=== PATIENT | male | born 1960 | race Caucasian/White ===

== ENCOUNTER 2022-06-17 09:16 | Inpatient (IN) | payer MEDICAID ==
[~2022-06-17] VITALS: Ht 177.8 cm; Wt 79.8 kg
[2022-06-17] MEDS ORDERED: INSULIN LANTUS (GLARGINE) 1 /0.01ml (100units/ml) SC ONE (09:45)
[2022-06-17] MEDS ORDERED: SODIUM CHLORIDE 0.9% 1,000 ML IV SCH ×3 (09:45→15:45)
[2022-06-17] MEDS ORDERED: PIPERACILLIN-TAZOB 3.375GM 100 ML IV ONE (09:45)
[2022-06-17] MEDS ORDERED: CLINDAMYCIN 600MG IV 50 ML IV ONE (09:45)
[2022-06-17] MEDS ORDERED: InsuLIN R (HUMAN) 100 UNITS in SODIUM CHL 0.9% 99 ML IV SCH (09:45)
[2022-06-17] MEDS ORDERED: DEXTROSE (50%) 50ML SYRG IV PRN ×2 (09:45→11:30)
[2022-06-17 10:05] LABS: Eosinophils # (auto) 0 10 ^3/uL (0-0.8); Hemoglobin 12.7 g/dL (13.5-17.5); Lymphocytes % (auto) 6.4 % (10.0-50.0); Red Cell Distribution Width 14.3 % (11.8-14.3)
[2022-06-17 10:07] LABS: Basophils # (auto) 0 10 ^3/uL (0-0.2); Basophils % (auto) 0.2 % (0.0-2.0); Eosinophils % (auto) 0.1 % (0.0-7.0); Hematocrit 39.7 % (41.0-53.0); Lymphocytes # (auto) 1.4 10 ^3/uL (0.4-5.4); Mean Corpuscular Hemoglobin 26.8 pg (28.0-32.0); Mean Corpuscular Volume 83.8 fL (80.0-100.0); Monocytes # (auto) 1.2 10 ^3/uL (0-1.3); Monocytes % (auto) 5.4 % (0.0-12.0); Neutrophils # (auto) 19.7 10 ^3/uL (1.6-8.6); Neutrophils % (auto) 87.9 % (37.0-80.0); Nucleated Red Blood Cells % 0.1 %; Red Blood Cells 4.74 10^6/uL (4.5-5.90); White Blood Cell 22.4 10^3/uL (4.4-10.8)
[2022-06-17] MEDS ORDERED: ACCU-CHEK COMFORT CURVE STRIP VI SCH (10:30)
[2022-06-17] MEDS ORDERED: PANTOPRAZOLE 40 MG/10 ML VIAL INJ IV ONE (10:30)
[2022-06-17] MEDS ORDERED: SODIUM CHLORIDE 0.9% 2,000 ML IV ONE (10:30)
[2022-06-17 10:34] LABS: BUN/Creatinine Ratio 35.6; Calcium 9.8 mg/dL (8.5-10.1); Magnesium 2.6 mg/dL (1.6-2.6); Phosphorus 3.3 mg/dL (2.5-4.90); Potassium 3.8 mmol/L (3.5-5.1)
[2022-06-17 10:43] LABS: Lactic Acid w/Reflex 3.2 mmol/L (0.4-2.0)
[2022-06-17 10:56] LABS: Cholesterol 86 mg/dL (< 200); Triglycerides 151 mg/dL (< 150)
[2022-06-17 10:58] LABS: HDL Cholesterol 12 mg/dL (40-59); LDL Cholesterol 56 mg/dL (< 100)
[2022-06-17] MEDS ORDERED: NITROGLYCERIN 0.4 MG SL TAB SL PRN (11:15)
[2022-06-17] MEDS ORDERED: MORPHINE SULFATE INJ 2 MG/ml SYRG IV PRN (11:15)
[2022-06-17] MEDS ORDERED: ACETAMINOPHEN 325 MG TAB PO PRN (11:15)
[2022-06-17] MEDS: ASCORBIC ACID 500 MG TAB PO SCH ×2 (11:25→22:22)
[2022-06-17] MEDS: ZINC SULFATE 220mg CAP or TAB PO SCH (11:53)
[2022-06-17] MEDS: MULTIPLE VITAMIN TAB PO SCH (11:53)
[2022-06-17] MEDS: ACCU-CHEK COMFORT CURVE STRIP VI SCH ×3 (12:10→22:23)
[2022-06-17] MEDS: InsuLIN REG 1unit/0.01ml Soln (100units/ml) SC SCH ×3 (12:14→22:25)
[2022-06-17] MEDS: SODIUM CHLORIDE 0.9% 1,000 ML IV SCH ×2 (13:24→18:30)
[2022-06-17 16:53] LABS: Lactic Acid w/Reflex 2.5 mmol/L (0.4-2.0)
[2022-06-17 18:32] LABS: Urine Amorphous Crystal FEW /hpf (None Seen); Urine Bacteria NONE SEEN /hpf (None Seen); Urine Blood TRACE /uL (Negative); Urine Mucus FEW (None Seen); Urine Specific Gravity 1.029 (1.001-1.035); Urine WBC 2 /hpf (0 - 3)
[2022-06-17] MEDS: CLINDAMYCIN 600MG IV 50 ML IV SCH (18:34)
[2022-06-17 18:44] LABS: Alcohol, Urine < 3.0 mg/dL (0-10); Amphetamine Screen, Urine NEGATIVE (NEGATIVE); Barbiturate Scree,Urine NEGATIVE (NEGATIVE); Benzodiazephine Screen, Urine NEGATIVE (NEGATIVE); Cannabinoid Screen, Urine NEGATIVE (NEGATIVE); Cocaine Screen, Urine NEGATIVE (NEGATIVE); Opiate Scree,Urine NEGATIVE (NEGATIVE); Phencyclidine Screen, Urine NEGATIVE (NEGATIVE)
[2022-06-18] MEDS: CLINDAMYCIN 600MG IV 50 ML IV SCH ×3 (02:02→19:02)
[2022-06-18] MEDS: SODIUM CHLORIDE 0.9% 1,000 ML IV SCH ×2 (02:03→10:30)
[2022-06-18 06:32] LABS: Basophils # (auto) 0 10 ^3/uL (0-0.2); Basophils % (auto) 0.1 % (0.0-2.0); Eosinophils # (auto) 0.1 10 ^3/uL (0-0.8); Eosinophils % (auto) 0.2 % (0.0-7.0); Hematocrit 34.3 % (41.0-53.0); Hemoglobin 11.2 g/dL (13.5-17.5); Lymphocytes # (auto) 2.1 10 ^3/uL (0.4-5.4); Mean Corpuscular Hgb Conc. 32.7 g/dL (32.0-36.0); Mean Corpuscular Volume 82.7 fL (80.0-100.0); Monocytes # (auto) 1.9 10 ^3/uL (0-1.3); Monocytes % (auto) 7.6 % (0.0-12.0); Neutrophils # (auto) 21.6 10 ^3/uL (1.6-8.6); Neutrophils % (auto) 84.1 % (37.0-80.0); Red Blood Cells 4.15 10^6/uL (4.5-5.90); Red Cell Distribution Width 14.3 % (11.8-14.3); White Blood Cell 25.6 10^3/uL (4.4-10.8)
[2022-06-18] MEDS: ACCU-CHEK COMFORT CURVE STRIP VI SCH ×4 (06:49→22:00)
[2022-06-18] MEDS: InsuLIN REG 1unit/0.01ml Soln (100units/ml) SC SCH ×4 (06:49→22:35)
[2022-06-18 07:14] LABS: Potassium 3.4 mmol/L (3.5-5.1)
[2022-06-18 07:29] LABS: Albumin 1.7 g/dL (3.4-5.0); BUN/Creatinine Ratio 35.2; Bilirubin, Total 0.5 mg/dL (0.2-1.0); Total Protein 6.8 g/dL (6.4-8.2)
[2022-06-18] MEDS ORDERED: ENOXAPARIN SOD 40 MG/0.4 ML SYRINGE SC SCH (10:00)
[2022-06-18] MEDS: MULTIPLE VITAMIN TAB PO SCH (10:54)
[2022-06-18] MEDS: PANTOPRAZOLE 40 MG/10 ML VIAL INJ IV SCH (10:54)
[2022-06-18] MEDS: ASCORBIC ACID 500 MG TAB PO SCH ×2 (10:54→22:00)
[2022-06-18] MEDS: ENOXAPARIN SOD 40 MG/0.4 ML SYRINGE SC SCH (10:54)
[2022-06-18] MEDS: ZINC SULFATE 220mg CAP or TAB PO SCH (10:54)
[2022-06-18] MEDS ORDERED: POTASSIUM EFFERVESENT TAB 25 MEQ PO ONE (11:00)
[2022-06-18] MEDS: INSULIN LANTUS (GLARGINE) 1 /0.01ml (100units/ml) SC SCH (11:34)
[2022-06-18] MEDS: PIPERACILLIN-TAZOB 3.375GM 100 ML IV SCH ×2 (12:50→23:18)
[2022-06-18] MEDS: SOD CHL 0.9%/ KCL 40MEQ 1,000 ML IV SCH (15:01)
[2022-06-19] MEDS: CLINDAMYCIN 600MG IV 50 ML IV SCH ×2 (02:52→10:00)
[2022-06-19] MEDS: SOD CHL 0.9%/ KCL 40MEQ 1,000 ML IV SCH ×3 (04:19→12:35)
[2022-06-19] MEDS: PIPERACILLIN-TAZOB 3.375GM 100 ML IV SCH ×3 (04:20→12:35)
[2022-06-19 06:14] LABS: Albumin 1.5 g/dL (3.4-5.0); BUN/Creatinine Ratio 20.3; Bilirubin, Total 0.5 mg/dL (0.2-1.0); Calcium 8.6 mg/dL (8.5-10.1); Potassium 4.1 mmol/L (3.5-5.1); Total Protein 6.6 g/dL (6.4-8.2)
[2022-06-19] MEDS: ACCU-CHEK COMFORT CURVE STRIP VI SCH ×4 (07:03→22:00)
[2022-06-19] MEDS: InsuLIN REG 1unit/0.01ml Soln (100units/ml) SC SCH ×4 (07:03→23:21)
[2022-06-19 07:05] LABS: Basophils # (auto) 0.1 10 ^3/uL (0-0.2); Basophils % (auto) 0.2 % (0.0-2.0); Eosinophils # (auto) 0.3 10 ^3/uL (0-0.8); Eosinophils % (auto) 0.9 % (0.0-7.0); Hematocrit 34.3 % (41.0-53.0); Hemoglobin 11.3 g/dL (13.5-17.5); Lymphocytes # (auto) 2.3 10 ^3/uL (0.4-5.4); Lymphocytes % (auto) 8.1 % (10.0-50.0); Mean Corpuscular Hgb Conc. 32.8 g/dL (32.0-36.0); Mean Corpuscular Volume 82.3 fL (80.0-100.0); Monocytes # (auto) 1.6 10 ^3/uL (0-1.3); Monocytes % (auto) 5.7 % (0.0-12.0); Neutrophils # (auto) 23.9 10 ^3/uL (1.6-8.6); Neutrophils % (auto) 85.1 % (37.0-80.0); Red Blood Cells 4.17 10^6/uL (4.5-5.90); Red Cell Distribution Width 14.8 % (11.8-14.3); White Blood Cell 28.1 10^3/uL (4.4-10.8)
[2022-06-19] MEDS ORDERED: LIDOCAINE VISCOUS 2% 15ML UD PO ONE (10:00)
[2022-06-19] MEDS: ASCORBIC ACID 500 MG TAB PO SCH ×2 (10:00→22:40)
[2022-06-19] MEDS ORDERED: MIDAZOLAM HCL 2MG/2ML 2ml VIAL (1mg/ml) IV ONE (10:00)
[2022-06-19] MEDS ORDERED: diphenhdrAMINE HCL 50 MG/1 ML VL IV ONE (10:00)
[2022-06-19] MEDS: ASPirin 81 mg TAB PO SCH (10:00)
[2022-06-19] MEDS: ENOXAPARIN SOD 40 MG/0.4 ML SYRINGE SC SCH (10:00)
[2022-06-19] MEDS: MULTIPLE VITAMIN TAB PO SCH (10:00)
[2022-06-19] MEDS: ZINC SULFATE 220mg CAP or TAB PO SCH (10:00)
[2022-06-19] MEDS: PANTOPRAZOLE 40 MG/10 ML VIAL INJ IV SCH (10:00)
[2022-06-19] MEDS ORDERED: ONDANSETRON HCL 4 MG/2 ML VIAL IV ONE (10:00)
[2022-06-19] MEDS ORDERED: fentaNYL CITRATE 100 MCG/2 ML VL IV ONE (10:00)
[2022-06-19] MEDS: INSULIN LANTUS (GLARGINE) 1 /0.01ml (100units/ml) SC SCH (11:52)
[2022-06-19 12:50] LABS: INR 1.3 (0.9-1.15); Partial Thromboplastin Time 29.1 sec (24.6-33.4)
[2022-06-19] MEDS: SOD CHL 0.45% WITH 20MEQ KCL 1,000 ML IV SCH ×2 (14:08→23:23)
[2022-06-19] MEDS: AMPICILLIN & SULBACTAM SODIUM 3 GM in SODIUM CHL 0.9% 100 ML IV SCH ×2 (14:34→18:30)
[2022-06-19] MEDS ORDERED: ENOXAPARIN SOD 80 MG/0.8ML SYRINGE SC ONE (16:15)
[2022-06-19 17:00] VITALS: BP 113/67
[2022-06-19] MEDS: ENOXAPARIN SOD 80 MG/0.8ML SYRINGE SC SCH (22:40)
[2022-06-19] MEDS: ATORVASTATIN 20 MG TAB PO SCH (22:40)
[2022-06-20] VITALS (8 sets, daily range): BP systolic 113–133; BP diastolic 64–79
[2022-06-20] MEDS: AMPICILLIN & SULBACTAM SODIUM 3 GM in SODIUM CHL 0.9% 100 ML IV SCH ×4 (01:16→20:51)
[2022-06-20 05:39] LABS: Eosinophils # (auto) 0.3 10 ^3/uL (0-0.8); Eosinophils % (auto) 1.2 % (0.0-7.0); Lymphocytes # (auto) 2.4 10 ^3/uL (0.4-5.4); Monocytes # (auto) 1.5 10 ^3/uL (0-1.3); Monocytes % (auto) 6.4 % (0.0-12.0); Nucleated Red Blood Cells % 0.1 %
[2022-06-20 05:41] LABS: Basophils # (auto) 0 10 ^3/uL (0-0.2); Basophils % (auto) 0.2 % (0.0-2.0); Hematocrit 32.1 % (41.0-53.0); Hemoglobin 10.4 g/dL (13.5-17.5); Lymphocytes % (auto) 10.2 % (10.0-50.0); Mean Corpuscular Hemoglobin 26.8 pg (28.0-32.0); Mean Corpuscular Hgb Conc. 32.6 g/dL (32.0-36.0); Mean Corpuscular Volume 82.3 fL (80.0-100.0); Red Cell Distribution Width 14.5 % (11.8-14.3); White Blood Cell 23.2 10^3/uL (4.4-10.8)
[2022-06-20 05:55] LABS: INR 1.4 (0.9-1.15)
[2022-06-20 06:20] LABS: Albumin 1.3 g/dL (3.4-5.0); BUN/Creatinine Ratio 18.9; Bilirubin, Total 0.5 mg/dL (0.2-1.0); Calcium 7.8 mg/dL (8.5-10.1); Total Protein 5.9 g/dL (6.4-8.2)
[2022-06-20] MEDS: ACCU-CHEK COMFORT CURVE STRIP VI SCH ×4 (06:29→22:22)
[2022-06-20] MEDS: InsuLIN REG 1unit/0.01ml Soln (100units/ml) SC SCH ×4 (06:29→22:25)
[2022-06-20] MEDS: INSULIN LANTUS (GLARGINE) 1 /0.01ml (100units/ml) SC SCH (09:56)
[2022-06-20] MEDS: ENOXAPARIN SOD 80 MG/0.8ML SYRINGE SC SCH ×2 (10:00→22:16)
[2022-06-20] MEDS: ZINC SULFATE 220mg CAP or TAB PO SCH (10:00)
[2022-06-20] MEDS: MULTIPLE VITAMIN TAB PO SCH (10:00)
[2022-06-20] MEDS: ASCORBIC ACID 500 MG TAB PO SCH ×2 (10:00→22:16)
[2022-06-20] MEDS: ASPirin 81 mg TAB PO SCH (10:01)
[2022-06-20] MEDS: SOD CHL 0.45% WITH 20MEQ KCL 1,000 ML IV SCH ×2 (10:02→19:00)
[2022-06-20] MEDS ORDERED: SODIUM CHL 0.9% 0 ML ONE (14:25)
[2022-06-20] MEDS ORDERED: MIDAZOLAM HCL 2MG/2ML 2ml VIAL (1mg/ml) ONE (14:25)
[2022-06-20] MEDS ORDERED: ANGIOMAX 250 MG VIAL IV ONE (14:25)
[2022-06-20] MEDS ORDERED: fentaNYL CITRATE 100 MCG/2 ML VL ONE (14:25)
[2022-06-20] MEDS ORDERED: IODIXANOL 320MG/ML 100ML BTL IV ONE ×2 (14:26→14:41)
[2022-06-20] MEDS ORDERED: VANCOMYCIN PER PHARMACY 0 MG IV SCH (16:00)
[2022-06-20] MEDS: HYDROcodone-ACET 5/325MG TAB PO PRN (16:11)
[2022-06-20] MEDS ORDERED: VANCOMYCIN 1GM/250ML 250 ML IV SCH (17:00)
[2022-06-20] MEDS: VANCOMYCIN 1GM/250ML 250 ML IV SCH (18:36)
[2022-06-20] MEDS: ATORVASTATIN 20 MG TAB PO SCH (22:16)
[2022-06-21] MEDS: AMPICILLIN & SULBACTAM SODIUM 3 GM in SODIUM CHL 0.9% 100 ML IV SCH ×4 (01:09→19:01)
[2022-06-21] MEDS: VANCOMYCIN 1GM/250ML 250 ML IV SCH ×2 (04:05→14:00)
[2022-06-21 05:13] VITALS: BP 113/65
[2022-06-21 05:59] LABS: Urine Bacteria FEW /hpf (None Seen); Urine Blood TRACE /uL (Negative); Urine Mucus FEW (None Seen); Urine Specific Gravity 1.031 (1.001-1.035); Urine WBC 2 /hpf (0 - 3)
[2022-06-21] MEDS: SOD CHL 0.45% WITH 20MEQ KCL 1,000 ML IV SCH ×2 (06:28→18:26)
[2022-06-21] MEDS: ACCU-CHEK COMFORT CURVE STRIP VI SCH ×4 (06:28→21:56)
[2022-06-21] MEDS: InsuLIN REG 1unit/0.01ml Soln (100units/ml) SC SCH ×4 (06:30→21:57)
[2022-06-21 06:55] LABS: INR 1.29 (0.9-1.15); Partial Thromboplastin Time 30.3 sec (24.6-33.4)
[2022-06-21 07:00] LABS: Basophils # (auto) 0.1 10 ^3/uL (0-0.2); Basophils % (auto) 0.6 % (0.0-2.0); Eosinophils # (auto) 0.2 10 ^3/uL (0-0.8); Hematocrit 38.1 % (41.0-53.0); Hemoglobin 12.3 g/dL (13.5-17.5); Lymphocytes # (auto) 2.1 10 ^3/uL (0.4-5.4); Lymphocytes % (auto) 8.6 % (10.0-50.0); Mean Corpuscular Hemoglobin 26.3 pg (28.0-32.0); Mean Corpuscular Hgb Conc. 32.3 g/dL (32.0-36.0); Mean Corpuscular Volume 81.5 fL (80.0-100.0); Monocytes # (auto) 1.3 10 ^3/uL (0-1.3); Monocytes % (auto) 5.2 % (0.0-12.0); Neutrophils # (auto) 20.5 10 ^3/uL (1.6-8.6); Neutrophils % (auto) 84.6 % (37.0-80.0); Red Blood Cells 4.67 10^6/uL (4.5-5.90); Red Cell Distribution Width 14.7 % (11.8-14.3); White Blood Cell 24.2 10^3/uL (4.4-10.8)
[2022-06-21 07:03] LABS: Chloride 102 mmol/L (98-107); Potassium 4.4 mmol/L (3.5-5.1); Sodium 133 mmol/L (136-145)
[2022-06-21 07:18] LABS: Albumin 1.2 g/dL (3.4-5.0); Anion Gap 5 (5-15); Blood Urea Nitrogen 8 mg/dL (7-18); Calcium 7.9 mg/dL (8.5-10.1); Carbon Dioxide 26 mmol/L (21-32); GFR African American 186 mL/min; GFR Non-African American 153 mL/min; Glucose 221 mg/dL (74-106)
[2022-06-21 07:21] LABS: Alanine Aminotransferase 11 U/L (16-61); Alkaline Phosphatase 95 U/L (45-117); Aspartate Aminotransferase 16 U/L (15-37); Bilirubin, Total 0.4 mg/dL (0.2-1.0); Total Protein 6.6 g/dL (6.4-8.2)
[2022-06-21 09:00] VITALS: BP 143/73
[2022-06-21] MEDS: INSULIN LANTUS (GLARGINE) 1 /0.01ml (100units/ml) SC SCH (09:11)
[2022-06-21] MEDS: ASCORBIC ACID 500 MG TAB PO SCH ×2 (10:00→21:44)
[2022-06-21] MEDS: ENOXAPARIN SOD 80 MG/0.8ML SYRINGE SC SCH ×2 (10:00→21:57)
[2022-06-21] MEDS: MULTIPLE VITAMIN TAB PO SCH (10:00)
[2022-06-21] MEDS: ASPirin 81 mg TAB PO SCH (10:00)
[2022-06-21] MEDS: ZINC SULFATE 220mg CAP or TAB PO SCH (10:00)
[2022-06-21] MEDS ORDERED: LIDOCAINE 1%HCL (LOCAL ANESTH) 10 ML MDV ONE (10:40)
[2022-06-21] MEDS ORDERED: BUPIVACAINE HCL 50 ML ONE (10:40)
[2022-06-21] MEDS ORDERED: PROPOFOL 10 MG/ML 20 ML IV ONE ×2 (11:41→13:24)
[2022-06-21] MEDS ORDERED: fentaNYL CITRATE 100 MCG/2 ML VL ONE (11:41)
[2022-06-21] MEDS ORDERED: DexAMETHasone SOD PHOS 10MG/1ML VIAL INJ ONE (11:41)
[2022-06-21] MEDS ORDERED: SODIUM CHLORIDE LOCK 10 ML ONE (11:41)
[2022-06-21] MEDS ORDERED: MIDAZOLAM HCL 2MG/2ML 2ml VIAL (1mg/ml) ONE (11:41)
[2022-06-21] MEDS ORDERED: ONDANSETRON HCL 4 MG/2 ML VIAL ONE (11:41)
[2022-06-21] MEDS ORDERED: METOCLOPRAMIDE HCL 5MG/ml INJ 2ml VIAL IV PRN (11:45)
[2022-06-21] MEDS ORDERED: MORPHINE SULFATE INJ 2 MG/ml SYRG IV PRN (11:45)
[2022-06-21] MEDS ORDERED: HYDROmorphone HCL 2 MG/ML VL/or syr IV PRN ×2 (11:45)
[2022-06-21] MEDS ORDERED: ceFAZolin 1GM/50ML 100 ML IV ONE (12:19)
[2022-06-21] MEDS: HYDROcodone-ACET 5/325MG TAB PO PRN (14:53)
[2022-06-21 16:36] VITALS: BP 141/74
[2022-06-21] MEDS: ATORVASTATIN 20 MG TAB PO SCH (21:44)
[2022-06-21 22:00] VITALS: BP 136/74
[2022-06-22] MEDS: VANCOMYCIN 1GM/250ML 250 ML IV SCH ×3 (00:11→17:41)
[2022-06-22] MEDS: SOD CHL 0.45% WITH 20MEQ KCL 1,000 ML IV SCH ×3 (01:00→21:00)
[2022-06-22] MEDS: AMPICILLIN & SULBACTAM SODIUM 3 GM in SODIUM CHL 0.9% 100 ML IV SCH ×4 (01:14→19:04)
[2022-06-22 05:00] VITALS: BP 111/66
[2022-06-22 06:24] LABS: Hematocrit 30.8 % (41.0-53.0); Mean Corpuscular Hemoglobin 26.8 pg (28.0-32.0); Mean Corpuscular Hgb Conc. 32.4 g/dL (32.0-36.0); Mean Corpuscular Volume 82.7 fL (80.0-100.0); Red Blood Cells 3.73 10^6/uL (4.5-5.90); Red Cell Distribution Width 14.6 % (11.8-14.3); White Blood Cell 29.2 10^3/uL (4.4-10.8)
[2022-06-22 06:27] LABS: Basophils % (manual) 0 (0.0-2.0); Blast Cells 0; Metamyelocytes % 0; Myelocytes % 0; Promyelocytes % 0; Reactive Lymphocytes 0
[2022-06-22 06:29] LABS: Albumin 1.1 g/dL (3.4-5.0); BUN/Creatinine Ratio 12.8; Calcium 8.1 mg/dL (8.5-10.1)
[2022-06-22] MEDS: ACCU-CHEK COMFORT CURVE STRIP VI SCH ×4 (06:31→21:58)
[2022-06-22] MEDS: InsuLIN REG 1unit/0.01ml Soln (100units/ml) SC SCH ×4 (06:33→21:59)
[2022-06-22 06:42] LABS: Bilirubin, Total 0.4 mg/dL (0.2-1.0); Total Protein 6.1 g/dL (6.4-8.2)
[2022-06-22 06:50] LABS: INR 1.3 (0.9-1.15); Partial Thromboplastin Time 31.3 sec (24.6-33.4)
[2022-06-22] MEDS ORDERED: POVIDONE IODINE 10 % TOPICAL OINT 30GM TOP ONE (07:58)
[2022-06-22 08:00] VITALS: BP 113/61
[2022-06-22] MEDS ORDERED: fentaNYL CITRATE 100 MCG/2 ML VL ONE (08:10)
[2022-06-22] MEDS ORDERED: fentaNYL CITRATE 5 ML ONE (08:11)
[2022-06-22] MEDS ORDERED: ROCURONIUM 10MG/ML 10ML VIAL IV ONE (08:11)
[2022-06-22] MEDS ORDERED: MIDAZOLAM HCL 2MG/2ML 2ml VIAL (1mg/ml) ONE (08:11)
[2022-06-22] MEDS ORDERED: PROPOFOL 10 MG/ML 20 ML IV ONE (08:13)
[2022-06-22] MEDS ORDERED: LIDOCAINE 2% (LOCAL ANESTH.) PF 5ml SDV ONE (08:13)
[2022-06-22 08:55] LABS: Band Neutrophils % (manual) 19; Eosinophils % (manual) 1 (0-7); Lymphocytes % (manual) 5 (10.0-50.0); Monocytes % (manual) 8 (0-12)
[2022-06-22] MEDS ORDERED: HYDROmorphone HCL 2 MG/ML VL/or syr IV PRN ×2 (09:30→11:30)
[2022-06-22] MEDS ORDERED: ONDANSETRON HCL 4 MG/2 ML VIAL IV PRN (09:30)
[2022-06-22] MEDS: INSULIN LANTUS (GLARGINE) 1 /0.01ml (100units/ml) SC SCH (10:00)
[2022-06-22] MEDS: ENOXAPARIN SOD 80 MG/0.8ML SYRINGE SC SCH ×2 (10:00→21:27)
[2022-06-22] MEDS: ASCORBIC ACID 500 MG TAB PO SCH ×2 (10:00→21:27)
[2022-06-22] MEDS: ZINC SULFATE 220mg CAP or TAB PO SCH (10:00)
[2022-06-22] MEDS: ASPirin 81 mg TAB PO SCH (10:00)
[2022-06-22] MEDS: MULTIPLE VITAMIN TAB PO SCH (10:00)
[2022-06-22] MEDS ORDERED: ONDANSETRON HCL 4 MG/2 ML VIAL ONE (10:57)
[2022-06-22] MEDS: HYDROmorphone HCL 2 MG/ML VL/or syr IV PRN ×2 (11:37→11:52)
[2022-06-22] MEDS: MORPHINE SULFATE INJ 2 MG/ml SYRG IV PRN ×2 (14:55→21:25)
[2022-06-22 16:00] VITALS: BP 111/67
[2022-06-22] MEDS: ATORVASTATIN 20 MG TAB PO SCH (21:26)
[2022-06-22 22:00] VITALS: BP 131/72
[2022-06-23] VITALS (7 sets, daily range): BP systolic 106–122; BP diastolic 62–72
[2022-06-23] MEDS: MORPHINE SULFATE INJ 2 MG/ml SYRG IV PRN ×3 (00:38→19:56)
[2022-06-23] MEDS: AMPICILLIN & SULBACTAM SODIUM 3 GM in SODIUM CHL 0.9% 100 ML IV SCH ×4 (00:45→18:37)
[2022-06-23] MEDS: VANCOMYCIN 1GM/250ML 250 ML IV SCH ×3 (01:47→17:20)
[2022-06-23] MEDS: HYDROcodone-ACET 5/325MG TAB PO PRN ×2 (01:49→06:14)
[2022-06-23] MEDS: SOD CHL 0.45% WITH 20MEQ KCL 1,000 ML IV SCH (06:15)
[2022-06-23 06:19] LABS: Hemoglobin 9.3 g/dL (13.5-17.5); Mean Corpuscular Volume 82.3 fL (80.0-100.0)
[2022-06-23 06:20] LABS: Hematocrit 28.6 % (41.0-53.0); Mean Corpuscular Hemoglobin 26.8 pg (28.0-32.0); Mean Corpuscular Hgb Conc. 32.5 g/dL (32.0-36.0); Red Blood Cells 3.48 10^6/uL (4.5-5.90); Red Cell Distribution Width 14.6 % (11.8-14.3); White Blood Cell 27.8 10^3/uL (4.4-10.8)
[2022-06-23 06:31] LABS: Calcium 7.5 mg/dL (8.5-10.1)
[2022-06-23 06:33] LABS: BUN/Creatinine Ratio 13.5
[2022-06-23] MEDS: ACCU-CHEK COMFORT CURVE STRIP VI SCH ×4 (06:42→22:31)
[2022-06-23] MEDS: InsuLIN REG 1unit/0.01ml Soln (100units/ml) SC SCH ×4 (06:43→22:30)
[2022-06-23 06:58] LABS: Basophils % (manual) 0 (0.0-2.0); Blast Cells 0; Eosinophils % (manual) 0 (0-7); Metamyelocytes % 0; Myelocytes % 0; Promyelocytes % 0; Reactive Lymphocytes 0
[2022-06-23 09:02] LABS: Band Neutrophils % (manual) 6; Lymphocytes % (manual) 9 (10.0-50.0); Monocytes % (manual) 2 (0-12)
[2022-06-23] MEDS: ASPirin 81 mg TAB PO SCH (10:22)
[2022-06-23] MEDS: ZINC SULFATE 220mg CAP or TAB PO SCH (10:22)
[2022-06-23] MEDS: MULTIPLE VITAMIN TAB PO SCH (10:22)
[2022-06-23] MEDS: ASCORBIC ACID 500 MG TAB PO SCH ×2 (10:22→19:55)
[2022-06-23] MEDS: ENOXAPARIN SOD 80 MG/0.8ML SYRINGE SC SCH ×2 (10:23→19:55)
[2022-06-23] MEDS: LACTATED RINGER'S 1,000 ML IV SCH ×2 (10:30→18:37)
[2022-06-23] MEDS: INSULIN LANTUS (GLARGINE) 1 /0.01ml (100units/ml) SC SCH (10:43)
[2022-06-23] MEDS: ATORVASTATIN 20 MG TAB PO SCH (19:55)
[2022-06-24] MEDS: AMPICILLIN & SULBACTAM SODIUM 3 GM in SODIUM CHL 0.9% 100 ML IV SCH ×3 (00:40→20:49)
[2022-06-24] MEDS: VANCOMYCIN 1GM/250ML 250 ML IV SCH ×3 (00:41→17:00)
[2022-06-24] MEDS: LACTATED RINGER'S 1,000 ML IV SCH ×3 (00:45→16:45)
[2022-06-24 05:03] VITALS: BP 107/62
[2022-06-24] MEDS: InsuLIN REG 1unit/0.01ml Soln (100units/ml) SC SCH ×4 (05:50→22:25)
[2022-06-24] MEDS: ACCU-CHEK COMFORT CURVE STRIP VI SCH ×4 (05:50→22:10)
[2022-06-24 06:21] LABS: Eosinophils # (auto) 0.3 10 ^3/uL (0-0.8); Eosinophils % (auto) 1.2 % (0.0-7.0); Lymphocytes # (auto) 1.9 10 ^3/uL (0.4-5.4); Neutrophils # (auto) 22.4 10 ^3/uL (1.6-8.6)
[2022-06-24 06:23] LABS: Basophils # (auto) 0.2 10 ^3/uL (0-0.2); Basophils % (auto) 0.6 % (0.0-2.0); Hematocrit 25.2 % (41.0-53.0); Lymphocytes % (auto) 7.2 % (10.0-50.0); Mean Corpuscular Hemoglobin 26.1 pg (28.0-32.0); Mean Corpuscular Hgb Conc. 31.8 g/dL (32.0-36.0); Mean Corpuscular Volume 82.2 fL (80.0-100.0); Monocytes # (auto) 2.3 10 ^3/uL (0-1.3); Monocytes % (auto) 8.3 % (0.0-12.0); Neutrophils % (auto) 82.7 % (37.0-80.0); Red Blood Cells 3.07 10^6/uL (4.5-5.90); Red Cell Distribution Width 14.6 % (11.8-14.3); White Blood Cell 27.1 10^3/uL (4.4-10.8)
[2022-06-24 06:36] LABS: Potassium 3.9 mmol/L (3.5-5.1)
[2022-06-24 06:41] LABS: Calcium 7.2 mg/dL (8.5-10.1)
[2022-06-24 08:00] VITALS: BP 109/65
[2022-06-24 09:00] VITALS: BP 114/65
[2022-06-24] MEDS: MULTIPLE VITAMIN TAB PO SCH (10:00)
[2022-06-24] MEDS: INSULIN LANTUS (GLARGINE) 1 /0.01ml (100units/ml) SC SCH (10:00)
[2022-06-24] MEDS: ZINC SULFATE 220mg CAP or TAB PO SCH (10:00)
[2022-06-24] MEDS: ASPirin 81 mg TAB PO SCH (10:00)
[2022-06-24] MEDS: ASCORBIC ACID 500 MG TAB PO SCH ×2 (10:00→22:25)
[2022-06-24] MEDS: ENOXAPARIN SOD 80 MG/0.8ML SYRINGE SC SCH ×2 (10:00→22:25)
[2022-06-24 13:00] VITALS: BP 109/61
[2022-06-24 17:00] VITALS: BP 124/71
[2022-06-24] MEDS: HYDROcodone-ACET 5/325MG TAB PO PRN (20:52)
[2022-06-24 22:00] VITALS: BP 129/66
[2022-06-24] MEDS: ATORVASTATIN 20 MG TAB PO SCH (22:25)
[2022-06-25] MEDS: LACTATED RINGER'S 1,000 ML IV SCH ×3 (00:23→16:45)
[2022-06-25] MEDS: VANCOMYCIN 1GM/250ML 250 ML IV SCH ×3 (01:32→17:13)
[2022-06-25 05:00] VITALS: BP 107/67
[2022-06-25] MEDS: AMPICILLIN & SULBACTAM SODIUM 3 GM in SODIUM CHL 0.9% 100 ML IV SCH ×5 (06:04→18:28)
[2022-06-25] MEDS: ACCU-CHEK COMFORT CURVE STRIP VI SCH ×4 (06:08→21:29)
[2022-06-25] MEDS: InsuLIN REG 1unit/0.01ml Soln (100units/ml) SC SCH ×4 (07:00→21:36)
[2022-06-25 09:00] VITALS: BP 123/70
[2022-06-25] MEDS: INSULIN LANTUS (GLARGINE) 1 /0.01ml (100units/ml) SC SCH (10:51)
[2022-06-25] MEDS: ENOXAPARIN SOD 80 MG/0.8ML SYRINGE SC SCH ×2 (10:52→21:39)
[2022-06-25] MEDS: ASCORBIC ACID 500 MG TAB PO SCH ×2 (10:52→21:39)
[2022-06-25] MEDS: MULTIPLE VITAMIN TAB PO SCH (10:52)
[2022-06-25] MEDS: ASPirin 81 mg TAB PO SCH (10:53)
[2022-06-25] MEDS: ZINC SULFATE 220mg CAP or TAB PO SCH (10:54)
[2022-06-25 13:00] VITALS: BP 120/61
[2022-06-25 17:00] VITALS: BP 112/77
[2022-06-25] MEDS: ATORVASTATIN 20 MG TAB PO SCH (21:39)
[2022-06-25] MEDS: HYDROcodone-ACET 5/325MG TAB PO PRN (21:46)
[2022-06-25 22:00] VITALS: BP 111/59
[2022-06-26] MEDS: AMPICILLIN & SULBACTAM SODIUM 3 GM in SODIUM CHL 0.9% 100 ML IV SCH ×4 (00:23→18:45)
[2022-06-26] MEDS: LACTATED RINGER'S 1,000 ML IV SCH ×3 (00:45→12:15)
[2022-06-26] MEDS: VANCOMYCIN 1GM/250ML 250 ML IV SCH ×3 (01:40→17:06)
[2022-06-26 05:00] VITALS: BP 117/61
[2022-06-26] MEDS: ACCU-CHEK COMFORT CURVE STRIP VI SCH ×4 (06:39→21:55)
[2022-06-26] MEDS: InsuLIN REG 1unit/0.01ml Soln (100units/ml) SC SCH ×4 (06:39→21:59)
[2022-06-26 08:30] VITALS: BP 127/66
[2022-06-26] MEDS: ASCORBIC ACID 500 MG TAB PO SCH ×2 (09:21→22:01)
[2022-06-26] MEDS: ENOXAPARIN SOD 80 MG/0.8ML SYRINGE SC SCH ×2 (09:21→22:02)
[2022-06-26] MEDS: ZINC SULFATE 220mg CAP or TAB PO SCH (09:21)
[2022-06-26] MEDS: MULTIPLE VITAMIN TAB PO SCH (09:21)
[2022-06-26] MEDS: ASPirin 81 mg TAB PO SCH (09:21)
[2022-06-26] MEDS: INSULIN LANTUS (GLARGINE) 1 /0.01ml (100units/ml) SC SCH (09:22)
[2022-06-26 12:25] VITALS: BP 121/70
[2022-06-26 16:20] VITALS: BP 113/69
[2022-06-26 22:00] VITALS: BP 113/76
[2022-06-26] MEDS: ATORVASTATIN 20 MG TAB PO SCH (22:01)
[2022-06-26] MEDS: HYDROcodone-ACET 5/325MG TAB PO PRN (22:03)
[2022-06-27] MEDS: AMPICILLIN & SULBACTAM SODIUM 3 GM in SODIUM CHL 0.9% 100 ML IV SCH ×4 (00:02→18:53)
[2022-06-27] MEDS: VANCOMYCIN 1GM/250ML 250 ML IV SCH ×3 (01:55→17:35)
[2022-06-27 05:00] VITALS: BP 114/75
[2022-06-27] MEDS: ACCU-CHEK COMFORT CURVE STRIP VI SCH ×4 (06:15→22:03)
[2022-06-27] MEDS: InsuLIN REG 1unit/0.01ml Soln (100units/ml) SC SCH ×4 (06:43→22:02)
[2022-06-27 08:05] LABS: Basophils # (auto) 0.1 10 ^3/uL (0-0.2); Mean Corpuscular Hemoglobin 26.5 pg (28.0-32.0)
[2022-06-27 08:07] LABS: Basophils % (auto) 0.7 % (0.0-2.0); Eosinophils # (auto) 0.6 10 ^3/uL (0-0.8); Eosinophils % (auto) 2.8 % (0.0-7.0); Hematocrit 26.2 % (41.0-53.0); Hemoglobin 8.5 g/dL (13.5-17.5); Lymphocytes # (auto) 1.2 10 ^3/uL (0.4-5.4); Lymphocytes % (auto) 6.1 % (10.0-50.0); Mean Corpuscular Hgb Conc. 32.7 g/dL (32.0-36.0); Mean Corpuscular Volume 81.3 fL (80.0-100.0); Neutrophils # (auto) 17.1 10 ^3/uL (1.6-8.6); Neutrophils % (auto) 85.4 % (37.0-80.0); Red Blood Cells 3.22 10^6/uL (4.5-5.90); Red Cell Distribution Width 14.6 % (11.8-14.3)
[2022-06-27] MEDS: LACTATED RINGER'S 1,000 ML IV SCH (08:15)
[2022-06-27 08:44] LABS: BUN/Creatinine Ratio 16.7; Calcium 7.3 mg/dL (8.5-10.1); Potassium 3.9 mmol/L (3.5-5.1)
[2022-06-27 09:00] VITALS: BP 116/66
[2022-06-27] MEDS: ENOXAPARIN SOD 80 MG/0.8ML SYRINGE SC SCH (09:18)
[2022-06-27] MEDS: ASPirin 81 mg TAB PO SCH (09:19)
[2022-06-27] MEDS: ZINC SULFATE 220mg CAP or TAB PO SCH (09:19)
[2022-06-27] MEDS: ASCORBIC ACID 500 MG TAB PO SCH ×2 (09:19→21:46)
[2022-06-27] MEDS: MULTIPLE VITAMIN TAB PO SCH (09:19)
[2022-06-27] MEDS: INSULIN LANTUS (GLARGINE) 1 /0.01ml (100units/ml) SC SCH (09:20)
[2022-06-27 13:00] VITALS: BP 121/67
[2022-06-27 16:48] VITALS: BP 114/60
[2022-06-27] MEDS: ATORVASTATIN 20 MG TAB PO SCH (21:46)
[2022-06-27] MEDS: APIXABAN 5 MG TAB PO SCH (21:47)
[2022-06-27 22:00] VITALS: BP_SYST 105; BP_SYST 116; BP_DIAS 58; BP_DIAS 63
[2022-06-27] MEDS: DOCUSATE SOD 100 MG CAP PO PRN (23:11)
[2022-06-28] MEDS: AMPICILLIN & SULBACTAM SODIUM 3 GM in SODIUM CHL 0.9% 100 ML IV SCH ×5 (00:41→23:42)
[2022-06-28] MEDS: VANCOMYCIN 1GM/250ML 250 ML IV SCH ×3 (02:07→18:00)
[2022-06-28] MEDS: LACTATED RINGER'S 1,000 ML IV SCH (04:15)
[2022-06-28 05:00] VITALS: BP 118/56
[2022-06-28] MEDS: ACCU-CHEK COMFORT CURVE STRIP VI SCH ×4 (06:23→21:58)
[2022-06-28] MEDS: InsuLIN REG 1unit/0.01ml Soln (100units/ml) SC SCH ×4 (06:25→22:01)
[2022-06-28 07:10] LABS: Basophils # (auto) 0.1 10 ^3/uL (0-0.2); Basophils % (auto) 0.3 % (0.0-2.0); Eosinophils # (auto) 0.6 10 ^3/uL (0-0.8); Mean Corpuscular Volume 81.9 fL (80.0-100.0)
[2022-06-28 07:13] LABS: Eosinophils % (auto) 2.7 % (0.0-7.0); Lymphocytes # (auto) 1.3 10 ^3/uL (0.4-5.4); Lymphocytes % (auto) 5.7 % (10.0-50.0); Mean Corpuscular Hemoglobin 26.4 pg (28.0-32.0); Mean Corpuscular Hgb Conc. 32.2 g/dL (32.0-36.0); Monocytes # (auto) 0.8 10 ^3/uL (0-1.3); Monocytes % (auto) 3.6 % (0.0-12.0); Neutrophils # (auto) 20.7 10 ^3/uL (1.6-8.6); Neutrophils % (auto) 87.7 % (37.0-80.0); Red Blood Cells 3.05 10^6/uL (4.5-5.90); Red Cell Distribution Width 14.9 % (11.8-14.3); White Blood Cell 23.6 10^3/uL (4.4-10.8)
[2022-06-28 08:36] VITALS: BP 111/56
[2022-06-28 09:00] LABS: INR 1.19 (0.9-1.15)
[2022-06-28] MEDS: ZINC SULFATE 220mg CAP or TAB PO SCH (09:57)
[2022-06-28] MEDS: ASPirin 81 mg TAB PO SCH (09:57)
[2022-06-28] MEDS: ASCORBIC ACID 500 MG TAB PO SCH ×2 (09:57→21:53)
[2022-06-28] MEDS: APIXABAN 5 MG TAB PO SCH (09:58)
[2022-06-28] MEDS: MULTIPLE VITAMIN TAB PO SCH (09:58)
[2022-06-28] MEDS: INSULIN LANTUS (GLARGINE) 1 /0.01ml (100units/ml) SC SCH (10:14)
[2022-06-28 12:33] VITALS: BP 116/61
[2022-06-28] MEDS ORDERED: diphenhdrAMINE HCL 50 MG/1 ML VL IV ONE ×2 (13:30→18:00)
[2022-06-28] MEDS ORDERED: FAMOTIDINE (10MG/ML) 2ML VL IV ONE (13:30)
[2022-06-28] MEDS ORDERED: LIDOCAINE 1% (LOCAL ANESTH.) PF 5ml SDV ID ONE (13:45)
[2022-06-28 16:18] VITALS: BP 118/62
[2022-06-28] MEDS ORDERED: DexAMETHasone SOD PHOS 10MG/1ML VIAL INJ IV ONE (18:00)
[2022-06-28] MEDS: ATORVASTATIN 20 MG TAB PO SCH (21:53)
[2022-06-28] MEDS: SODIUM CHLOR 0.9% PF (SALINE LOCK) 10ML VIAL/SYR IV SCH (21:58)
[2022-06-28 22:00] VITALS: BP 121/58
[2022-06-29] MEDS: LACTATED RINGER'S 1,000 ML IV SCH (00:38)
[2022-06-29] MEDS: VANCOMYCIN 1GM/250ML 250 ML IV SCH ×2 (01:58→09:36)
[2022-06-29 05:00] VITALS: BP 116/60
[2022-06-29] MEDS: AMPICILLIN & SULBACTAM SODIUM 3 GM in SODIUM CHL 0.9% 100 ML IV SCH (05:29)
[2022-06-29] MEDS: InsuLIN REG 1unit/0.01ml Soln (100units/ml) SC SCH ×4 (06:26→21:21)
[2022-06-29] MEDS: ACCU-CHEK COMFORT CURVE STRIP VI SCH ×4 (06:28→21:05)
[2022-06-29 08:46] VITALS: BP 107/58
[2022-06-29] MEDS: ZINC SULFATE 220mg CAP or TAB PO SCH (09:34)
[2022-06-29] MEDS: ASPirin 81 mg TAB PO SCH (09:34)
[2022-06-29] MEDS: ENOXAPARIN SOD 40 MG/0.4 ML SYRINGE SC SCH (09:35)
[2022-06-29] MEDS: SODIUM CHLOR 0.9% PF (SALINE LOCK) 10ML VIAL/SYR IV SCH ×2 (09:36→21:06)
[2022-06-29] MEDS: ASCORBIC ACID 500 MG TAB PO SCH ×2 (09:37→21:06)
[2022-06-29] MEDS: MULTIPLE VITAMIN TAB PO SCH (09:37)
[2022-06-29] MEDS: INSULIN LANTUS (GLARGINE) 1 /0.01ml (100units/ml) SC SCH (09:44)
[2022-06-29] MEDS ORDERED: FAMOTIDINE INJECTION 40 MG in SODIUM CHL 0.9% 100 ML IV ONE (10:30)
[2022-06-29] MEDS: diphenhdrAMINE HCL 50 MG/1 ML VL IV SCH ×2 (12:14→17:03)
[2022-06-29] MEDS: levoFLOXacin 750MG 150 ML IV SCH (12:15)
[2022-06-29] MEDS: methylPREDNISolone SOD SUCC 125 MG/2 ML VL IV SCH ×2 (12:16→21:05)
[2022-06-29 13:00] VITALS: BP 105/55
[2022-06-29 16:30] VITALS: BP 127/63
[2022-06-29] MEDS: Pro-Stat SF 30ml Vanilla PO SCH (17:04)
[2022-06-29] MEDS: ATORVASTATIN 20 MG TAB PO SCH (21:06)
[2022-06-29 22:00] VITALS: BP 108/67
[2022-06-29] MEDS: HYDROcodone-ACET 5/325MG TAB PO PRN (23:59)
[2022-06-29] MEDS: DOCUSATE SOD 100 MG CAP PO PRN (23:59)
[2022-06-30] MEDS: diphenhdrAMINE HCL 50 MG/1 ML VL IV SCH ×2 (01:39→10:11)
[2022-06-30 05:00] VITALS: BP 134/72
[2022-06-30] MEDS: methylPREDNISolone SOD SUCC 125 MG/2 ML VL IV SCH (06:07)
[2022-06-30] MEDS: ACCU-CHEK COMFORT CURVE STRIP VI SCH ×4 (06:08→21:08)
[2022-06-30] MEDS: InsuLIN REG 1unit/0.01ml Soln (100units/ml) SC SCH ×4 (06:11→21:11)
[2022-06-30 06:42] LABS: Eosinophils # (auto) 0 10 ^3/uL (0-0.8); Eosinophils % (auto) 0.1 % (0.0-7.0); Hemoglobin 7.9 g/dL (13.5-17.5)
[2022-06-30 06:43] LABS: Basophils # (auto) 0.1 10 ^3/uL (0-0.2); Basophils % (auto) 0.3 % (0.0-2.0); Hematocrit 24.8 % (41.0-53.0); Lymphocytes # (auto) 1.4 10 ^3/uL (0.4-5.4); Mean Corpuscular Hemoglobin 26.3 pg (28.0-32.0); Mean Corpuscular Volume 82.3 fL (80.0-100.0); Monocytes # (auto) 0.5 10 ^3/uL (0-1.3); Monocytes % (auto) 2.2 % (0.0-12.0); Neutrophils # (auto) 21.4 10 ^3/uL (1.6-8.6); Neutrophils % (auto) 91.4 % (37.0-80.0); Red Blood Cells 3.02 10^6/uL (4.5-5.90); White Blood Cell 23.4 10^3/uL (4.4-10.8)
[2022-06-30 07:50] LABS: Potassium 3.7 mmol/L (3.5-5.1)
[2022-06-30 08:04] LABS: Albumin 1.3 g/dL (3.4-5.0); BUN/Creatinine Ratio 32.7; Bilirubin, Total 0.4 mg/dL (0.2-1.0); Calcium 7.8 mg/dL (8.5-10.1); Total Protein 6.1 g/dL (6.4-8.2)
[2022-06-30] MEDS: Pro-Stat SF 30ml Vanilla PO SCH ×2 (09:53→18:00)
[2022-06-30] MEDS: ASPirin 81 mg TAB PO SCH (10:11)
[2022-06-30] MEDS: ENOXAPARIN SOD 40 MG/0.4 ML SYRINGE SC SCH (10:11)
[2022-06-30] MEDS: ZINC SULFATE 220mg CAP or TAB PO SCH (10:11)
[2022-06-30] MEDS: MULTIPLE VITAMIN TAB PO SCH (10:12)
[2022-06-30] MEDS: ASCORBIC ACID 500 MG TAB PO SCH ×2 (10:13→21:07)
[2022-06-30] MEDS: Juven Fruit Punch Powder PACKET 28.8gm PO SCH (10:13)
[2022-06-30] MEDS: SODIUM CHLOR 0.9% PF (SALINE LOCK) 10ML VIAL/SYR IV SCH ×2 (10:14→21:07)
[2022-06-30] MEDS: levoFLOXacin 750MG 150 ML IV SCH (10:14)
[2022-06-30] MEDS: INSULIN LANTUS (GLARGINE) 1 /0.01ml (100units/ml) SC SCH (10:21)
[2022-06-30 13:30] VITALS: BP 133/75
[2022-06-30] MEDS: ATORVASTATIN 20 MG TAB PO SCH (21:07)
[2022-06-30 22:00] VITALS: BP 115/68
[2022-07-01 05:00] VITALS: BP 113/70
[2022-07-01] MEDS: ACCU-CHEK COMFORT CURVE STRIP VI SCH ×4 (06:06→21:07)
[2022-07-01] MEDS: InsuLIN REG 1unit/0.01ml Soln (100units/ml) SC SCH ×4 (06:07→21:11)
[2022-07-01 06:23] LABS: Monocytes # (auto) 1.2 10 ^3/uL (0-1.3); Monocytes % (auto) 6.3 % (0.0-12.0)
[2022-07-01 06:25] LABS: Basophils # (auto) 0.2 10 ^3/uL (0-0.2); Eosinophils # (auto) 0.6 10 ^3/uL (0-0.8); Eosinophils % (auto) 3.4 % (0.0-7.0); Hematocrit 24.7 % (41.0-53.0); Lymphocytes # (auto) 3.5 10 ^3/uL (0.4-5.4); Lymphocytes % (auto) 18.8 % (10.0-50.0); Mean Corpuscular Hgb Conc. 32.5 g/dL (32.0-36.0); Mean Corpuscular Volume 83.1 fL (80.0-100.0); Neutrophils % (auto) 70.5 % (37.0-80.0); Red Blood Cells 2.97 10^6/uL (4.5-5.90); Red Cell Distribution Width 15.3 % (11.8-14.3); White Blood Cell 18.5 10^3/uL (4.4-10.8)
[2022-07-01 06:36] LABS: BUN/Creatinine Ratio 35.8; Calcium 7.9 mg/dL (8.5-10.1); Potassium 3.6 mmol/L (3.5-5.1)
[2022-07-01 08:00] VITALS: BP 124/69
[2022-07-01 08:30] VITALS: BP 124/69
[2022-07-01] MEDS: Juven Fruit Punch Powder PACKET 28.8gm PO SCH (09:21)
[2022-07-01] MEDS: Pro-Stat SF 30ml Vanilla PO SCH ×2 (09:21→17:45)
[2022-07-01] MEDS: ZINC SULFATE 220mg CAP or TAB PO SCH (09:28)
[2022-07-01] MEDS: levoFLOXacin 750MG 150 ML IV SCH (09:28)
[2022-07-01] MEDS: ASCORBIC ACID 500 MG TAB PO SCH ×2 (09:40→21:07)
[2022-07-01] MEDS: MULTIPLE VITAMIN TAB PO SCH (09:40)
[2022-07-01] MEDS: SODIUM CHLOR 0.9% PF (SALINE LOCK) 10ML VIAL/SYR IV SCH ×2 (09:40→21:07)
[2022-07-01] MEDS: ENOXAPARIN SOD 40 MG/0.4 ML SYRINGE SC SCH (09:40)
[2022-07-01] MEDS: INSULIN LANTUS (GLARGINE) 1 /0.01ml (100units/ml) SC SCH (09:45)
[2022-07-01 12:00] VITALS: BP 127/73
[2022-07-01 16:00] VITALS: BP 130/72
[2022-07-01] MEDS: ATORVASTATIN 20 MG TAB PO SCH (21:07)
[2022-07-01 22:00] VITALS: BP 115/69
[2022-07-02 05:47] VITALS: BP 122/72
[2022-07-02] MEDS: ACCU-CHEK COMFORT CURVE STRIP VI SCH ×4 (06:10→21:13)
[2022-07-02] MEDS: InsuLIN REG 1unit/0.01ml Soln (100units/ml) SC SCH ×4 (06:16→21:17)
[2022-07-02 07:06] LABS: Basophils # (auto) 0.1 10 ^3/uL (0-0.2); Eosinophils # (auto) 1.1 10 ^3/uL (0-0.8); Hemoglobin 8.6 g/dL (13.5-17.5); Lymphocytes # (auto) 2.7 10 ^3/uL (0.4-5.4); Red Cell Distribution Width 14.8 % (11.8-14.3)
[2022-07-02 07:09] LABS: Basophils % (auto) 0.8 % (0.0-2.0); Eosinophils % (auto) 8.6 % (0.0-7.0); Hematocrit 26.8 % (41.0-53.0); Lymphocytes % (auto) 21.9 % (10.0-50.0); Mean Corpuscular Hemoglobin 26.3 pg (28.0-32.0); Mean Corpuscular Hgb Conc. 32.2 g/dL (32.0-36.0); Mean Corpuscular Volume 81.7 fL (80.0-100.0); Neutrophils # (auto) 7.5 10 ^3/uL (1.6-8.6); Neutrophils % (auto) 60.7 % (37.0-80.0); Red Blood Cells 3.28 10^6/uL (4.5-5.90); White Blood Cell 12.5 10^3/uL (4.4-10.8)
[2022-07-02 07:28] LABS: Potassium 3.8 mmol/L (3.5-5.1)
[2022-07-02 07:32] LABS: BUN/Creatinine Ratio 32.7
[2022-07-02 09:00] VITALS: BP 129/72
[2022-07-02] MEDS: ZINC SULFATE 220mg CAP or TAB PO SCH (09:22)
[2022-07-02] MEDS: ASCORBIC ACID 500 MG TAB PO SCH ×2 (09:22→21:13)
[2022-07-02] MEDS: MULTIPLE VITAMIN TAB PO SCH (09:23)
[2022-07-02] MEDS: ENOXAPARIN SOD 40 MG/0.4 ML SYRINGE SC SCH (09:23)
[2022-07-02] MEDS: levoFLOXacin 750MG 150 ML IV SCH (09:23)
[2022-07-02] MEDS: Pro-Stat SF 30ml Vanilla PO SCH ×2 (09:34→19:43)
[2022-07-02] MEDS: Juven Fruit Punch Powder PACKET 28.8gm PO SCH (10:00)
[2022-07-02] MEDS: INSULIN LANTUS (GLARGINE) 1 /0.01ml (100units/ml) SC SCH (10:11)
[2022-07-02 13:00] VITALS: BP 114/68
[2022-07-02] MEDS: SODIUM CHLOR 0.9% PF (SALINE LOCK) 10ML VIAL/SYR IV SCH ×2 (15:26→21:13)
[2022-07-02 17:00] VITALS: BP 120/63
[2022-07-02] MEDS: ATORVASTATIN 20 MG TAB PO SCH (21:13)
[2022-07-02 22:00] VITALS: BP 148/67
[2022-07-03 05:00] VITALS: BP 120/70
[2022-07-03] MEDS: ACCU-CHEK COMFORT CURVE STRIP VI SCH ×4 (06:28→21:35)
[2022-07-03] MEDS: InsuLIN REG 1unit/0.01ml Soln (100units/ml) SC SCH ×4 (06:29→21:34)
[2022-07-03 07:41] LABS: Basophils # (auto) 0.1 10 ^3/uL (0-0.2); Hemoglobin 8.7 g/dL (13.5-17.5); Lymphocytes # (auto) 2.6 10 ^3/uL (0.4-5.4); Monocytes # (auto) 0.9 10 ^3/uL (0-1.3); Nucleated Red Blood Cells % 0.1 %; Red Cell Distribution Width 15.3 % (11.8-14.3)
[2022-07-03 07:44] LABS: Basophils % (auto) 0.9 % (0.0-2.0); Eosinophils % (auto) 8.7 % (0.0-7.0); Hematocrit 26.4 % (41.0-53.0); Lymphocytes % (auto) 22.2 % (10.0-50.0); Mean Corpuscular Hgb Conc. 32.9 g/dL (32.0-36.0); Mean Corpuscular Volume 82.1 fL (80.0-100.0); Monocytes % (auto) 7.8 % (0.0-12.0); Neutrophils % (auto) 60.4 % (37.0-80.0); Red Blood Cells 3.21 10^6/uL (4.5-5.90); White Blood Cell 11.5 10^3/uL (4.4-10.8)
[2022-07-03 08:56] VITALS: BP 123/88
[2022-07-03 09:01] LABS: Calcium 7.9 mg/dL (8.5-10.1); Potassium 3.7 mmol/L (3.5-5.1)
[2022-07-03 09:05] LABS: BUN/Creatinine Ratio 28.6
[2022-07-03] MEDS: ENOXAPARIN SOD 40 MG/0.4 ML SYRINGE SC SCH (10:37)
[2022-07-03] MEDS: MULTIPLE VITAMIN TAB PO SCH (10:38)
[2022-07-03] MEDS: ASCORBIC ACID 500 MG TAB PO SCH ×2 (10:38→21:35)
[2022-07-03] MEDS: levoFLOXacin 750MG 150 ML IV SCH (10:38)
[2022-07-03] MEDS: Pro-Stat SF 30ml Vanilla PO SCH ×2 (10:39→18:08)
[2022-07-03] MEDS: ZINC SULFATE 220mg CAP or TAB PO SCH (10:39)
[2022-07-03] MEDS: Juven Fruit Punch Powder PACKET 28.8gm PO SCH (10:39)
[2022-07-03] MEDS: SODIUM CHLOR 0.9% PF (SALINE LOCK) 10ML VIAL/SYR IV SCH ×2 (10:40→21:36)
[2022-07-03] MEDS: INSULIN LANTUS (GLARGINE) 1 /0.01ml (100units/ml) SC SCH (10:44)
[2022-07-03 13:00] VITALS: BP 117/69
[2022-07-03 17:00] VITALS: BP 109/61
[2022-07-03] MEDS: ATORVASTATIN 20 MG TAB PO SCH (21:35)
[2022-07-04 02:15] VITALS: BP 111/67
[2022-07-04 05:44] VITALS: BP 107/65
[2022-07-04] MEDS: InsuLIN REG 1unit/0.01ml Soln (100units/ml) SC SCH ×4 (06:25→21:31)
[2022-07-04] MEDS: ACCU-CHEK COMFORT CURVE STRIP VI SCH ×4 (06:26→21:21)
[2022-07-04 08:32] VITALS: BP 111/77
[2022-07-04] MEDS: ASCORBIC ACID 500 MG TAB PO SCH ×2 (08:47→21:20)
[2022-07-04] MEDS: MULTIPLE VITAMIN TAB PO SCH (08:47)
[2022-07-04] MEDS: ENOXAPARIN SOD 40 MG/0.4 ML SYRINGE SC SCH (08:47)
[2022-07-04] MEDS: ZINC SULFATE 220mg CAP or TAB PO SCH (08:47)
[2022-07-04] MEDS: levoFLOXacin 750MG 150 ML IV SCH (08:48)
[2022-07-04] MEDS: Juven Fruit Punch Powder PACKET 28.8gm PO SCH (08:52)
[2022-07-04] MEDS: Pro-Stat SF 30ml Vanilla PO SCH ×2 (08:52→17:41)
[2022-07-04] MEDS: SODIUM CHLOR 0.9% PF (SALINE LOCK) 10ML VIAL/SYR IV SCH ×2 (08:52→21:21)
[2022-07-04] MEDS: INSULIN LANTUS (GLARGINE) 1 /0.01ml (100units/ml) SC SCH (11:18)
[2022-07-04 13:00] VITALS: BP 95/61
[2022-07-04 16:49] VITALS: BP 103/63
[2022-07-04] MEDS: ATORVASTATIN 20 MG TAB PO SCH (21:20)
[2022-07-04 22:00] VITALS: BP 110/67
[2022-07-05 05:10] VITALS: BP 104/56
[2022-07-05] MEDS: ACCU-CHEK COMFORT CURVE STRIP VI SCH ×4 (06:29→21:42)
[2022-07-05] MEDS: InsuLIN REG 1unit/0.01ml Soln (100units/ml) SC SCH ×4 (06:30→21:42)
[2022-07-05] MEDS: Pro-Stat SF 30ml Vanilla PO SCH ×2 (09:06→17:04)
[2022-07-05] MEDS: SODIUM CHLOR 0.9% PF (SALINE LOCK) 10ML VIAL/SYR IV SCH ×2 (09:06→21:35)
[2022-07-05] MEDS: levoFLOXacin 750MG 150 ML IV SCH (09:06)
[2022-07-05] MEDS: MULTIPLE VITAMIN TAB PO SCH (09:07)
[2022-07-05] MEDS: Juven Fruit Punch Powder PACKET 28.8gm PO SCH (09:07)
[2022-07-05] MEDS: ENOXAPARIN SOD 40 MG/0.4 ML SYRINGE SC SCH (09:07)
[2022-07-05] MEDS: ASCORBIC ACID 500 MG TAB PO SCH ×2 (09:08→21:34)
[2022-07-05] MEDS: ZINC SULFATE 220mg CAP or TAB PO SCH (09:08)
[2022-07-05 09:19] VITALS: BP 109/70
[2022-07-05] MEDS: INSULIN LANTUS (GLARGINE) 1 /0.01ml (100units/ml) SC SCH (11:18)
[2022-07-05 12:55] VITALS: BP 118/66
[2022-07-05 16:57] VITALS: BP 101/61
[2022-07-05] MEDS: ATORVASTATIN 20 MG TAB PO SCH (21:34)
[2022-07-05 22:00] VITALS: BP 104/63
[2022-07-06 05:00] VITALS: BP 108/69
[2022-07-06 05:54] LABS: Basophils # (auto) 0.2 10 ^3/uL (0-0.2); Basophils % (auto) 1.8 % (0.0-2.0); Lymphocytes # (auto) 2.3 10 ^3/uL (0.4-5.4); Mean Corpuscular Volume 80.9 fL (80.0-100.0); Monocytes # (auto) 0.9 10 ^3/uL (0-1.3)
[2022-07-06 05:56] LABS: Hematocrit 27.1 % (41.0-53.0); Hemoglobin 9.2 g/dL (13.5-17.5); Lymphocytes % (auto) 23.5 % (10.0-50.0); Mean Corpuscular Hemoglobin 27.3 pg (28.0-32.0); Mean Corpuscular Hgb Conc. 33.8 g/dL (32.0-36.0); Monocytes % (auto) 9.2 % (0.0-12.0); Neutrophils # (auto) 5.5 10 ^3/uL (1.6-8.6); Neutrophils % (auto) 55.5 % (37.0-80.0); Red Blood Cells 3.35 10^6/uL (4.5-5.90); Red Cell Distribution Width 16.6 % (11.8-14.3)
[2022-07-06 06:13] LABS: BUN/Creatinine Ratio 29.6 (10.0-20.0); Calcium 8.3 mg/dL (8.5-10.1); Potassium 3.6 mmol/L (3.5-5.1)
[2022-07-06] MEDS: ACCU-CHEK COMFORT CURVE STRIP VI SCH ×4 (06:15→22:00)
[2022-07-06] MEDS: InsuLIN REG 1unit/0.01ml Soln (100units/ml) SC SCH ×4 (06:16→22:00)
[2022-07-06 09:30] VITALS: BP 117/66
[2022-07-06] MEDS: Pro-Stat SF 30ml Vanilla PO SCH ×2 (09:33→17:17)
[2022-07-06] MEDS: levoFLOXacin 750MG 150 ML IV SCH (09:34)
[2022-07-06] MEDS: MULTIPLE VITAMIN TAB PO SCH (09:35)
[2022-07-06] MEDS: ZINC SULFATE 220mg CAP or TAB PO SCH (09:35)
[2022-07-06] MEDS: ASCORBIC ACID 500 MG TAB PO SCH ×2 (09:35→22:00)
[2022-07-06] MEDS: Juven Fruit Punch Powder PACKET 28.8gm PO SCH (09:36)
[2022-07-06] MEDS: ENOXAPARIN SOD 40 MG/0.4 ML SYRINGE SC SCH (09:37)
[2022-07-06] MEDS: SODIUM CHLOR 0.9% PF (SALINE LOCK) 10ML VIAL/SYR IV SCH ×2 (09:46→22:00)
[2022-07-06] MEDS: INSULIN LANTUS (GLARGINE) 1 /0.01ml (100units/ml) SC SCH (11:14)
[2022-07-06 13:00] VITALS: BP 113/62
[2022-07-06 16:30] VITALS: BP 104/66
[2022-07-06 22:00] VITALS: BP 113/67
[2022-07-06] MEDS: ATORVASTATIN 20 MG TAB PO SCH (22:00)
[2022-07-07 05:00] VITALS: BP 121/65
[2022-07-07] MEDS: ACCU-CHEK COMFORT CURVE STRIP VI SCH ×4 (06:15→21:56)
[2022-07-07] MEDS: InsuLIN REG 1unit/0.01ml Soln (100units/ml) SC SCH ×4 (06:21→22:08)
[2022-07-07 08:00] VITALS: BP 118/69
[2022-07-07] MEDS: Pro-Stat SF 30ml Vanilla PO SCH ×2 (08:43→18:20)
[2022-07-07] MEDS: ZINC SULFATE 220mg CAP or TAB PO SCH (10:35)
[2022-07-07] MEDS: ENOXAPARIN SOD 40 MG/0.4 ML SYRINGE SC SCH (10:35)
[2022-07-07] MEDS: MULTIPLE VITAMIN TAB PO SCH (10:35)
[2022-07-07] MEDS: ASCORBIC ACID 500 MG TAB PO SCH ×2 (10:35→22:07)
[2022-07-07] MEDS: levoFLOXacin 750MG 150 ML IV SCH (10:39)
[2022-07-07] MEDS: Juven Fruit Punch Powder PACKET 28.8gm PO SCH (10:40)
[2022-07-07] MEDS: SODIUM CHLOR 0.9% PF (SALINE LOCK) 10ML VIAL/SYR IV SCH ×2 (10:40→22:17)
[2022-07-07] MEDS: INSULIN LANTUS (GLARGINE) 1 /0.01ml (100units/ml) SC SCH (10:41)
[2022-07-07] MEDS ORDERED: DEXTROSE (50%) 50ML SYRG IV PRN (10:45)
[2022-07-07 13:00] VITALS: BP 115/74
[2022-07-07 16:18] VITALS: BP 114/76
[2022-07-07 16:59] VITALS: BP 108/63
[2022-07-07] MEDS: metFORMIN HYDROCHLORIDE 500 MG TAB PO SCH (18:20)
[2022-07-07 22:00] VITALS: BP 129/74
[2022-07-07] MEDS: ATORVASTATIN 20 MG TAB PO SCH (22:07)
[2022-07-08 05:00] VITALS: BP 112/64
[2022-07-08] MEDS: ACCU-CHEK COMFORT CURVE STRIP VI SCH ×4 (06:17→21:31)
[2022-07-08] MEDS: InsuLIN REG 1unit/0.01ml Soln (100units/ml) SC SCH ×4 (06:17→21:31)
[2022-07-08 08:21] VITALS: BP 110/66
[2022-07-08] MEDS: metFORMIN HYDROCHLORIDE 500 MG TAB PO SCH ×2 (08:28→17:32)
[2022-07-08] MEDS: Pro-Stat SF 30ml Vanilla PO SCH ×2 (08:28→17:33)
[2022-07-08] MEDS: levoFLOXacin 750MG 150 ML IV SCH (09:49)
[2022-07-08] MEDS: ASCORBIC ACID 500 MG TAB PO SCH ×2 (09:50→21:29)
[2022-07-08] MEDS: ZINC SULFATE 220mg CAP or TAB PO SCH (09:50)
[2022-07-08] MEDS: SODIUM CHLOR 0.9% PF (SALINE LOCK) 10ML VIAL/SYR IV SCH ×2 (09:50→21:32)
[2022-07-08] MEDS: MULTIPLE VITAMIN TAB PO SCH (09:50)
[2022-07-08] MEDS: Juven Fruit Punch Powder PACKET 28.8gm PO SCH (09:50)
[2022-07-08] MEDS: INSULIN LANTUS (GLARGINE) 1 /0.01ml (100units/ml) SC SCH (09:51)
[2022-07-08 12:56] VITALS: BP 109/69
[2022-07-08 12:57] VITALS: BP 109/69
[2022-07-08 16:25] VITALS: BP 120/69
[2022-07-08] MEDS: ATORVASTATIN 20 MG TAB PO SCH (21:24)
[2022-07-08 22:08] VITALS: BP 109/69
[2022-07-09 05:00] VITALS: BP 117/83
[2022-07-09] MEDS: ACCU-CHEK COMFORT CURVE STRIP VI SCH ×4 (06:15→21:28)
[2022-07-09] MEDS: InsuLIN REG 1unit/0.01ml Soln (100units/ml) SC SCH ×4 (06:16→21:29)
[2022-07-09] MEDS: Pro-Stat SF 30ml Vanilla PO SCH ×2 (08:00→18:04)
[2022-07-09 09:00] VITALS: BP 107/73
[2022-07-09] MEDS: levoFLOXacin 750MG 150 ML IV SCH (09:39)
[2022-07-09] MEDS: metFORMIN HYDROCHLORIDE 500 MG TAB PO SCH ×2 (09:40→18:04)
[2022-07-09] MEDS: ZINC SULFATE 220mg CAP or TAB PO SCH (09:40)
[2022-07-09] MEDS: MULTIPLE VITAMIN TAB PO SCH (09:41)
[2022-07-09] MEDS: SODIUM CHLOR 0.9% PF (SALINE LOCK) 10ML VIAL/SYR IV SCH ×2 (09:41→21:28)
[2022-07-09] MEDS: ASCORBIC ACID 500 MG TAB PO SCH ×2 (09:41→21:21)
[2022-07-09] MEDS: Juven Fruit Punch Powder PACKET 28.8gm PO SCH (09:41)
[2022-07-09] MEDS: INSULIN LANTUS (GLARGINE) 1 /0.01ml (100units/ml) SC SCH (09:43)
[2022-07-09 13:00] VITALS: BP 116/73
[2022-07-09 17:00] VITALS: BP 132/56
[2022-07-09] MEDS: ATORVASTATIN 20 MG TAB PO SCH (21:21)
[2022-07-09 22:00] VITALS: BP 103/65
[2022-07-10 05:00] VITALS: BP 113/68
[2022-07-10] MEDS: ACCU-CHEK COMFORT CURVE STRIP VI SCH ×4 (06:15→21:48)
[2022-07-10] MEDS: InsuLIN REG 1unit/0.01ml Soln (100units/ml) SC SCH ×4 (06:47→21:50)
[2022-07-10 08:00] VITALS: BP 101/68
[2022-07-10] MEDS: Pro-Stat SF 30ml Vanilla PO SCH ×2 (08:26→17:39)
[2022-07-10 08:50] VITALS: BP 101/68
[2022-07-10] MEDS ORDERED: VITAMINS A & D (TOPICAL) OINT 5GM TOP PRN (10:15)
[2022-07-10] MEDS: SODIUM CHLOR 0.9% PF (SALINE LOCK) 10ML VIAL/SYR IV SCH ×2 (10:18→21:45)
[2022-07-10] MEDS: metFORMIN HYDROCHLORIDE 500 MG TAB PO SCH ×2 (10:18→17:47)
[2022-07-10] MEDS: ZINC SULFATE 220mg CAP or TAB PO SCH (10:18)
[2022-07-10] MEDS: MULTIPLE VITAMIN TAB PO SCH (10:19)
[2022-07-10] MEDS: ASCORBIC ACID 500 MG TAB PO SCH ×2 (10:19→21:48)
[2022-07-10] MEDS: Juven Fruit Punch Powder PACKET 28.8gm PO SCH (10:19)
[2022-07-10] MEDS: INSULIN LANTUS (GLARGINE) 1 /0.01ml (100units/ml) SC SCH (10:23)
[2022-07-10 11:17] LABS: Basophils # (auto) 0.2 10 ^3/uL (0-0.2); Basophils % (auto) 1.6 % (0.0-2.0); Eosinophils # (auto) 0.8 10 ^3/uL (0-0.8); Eosinophils % (auto) 8.4 % (0.0-7.0); Hematocrit 30.2 % (41.0-53.0); Lymphocytes # (auto) 1.6 10 ^3/uL (0.4-5.4); Lymphocytes % (auto) 17.2 % (10.0-50.0); Mean Corpuscular Hemoglobin 27.8 pg (28.0-32.0); Mean Corpuscular Hgb Conc. 33.1 g/dL (32.0-36.0); Mean Corpuscular Volume 84.2 fL (80.0-100.0); Monocytes # (auto) 0.7 10 ^3/uL (0-1.3); Monocytes % (auto) 7.5 % (0.0-12.0); Neutrophils # (auto) 6.2 10 ^3/uL (1.6-8.6); Neutrophils % (auto) 65.3 % (37.0-80.0); Nucleated Red Blood Cells % 0.1 %; Red Blood Cells 3.58 10^6/uL (4.5-5.90); Red Cell Distribution Width 17.7 % (11.8-14.3); White Blood Cell 9.5 10^3/uL (4.4-10.8)
[2022-07-10 12:15] LABS: BUN/Creatinine Ratio 32.1 (10.0-20.0); Calcium 8.7 mg/dL (8.5-10.1); Potassium 3.9 mmol/L (3.5-5.1)
[2022-07-10 13:00] VITALS: BP 115/75
[2022-07-10 16:50] VITALS: BP 106/65
[2022-07-10] MEDS: ATORVASTATIN 20 MG TAB PO SCH (21:47)
[2022-07-10 22:00] VITALS: BP 115/73
[2022-07-11] MEDS: HYDROcodone-ACET 5/325MG TAB PO PRN (00:04)
[2022-07-11 05:00] VITALS: BP 106/66
[2022-07-11] MEDS: InsuLIN REG 1unit/0.01ml Soln (100units/ml) SC SCH ×4 (06:12→21:33)
[2022-07-11] MEDS: ACCU-CHEK COMFORT CURVE STRIP VI SCH ×4 (06:12→21:33)
[2022-07-11 08:50] VITALS: BP 116/70
[2022-07-11] MEDS: levoFLOXacin 500 MG TAB PO SCH (09:28)
[2022-07-11] MEDS: ASCORBIC ACID 500 MG TAB PO SCH ×2 (09:28→21:28)
[2022-07-11] MEDS: ZINC SULFATE 220mg CAP or TAB PO SCH (09:28)
[2022-07-11] MEDS: metFORMIN HYDROCHLORIDE 500 MG TAB PO SCH ×2 (09:28→17:20)
[2022-07-11] MEDS: Pro-Stat SF 30ml Vanilla PO SCH ×2 (09:29→17:20)
[2022-07-11] MEDS: SODIUM CHLOR 0.9% PF (SALINE LOCK) 10ML VIAL/SYR IV SCH ×2 (09:29→21:29)
[2022-07-11] MEDS: Juven Fruit Punch Powder PACKET 28.8gm PO SCH (09:29)
[2022-07-11] MEDS: MULTIPLE VITAMIN TAB PO SCH (09:29)
[2022-07-11] MEDS: INSULIN LANTUS (GLARGINE) 1 /0.01ml (100units/ml) SC SCH (09:34)
[2022-07-11 12:43] VITALS: BP 111/69
[2022-07-11 16:50] VITALS: BP 113/69
[2022-07-11] MEDS: ATORVASTATIN 20 MG TAB PO SCH (21:19)
[2022-07-11 22:00] VITALS: BP 105/68
[2022-07-12 05:00] VITALS: BP 94/65
[2022-07-12] MEDS: ACCU-CHEK COMFORT CURVE STRIP VI SCH ×4 (06:18→21:31)
[2022-07-12] MEDS: InsuLIN REG 1unit/0.01ml Soln (100units/ml) SC SCH ×4 (06:19→21:33)
[2022-07-12] MEDS: ZINC SULFATE 220mg CAP or TAB PO SCH (09:02)
[2022-07-12] MEDS: levoFLOXacin 500 MG TAB PO SCH (09:02)
[2022-07-12] MEDS: metFORMIN HYDROCHLORIDE 500 MG TAB PO SCH ×2 (09:02→17:48)
[2022-07-12] MEDS: MULTIPLE VITAMIN TAB PO SCH (09:02)
[2022-07-12] MEDS: ASCORBIC ACID 500 MG TAB PO SCH ×2 (09:02→21:05)
[2022-07-12] MEDS: Juven Fruit Punch Powder PACKET 28.8gm PO SCH (09:03)
[2022-07-12] MEDS: INSULIN LANTUS (GLARGINE) 1 /0.01ml (100units/ml) SC SCH (09:03)
[2022-07-12] MEDS: Pro-Stat SF 30ml Vanilla PO SCH ×2 (09:03→17:49)
[2022-07-12] MEDS: SODIUM CHLOR 0.9% PF (SALINE LOCK) 10ML VIAL/SYR IV SCH ×2 (09:03→21:04)
[2022-07-12 09:06] VITALS: BP 110/70
[2022-07-12 13:00] VITALS: BP 120/75
[2022-07-12 16:42] VITALS: BP 112/62
[2022-07-12] MEDS: APIXABAN 5 MG TAB PO SCH (21:05)
[2022-07-12] MEDS: ATORVASTATIN 20 MG TAB PO SCH (21:05)
[2022-07-12 22:00] VITALS: BP 112/67
[2022-07-13 05:00] VITALS: BP 116/68
[2022-07-13] MEDS: InsuLIN REG 1unit/0.01ml Soln (100units/ml) SC SCH ×4 (06:13→22:24)
[2022-07-13] MEDS: ACCU-CHEK COMFORT CURVE STRIP VI SCH ×4 (06:13→22:23)
[2022-07-13 06:58] LABS: Basophils # (auto) 0.2 10 ^3/uL (0-0.2); Basophils % (auto) 2.4 % (0.0-2.0); Eosinophils # (auto) 0.9 10 ^3/uL (0-0.8); Eosinophils % (auto) 10.8 % (0.0-7.0); Hematocrit 31.8 % (41.0-53.0); Hemoglobin 10.6 g/dL (13.5-17.5); Mean Corpuscular Hemoglobin 27.7 pg (28.0-32.0); Mean Corpuscular Hgb Conc. 33.4 g/dL (32.0-36.0); Mean Corpuscular Volume 82.9 fL (80.0-100.0); Monocytes # (auto) 0.6 10 ^3/uL (0-1.3); Monocytes % (auto) 7.3 % (0.0-12.0); Neutrophils # (auto) 4.7 10 ^3/uL (1.6-8.6); Neutrophils % (auto) 55.5 % (37.0-80.0); Nucleated Red Blood Cells % 0.1 %; Red Blood Cells 3.83 10^6/uL (4.5-5.90); Red Cell Distribution Width 17.9 % (11.8-14.3); White Blood Cell 8.5 10^3/uL (4.4-10.8)
[2022-07-13 07:13] LABS: BUN/Creatinine Ratio 33.3 (10.0-20.0); Calcium 8.9 mg/dL (8.5-10.1); Potassium 3.8 mmol/L (3.5-5.1)
[2022-07-13] MEDS: Juven Fruit Punch Powder PACKET 28.8gm PO SCH (08:38)
[2022-07-13] MEDS: Pro-Stat SF 30ml Vanilla PO SCH ×2 (08:38→17:26)
[2022-07-13 09:00] VITALS: BP 103/61
[2022-07-13] MEDS: ASCORBIC ACID 500 MG TAB PO SCH ×2 (09:06→21:06)
[2022-07-13] MEDS: APIXABAN 5 MG TAB PO SCH ×2 (09:06→21:06)
[2022-07-13] MEDS: ZINC SULFATE 220mg CAP or TAB PO SCH (09:06)
[2022-07-13] MEDS: levoFLOXacin 500 MG TAB PO SCH (09:06)
[2022-07-13] MEDS: MULTIPLE VITAMIN TAB PO SCH (09:06)
[2022-07-13] MEDS: SODIUM CHLOR 0.9% PF (SALINE LOCK) 10ML VIAL/SYR IV SCH ×2 (09:07→21:06)
[2022-07-13] MEDS: metFORMIN HYDROCHLORIDE 500 MG TAB PO SCH ×2 (09:07→17:59)
[2022-07-13] MEDS: INSULIN LANTUS (GLARGINE) 1 /0.01ml (100units/ml) SC SCH (10:30)
[2022-07-13 13:00] VITALS: BP 127/77
[2022-07-13 17:00] VITALS: BP 128/71
[2022-07-13] MEDS: ATORVASTATIN 20 MG TAB PO SCH (21:06)
[2022-07-13 21:59] VITALS: BP 126/74
[2022-07-14 04:50] VITALS: BP 113/67
[2022-07-14] MEDS: InsuLIN REG 1unit/0.01ml Soln (100units/ml) SC SCH ×4 (06:05→23:37)
[2022-07-14] MEDS: ACCU-CHEK COMFORT CURVE STRIP VI SCH ×4 (06:05→21:20)
[2022-07-14] MEDS: ZINC SULFATE 220mg CAP or TAB PO SCH (08:59)
[2022-07-14] MEDS: metFORMIN HYDROCHLORIDE 500 MG TAB PO SCH ×2 (08:59→17:26)
[2022-07-14] MEDS: MULTIPLE VITAMIN TAB PO SCH (08:59)
[2022-07-14] MEDS: ASCORBIC ACID 500 MG TAB PO SCH ×2 (08:59→21:19)
[2022-07-14] MEDS: APIXABAN 5 MG TAB PO SCH ×2 (08:59→21:19)
[2022-07-14 09:00] VITALS: BP 126/75
[2022-07-14] MEDS: Juven Fruit Punch Powder PACKET 28.8gm PO SCH (09:02)
[2022-07-14] MEDS: Pro-Stat SF 30ml Vanilla PO SCH ×2 (09:03→18:30)
[2022-07-14] MEDS: INSULIN LANTUS (GLARGINE) 1 /0.01ml (100units/ml) SC SCH (09:07)
[2022-07-14] MEDS: SODIUM CHLOR 0.9% PF (SALINE LOCK) 10ML VIAL/SYR IV SCH ×2 (09:08→21:20)
[2022-07-14 13:00] VITALS: BP 111/75
[2022-07-14 17:00] VITALS: BP 112/69
[2022-07-14] MEDS: ATORVASTATIN 20 MG TAB PO SCH (21:19)
[2022-07-14 22:00] VITALS: BP 114/67
[2022-07-15] MEDS: HYDROcodone-ACET 5/325MG TAB PO PRN (02:42)
[2022-07-15 05:00] VITALS: BP 114/60
[2022-07-15] MEDS: InsuLIN REG 1unit/0.01ml Soln (100units/ml) SC SCH ×4 (07:00→21:43)
[2022-07-15] MEDS: ACCU-CHEK COMFORT CURVE STRIP VI SCH ×4 (07:56→21:42)
[2022-07-15 08:30] VITALS: BP 124/77
[2022-07-15] MEDS: APIXABAN 5 MG TAB PO SCH ×2 (09:14→21:42)
[2022-07-15] MEDS: ASCORBIC ACID 500 MG TAB PO SCH ×2 (09:14→21:42)
[2022-07-15] MEDS: ZINC SULFATE 220mg CAP or TAB PO SCH (09:14)
[2022-07-15] MEDS: metFORMIN HYDROCHLORIDE 500 MG TAB PO SCH ×2 (09:14→17:47)
[2022-07-15] MEDS: MULTIPLE VITAMIN TAB PO SCH (09:14)
[2022-07-15] MEDS: SODIUM CHLOR 0.9% PF (SALINE LOCK) 10ML VIAL/SYR IV SCH ×2 (09:15→21:41)
[2022-07-15] MEDS: Pro-Stat SF 30ml Vanilla PO SCH ×2 (09:15→17:47)
[2022-07-15] MEDS: Juven Fruit Punch Powder PACKET 28.8gm PO SCH (09:15)
[2022-07-15] MEDS: INSULIN LANTUS (GLARGINE) 1 /0.01ml (100units/ml) SC SCH (09:22)
[2022-07-15 12:56] VITALS: BP 121/73
[2022-07-15 16:48] VITALS: BP 120/67
[2022-07-15 20:00] VITALS: BP 122/76
[2022-07-15] MEDS: ATORVASTATIN 20 MG TAB PO SCH (21:42)
[2022-07-15 22:00] VITALS: BP_SYST 121; BP_SYST 122; BP_DIAS 76; BP_DIAS 78
[2022-07-16 05:00] VITALS: BP 129/76
[2022-07-16] MEDS: ACCU-CHEK COMFORT CURVE STRIP VI SCH ×4 (06:28→21:44)
[2022-07-16] MEDS: InsuLIN REG 1unit/0.01ml Soln (100units/ml) SC SCH ×4 (06:28→22:00)
[2022-07-16] MEDS: Pro-Stat SF 30ml Vanilla PO SCH (08:00)
[2022-07-16] MEDS: ASCORBIC ACID 500 MG TAB PO SCH ×2 (08:52→21:44)
[2022-07-16] MEDS: MULTIPLE VITAMIN TAB PO SCH (08:52)
[2022-07-16] MEDS: metFORMIN HYDROCHLORIDE 500 MG TAB PO SCH ×2 (08:52→17:53)
[2022-07-16] MEDS: ZINC SULFATE 220mg CAP or TAB PO SCH (08:52)
[2022-07-16] MEDS: APIXABAN 5 MG TAB PO SCH ×2 (08:52→21:44)
[2022-07-16] MEDS: Juven Fruit Punch Powder PACKET 28.8gm PO SCH (08:57)
[2022-07-16 09:00] VITALS: BP 130/74
[2022-07-16] MEDS: INSULIN LANTUS (GLARGINE) 1 /0.01ml (100units/ml) SC SCH (09:00)
[2022-07-16] MEDS: SODIUM CHLOR 0.9% PF (SALINE LOCK) 10ML VIAL/SYR IV SCH ×2 (09:01→21:44)
[2022-07-16 13:00] VITALS: BP 124/75
[2022-07-16 17:00] VITALS: BP 116/70
[2022-07-16 20:00] VITALS: BP 128/73
[2022-07-16] MEDS: BACITRACIN TOP OINT 1 UD PKG TOP SCH (21:44)
[2022-07-16] MEDS: ATORVASTATIN 20 MG TAB PO SCH (21:44)
[2022-07-16 22:00] VITALS: BP 128/73
[2022-07-17 05:00] VITALS: BP 143/77
[2022-07-17] MEDS: ACCU-CHEK COMFORT CURVE STRIP VI SCH ×4 (06:37→21:02)
[2022-07-17] MEDS: InsuLIN REG 1unit/0.01ml Soln (100units/ml) SC SCH ×4 (06:38→21:02)
[2022-07-17] MEDS: Pro-Stat SF 30ml Vanilla PO SCH ×3 (08:00→18:15)
[2022-07-17] MEDS: metFORMIN HYDROCHLORIDE 500 MG TAB PO SCH ×2 (08:35→18:15)
[2022-07-17 09:00] VITALS: BP 150/73
[2022-07-17] MEDS: SODIUM CHLOR 0.9% PF (SALINE LOCK) 10ML VIAL/SYR IV SCH ×2 (10:00→21:03)
[2022-07-17] MEDS: ZINC SULFATE 220mg CAP or TAB PO SCH (11:18)
[2022-07-17] MEDS: Juven Fruit Punch Powder PACKET 28.8gm PO SCH (11:19)
[2022-07-17] MEDS: MULTIPLE VITAMIN TAB PO SCH (11:19)
[2022-07-17] MEDS: APIXABAN 5 MG TAB PO SCH ×2 (11:19→20:57)
[2022-07-17] MEDS: ASCORBIC ACID 500 MG TAB PO SCH ×2 (11:20→20:58)
[2022-07-17] MEDS: BACITRACIN TOP OINT 1 UD PKG TOP SCH ×2 (11:21→22:00)
[2022-07-17] MEDS: INSULIN LANTUS (GLARGINE) 1 /0.01ml (100units/ml) SC SCH (11:23)
[2022-07-17 13:00] VITALS: BP 128/79
[2022-07-17 17:00] VITALS: BP 108/67
[2022-07-17] MEDS: ATORVASTATIN 20 MG TAB PO SCH (20:58)
[2022-07-17 22:00] VITALS: BP 108/71
[2022-07-18 05:00] VITALS: BP 121/72
[2022-07-18] MEDS: ACCU-CHEK COMFORT CURVE STRIP VI SCH ×4 (06:25→22:14)
[2022-07-18] MEDS: InsuLIN REG 1unit/0.01ml Soln (100units/ml) SC SCH ×4 (06:25→22:00)
[2022-07-18 08:31] VITALS: BP 117/73
[2022-07-18] MEDS: MULTIPLE VITAMIN TAB PO SCH (08:49)
[2022-07-18] MEDS: ASCORBIC ACID 500 MG TAB PO SCH ×2 (08:49→22:13)
[2022-07-18] MEDS: ZINC SULFATE 220mg CAP or TAB PO SCH (08:50)
[2022-07-18] MEDS: APIXABAN 5 MG TAB PO SCH ×2 (08:50→22:13)
[2022-07-18] MEDS: metFORMIN HYDROCHLORIDE 500 MG TAB PO SCH ×2 (08:50→18:10)
[2022-07-18] MEDS: Juven Fruit Punch Powder PACKET 28.8gm PO SCH (08:51)
[2022-07-18] MEDS: SODIUM CHLOR 0.9% PF (SALINE LOCK) 10ML VIAL/SYR IV SCH ×2 (08:51→22:14)
[2022-07-18] MEDS: Pro-Stat SF 30ml Vanilla PO SCH ×2 (08:51→18:11)
[2022-07-18] MEDS: BACITRACIN TOP OINT 1 UD PKG TOP SCH ×2 (08:52→22:14)
[2022-07-18] MEDS: INSULIN LANTUS (GLARGINE) 1 /0.01ml (100units/ml) SC SCH (11:00)
[2022-07-18 12:45] VITALS: BP 118/74
[2022-07-18] MEDS: HYDROcodone-ACET 5/325MG TAB PO PRN (15:12)
[2022-07-18 16:47] VITALS: BP 104/65
[2022-07-18 22:00] VITALS: BP 107/67
[2022-07-18] MEDS: ATORVASTATIN 20 MG TAB PO SCH (22:13)
[2022-07-19 04:57] VITALS: BP 112/71
[2022-07-19] MEDS: InsuLIN REG 1unit/0.01ml Soln (100units/ml) SC SCH ×4 (06:35→22:00)
[2022-07-19] MEDS: ACCU-CHEK COMFORT CURVE STRIP VI SCH ×4 (06:35→22:14)
[2022-07-19 09:38] VITALS: BP 128/75
[2022-07-19] MEDS: Pro-Stat SF 30ml Vanilla PO SCH ×2 (09:55→18:27)
[2022-07-19] MEDS: metFORMIN HYDROCHLORIDE 500 MG TAB PO SCH ×2 (09:55→18:27)
[2022-07-19] MEDS: Juven Fruit Punch Powder PACKET 28.8gm PO SCH (09:56)
[2022-07-19] MEDS: SODIUM CHLOR 0.9% PF (SALINE LOCK) 10ML VIAL/SYR IV SCH ×2 (09:56→22:13)
[2022-07-19] MEDS: MULTIPLE VITAMIN TAB PO SCH (09:56)
[2022-07-19] MEDS: APIXABAN 5 MG TAB PO SCH ×2 (09:56→22:13)
[2022-07-19] MEDS: ASCORBIC ACID 500 MG TAB PO SCH ×2 (09:57→22:13)
[2022-07-19] MEDS: ZINC SULFATE 220mg CAP or TAB PO SCH (09:57)
[2022-07-19] MEDS: HYDROcodone-ACET 5/325MG TAB PO PRN (09:58)
[2022-07-19] MEDS: BACITRACIN TOP OINT 1 UD PKG TOP SCH ×2 (09:58→22:14)
[2022-07-19] MEDS: INSULIN LANTUS (GLARGINE) 1 /0.01ml (100units/ml) SC SCH (10:02)
[2022-07-19] MEDS ORDERED: INSLANTI SC (11:24)
[2022-07-19] MEDS ORDERED: LANC-336 XX (11:24)
[2022-07-19] MEDS ORDERED: METF-370 PO (11:24)
[2022-07-19] MEDS ORDERED: INSU1MIS36 XX (11:24)
[2022-07-19] MEDS ORDERED: APIX5TAB PO (11:24)
[2022-07-19] MEDS ORDERED: BLOO1KIT60 XX (11:24)
[2022-07-19 13:00] VITALS: BP 119/87
[2022-07-19 16:38] VITALS: BP 124/84
[2022-07-19 20:00] VITALS: BP 133/70
[2022-07-19 22:00] VITALS: BP 133/70
[2022-07-19] MEDS: ATORVASTATIN 20 MG TAB PO SCH (22:13)
[2022-07-20 05:00] VITALS: BP 115/66
[2022-07-20] MEDS: InsuLIN REG 1unit/0.01ml Soln (100units/ml) SC SCH ×2 (06:02→11:48)
[2022-07-20] MEDS: ACCU-CHEK COMFORT CURVE STRIP VI SCH ×2 (06:02→11:54)
[2022-07-20 08:00] VITALS: BP 118/75
[2022-07-20 09:00] VITALS: BP 118/75
[2022-07-20] MEDS: metFORMIN HYDROCHLORIDE 500 MG TAB PO SCH (11:21)
[2022-07-20] MEDS: HYDROcodone-ACET 5/325MG TAB PO PRN (11:21)
[2022-07-20] MEDS: MULTIPLE VITAMIN TAB PO SCH (11:22)
[2022-07-20] MEDS: ZINC SULFATE 220mg CAP or TAB PO SCH (11:22)
[2022-07-20] MEDS: APIXABAN 5 MG TAB PO SCH (11:22)
[2022-07-20] MEDS: Pro-Stat SF 30ml Vanilla PO SCH (11:23)
[2022-07-20] MEDS: ASCORBIC ACID 500 MG TAB PO SCH (11:23)
[2022-07-20] MEDS: BACITRACIN TOP OINT 1 UD PKG TOP SCH (11:23)
[2022-07-20] MEDS: SODIUM CHLOR 0.9% PF (SALINE LOCK) 10ML VIAL/SYR IV SCH (11:35)
[2022-07-20] MEDS: INSULIN LANTUS (GLARGINE) 1 /0.01ml (100units/ml) SC SCH (11:48)
[2022-07-20] MEDS: Juven Fruit Punch Powder PACKET 28.8gm PO SCH (11:49)
[2022-07-20 12:58] VITALS: BP 123/73
[2022-07-20 14:06] VITALS: BP 123/73
[2022-07-20 16:39] VITALS: BP 99/70
== END 2022-07-20 16:42 | DRG 710 ==
LOC: ER 09:16 → EDBD 09:16 → TELE 11:05 → TELE-WESTW 06-19 08:45 → WEST WING 07-08 22:41
PROVIDERS: ADMIT Nurse Practitioner Family; ATTEND Nurse Practitioner Acute Care
PROC: B24BZZ4 Ultrasonography of Heart with Aorta, Transesophageal (ICD-10-PCS; 2022-06-19)
PROC: B41GYZZ Fluoroscopy of Left Lower Extremity Arteries using Other Contrast (ICD-10-PCS; 2022-06-20)
PROC: B41FYZZ Fluoroscopy of Right Lower Extremity Arteries using Other Contrast (ICD-10-PCS; 2022-06-20)
PROC: 0Y6M0Z4 Detachment at Right Foot, Complete 1st Ray, Open Approach (ICD-10-PCS; principal; 2022-06-21 12:23)
PROC: 0Y6H0Z1 Detachment at Right Lower Leg, High, Open Approach (ICD-10-PCS; 2022-06-22)
PROC: 02HV33Z Insertion of Infusion Device into Superior Vena Cava, Percutaneous Approach (ICD-10-PCS; 2022-06-28)
PROC: B548ZZA Ultrasonography of Superior Vena Cava, Guidance (ICD-10-PCS; 2022-06-28)
DX: A40.1 Sepsis due to streptococcus, group B (principal); G93.41 Metabolic encephalopathy; E11.10 Type 2 diabetes mellitus with ketoacidosis without coma; E43 Unspecified severe protein-calorie malnutrition; A48.0 Gas gangrene; E11.52 Type 2 diabetes mellitus with diabetic peripheral angiopathy with gangrene; I48.0 Paroxysmal atrial fibrillation; M86.171 Other acute osteomyelitis, right ankle and foot; E11.65 Type 2 diabetes mellitus with hyperglycemia; B96.4 Proteus (mirabilis) (morganii) as the cause of diseases classified elsewhere; L03.115 Cellulitis of right lower limb; D63.8 Anemia in other chronic diseases classified elsewhere; E11.69 Type 2 diabetes mellitus with other specified complication; E78.5 Hyperlipidemia, unspecified; I08.1 Rheumatic disorders of both mitral and tricuspid valves; E87.1 Hypo-osmolality and hyponatremia; I50.30 Unspecified diastolic (congestive) heart failure; Z82.49 Family history of ischemic heart disease and other diseases of the circulatory system; Z83.3 Family history of diabetes mellitus
CPT/HCPCS: 36415; 36569; 36600; 71045; 73030; 73060; 73090; 73590; 73700; 75716; 80048; 80053; 80061; 80202; 80307; 81001; 82010; 82805; 82962; 83036; 83605; 83735; 83880; 83930; 84100; 84443; 85007; 85025; 85027; 85610; 85652; 85730; 86850; 86900; 86901; 87040; 87070; 87075; 87077; 87081; 87186; 87205; 87426; 93005; 93306; 93312; 93926; 93971; 97110; 97116; 97163; 97530; 99152; 99291; C1769; C9113; G0378; J0690; J1100; J1815; J1956; J2001; J2250; J2405; J2543; J2704; J3490; Q9967

== ENCOUNTER 2023-01-26 12:50 | Inpatient (IN) | payer MEDICAID ==
[~2023-01-26] VITALS: Ht 177.8 cm; Wt 78.9 kg
[~2023-01-26 12:50] MED LIST: APIX5TAB PO; BLOO1KIT60 XX; INSLANTI SC; INSU1MIS36 XX; LANC-336 XX; METF-370 PO
[2023-01-26 13:43] LABS: Basophils # (auto) 0.1 10 ^3/uL (0-0.2); Eosinophils # (auto) 0.3 10 ^3/uL (0-0.8); Eosinophils % (auto) 4.2 % (0.0-7.0); Hematocrit 38.4 % (41.0-53.0); Hemoglobin 12.7 g/dL (13.5-17.5); Lymphocytes # (auto) 2.4 10 ^3/uL (0.4-5.4); Lymphocytes % (auto) 30.3 % (10.0-50.0); Mean Corpuscular Hemoglobin 29.2 pg (28.0-32.0); Mean Corpuscular Hgb Conc. 33.1 g/dL (32.0-36.0); Mean Corpuscular Volume 88.1 fL (80.0-100.0); Monocytes # (auto) 0.6 10 ^3/uL (0-1.3); Monocytes % (auto) 6.9 % (0.0-12.0); Neutrophils # (auto) 4.6 10 ^3/uL (1.6-8.6); Neutrophils % (auto) 57.6 % (37.0-80.0); Nucleated Red Blood Cells % 0.1 %; Red Blood Cells 4.35 10^6/uL (4.5-5.90)
[2023-01-26 13:59] LABS: Alanine Aminotransferase 40 U/L (7-40); Albumin 4.1 g/dL (3.2-4.8); Alkaline Phosphatase 82 U/L (46-116); Anion Gap 8 (5-15); Aspartate Aminotransferase 39 U/L (13-40); Blood Urea Nitrogen 18 mg/dL (9-23); Calcium 9.5 mg/dL (8.7-10.4); Carbon Dioxide 28 mmol/L (20-30); Chloride 103 mmol/L (98-107); Glucose 154 mg/dL (74-106); Potassium 4.1 mmol/L (3.5-5.1); Sodium 139 mmol/L (136-145)
[2023-01-26 14:00] LABS: Bilirubin, Total 0.4 mg/dL (0.2-1.0); Total Protein 6.6 g/dL (5.7-8.2)
[2023-01-26 14:10] LABS: INR 1.11 (0.9-1.15); Partial Thromboplastin Time 30.4 SEC (24.5-34.5); Prothrombin Time 11.6 sec (9.3-11.8)
[2023-01-26] MEDS ORDERED: ACETAMINOPHEN 325 MG TAB PO PRN (17:00)
[2023-01-26] MEDS ORDERED: NITROGLYCERIN 0.4 MG SL TAB SL PRN (17:00)
[2023-01-26] MEDS: ACCU-CHEK COMFORT CURVE STRIP VI SCH ×2 (17:00→21:24)
[2023-01-26] MEDS ORDERED: DEXTROSE (50%) 50ML SYRG IV PRN (17:00)
[2023-01-26] MEDS ORDERED: ONDANSETRON HCL 4 MG/2 ML VIAL IV PRN (17:00)
[2023-01-26] MEDS ORDERED: MORPHINE SULFATE 4 MG/ML SYR/VIAL IV PRN (17:00)
[2023-01-26 20:24] LABS: Magnesium 1.9 mg/dL (1.6-2.6)
[2023-01-26 21:00] VITALS: PULSE 74; RESP 20; O2SAT 99
[2023-01-26] MEDS: InsuLIN REG 1unit/0.01ml Soln (100units/ml) SC SCH ×2 (21:00→21:23)
[2023-01-26] MEDS: APIXABAN 5 MG TAB PO SCH (21:17)
[2023-01-26] MEDS: ATORVASTATIN 20 MG TAB PO SCH (21:18)
[2023-01-26] MEDS: METOPROLOL TARTRATE 25 MG TAB PO SCH (21:21)
[2023-01-26 22:01] LABS: Urine Bacteria NONE SEEN /hpf (None Seen); Urine Blood Negative /uL (Negative); Urine Clarity Clear (Clear); Urine Color Yellow (Yellow); Urine Mucus FEW (None Seen); Urine Protein, UAD Negative (Negative); Urine Specific Gravity 1.022 (1.001-1.035); Urine Urobilinogen Normal (Negative); Urine WBC 1 /hpf (0 - 3)
[2023-01-26 22:40] VITALS: RESP 20; O2SAT 99
[2023-01-27] MEDS: HYDROcodone-ACET 5/325MG TAB PO PRN ×2 (04:50→13:31)
[2023-01-27 05:46] LABS: Basophils # (auto) 0.1 10 ^3/uL (0-0.2); Basophils % (auto) 1.2 % (0.0-2.0); Eosinophils # (auto) 0.5 10 ^3/uL (0-0.8); Eosinophils % (auto) 6.8 % (0.0-7.0); Hematocrit 35.6 % (41.0-53.0); Hemoglobin 12.1 g/dL (13.5-17.5); Lymphocytes # (auto) 2.9 10 ^3/uL (0.4-5.4); Lymphocytes % (auto) 39.1 % (10.0-50.0); Mean Corpuscular Hemoglobin 29.9 pg (28.0-32.0); Mean Corpuscular Volume 87.8 fL (80.0-100.0); Monocytes # (auto) 0.7 10 ^3/uL (0-1.3); Monocytes % (auto) 8.9 % (0.0-12.0); Neutrophils # (auto) 3.3 10 ^3/uL (1.6-8.6); Nucleated Red Blood Cells % 0.1 %; Red Blood Cells 4.05 10^6/uL (4.5-5.90); Red Cell Distribution Width 14.4 % (11.8-14.3); White Blood Cell 7.4 10^3/uL (4.4-10.8)
[2023-01-27] MEDS: InsuLIN REG 1unit/0.01ml Soln (100units/ml) SC SCH ×4 (06:16→22:03)
[2023-01-27] MEDS: ACCU-CHEK COMFORT CURVE STRIP VI SCH ×4 (06:16→22:06)
[2023-01-27 06:29] LABS: Alanine Aminotransferase 35 U/L (7-40); Alkaline Phosphatase 71 U/L (46-116); Anion Gap 6 (5-15); BUN/Creatinine Ratio 20.5 (10.0-20.0); Blood Urea Nitrogen 16 mg/dL (9-23); Calcium 9.3 mg/dL (8.7-10.4); Carbon Dioxide 29 mmol/L (20-30); Chloride 105 mmol/L (98-107); Glucose 88 mg/dL (74-106); Sodium 140 mmol/L (136-145)
[2023-01-27 06:30] LABS: Albumin 3.8 g/dL (3.2-4.8)
[2023-01-27 06:31] LABS: Aspartate Aminotransferase 33 U/L (13-40); Bilirubin, Total 0.5 mg/dL (0.2-1.0); Total Protein 6.5 g/dL (5.7-8.2)
[2023-01-27 07:30] VITALS: PULSE 67; RESP 15; O2SAT 99
[2023-01-27] MEDS: METOPROLOL TARTRATE 25 MG TAB PO SCH ×2 (10:32→22:34)
[2023-01-27] MEDS: DOCUSATE SOD 100 MG CAP PO SCH (10:33)
[2023-01-27] MEDS: ASPirin 81 mg TAB PO SCH (10:33)
[2023-01-27] MEDS: APIXABAN 5 MG TAB PO SCH ×2 (10:33→22:34)
[2023-01-27] MEDS: INSULIN LANTUS (GLARGINE) 1 /0.01ml (100units/ml) SC SCH (15:16)
[2023-01-27] MEDS ORDERED: [UNRECOGNIZED DRUG - CODE] (17:20)
[2023-01-27] MEDS ORDERED: ATOR40TA52 PO (17:20)
[2023-01-27] MEDS ORDERED: INSUINJ37 SC (17:20)
[2023-01-27] MEDS ORDERED: CLOB0.05 TOP (17:20)
[2023-01-27] MEDS ORDERED: MULT-1056 PO (17:20)
[2023-01-27] MEDS ORDERED: INSREG3 SC (17:20)
[2023-01-27] MEDS ORDERED: ASPI1CHW5 PO (17:20)
[2023-01-27] MEDS ORDERED: LATA0.008 EACHEYE (17:20)
[2023-01-27 18:40] VITALS: PULSE 62; RESP 20; TEMP 97.8; O2SAT 98
[2023-01-27 18:47] VITALS: PULSE 67; RESP 20; O2SAT 98
[2023-01-27] MEDS ORDERED: NITR0.4S29 (19:05)
[2023-01-27] MEDS ORDERED: MULT-1018 PO (19:07)
[2023-01-27] MEDS ORDERED: ASCO500T11 PO (19:07)
[2023-01-27] MEDS ORDERED: HYDR-4902 PO (19:07)
[2023-01-27 20:00] VITALS: BP 133/76; PULSE 67; PULSE 68; TEMP 36.6
[2023-01-27 22:00] VITALS: BP 109/71; PULSE 65; RESP 20; TEMP 97.8; O2SAT 96
[2023-01-27] MEDS: ATORVASTATIN 20 MG TAB PO SCH (22:34)
[2023-01-28] VITALS (7 sets, daily range): BP systolic 120–138; BP diastolic 72–82; PULSE 56–67; RESP 14–18; TEMP 97.6–98.6; O2SAT 95–98
[2023-01-28] MEDS: InsuLIN REG 1unit/0.01ml Soln (100units/ml) SC SCH ×4 (05:04→21:39)
[2023-01-28] MEDS: ACCU-CHEK COMFORT CURVE STRIP VI SCH ×4 (05:04→21:37)
[2023-01-28] MEDS: METOPROLOL TARTRATE 25 MG TAB PO SCH ×2 (09:34→22:00)
[2023-01-28] MEDS: ASPirin 81 mg TAB PO SCH (09:34)
[2023-01-28] MEDS: DOCUSATE SOD 100 MG CAP PO SCH (09:34)
[2023-01-28] MEDS: APIXABAN 5 MG TAB PO SCH ×2 (09:34→21:36)
[2023-01-28] MEDS: INSULIN LANTUS (GLARGINE) 1 /0.01ml (100units/ml) SC SCH (09:40)
[2023-01-28] MEDS: HYDROcodone-ACET 5/325MG TAB PO PRN (21:36)
[2023-01-28] MEDS: ATORVASTATIN 20 MG TAB PO SCH (21:36)
[2023-01-29] VITALS (7 sets, daily range): BP systolic 115–132; BP diastolic 63–84; PULSE 56–73; RESP 14–18; TEMP 97.6–98.4; O2SAT 96–98
[2023-01-29] MEDS: InsuLIN REG 1unit/0.01ml Soln (100units/ml) SC SCH ×4 (06:08→21:41)
[2023-01-29] MEDS: ACCU-CHEK COMFORT CURVE STRIP VI SCH ×4 (06:08→21:40)
[2023-01-29] MEDS ORDERED: ADENOSINE 66 MG in GIVE UN-DILUTED 0 ML IV STA (07:28)
[2023-01-29] MEDS: APIXABAN 5 MG TAB PO SCH ×2 (08:48→21:22)
[2023-01-29] MEDS: DOCUSATE SOD 100 MG CAP PO SCH (08:48)
[2023-01-29] MEDS: ASPirin 81 mg TAB PO SCH (08:48)
[2023-01-29] MEDS: METOPROLOL TARTRATE 25 MG TAB PO SCH ×2 (08:51→21:21)
[2023-01-29 09:17] LABS: Hepatitis B Surface Antigen Negative (Negative)
[2023-01-29 09:38] LABS: Hepatitis C Antibody Negative (Negative)
[2023-01-29] MEDS: INSULIN LANTUS (GLARGINE) 1 /0.01ml (100units/ml) SC SCH (10:56)
[2023-01-29] MEDS: ATORVASTATIN 20 MG TAB PO SCH (21:22)
[2023-01-29] MEDS: HYDROcodone-ACET 5/325MG TAB PO PRN (21:24)
[2023-01-30 05:00] VITALS: BP 145/83; PULSE 62; RESP 19; TEMP 98.3; O2SAT 97
[2023-01-30] MEDS: InsuLIN REG 1unit/0.01ml Soln (100units/ml) SC SCH ×2 (06:15→11:30)
[2023-01-30] MEDS: ACCU-CHEK COMFORT CURVE STRIP VI SCH ×2 (06:15→11:30)
[2023-01-30 08:00] VITALS: PULSE 56; PULSE 60; RESP 20; O2SAT 96; O2SAT 99
[2023-01-30 09:00] VITALS: BP 127/78; PULSE 60; RESP 20; TEMP 98.1; O2SAT 99
[2023-01-30] MEDS: ASPirin 81 mg TAB PO SCH (09:58)
[2023-01-30] MEDS: APIXABAN 5 MG TAB PO SCH (09:58)
[2023-01-30] MEDS: DOCUSATE SOD 100 MG CAP PO SCH (09:58)
[2023-01-30] MEDS: METOPROLOL TARTRATE 25 MG TAB PO SCH (09:59)
[2023-01-30] MEDS: INSULIN LANTUS (GLARGINE) 1 /0.01ml (100units/ml) SC SCH (10:06)
[2023-01-30 11:22] VITALS: BP 125/74; PULSE 59; RESP 18; TEMP 97.8; O2SAT 97
== END 2023-01-30 13:50 | disposition home or self-care (01) | DRG 203 ==
LOC: ER 12:50 → EDUNIT# 12:50 → EDBD 12:50 → TELE 17:03 → TELE-WESTW 01-27 18:15
PROVIDERS: ADMIT Nurse Practitioner Family; ATTEND Internal Medicine
DX: M94.0 Chondrocostal junction syndrome [Tietze] (principal); E11.51 Type 2 diabetes mellitus with diabetic peripheral angiopathy without gangrene; I50.9 Heart failure, unspecified; I69.351 Hemiplegia and hemiparesis following cerebral infarction affecting right dominant side; I11.0 Hypertensive heart disease with heart failure; Z89.611 Acquired absence of right leg above knee; E11.65 Type 2 diabetes mellitus with hyperglycemia; E78.5 Hyperlipidemia, unspecified; N20.0 Calculus of kidney; Z79.01 Long term (current) use of anticoagulants; Z88.0 Allergy status to penicillin; Z82.49 Family history of ischemic heart disease and other diseases of the circulatory system; Z83.3 Family history of diabetes mellitus; Z88.1 Allergy status to other antibiotic agents; Z88.8 Allergy status to other drugs, medicaments and biological substances
CPT/HCPCS: 36415; 71045; 74176; 78452; 80053; 81001; 82962; 83036; 83690; 83735; 83880; 84100; 84484; 85025; 85379; 85610; 85730; 86803; 87340; 93005; 93017; 93306; G0378; J0153; J1815

== ENCOUNTER 2023-03-29 15:35 | Inpatient (IN) | payer MEDICAID ==
[~2023-03-29] VITALS: Ht 172.7 cm; Wt 81.9 kg
[~2023-03-29 15:35] MED LIST changes: +ASCO500T11 PO; +ASPI1CHW5 PO; +ATOR40TA52 PO; +CLOB0.05 TOP; +HYDR-4902 PO; -INSLANTI SC; +INSREG3 SC; +INSUINJ37 SC; +LATA0.008 EACHEYE; +MULT-1018 PO; +NITR0.4S29; +[UNRECOGNIZED DRUG - CODE]
[2023-03-29 17:13] LABS: Basophils # (auto) 0 10 ^3/uL (0-0.2); Basophils % (auto) 0.4 % (0.0-2.0); Eosinophils # (auto) 0.1 10 ^3/uL (0-0.8); Eosinophils % (auto) 1.2 % (0.0-7.0); Hematocrit 37.1 % (41.0-53.0); Hemoglobin 12.3 g/dL (13.5-17.5); Lymphocytes # (auto) 2.1 10 ^3/uL (0.4-5.4); Lymphocytes % (auto) 19.1 % (10.0-50.0); Mean Corpuscular Hemoglobin 29.5 pg (28.0-32.0); Mean Corpuscular Hgb Conc. 33.3 g/dL (32.0-36.0); Mean Corpuscular Volume 88.7 fL (80.0-100.0); Monocytes # (auto) 0.9 10 ^3/uL (0-1.3); Neutrophils # (auto) 7.9 10 ^3/uL (1.6-8.6); Neutrophils % (auto) 71.3 % (37.0-80.0); Red Blood Cells 4.18 10^6/uL (4.5-5.90); Red Cell Distribution Width 14.1 % (11.8-14.3); White Blood Cell 11.1 10^3/uL (4.4-10.8)
[2023-03-29 17:29] LABS: Alanine Aminotransferase 31 U/L (7-40); Albumin 4.5 g/dL (3.2-4.8); Alkaline Phosphatase 86 U/L (46-116); Anion Gap 7 (5-15); Aspartate Aminotransferase 19 U/L (13-40); BUN/Creatinine Ratio 16.2 (10.0-20.0); Bilirubin, Total 0.7 mg/dL (0.2-1.0); Blood Urea Nitrogen 12 mg/dL (9-23); Calcium 9.7 mg/dL (8.5-10.1); Carbon Dioxide 29 mmol/L (20-30); Chloride 104 mmol/L (98-107); Glucose 103 mg/dL (74-106); Potassium 3.9 mmol/L (3.5-5.1); Sodium 140 mmol/L (136-145); Total Protein 7.4 g/dL (5.7-8.2)
[2023-03-29 17:38] LABS: CRP High Sensitivity 3.32 mg/dL (<1.0)
[2023-03-29 18:10] LABS: Erythrocyte Sedimentation Rate 23 mm/hr (0-20)
[2023-03-29] MEDS ORDERED: CLINDAMYCIN 900MG IV 50 ML IV ONE ×2 (18:30→21:24)
[2023-03-29] MEDS ORDERED: ONDANSETRON HCL 4 MG/2 ML VIAL IV PRN (18:30)
[2023-03-29] MEDS ORDERED: ATORVASTATIN 20 MG TAB ONE (21:23)
[2023-03-29] MEDS ORDERED: APIXABAN 5 MG TAB ONE (21:28)
[2023-03-29] MEDS ORDERED: ASCORBIC ACID 500 MG TAB ONE (21:28)
[2023-03-29] MEDS: ASCORBIC ACID 500 MG TAB PO SCH (21:30)
[2023-03-29] MEDS: APIXABAN 5 MG TAB PO SCH (21:30)
[2023-03-29] MEDS: SODIUM CHLORIDE 0.9% 1,000 ML IV SCH (21:31)
[2023-03-29] MEDS: ATORVASTATIN 20 MG TAB PO SCH (21:31)
[2023-03-29] MEDS: CLINDAMYCIN 900MG IV 50 ML IV SCH (21:40)
[2023-03-29] MEDS: LATANOPROST 0.005 % OPTH(EYE) SOL 2.5ML EACHEYE SCH (22:00)
[2023-03-30] VITALS (8 sets, daily range): BP systolic 117–145; BP diastolic 64–78; PULSE 64–80; RESP 17–20; TEMP 97.2–98.8; O2SAT 96–98
[2023-03-30] MEDS ORDERED: LOSA50TA46 PO (00:36)
[2023-03-30] MEDS ORDERED: CLINDAMYCIN 900MG IV 50 ML IV ONE ×2 (05:26→11:47)
[2023-03-30] MEDS: CLINDAMYCIN 900MG IV 50 ML IV SCH ×3 (05:29→20:15)
[2023-03-30 06:06] LABS: Basophils # (auto) 0.1 10 ^3/uL (0-0.2); Basophils % (auto) 0.8 % (0.0-2.0); Eosinophils # (auto) 0.2 10 ^3/uL (0-0.8); Eosinophils % (auto) 2.6 % (0.0-7.0); Hematocrit 34.2 % (41.0-53.0); Hemoglobin 11.5 g/dL (13.5-17.5); Lymphocytes # (auto) 2.6 10 ^3/uL (0.4-5.4); Lymphocytes % (auto) 32.1 % (10.0-50.0); Mean Corpuscular Hemoglobin 29.7 pg (28.0-32.0); Mean Corpuscular Hgb Conc. 33.4 g/dL (32.0-36.0); Mean Corpuscular Volume 88.8 fL (80.0-100.0); Monocytes # (auto) 0.8 10 ^3/uL (0-1.3); Monocytes % (auto) 10.2 % (0.0-12.0); Neutrophils # (auto) 4.5 10 ^3/uL (1.6-8.6); Neutrophils % (auto) 54.3 % (37.0-80.0); Nucleated Red Blood Cells % 0.1 %; Red Blood Cells 3.86 10^6/uL (4.5-5.90); Red Cell Distribution Width 13.8 % (11.8-14.3); White Blood Cell 8.2 10^3/uL (4.4-10.8)
[2023-03-30 06:27] LABS: Alanine Aminotransferase 24 U/L (7-40); Alkaline Phosphatase 69 U/L (46-116); Anion Gap 8 (5-15); BUN/Creatinine Ratio 20.3 (10.0-20.0); Blood Urea Nitrogen 14 mg/dL (9-23); Calcium 9.1 mg/dL (8.5-10.1); Carbon Dioxide 27 mmol/L (20-30); Chloride 107 mmol/L (98-107); Glucose 101 mg/dL (74-106); Potassium 3.6 mmol/L (3.5-5.1); Sodium 142 mmol/L (136-145)
[2023-03-30 06:28] LABS: Albumin 3.8 g/dL (3.2-4.8); Aspartate Aminotransferase 12 U/L (13-40); Bilirubin, Total 0.8 mg/dL (0.2-1.0); Total Protein 6.3 g/dL (5.7-8.2)
[2023-03-30] MEDS ORDERED: DEXTROSE (50%) 50ML SYRG IV PRN (07:00)
[2023-03-30] MEDS ORDERED: APIXABAN 5 MG TAB ONE (09:28)
[2023-03-30] MEDS ORDERED: MULTIPLE VITAMIN TAB ONE (09:28)
[2023-03-30] MEDS ORDERED: ASCORBIC ACID 500 MG TAB ONE ×2 (09:28→21:16)
[2023-03-30] MEDS ORDERED: ZINC SULFATE 220mg CAP or TAB ONE (09:29)
[2023-03-30] MEDS ORDERED: ASPirin-EC 81 mg tab PO ONE (09:36)
[2023-03-30] MEDS: APIXABAN 5 MG TAB PO SCH ×2 (09:38→21:22)
[2023-03-30] MEDS: ZINC SULFATE 220mg CAP or TAB PO SCH (09:38)
[2023-03-30] MEDS: ASCORBIC ACID 500 MG TAB PO SCH ×2 (09:38→21:20)
[2023-03-30] MEDS: MULTIPLE VITAMIN TAB PO SCH (09:39)
[2023-03-30] MEDS ORDERED: ASPirin 81 mg TAB ONE (09:56)
[2023-03-30] MEDS: ASPirin 81 mg TAB PO SCH (09:57)
[2023-03-30] MEDS ORDERED: ASCORBIC ACID 500 MG TAB PO SCH (10:00)
[2023-03-30] MEDS ORDERED: ENOXAPARIN SOD 40 MG/0.4 ML SYRINGE SC SCH (10:00)
[2023-03-30] MEDS ORDERED: MULTIPLE VITAMIN TAB PO SCH (10:00)
[2023-03-30] MEDS ORDERED: InsuLIN REG 1unit/0.01ml Soln (100units/ml) ONE ×2 (10:32→21:51)
[2023-03-30] MEDS: ACCU-CHEK COMFORT CURVE STRIP VI SCH ×3 (10:33→21:51)
[2023-03-30] MEDS: InsuLIN REG 1unit/0.01ml Soln (100units/ml) SC SCH ×3 (10:36→21:47)
[2023-03-30] MEDS: SODIUM CHLORIDE 0.9% 1,000 ML IV SCH (11:10)
[2023-03-30] MEDS: ACETAMINOPHEN 325 MG TAB PO PRN (11:59)
[2023-03-30] MEDS: ATORVASTATIN 20 MG TAB PO SCH (21:20)
[2023-03-30] MEDS: LATANOPROST 0.005 % OPTH(EYE) SOL 2.5ML EACHEYE SCH (21:22)
[2023-03-31] VITALS (7 sets, daily range): BP systolic 124–151; BP diastolic 71–85; PULSE 64–103; RESP 14–19; TEMP 97.6–98.7; O2SAT 93–99
[2023-03-31] MEDS ORDERED: CLINDAMYCIN 900MG IV 50 ML IV ONE (04:37)
[2023-03-31] MEDS: CLINDAMYCIN 900MG IV 50 ML IV SCH (04:40)
[2023-03-31] MEDS: SODIUM CHLORIDE 0.9% 1,000 ML IV SCH ×2 (04:43→09:34)
[2023-03-31 06:06] LABS: Basophils # (auto) 0.1 10 ^3/uL (0-0.2); Basophils % (auto) 1.3 % (0.0-2.0); Eosinophils # (auto) 0.4 10 ^3/uL (0-0.8); Eosinophils % (auto) 5.9 % (0.0-7.0); Hematocrit 33.8 % (41.0-53.0); Hemoglobin 11.2 g/dL (13.5-17.5); Lymphocytes # (auto) 2.3 10 ^3/uL (0.4-5.4); Lymphocytes % (auto) 30.6 % (10.0-50.0); Mean Corpuscular Hemoglobin 29.5 pg (28.0-32.0); Mean Corpuscular Hgb Conc. 33.1 g/dL (32.0-36.0); Mean Corpuscular Volume 89.2 fL (80.0-100.0); Monocytes # (auto) 0.6 10 ^3/uL (0-1.3); Monocytes % (auto) 8.8 % (0.0-12.0); Neutrophils # (auto) 3.9 10 ^3/uL (1.6-8.6); Neutrophils % (auto) 53.4 % (37.0-80.0); Red Blood Cells 3.78 10^6/uL (4.5-5.90); Red Cell Distribution Width 13.7 % (11.8-14.3); White Blood Cell 7.4 10^3/uL (4.4-10.8)
[2023-03-31 06:19] LABS: Calcium 8.7 mg/dL (8.7-10.4); Chloride 106 mmol/L (98-107); Potassium 4.2 mmol/L (3.5-5.1); Sodium 139 mmol/L (136-145)
[2023-03-31 06:20] LABS: Anion Gap 6 (5-15); Carbon Dioxide 27 mmol/L (20-30)
[2023-03-31] MEDS: ACCU-CHEK COMFORT CURVE STRIP VI SCH ×4 (06:21→22:12)
[2023-03-31] MEDS: InsuLIN REG 1unit/0.01ml Soln (100units/ml) SC SCH ×4 (06:21→21:59)
[2023-03-31 06:26] LABS: BUN/Creatinine Ratio 20.9 (10.0-20.0); Blood Urea Nitrogen 14 mg/dL (9-23); Glucose 112 mg/dL (74-106)
[2023-03-31] MEDS ORDERED: MULTIPLE VITAMIN TAB ONE (09:19)
[2023-03-31] MEDS ORDERED: ZINC SULFATE 220mg CAP or TAB ONE (09:19)
[2023-03-31] MEDS ORDERED: ASCORBIC ACID 500 MG TAB ONE ×2 (09:28→20:48)
[2023-03-31] MEDS: APIXABAN 5 MG TAB PO SCH ×2 (09:31→21:53)
[2023-03-31] MEDS: ASPirin 81 mg TAB PO SCH (09:31)
[2023-03-31] MEDS: ZINC SULFATE 220mg CAP or TAB PO SCH (09:32)
[2023-03-31] MEDS: ASCORBIC ACID 500 MG TAB PO SCH ×2 (09:32→22:05)
[2023-03-31] MEDS: MULTIPLE VITAMIN TAB PO SCH (09:32)
[2023-03-31] MEDS ORDERED: CEFTRIAXONE SODIUM 2 GM in D5W 5% 100 ML IV ONE (10:15)
[2023-03-31] MEDS ORDERED: InsuLIN REG 1unit/0.01ml Soln (100units/ml) ONE ×3 (11:46→21:59)
[2023-03-31] MEDS ORDERED: APIXABAN 5 MG TAB ONE (20:49)
[2023-03-31] MEDS: ACETAMINOPHEN 325 MG TAB PO PRN (21:10)
[2023-03-31] MEDS: ATORVASTATIN 20 MG TAB PO SCH (21:11)
[2023-03-31] MEDS: LATANOPROST 0.005 % OPTH(EYE) SOL 2.5ML EACHEYE SCH (21:53)
[2023-03-31] MEDS ORDERED: ASCORBIC ACID 1,000 MG TAB ONE (22:01)
[2023-04-01 05:00] VITALS: BP 133/78; PULSE 64; RESP 18; TEMP 97.6; O2SAT 96
[2023-04-01] MEDS: InsuLIN REG 1unit/0.01ml Soln (100units/ml) SC SCH ×4 (05:44→22:05)
[2023-04-01] MEDS: ACCU-CHEK COMFORT CURVE STRIP VI SCH ×4 (05:45→22:03)
[2023-04-01] MEDS: APIXABAN 5 MG TAB PO SCH ×2 (07:01→22:00)
[2023-04-01] MEDS: ASPirin 81 mg TAB PO SCH (07:01)
[2023-04-01 08:00] VITALS: BP 136/78; PULSE 81; RESP 20; TEMP 97.1; O2SAT 94
[2023-04-01 09:00] VITALS: BP 136/78; PULSE 81; RESP 20; TEMP 97.1; O2SAT 94
[2023-04-01] MEDS: MULTIPLE VITAMIN TAB PO SCH (09:30)
[2023-04-01] MEDS: ZINC SULFATE 220mg CAP or TAB PO SCH (09:30)
[2023-04-01] MEDS: ASCORBIC ACID 500 MG TAB PO SCH ×2 (09:32→22:03)
[2023-04-01] MEDS: CEFTRIAXONE SODIUM 2 GM in D5W 5% 100 ML IV SCH (09:33)
[2023-04-01 13:00] VITALS: BP 143/85; PULSE 76; RESP 20; TEMP 98; O2SAT 95
[2023-04-01 14:07] LABS: INR 1.07 (0.9-1.15); Partial Thromboplastin Time 27.9 SEC (24.5-34.5); Prothrombin Time 11.2 sec (9.3-11.8)
[2023-04-01 17:00] VITALS: BP 164/85; PULSE 72; RESP 20; TEMP 97.8; O2SAT 96
[2023-04-01] MEDS ORDERED: LIDOCAINE 1% (LOCAL ANESTH.) PF 5ml SDV ID ONE (17:15)
[2023-04-01] MEDS: SODIUM CHLORIDE 0.9% 1,000 ML IV SCH (18:02)
[2023-04-01 22:00] VITALS: BP 141/75; PULSE 66; RESP 18; TEMP 97.8; O2SAT 92
[2023-04-01] MEDS: LATANOPROST 0.005 % OPTH(EYE) SOL 2.5ML EACHEYE SCH (22:00)
[2023-04-01] MEDS: ATORVASTATIN 20 MG TAB PO SCH (22:03)
[2023-04-01] MEDS: SODIUM CHLOR 0.9% PF (SALINE LOCK) 10ML VIAL/SYR IV SCH (22:05)
[2023-04-02] VITALS (7 sets, daily range): BP systolic 127–140; BP diastolic 76–83; PULSE 64–77; RESP 18–19; TEMP 97.7–98.2; O2SAT 94–98
[2023-04-02] MEDS: SODIUM CHLORIDE 0.9% 1,000 ML IV SCH ×2 (05:50→09:42)
[2023-04-02] MEDS: ACCU-CHEK COMFORT CURVE STRIP VI SCH ×3 (05:59→17:06)
[2023-04-02] MEDS: InsuLIN REG 1unit/0.01ml Soln (100units/ml) SC SCH ×3 (05:59→17:19)
[2023-04-02 06:31] LABS: Basophils # (auto) 0.1 10 ^3/uL (0-0.2); Basophils % (auto) 1.2 % (0.0-2.0); Eosinophils # (auto) 0.6 10 ^3/uL (0-0.8); Eosinophils % (auto) 7.4 % (0.0-7.0); Hematocrit 34.8 % (41.0-53.0); Hemoglobin 11.7 g/dL (13.5-17.5); Lymphocytes # (auto) 2.3 10 ^3/uL (0.4-5.4); Lymphocytes % (auto) 29.6 % (10.0-50.0); Mean Corpuscular Hemoglobin 29.5 pg (28.0-32.0); Mean Corpuscular Hgb Conc. 33.5 g/dL (32.0-36.0); Monocytes # (auto) 0.6 10 ^3/uL (0-1.3); Neutrophils # (auto) 4.2 10 ^3/uL (1.6-8.6); Neutrophils % (auto) 53.8 % (37.0-80.0); Nucleated Red Blood Cells % 0.1 %; Red Blood Cells 3.95 10^6/uL (4.5-5.90); Red Cell Distribution Width 13.7 % (11.8-14.3); White Blood Cell 7.9 10^3/uL (4.4-10.8)
[2023-04-02 06:32] LABS: Calcium 9.1 mg/dL (8.5-10.1); Chloride 108 mmol/L (98-107); Sodium 142 mmol/L (136-145)
[2023-04-02 06:33] LABS: Anion Gap 7 (5-15); Carbon Dioxide 27 mmol/L (20-30)
[2023-04-02 06:38] LABS: BUN/Creatinine Ratio 16.9 (10.0-20.0); Blood Urea Nitrogen 10 mg/dL (9-23); Glucose 125 mg/dL (74-106)
[2023-04-02] MEDS ORDERED: fentaNYL CITRATE 100 MCG/2 ML VL ONE (07:35)
[2023-04-02] MEDS ORDERED: MEPERIDINE HCL (25 MG/ML) 1ML VIAL ONE (07:35)
[2023-04-02] MEDS ORDERED: MIDAZOLAM HCL 2MG/2ML 2ml VIAL (1mg/ml) ONE (07:36)
[2023-04-02] MEDS ORDERED: DexAMETHasone SOD PHOS 10MG/1ML VIAL INJ ONE (07:36)
[2023-04-02] MEDS ORDERED: LIDOCAINE W/ EPINEPHRINE 2% INJ 20ML VIAL ONE (07:44)
[2023-04-02] MEDS ORDERED: LIDOCAINE HCL (LOCAL ANESTH.) 0.5 % 50ML MDV IJ ONE (07:44)
[2023-04-02] MEDS ORDERED: LABETALOL HCL 5 MG/ML 4ML SYRINGE IV PRN (07:45)
[2023-04-02] MEDS ORDERED: CLINDAMYCIN 600MG IV 50 ML IV ONE (07:45)
[2023-04-02] MEDS ORDERED: ONDANSETRON HCL 4 MG/2 ML VIAL IV PRN (07:45)
[2023-04-02] MEDS ORDERED: MIDAZOLAM HCL 2MG/2ML 2ml VIAL (1mg/ml) IV PRN (07:45)
[2023-04-02] MEDS ORDERED: HYDROmorphone HCL 2 MG/ML VL/or syr IV PRN (07:45)
[2023-04-02] MEDS ORDERED: BUPIVACAINE HCL 0 ML ONE (07:45)
[2023-04-02] MEDS ORDERED: MORPHINE SULFATE 4 MG/ML SYR/VIAL IV PRN (07:45)
[2023-04-02] MEDS ORDERED: ePHEDrine SULFATE 50 MG/ML AMP IV PRN (07:45)
[2023-04-02] MEDS ORDERED: PROPOFOL 10 MG/ML 20 ML IV ONE (08:03)
[2023-04-02] MEDS: ASPirin 81 mg TAB PO SCH (09:31)
[2023-04-02] MEDS: CEFTRIAXONE SODIUM 2 GM in D5W 5% 100 ML IV SCH (09:31)
[2023-04-02] MEDS: ASCORBIC ACID 500 MG TAB PO SCH (09:31)
[2023-04-02] MEDS: MULTIPLE VITAMIN TAB PO SCH (09:31)
[2023-04-02] MEDS: SODIUM CHLOR 0.9% PF (SALINE LOCK) 10ML VIAL/SYR IV SCH (09:32)
[2023-04-02] MEDS: APIXABAN 5 MG TAB PO SCH (09:32)
[2023-04-02] MEDS: ZINC SULFATE 220mg CAP or TAB PO SCH (09:32)
[2023-04-02 16:49] LABS: COVID19 ANTIGEN SOFIA FIA NEGATIVE (NEGATIVE)
== END 2023-04-02 19:30 | DRG 349 ==
LOC: ER 15:35 → OVERFLOW 18:36 → WEST WING 23:52
PROVIDERS: ADMIT Nurse Practitioner Family; ATTEND Family Medicine
PROC: 02HV33Z Insertion of Infusion Device into Superior Vena Cava, Percutaneous Approach (ICD-10-PCS; principal; 2023-04-01)
PROC: B548ZZA Ultrasonography of Superior Vena Cava, Guidance (ICD-10-PCS; 2023-04-01)
PROC: 0JBN0ZZ Excision of Right Lower Leg Subcutaneous Tissue and Fascia, Open Approach (ICD-10-PCS; 2023-04-02)
DX: T87.43 Infection of amputation stump, right lower extremity (principal); J15.0 Pneumonia due to Klebsiella pneumoniae; M86.161 Other acute osteomyelitis, right tibia and fibula; E11.51 Type 2 diabetes mellitus with diabetic peripheral angiopathy without gangrene; E11.622 Type 2 diabetes mellitus with other skin ulcer; I10 Essential (primary) hypertension; Z20.822 Contact with and (suspected) exposure to COVID-19; Y83.5 Amputation of limb(s) as the cause of abnormal reaction of the patient, or of later complication, without mention of misadventure at the time of the procedure; E78.00 Pure hypercholesterolemia, unspecified; E11.69 Type 2 diabetes mellitus with other specified complication; L03.115 Cellulitis of right lower limb; L02.415 Cutaneous abscess of right lower limb; Z86.73 Personal history of transient ischemic attack (TIA), and cerebral infarction without residual deficits; Z88.0 Allergy status to penicillin; Z88.1 Allergy status to other antibiotic agents; I25.2 Old myocardial infarction; Z90.49 Acquired absence of other specified parts of digestive tract; Z83.3 Family history of diabetes mellitus; Z82.49 Family history of ischemic heart disease and other diseases of the circulatory system; Z79.01 Long term (current) use of anticoagulants; Z79.4 Long term (current) use of insulin
CPT/HCPCS: 36415; 36569; 71045; 73700; 73718; 80048; 80053; 82962; 83036; 83605; 85025; 85610; 85652; 85730; 86141; 87040; 87070; 87075; 87077; 87081; 87186; 87205; 87426; 97163; G0378; J0696; J1100; J1815; J2250; J2704; J3490; J7060

== ENCOUNTER 2023-07-09 06:12 | Day surgery (SDC) | payer MEDICAID ==
[~2023-07-09] VITALS: Ht 177.8 cm; Wt 81.2 kg
[~2023-07-09 06:12] MED LIST changes: -CLOB0.05 TOP; +GABA-1250 PO; +LOSA-534 PO
[2023-07-09] MEDS ORDERED: LIDOCAINE VISCOUS 2% 15ML UD PO ONE (08:15)
[2023-07-09] MEDS ORDERED: fentaNYL CITRATE 100 MCG/2 ML VL IV ONE (08:15)
[2023-07-09] MEDS ORDERED: MIDAZOLAM HCL 2MG/2ML 2ml VIAL (1mg/ml) IV ONE (08:15)
== END 2023-07-09 11:11 | disposition home or self-care (01) ==
LOC: CATH 06:12
PROVIDERS: ATTEND Internal Medicine
DX: I08.3 Combined rheumatic disorders of mitral, aortic and tricuspid valves (principal); F32.A Depression, unspecified; Z87.891 Personal history of nicotine dependence; Z86.2 Personal history of diseases of the blood and blood-forming organs and certain disorders involving the immune mechanism; Z88.0 Allergy status to penicillin; Z88.1 Allergy status to other antibiotic agents; Z83.3 Family history of diabetes mellitus; Z82.49 Family history of ischemic heart disease and other diseases of the circulatory system
CPT/HCPCS: 93312; J2250; J3010; J7040; 93005; 99152

== ENCOUNTER 2024-10-18 18:10 | Inpatient (IN) | payer MEDICAID ==
[~2024-10-18] VITALS: Ht 177.8 cm; Wt 97.5 kg
--- NOTE | 2024-10-18 19:10 | ED.PDOC ---
History of Present Illness HPI Comments 64-year-old male with a history of hypertension, diabetes, dyslipidemia, neuropathy, previous right lower extremity cellulitis/osteomyelitis status post right BKA brought in by self for evaluation of left leg redness, swelling and pus drainage. Patient states his leg became painful about a week ago. He saw h is primary physician who diagnosed him with cellulitis and prescribed Bactrim, which she has been taking for the past 5 days without improvement. Patient states the redness has been progressing, and today there was drainage of pus from a wound that developed in the anterior leg area. He denies any fever, difficulty ambulating, chest pain, shortness of breath or recent injury. Chief Complaint: Lower extremity Time Seen by MD: 18:16 Primary Care Provider: NICK Jordan Notes: Nurses Notes Allergies: Coded Allergies: Penicillins (Verified Allergy, Unknown, hives, 07/06/23) Vancomycin (Verified Allergy, Unknown, hives, 07/06/23) Home Meds Active Scripts Lancets (Advocate Lancets) Lancets Mis, UNIT XX BID, #120 Prov:RUDDY DC NP 07/19/22 Blood Glucose Monitoring Suppl (D-Care Glucometer Kit/Glu W/Device) 1 Kit Kit, KIT XX BID, #1 Prov:RUDDY DC NP 07/19/22 Insulin Syringes (Disposable) (Bd Insulin Syringe Luer-L) 1 Ml Mis, ML XX DAILY, #60 Prov:RUDDY DC NP 07/19/22 Metformin Hydrochloride (Metformin Hcl) 500 Mg Tab, 500 MG PO BIDWM for 60 Days, #120 TAB Prov:RUDDY DC NP 07/19/22 Apixaban Base (ELIQUIS) 5 Mg Tab, 5 MG PO BID for 60 Days, #120 TAB Prov:RUDDY DC NP 07/19/22 Reported Medications Gabapentin (Gabapentin) 300 Mg Cap, 300 MG PO TID for neuropathy, MG 07/06/23 Losartan Potassium (Losartan Potassium) 50 Mg Tab, 1 TAB PO DAILY, #30 TAB 5 Refills 03/30/23 Ascorbic Acid (VITAMIN C TABLET) 500 Mg Tb, 500 MG PO DAILY, TAB 01/27/23 Multiple Vitamin (Multivitamins) Tab, 1 TAB PO DAILY, #90 TAB 3 Refills 01/27/23 Hydrocodone-Acetaminophen (Hydrocodone Bitartrate/AC 5-325 mg) 1 Tab Tab, 1 TAB PO, TAB 01/27/23 Nitroglycerin (NTROSTAT SUBLINGUAL) 0.4 Mg Sl 01/27/23 Insulin Syringe/Needle U-100 (TRUEPLUS INSULIN SYRINGE/) 0.5 Mg/31 G Mis, UD 01/27/23 Atorvastatin Calcium (ATORVASTATIN CALCIUM) 40 Mg Tab, 1 TAB PO 01/27/23 Insulin Glargine (Lantus Solostar) 100 Unit/Ml Inj, 20 UNIT SC DAILY 01/27/23 Aspirin (Chewable Aspirin) 81 Mg Chw, 1 TAB PO DAILY 01/27/23 Insulin Regular (Human) (Humulin R) 100 Unit/Ml Inj, UNIT SC TID for diabetes mellitus sliding scale 01/27/23 Latanoprost (LATANOPROST) 0.005 % Adry, EACHEYE 01/27/23 Information Source: Patient Mode of Arrival: Ambulatory Severity: Moderate Timing: Days Duration: Since onset Past Medical History PAST MEDICAL HISTORY: CVA, DM, High Lipids, HTN Surgical History: Appendectomy, BKA (Right) Family History Family History: Family hx of DM Social History Smoker: Non-Smoker Alcohol: Denies ETOH Use Drugs: Denies Drug Use Lives In: Home Constitutional: denies: chills, diaphoresis, fatigue, fever, malaise, sweats, weakness, others EENTM: denies: blurred vision, double vision, ear bleeding, ear discharge, ear drainage, ear pain, ear ringing, eye pain, eye redness, hearing loss, mouth pain, mouth swelling, nasal discharge, nose bleeding, nose congestion, nose pain, photophobia, tearing, throat pain, throat swelling, voice changes, others Respiratory: denies: cough, hemoptysis, orthopnea, SOB at rest, shortness of breath, SOB with excertion, stridor, wheezing, others Cardiovascular: denies: chest pain, dizzy spells, diaphoresis, Dyspnea on exertion, edema, irregular heart beat, left arm pain, lightheadedness, palpitations, PND, syncope, others Gastrointestinal: denies: abdomen distended, abdominal pain, blood streaked bowels, constipated, diarrhea, dysphagia, difficulty swallowing, hematemesis, melena, nausea, poor appetite, poor fluid intake, rectal bleeding, rectal pain, vomiting, others Genitourinary: denies: burning, dysuria, flank pain, frequency, hematuria, incontinence, penile discharge, penile sore, pain, testicle pain, testicle swelling, urgency, others Neurological: denies: dizziness, fainting, headache, left sided numbness, left sided weakness, numbness, paresthesia, pre-existing deficit, right sided numbness, right sided weakness, seizure, speech problems, tingling, tremors, weakness, others Musculoskeletal: reports: muscle pain (left leg); denies: back pain, gout, joint pain, joint swelling, muscle stiffness, neck pain, others Integumetry: denies: bruises, change in color, change in hair/nails, dryness, laceration, lesions, lumps, rash, wounds, others Allergic/Immunocompromised: denies: Difficulty Healing, Frequent Infections, Hives, Itching, others Hematologic/Lymphatic: denies: anemia, blood clots, easy bleeding, easy bruising, swollen glands, others Endocrine: denies: excessive hunger, excessive sweating, excessive thirst, excessive urination, flushing, intolerance to cold, intolerance to heat, unexplained weight gain, unexplained weight loss, others Psychiatric: denies: anxiety, bipolar disorder, depression, hopeless, panic disorder, schizophrenia, sleepless, suicidal, others All Other Systems: Reviewed and Negative (Comprehensive systems review obtained and negative except for what is stated in the HPI.) Physical Exam General Appearance: No Apparent Distress, Obese HEENT: Other (Pupils and face symmetric. Moist mucous membranes.) Neck: Full Range of Motion, Normal Inspection Respiratory: Lungs Clear, No Accessory Muscle Use, No Respiratory Distress, Normal Breath Sounds Cardiovascular: No JVD, Regular Rate/Rhythm Breast Exam: Deferred Gastrointestinal: Non Tender, Soft Genitalia: Deferred Pelvic: Deferred Rectal: Deferred Extremities: Other (Right BKA. Left leg erythema, 3+ edema, warmth and tenderness. Anterior mid leg 1 cm punctate lesion with bloody/purulent discharge.) Neurologic: Alert (Oriented x4), Normal Affect, Normal Mood, Other (Ambulatory) Cerebellar Function: NOT DONE Reflexes: NOT DONE Skin: Dry, Warm, Other (Anterior left leg 1 cm punctate lesion with surrounding induration and purulent/bloody discharge.) Lymphatic: NOT DONE Was a procedure done? Was a procedure done?: No Differential Dx Considerations may include: Cellulitis, abscess, sepsis, VTE, among others X-Ray, Labs, Meds, VS Vital Signs Date Time Temp Pulse Resp B/P (MAP) Pulse Ox O2 Delivery O2 Flow Rate FiO2 10/18/24 21:30 97.7 68 12 150/83 (105) 98 97.7 10/18/24 21:30 68 12 98 Room Air* 0 21 10/18/24 20:57 88 16 153/73 10/18/24 20:43 92 16 97 Room Air* 0 21 10/18/24 20:27 65 16 147/83 10/18/24 20:23 97.9 64 16 147/83 (104) 98 97.9 10/18/24 20:23 64 10/18/24 19:02 98.7 66 18 154/95 (114) 96 98.7 Lab Test 10/18/24 21:20 10/18/24 20:32 10/18/24 18:47 Range/Units POC Glucose 120 H 56 L 70-106 mg/dl White Blood Count 11.4 H 4.4-10.8 10^3/uL Red Blood Count 4.22 L 4.5-5.90 10^6/uL Hemoglobin 12.1 L 13.5-17.5 g/dL Hematocrit 37.4 L 41.0-53.0 % Mean Corpuscular Volume 88.6 80.0-100.0 fL Mean Corpuscular Hemoglobin 28.7 28.0-32.0 pg Mean Corpuscular Hemoglobin Concent 32.5 32.0-36.0 g/dL Red Cell Distribution Width 13.8 11.8-14.3 % Platelet Count 306 140-450 10^3/uL Mean Platelet Volume 8.5 6.9-10.8 fL Neutrophils (%) (Auto) 59.8 37.0-80.0 % Lymphocytes (%) (Auto) 22.1 10.0-50.0 % Monocytes (%) (Auto) 8.2 0.0-12.0 % Eosinophils (%) (Auto) 8.9 H 0.0-7.0 % Basophils (%) (Auto) 1.0 0.0-2.0 % Neutrophils # (Auto) 6.8 1.6-8.6 10 ^3/uL Lymphocytes # (Auto) 2.5 0.4-5.4 10 ^3/uL Monocytes # (Auto) 0.9 0-1.3 10 ^3/uL Eosinophils # (Auto) 1.0 H 0-0.8 10 ^3/uL Basophils # (Auto) 0.1 0-0.2 10 ^3/uL Nucleated Red Blood Cells 0.0 % Prothrombin Time 11.0 9.3-11.8 sec Prothrombin Time INR 1.04 0.9-1.15 Activated Partial Thromboplast Time 27.7 24.5-34.5 SEC Sodium Level 147 H 136-145 mmol/L Potassium Level 3.8 3.5-5.1 mmol/L Chloride Level 110 H 98-107 mmol/L Carbon Dioxide Level 29 20-31 mmol/L Anion Gap 8 5-15 Blood Urea Nitrogen 21 9-23 mg/dL Creatinine 0.91 0.700-1.30 mg/dL Glomerular Filtration Rate Calc 94 >90 mL/min BUN/Creatinine Ratio 23.1 H 10.0-20.0 Serum Glucose 47 *L 74-106 mg/dL Hemoglobin A1c 6.3 H <5.7 % A1C Lactic Acid Level 1.4 0.4-2.0 mmol/L Calcium Level 10.1 8.7-10.4 mg/dL Magnesium Level 2.1 1.6-2.6 mg/dL Total Bilirubin 0.3 0.2-1.0 mg/dL Aspartate Amino Transferase (AST) 23 13-40 U/L Alanine Aminotransferase (ALT) 17 7-40 U/L Alkaline Phosphatase 69 46-116 U/L B-Type Natriuretic Peptide 145.30 0-100 pg/mL Total Protein 7.3 5.7-8.2 g/dL Albumin 4.4 3.2-4.8 g/dL Current Medications Medications (Trade) Dose Ordered Sig/Javier Route Start Time Stop Time Status Last Admin Clindamycin Phosphate 50 ml @ 50 mls/hr ONCE ONCE IV 10/18/24 18:45 10/18/24 19:44 DC 10/18/24 20:26 Trimethoprim/ Sulfamethoxazole 15 ml/Dextrose 515 ml @ 171.667 mls/hr ONCE ONCE IV 10/18/24 18:45 10/18/24 21:44 DC 10/18/24 21:04 Morphine Sulfate 4 mg ONCE ONCE IV 10/18/24 18:45 10/18/24 18:46 DC 10/18/24 20:27 Ondansetron HCl (Zofran) 4 mg ONCE ONCE IV 10/18/24 18:45 10/18/24 18:46 DC 10/18/24 20:27 PROCEDURE(s): LLDVT - LT Lower DVT REASON: lle edema ORDER NUMBER(s): [id number], ACCESSION NUMBER(s): [id number] Left lower extremity venous duplex Clinical History: lle edema Comparison: US RT LOWER DVT on DOS: 06/17/22 Findings: Duplex Doppler evaluation of the deep venous system of the left lower extremity from the common femoral vein to the popliteal vein including color Doppler and spectral/pulsed waveform analysis was performed. The common femoral vein demonstrates appropriate compressibility and waveform variability. There is compressibility/patency of the great saphenous vein at the proximal thigh. The femoral vein demonstrates appropriate compressibility and waveform variability The deep femoral vein demonstrates appropriate compressibility and waveform variability. The popliteal vein demonstrates appropriate compressibility and waveform variability. There is normal compressibility at the tibioperoneal trunk. Impression: No left femoropopliteal venous thrombosis. 6 cm left inguinal lymph node. Consider percutaneous biopsy. X-Ray, Labs, Meds, VS Comment [id number]-old male with a history of diabetes, hypertension, dyslipidemia and prior right BKA due to gangrene/osteomyelitis presenting with left leg redness, swelling and pus discharge Vitals remarkable for BP 154/95 Exam remarkable for left leg erythema, edema and open wound with purulent discharge Rhythm strip independently interpreted by me: Sinus rhythm, rate 66 , no ectopy. Left tib-fib x-rays Left lower extremity Doppler ultrasound Impression: No left femoropopliteal venous thrombosis. 6 cm left inguinal lymph node. Consider percutaneous biopsy. CBC remarkable for WBC 11.4, CMP remarkable for sodium 147, chloride 110, glucose 47, lactic normal, BNP 145.3 Patient treated with the following in the ED: Clindamycin 900 mg IV, Bactrim 240 mg IV, morphine 4 mg IV, Zofran 4 mg IV, On re-evaluation, patient states pain has improved. Vitals were stable. Was given food and juice with improvement of his blood glucose to 57. We will continue to monitor blood glucose. Plan is to admit the patient for IV antibiotics and surgical evaluation possible I&D. Time of 1ST Reevaluation: 19:08 Reevaluation 1ST: Unchanged Patient Education/Counseling: Diagnosis, Treatment Family Education/Counseling: No Family Present SEPSIS Sepsis Screen Physician Orders Accucheck (10/18/24 18:34) Blood Culture (10/18/24 18:34) Notify Md If Map <65 Or Bp<90 (10/18/24 18:34) If Map<65 Start Vasopressor (10/18/24 18:34) Lt Lower Dvt (10/18/24 18:34) L Tib Fib Xray (10/18/24 18:34) Wound Culture W/ Gs (10/18/24 18:38) Vital Signs Date Time Temp Pulse Resp B/P (MAP) Pulse Ox O2 Delivery O2 Flow Rate FiO2 10/18/24 21:30 97.7 68 12 150/83 (105) 98 97.7 10/18/24 21:30 68 12 98 Room Air* 0 21 10/18/24 20:57 88 16 153/73 10/18/24 20:43 92 16 97 Room Air* 0 21 10/18/24 20:27 65 16 147/83 10/18/24 20:23 97.9 64 16 147/83 (104) 98 97.9 10/18/24 20:23 64 10/18/24 19:02 98.7 66 18 154/95 (114) 96 98.7 Laboratory Tests Test 10/18/24 18:47 Lactic Acid Level 1.4 mmol/L (0.4-2.0) White Blood Count 11.4 10^3/uL (4.4-10.8) H Medications Medications Dose Ordered Sig/Javier Route Start Time Stop Time Status Last Admin Dose Admin Clindamycin Phosphate 50 ml @ 50 mls/hr ONCE ONCE IV 10/18/24 18:45 10/18/24 19:44 DC 10/18/24 20:26 Morphine Sulfate 4 mg ONCE ONCE IV 10/18/24 18:45 10/18/24 18:46 DC 10/18/24 20:27 Ondansetron HCl 4 mg ONCE ONCE IV 10/18/24 18:45 10/18/24 18:46 DC 10/18/24 20:27 Trimethoprim/ Sulfamethoxazole 15 ml/Dextrose 515 ml @ 171.667 mls/hr ONCE ONCE IV 10/18/24 18:45 10/18/24 21:44 DC 10/18/24 21:04 Departure 1 Departure Time of Disposition: 19:30 Impression: Primary Impression: Cellulitis and abscess of left lower extremity Additional Impression: Hypoglycemia Disposition: ADMITTED INPATIENT Admit to: Med Surg Condition: Guarded Critical Care Note Critical Care Time?: No Stability Stability form required: No Heart Score Heart Score: Heart Score Response (Comments) Value History N/A 0 EKG N/A 0 Age N/A 0 Risk Factors N/A 0 Troponin N/A 0 Total 0 I personally scribed for JONAS KATHLEEN MD ([email or web address]) on 10/18/24 at 19:57. Electronically submitted by Sergei Fermin ([facility] [employer] I personally scribed for JONAS KATHLEEN MD ([email or web address]) on 10/18/24 at 20:09. Electronically submitted by Sergei Fermin ([facility]). JONAS KATHLEEN MD Oct 18, 2024 19:10
[2024-10-18 19:22] LABS: Hematocrit 37.4 % (41.0-53.0); Hemoglobin 12.1 g/dL (13.5-17.5); Mean Corpuscular Hemoglobin 28.7 pg (28.0-32.0); Mean Corpuscular Volume 88.6 fL (80.0-100.0); Nucleated Red Blood Cells % 0.0 %
[2024-10-18 19:42] LABS: Alanine Aminotransferase 17 U/L (7-40); Albumin 4.4 g/dL (3.2-4.8); Alkaline Phosphatase 69 U/L (46-116); Anion Gap 8 (5-15); BUN/Creatinine Ratio 23.1 (10.0-20.0); Blood Urea Nitrogen 21 mg/dL (9-23); Calcium 10.1 mg/dL (8.7-10.4); Carbon Dioxide 29 mmol/L (20-31); Potassium 3.8 mmol/L (3.5-5.1); Total Protein 7.3 g/dL (5.7-8.2)
[2024-10-18 19:43] LABS: Bilirubin, Total 0.3 mg/dL (0.2-1.0)
[2024-10-18 19:46] LABS: Chloride 110 mmol/L (98-107); Sodium 147 mmol/L (136-145)
[2024-10-18 19:47] LABS: Glucose 47 mg/dL (74-106)
[2024-10-18 19:52] LABS: INR 1.04 (0.9-1.15); Partial Thromboplastin Time 27.7 SEC (24.5-34.5); Prothrombin Time 11.0 sec (9.3-11.8)
--- NOTE | 2024-10-18 20:05 | DVH ---
Left lower extremity venous duplex Clinical History: lle edema Comparison: US RT LOWER DVT on DOS: 06/17/22 Findings: Duplex Doppler evaluation of the deep venous system of the left lower extremity from the common femor al vein to the popliteal vein including color Doppler and spectral/pulsed waveform analysis was perfo rmed. The common femoral vein demonstrates appropriate compressibility and waveform variability. There is compressibility/patency of the great saphenous vein at the proximal thigh. The femoral vein demonstrates appropriate compressibility and waveform variability. The deep femoral vein demonstrates appropriate compressibility and waveform variability. The popliteal vein demonstrates appropriate compressibility and waveform variability. There is normal compressibility at the tibioperoneal trunk. Impression: No left femoropopliteal venous thrombosis. 6 cm left inguinal lymph node. Consider percutaneous biopsy.
[2024-10-18] MEDS: CLINDAMYCIN 900MG IV 50 ML IV ONE (20:26)
[2024-10-18] MEDS: ONDANSETRON HCL 4 MG/2 ML VIAL IV ONE (20:27)
[2024-10-18] MEDS: MORPHINE SULFATE 4 MG/ML SYR/VIAL IV ONE (20:27)
[2024-10-18] MEDS: SULFAMETH-TRIMETH 80/16MG-ML 15 ML in D5W 5% 500 ML IV ONE (20:41)
[2024-10-18 20:43] VITALS: PULSE 92; RESP 16; O2SAT 97
--- NOTE | 2024-10-18 21:03 | DVH ---
CLINICAL INDICATION: l leg cellulitis/abscess TECHNIQUE: XY L TIB FIB XRAY Comparison: MRI MRI R TIB FIB WO CONTRAST R on DOS: 03/31/23, XY R TIB FIB XRAY on DOS: 07/11/22 FINDINGS/IMPRESSION: : There is no evidence of acute fracture or dislocation. Calcified athero sclerosis. Moderate subcutaneous edema in the distal left lower extremity.
[2024-10-18 21:30] VITALS: PULSE 68; RESP 12; O2SAT 98
[2024-10-18] MEDS ORDERED: ONDANSETRON HCL 4 MG/2 ML VIAL IV PRN (22:15)
[2024-10-18] MEDS ORDERED: ACETAMINOPHEN 325 MG TAB PO PRN (22:15)
[2024-10-18] MEDS: SODIUM CHLORIDE 0.9% 1,000 ML IV SCH (22:15)
[2024-10-18] MEDS ORDERED: MORPHINE SULFATE INJ 2 MG/ml SYRG IV PRN (22:15)
[2024-10-18] MEDS ORDERED: DEXTROSE (50%) 50ML SYRG IV PRN (22:30)
[2024-10-18] MEDS: CLINDAMYCIN 600MG IV 50 ML IV SCH (23:24)
[2024-10-19] VITALS (7 sets, daily range): BP systolic 126–146; BP diastolic 73–89; PULSE 64–90; RESP 16–20; TEMP 97.3–98.9; O2SAT 95–99
--- NOTE | 2024-10-19 00:53 | DVHHPRES ---
History of Present Illness Resident Creating Document: KRYSTA IGLESIAS RESIDENT History of Present Illness DEX LOPEZ is a 64-year-old male with a history of HTN, type 2 DM, HLD, right BKA presented to the ED for the evaluation of left lower leg swelling and pus. Patient reported that he has been having leg swelling since April, underwent multiple procedures for the venous insufficiency, patient reportedly had swelling and bruising of serous fluid from the left lower extremity. For past 1 week patient has been seen that the swelling is worse, formation a wound, went to Podiatry, given Bactrim but no improvement seen which prompted him to visit ED. on my assessment patient denies pain, fever, chills, recent trauma, and other associated symptoms. Patient reported that right leg has been amputated in 2022 due to cellulitis/osteomyelitis from uncontrolled diabetes mellitus. PMH: HTN, type 2 DM, HLD, venous insufficiency, mini-stroke PSH: Right BKA Family history: Noncontributory Social history: Lives at home but denies smoking, alcohol and other drug abuse Allergies: No known allergies Review of Systems Review of Systems Patient seen and examined at the bedside. ROS as obtained in HPI Allergies: Coded Allergies: Penicillins (Verified Allergy, Unknown, hives, 07/06/23) Vancomycin (Verified Allergy, Unknown, hives, 07/06/23) Medications Current Medications Medications Dose Ordered Sig/Javier Route Start Time Stop Time Status Last Admin Dose Admin Sodium Chloride 1,000 ml @ 60 mls/hr [id number] IV 10/18/24 22:15 Ondansetron HCl 4 mg Q4HP PRN IV 10/18/24 22:15 Acetaminophen 650 mg Q6HP PRN PO 10/18/24 22:15 Morphine Sulfate 2 mg Q4HPRN PRN IV 10/18/24 22:15 Clindamycin Phosphate 50 ml @ 50 mls/hr Q8HR IV 10/18/24 22:30 10/18/24 23:24 50 MLS/HR Cefepime HCl 50 ml @ 12.5 mls/hr Q8HR IV 10/18/24 22:30 Enoxaparin Sodium 100 mg Q12HR SC 10/19/24 10:00 Diagnostic Test (Pha) 1 strip ACHS 10/19/24 07:00 Insulin Human Regular HS SC 10/19/24 22:00 Insulin Human Regular AC SC 10/19/24 07:00 Dextrose 50 ml UD PRN IV 10/18/24 22:30 Gabapentin 300 mg TID PO 10/19/24 06:00 UNV Losartan Potassium 50 mg DAILY PO 10/19/24 10:00 UNV Patient Own Medication 1 tab DAILY PO 10/19/24 10:00 UNV Atorvastatin Calcium 40 mg HS PO 10/19/24 22:00 UNV Exam Vital Signs Vital Signs Date Time Temp Pulse Resp B/P (MAP) Pulse Ox O2 Delivery O2 Flow Rate FiO2 10/18/24 21:30 97.7 68 12 150/83 (105) 98 97.7 10/18/24 21:30 Room Air* 0 21 Exam Pt is lying on bed General Appearance: Alert, Oriented X3, Cooperative, Not in acute distress HEENT: Atraumatic, Mucous membranes moist/pink Respiratory: Clear to auscultation, Normal air movement, No added sounds Cardiovascular: Regular rate, Normal S1, Normal S2, No murmurs Abdominal: Active bowel sounds, Soft, no distention, no tenderness Extremities: Right BKA. Maceration, 3 x 3 swelling left medial aspect of lower extremity, oozing pus, foul smelling, mildly tender Skin: as above Neuro: Normal speech, sensorimotor deficits none Psych/Mental Status: Mental status NL, Mood NL Nurse was there as vp integrity during examination Labs/Xrays Labs Test 10/18/24 21:20 10/18/24 18:47 Range/Units POC Glucose 120 H 70-106 mg/dl White Blood Count 11.4 H 4.4-10.8 10^3/uL Red Blood Count 4.22 L 4.5-5.90 10^6/uL Hemoglobin 12.1 L 13.5-17.5 g/dL Hematocrit 37.4 L 41.0-53.0 % Mean Corpuscular Volume 88.6 80.0-100.0 fL Mean Corpuscular Hemoglobin 28.7 28.0-32.0 pg Mean Corpuscular Hemoglobin Concent 32.5 32.0-36.0 g/dL Red Cell Distribution Width 13.8 11.8-14.3 % Platelet Count 306 140-450 10^3/uL Mean Platelet Volume 8.5 6.9-10.8 fL Neutrophils (%) (Auto) 59.8 37.0-80.0 % Lymphocytes (%) (Auto) 22.1 10.0-50.0 % Monocytes (%) (Auto) 8.2 0.0-12.0 % Eosinophils (%) (Auto) 8.9 H 0.0-7.0 % Basophils (%) (Auto) 1.0 0.0-2.0 % Neutrophils # (Auto) 6.8 1.6-8.6 10 ^3/uL Lymphocytes # (Auto) 2.5 0.4-5.4 10 ^3/uL Monocytes # (Auto) 0.9 0-1.3 10 ^3/uL Eosinophils # (Auto) 1.0 H 0-0.8 10 ^3/uL Basophils # (Auto) 0.1 0-0.2 10 ^3/uL Nucleated Red Blood Cells 0.0 % Prothrombin Time 11.0 9.3-11.8 sec Prothrombin Time INR 1.04 0.9-1.15 Activated Partial Thromboplast Time 27.7 24.5-34.5 SEC Sodium Level 147 H 136-145 mmol/L Potassium Level 3.8 3.5-5.1 mmol/L Chloride Level 110 H 98-107 mmol/L Carbon Dioxide Level 29 20-31 mmol/L Anion Gap 8 5-15 Blood Urea Nitrogen 21 9-23 mg/dL Creatinine 0.91 0.700-1.30 mg/dL Glomerular Filtration Rate Calc 94 >90 mL/min BUN/Creatinine Ratio 23.1 H 10.0-20.0 Serum Glucose 47 *L 74-106 mg/dL Hemoglobin A1c 6.3 H <5.7 % A1C Lactic Acid Level 1.4 0.4-2.0 mmol/L Calcium Level 10.1 8.7-10.4 mg/dL Magnesium Level 2.1 1.6-2.6 mg/dL Total Bilirubin 0.3 0.2-1.0 mg/dL Aspartate Amino Transferase (AST) 23 13-40 U/L Alanine Aminotransferase (ALT) 17 7-40 U/L Alkaline Phosphatase 69 46-116 U/L B-Type Natriuretic Peptide 145.30 0-100 pg/mL Total Protein 7.3 5.7-8.2 g/dL Albumin 4.4 3.2-4.8 g/dL Assessment/Plan Assessment/Plan # Left lower extremity cellulitis / abscess / fasciitis - x-ray showed motor subcutaneous edema in distal left lower extremity but no evidence of fracture /dislocation - started on clindamycin and cefepime - ordered foot CT, pending - wound cultures and wound consult - podiatry consult # uncontrolled type 2 DM with HbA1c 6.3 - Accu-Cheks and ISS # HTN uncontrolled # HLD - continuously monitor blood pressure - resume home medications # mild hypernatremia, asymptomatic - monitor lab for now GI PPX: Not indicated VTE PPX: Therapeutic Lovenox( patient reported that he is taking Eliquis at home for clots in heart) Diet: Diabetic and cardiac diet Goals of care addressed for more than 27 minutes: Full code status Case discussed with Dr. Myrick, patient and nurse Plan discussed with: Patient My Orders Orders - KRYSTA IGLESIAS RESIDENT Procedure Category Date Status Time Admit ADMIT 10/18/24 Transmitted 22:13 Code Status CODE 10/18/24 Transmitted 22:13 Sodium Chloride 0.9% PHA 10/18/24 In Process 22:15 Ondansetron Hcl PHA 10/18/24 In Process (Zofran) 22:15 Complete Blood Count LAB 10/19/24 Logged 04:00 Comprehensive LAB 10/19/24 Logged Metabolic Panel 04:00 Cardiac DIET 10/19/24 Transmitted Diet-2gna,Lofat,Lochol Breakfast Condition: Stable DAVID 10/18/24 In Process 22:13 Acetaminophen Tablet PHA 10/18/24 In Process (Tylenol Tablet) 22:15 Morphine Sulfate PHA 10/18/24 In Process Injection 22:15 Urinalysis LAB 10/18/24 Logged 22:28 Drug Screen LAB 10/18/24 Logged 22:28 Clindamycin 600mg Iv PHA 10/18/24 In Process (Cleocin Iv) 22:30 Cefepime 1gm/ 50ml PHA 10/18/24 In Process (Maxipime 1gm/50ml) 22:[address] 10/18/24 Taken W/O Con 22:28 Enoxaparin Sodium PHA 10/19/24 In Process (Lovenox) 10:00 Glucose Blood PHA 10/19/24 In Process (Accu-Chek Comfort 07:00 Insulin R (Human) PHA 10/19/24 In Process (Insulin R) 22:00 Insulin R (Human) PHA 10/19/24 In Process (Insulin R) 07:00 Dextrose 50% Syringe PHA 10/18/24 In Process 22:30 * Wound Consult CONS 10/19/24 Transmitted *Podiatry Consult CONS 10/19/24 Transmitted Musson(Dvmg) 00:47 Gabapentin Capsule PHA 10/19/24 Logged (Neurontin Capsule) 06:00 Losartan Tablet PHA 10/19/24 Logged (Cozaar Tablet) 10:00 (Nf) Aspirin PHA 10/19/24 Logged (Chewable Aspirin) 10:00 Atorvastatin (Lipitor) PHA 10/19/24 Logged 22:00 Date of Service: Oct 18, 2024 Billing Provider: RANI MYRICK MD Common Visit Codes: [id number] INP/OBS CARE (HIGH) Secondary Visit Codes: [id number]-[id number] CARE PLAN 30 MINUTES KRYSTA IGLESIAS RESIDENT Oct 19, 2024 00:53 RANI MYRICK MD Oct 19, 2024 21:11
[2024-10-19] MEDS: CEFEPIME 1GM/ 50ML 50 ML IV SCH ×2 (01:13→09:50)
[2024-10-19 04:09] LABS: Urine Protein, UAD Negative (Negative)
[2024-10-19 04:22] LABS: Opiate Scree,Urine Neg (NEGATIVE)
[2024-10-19 04:27] LABS: Amphetamine Screen, Urine Neg (NEGATIVE); Barbiturate Scree,Urine Neg (NEGATIVE); Benzodiazephine Screen, Urine Neg (NEGATIVE); Cannabinoid Screen, Urine Neg (NEGATIVE); Cocaine Screen, Urine Neg (NEGATIVE); Phencyclidine Screen, Urine Neg (NEGATIVE)
--- NOTE | 2024-10-19 04:39 | DVH ---
EXAM: CT LEFT LOWER EXTREMITY W/O CON HISTORY: Abscess/necrotizing fascitis COMPARISON: CT CT R TIB FIB WO CONTRAST on DOS: 03/30/23, CT CT R TIB FIB WO CONTRAST on DOS: 06/24/22 , CT CT R FOOT WO CONTRAST on DOS: 06/17/22 TECHNIQUE: Noncontrast axial CT images of the left lower leg were performed. Sagittal and coronal ref ormatted images were obtained. This CT exam was performed using one or more of the following dose red uction techniques: Automated exposure control, adjustment of the mA and/or kV according to patient si ze, or use of iterative reconstruction technique. Radiation Dose Information: CT Dose: CTDI volume is 7.75 mGy. Dose-length product is 568.2 mGy*cm. FINDINGS/IMPRESSION: 1. No acute fracture of the left tibia or fibula. 2. Diffuse subcutaneous edema of the left lower leg, foot, and ankle, greater anterolaterally, withou t evidence formed tissue abscess or gas in the soft tissues. There is question of a developing absce ss along the anterolateral aspect of the distal 3rd left lower leg with skin thickening and more conf luence fluid density in the subcutaneous fat (image 352, series 2). There may be an open draining wou nd. 3. Extensive atherosclerotic calcifications of the left lower leg. Consider follow-up CTA with runof f for better characterization as there may be significant arterial occlusive disease. 4. Left Achilles tendon thickening suggestive of chronic tendinosis. 5. Mild degenerative changes of the left knee and ankle. There is a small left knee effusion.
[2024-10-19] MEDS: GABAPENTIN 300 MG CAP PO SCH (06:35)
[2024-10-19] MEDS: InsuLIN REG 1unit/0.01ml Soln (100units/ml) SC SCH ×2 (07:00→22:00)
[2024-10-19] MEDS: ACCU-CHEK COMFORT CURVE STRIP VI SCH (07:05)
[2024-10-19 07:14] LABS: Hematocrit 34.6 % (41.0-53.0); Hemoglobin 11.5 g/dL (13.5-17.5); Mean Corpuscular Hemoglobin 29.1 pg (28.0-32.0); Mean Corpuscular Volume 87.6 fL (80.0-100.0); Nucleated Red Blood Cells % 0.1 %
[2024-10-19 07:27] LABS: Alanine Aminotransferase 15 U/L (7-40); Albumin 3.6 g/dL (3.2-4.8); Alkaline Phosphatase 63 U/L (46-116); Anion Gap 9 (5-15); BUN/Creatinine Ratio 22.1 (10.0-20.0); Blood Urea Nitrogen 17 mg/dL (9-23); Calcium 9.2 mg/dL (8.7-10.4); Carbon Dioxide 26 mmol/L (20-31); Glucose 84 mg/dL (74-106); Potassium 4.6 mmol/L (3.5-5.1); Sodium 143 mmol/L (136-145); Total Protein 6.0 g/dL (5.7-8.2)
[2024-10-19 07:28] LABS: Bilirubin, Total 0.4 mg/dL (0.2-1.0)
[2024-10-19 07:38] LABS: Chloride 108 mmol/L (98-107)
--- NOTE | 2024-10-19 07:51 | DVH ---
CLINICAL INFORMATION: Preoperative examination. TECHNIQUE: Single AP portable chest radiograph was obtained. COMPARISON: XY CHEST PORTABLE on DOS: 04/01/23, XY CHEST PORTABLE on DOS: 01/26/23, XY CHEST PORTABLE on DOS: 07/01/22 FINDINGS: Lungs: Mild bibasilar atelectasis. No focal consolidation. Cardiac: Cardiac silhouette is at the upper limits of normal in size. Pulmonary vasculature: Mildly prominent pulmonary vasculature. Mediastinum/taqueria: Unremarkable. Bones: No acute osseous abnormality identified. Other: No other significant findings. IMPRESSION: 1. Mild prominence of the pulmonary vasculature May suggest a mild degree of pulmonary vascular conge stion in the appropriate clinical setting. 2. No focal consolidation.
--- NOTE | 2024-10-19 08:21 | DVHPNRES ---
Progress Note Date Seen: Oct 19, 2024 Resident Creating Document: MARTHA JOLLY RESIDENT Medical Necessity Reason Pt with a Central, PICC or Fol: No Subjective Review of Systems DEX LOPEZ is a 64-year-old male with a history of HTN, type 2 DM, HLD, right BKA presented to the ED for the evaluation of left lower leg swelling and pus. Patient reported that he has been having leg swelling since April, underwent multiple procedures for the venous insufficiency, patient reportedly had swelling and bruising of serous fluid from the left lower extremity. For past 1 week patient has been seen that the swelling is worse, formation a wound, went to Podiatry, given Bactrim but no improvement seen which prompted him to visit ED. on my assessment patient denies pain, fever, chills, recent trauma, and other associated symptoms. Patient reported that right leg has been amputated in 2022 due to cellulitis/osteomyelitis from uncontrolled diabetes mellitus. PMH: HTN, type 2 DM, HLD, venous insufficiency, mini-stroke PSH: Right BKA Family history: Noncontributory Social history: Lives at home but denies smoking, alcohol and other drug abuse Allergies: No known allergies Home medicine: apixaban, metformin, Lantus, atorvastatin, losartan, carvedilol Review of Systems Patient seen and examined at the bedside. No new complaints overnight. ROS as obtained in HPI Objective vital signs Vital Sign Date Time Temp Pulse Resp B/P (MAP) Pulse Ox O2 Delivery O2 Flow Rate FiO2 10/19/24 05:00 98.1 64 18 137/80 (99) 96 98.1 10/19/24 00:48 Room Air* 0 21 Total Intake and Output 10/18/24 10/18/24 10/19/24 15:00 23:00 07:00 Intake Total 221.667 ml 621.667 ml Output Total 200 ml Balance 221.667 ml 421.667 ml medications Current Medications Medications Dose Ordered Sig/Javier Route Start Time Stop Time Status Last Admin Dose Admin Sodium Chloride 1,000 ml @ 60 mls/hr [id number] IV 10/18/24 22:15 Ondansetron HCl 4 mg Q4HP PRN IV 10/18/24 22:15 Acetaminophen 650 mg Q6HP PRN PO 10/18/24 22:15 Morphine Sulfate 2 mg Q4HPRN PRN IV 10/18/24 22:15 Clindamycin Phosphate 50 ml @ 50 mls/hr Q8HR IV 10/18/24 22:30 10/19/24 06:58 50 MLS/HR Cefepime HCl 50 ml @ 12.5 mls/hr Q8HR IV 10/18/24 22:30 10/19/24 06:35 12.5 MLS/HR Enoxaparin Sodium 100 mg Q12HR SC 10/19/24 10:00 Diagnostic Test (Pha) 1 strip ACHS 10/19/24 07:00 10/19/24 07:05 1 STRIP Insulin Human Regular HS SC 10/19/24 22:00 Insulin Human Regular AC SC 10/19/24 07:00 Dextrose 50 ml UD PRN IV 10/18/24 22:30 Gabapentin 300 mg TID PO 10/19/24 06:00 10/19/24 06:35 300 MG Losartan Potassium 50 mg DAILY PO 10/19/24 10:00 Aspirin 81 mg DAILY PO 10/19/24 10:00 Atorvastatin Calcium 40 mg HS PO 10/19/24 22:00 Examination Pt is lying on bed General Appearance: Alert, Oriented X3, Cooperative, Not in acute distress HEENT: Atraumatic, Mucous membranes moist/pink Respiratory: Clear to auscultation, Normal air movement, No added sounds Cardiovascular: Regular rate, Normal S1, Normal S2, No murmurs Abdominal: Active bowel sounds, Soft, no distention, no tenderness Extremities: Right BKA. Maceration, wound wrapped with sterile bandage, no soakage Skin: as above Neuro: Normal speech, sensorimotor deficits none Psych/Mental Status: Mental status NL, Mood NL Nurse was there as video surveillance technician during examination laboratory and microbiology Laboratory Tests 10/19/24 06:20 Test 10/19/24 06:20 Range/Units Serum Glucose 84 74-106 mg/dL Labs and/or images reviewed: Labs reviewed by me, Image(s) reviewed by me Problem List/Assessment/Plan Problem List/Assessment/Plan # Left lower extremity cellulitis / abscess / fasciitis # ruled out osteomylitis - x-ray showed motor subcutaneous edema in distal left lower extremity but no evidence of fracture /dislocation - started on clindamycin and cefepime - Foot CT shows :-No acute fracture of the left tibia or fibula. -Diffuse subcutaneous edema of the left lower leg, foot, and ankle, greater anterolaterally, without evidence formed tissue abscess or gas in the soft tissues. There is question of a developing abscess along the anterolateral aspect of the distal 3rd left lower leg with skin thickening and more confluence fluid density in the subcutaneous fat (image 352, series 2). There may be an open draining wound. -Extensive atherosclerotic calcifications of the left lower leg. Consider follow-up CTA with runoff for better characterization as there may be significant arterial occlusive disease. -Left Achilles tendon thickening suggestive of chronic tendinosis. # ? osteoarthritis, Mild degenerative changes of the left knee and ankle. There is a small left knee effusion. - wound cultures and wound consult - podiatry consult # uncontrolled type 2 DM with HbA1c 6.3 - Accu-Cheks and ISS # HTN uncontrolled # HLD - continuously monitor blood pressure - resume home medications # mild hypernatremia, asymptomatic - monitor lab for now GI PPX: Not indicated VTE PPX: Therapeutic Lovenox( patient reported that he is taking Eliquis at home for clots in heart) Diet: Diabetic and cardiac diet Goals of care addressed for more than 27 minutes: Full code status Case discussed with Dr Moody, and RN Plan discussed with: Patient, Other (RN) MARTHA JOLLY RESIDENT Oct 19, 2024 08:21
[2024-10-19] MEDS: ENOXAPARIN SOD 100 MG/1 ML SYRINGE SC SCH (09:30)
[2024-10-19] MEDS: LOSARTAN POTASSIUM 50 MG TAB PO SCH (09:35)
[2024-10-19] MEDS ORDERED: ENOXAPARIN SOD 40 MG/0.4 ML SYRINGE SC SCH (10:00)
[2024-10-20] MEDS: ATORVASTATIN 20 MG TAB PO SCH (00:12)
[2024-10-20 01:00] VITALS: BP 144/82; PULSE 64; RESP 18; TEMP 98.1; O2SAT 96
[2024-10-20 05:00] VITALS: BP 136/79; PULSE 67; RESP 18; TEMP 98; O2SAT 94
[2024-10-20 06:50] LABS: Potassium 4.1 mmol/L (3.5-5.1); Sodium 140 mmol/L (136-145)
[2024-10-20 06:51] LABS: Anion Gap 7 (5-15); Carbon Dioxide 26 mmol/L (20-31)
[2024-10-20 06:56] LABS: BUN/Creatinine Ratio 17.1 (10.0-20.0); Blood Urea Nitrogen 14 mg/dL (9-23)
[2024-10-20 06:57] LABS: Calcium 8.7 mg/dL (8.7-10.4); Chloride 107 mmol/L (98-107); Glucose 110 mg/dL (74-106)
[2024-10-20 07:01] LABS: Hematocrit 35.1 % (41.0-53.0); Hemoglobin 11.8 g/dL (13.5-17.5); Mean Corpuscular Hemoglobin 29.5 pg (28.0-32.0); Mean Corpuscular Volume 87.6 fL (80.0-100.0); Nucleated Red Blood Cells % 0.2 %
[2024-10-20 09:00] VITALS: BP 150/79; PULSE 67; RESP 17; TEMP 97.6; O2SAT 97
[2024-10-20 13:00] VITALS: BP 127/69; PULSE 90; RESP 19; TEMP 98; O2SAT 95
--- NOTE | 2024-10-20 13:17 | DVHINCON2 ---
Date Seen: Oct 20, 2024 Reason for Consultation Left leg wound History of Present Illness DEX LOPEZ is a 64-year-old male with a history of HTN, type 2 DM, HLD, right BKA presented to the ED for the evaluation of left lower leg swelling and pus. Patient reported that he has been having leg swelling since April, underwent multiple procedures for the venous insufficiency, patient reportedly had swelling and bruising of serous fluid from the left lower extremity. For past 1 week patient has been seen that the swelling is worse, formation a wound, went to Podiatry, given Bactrim but no improvement seen which prompted him to visit ED. on my assessment patient denies pain, fever, chills, recent trauma, and other associated symptoms. Patient reported that right leg has been amputated in 2022 due to cellulitis/osteomyelitis from uncontrolled diabetes mellitus Past Medical History See h&p Past Surgical History See H&P Family History: Cardiovascular disease G8 FATHER Diabetes mellitus G8 MOTHER Allergies: Coded Allergies: Penicillins (Verified Allergy, Unknown, hives, 07/06/23) Vancomycin (Verified Allergy, Unknown, hives, 07/06/23) Home Meds Active Scripts Lancets (Advocate Lancets) Lancets Mis, UNIT XX BID, #120 Prov:RUDDY DC NP 07/19/22 Blood Glucose Monitoring Suppl (D-Care Glucometer Kit/Glu W/Device) 1 Kit Kit, KIT XX BID, #1 Prov:RUDDY DC NP 07/19/22 Insulin Syringes (Disposable) (Bd Insulin Syringe Luer-L) 1 Ml Mis, ML XX DAILY, #60 Prov:RUDDY DC NP 07/19/22 Metformin Hydrochloride (Metformin Hcl) 500 Mg Tab, 500 MG PO BIDWM for 60 Days, #120 TAB Prov:RUDDY DC NP 07/19/22 Apixaban Base (ELIQUIS) 5 Mg Tab, 5 MG PO BID for 60 Days, #120 TAB Prov:RUDDY DC NP 07/19/22 Reported Medications Gabapentin (Gabapentin) 300 Mg Cap, 300 MG PO TID for neuropathy, MG 07/06/23 Losartan Potassium (Losartan Potassium) 50 Mg Tab, 1 TAB PO DAILY, #30 TAB 5 Refills 03/30/23 Ascorbic Acid (VITAMIN C TABLET) 500 Mg Tb, 500 MG PO DAILY, TAB 10/14/23 Multiple Vitamin (Multivitamins) Tab, 1 TAB PO DAILY, #90 TAB 3 Refills 01/27/23 Hydrocodone-Acetaminophen (Hydrocodone Bitartrate/AC 5-325 mg) 1 Tab Tab, 1 TAB PO, TAB 01/27/23 Nitroglycerin (NTROSTAT SUBLINGUAL) 0.4 Mg Sl 01/27/23 Insulin Syringe/Needle U-100 (TRUEPLUS INSULIN SYRINGE/) 0.5 Mg/31 G Mis, UD 01/27/23 Atorvastatin Calcium (ATORVASTATIN CALCIUM) 40 Mg Tab, 1 TAB PO 01/27/23 Insulin Glargine (Lantus Solostar) 100 Unit/Ml Inj, 20 UNIT SC DAILY 01/27/23 Aspirin (Chewable Aspirin) 81 Mg Chw, 1 TAB PO DAILY 01/27/23 Insulin Regular (Human) (Humulin R) 100 Unit/Ml Inj, UNIT SC TID for diabetes mellitus sliding scale 01/27/23 Latanoprost (LATANOPROST) 0.005 % Adry, EACHEYE 01/27/23 Current Medications Current Medications Medications (Trade) Dose Ordered Sig/Javier Route PRN Reason Start Time Stop Time Status Last Admin Insulin Human Regular (InsuLIN R) HS SC 10/19/24 22:00 Atorvastatin Calcium (Lipitor) 40 mg HS PO 10/19/24 22:00 10/20/24 00:12 Vital Signs Vital Signs Date Time Temp Pulse Resp B/P (MAP) Pulse Ox O2 Delivery O2 Flow Rate FiO2 10/20/24 10:25 150/79 10/20/24 09:00 97.6 67 17 97 97.6 10/20/24 07:30 Room Air* 0 21 Physical Exam Dermatological: Skin is dry with mild erythema and some maceration around the wound site No gross deformities noted Mild non-pitting edema present bilaterally Superficial draining serous wound on the left lateral leg Vascular: Dorsalis pedis and posterior tibial pulses are 1+ bilaterally Capillary refill is under 2 seconds Skin temperature is warm bilaterally Neurologic: Protective sensation is absent on the plantar forefoot bilaterally Monofilament testing reveals decreased sensation in multiple plantar sites Musculoskeletal: Range of motion at the ankle and MTP joints is within normal limits. Strength is 5/5 in all tested muscle groups. Gait is antalgic due to offloading of the affected limb. Labs/Diagnostic Data Labs Test 10/20/24 11:10 10/20/24 06:08 10/19/24 06:20 10/19/24 03:00 Range/Units POC Glucose 203 H 70-106 mg/dl White Blood Count 8.9 4.4-10.8 10^3/uL Red Blood Count 4.00 L 4.5-5.90 10^6/uL Hemoglobin 11.8 L 13.5-17.5 g/dL Hematocrit 35.1 L 41.0-53.0 % Mean Corpuscular Volume 87.6 80.0-100.0 fL Mean Corpuscular Hemoglobin 29.5 28.0-32.0 pg Mean Corpuscular Hemoglobin Concent 33.7 32.0-36.0 g/dL Red Cell Distribution Width 13.5 11.8-14.3 % Platelet Count 285 140-450 10^3/uL Mean Platelet Volume 8.9 6.9-10.8 fL Neutrophils (%) (Auto) 55.7 37.0-80.0 % Lymphocytes (%) (Auto) 23.9 10.0-50.0 % Monocytes (%) (Auto) 7.0 0.0-12.0 % Eosinophils (%) (Auto) 12.1 H 0.0-7.0 % Basophils (%) (Auto) 1.3 0.0-2.0 % Neutrophils # (Auto) 5.0 1.6-8.6 10 ^3/uL Lymphocytes # (Auto) 2.1 0.4-5.4 10 ^3/uL Monocytes # (Auto) 0.6 0-1.3 10 ^3/uL Eosinophils # (Auto) 1.1 H 0-0.8 10 ^3/uL Basophils # (Auto) 0.1 0-0.2 10 ^3/uL Nucleated Red Blood Cells 0.2 % Sodium Level 140 136-145 mmol/L Potassium Level 4.1 3.5-5.1 mmol/L Chloride Level 107 98-107 mmol/L Carbon Dioxide Level 26 20-31 mmol/L Anion Gap 7 5-15 Blood Urea Nitrogen 14 9-23 mg/dL Creatinine 0.82 0.700-1.30 mg/dL Glomerular Filtration Rate Calc 97 >90 mL/min BUN/Creatinine Ratio 17.1 10.0-20.0 Serum Glucose 110 H 74-106 mg/dL Calcium Level 8.7 8.7-10.4 mg/dL Total Bilirubin 0.4 0.2-1.0 mg/dL Aspartate Amino Transferase (AST) 22 13-40 U/L Alanine Aminotransferase (ALT) 15 7-40 U/L Alkaline Phosphatase 63 46-116 U/L Total Protein 6.0 5.7-8.2 g/dL Albumin 3.6 3.2-4.8 g/dL Urine Color Light-yellow Yellow Urine Clarity Clear Clear Urine pH 7.0 5.0-9.0 Urine Specific [place] 1.017 1.001-1.035 Urine Protein Negative Negative Urine Ketones Negative Negative Urine Blood Negative Negative /uL Urine Nitrite Negative Negative Urine Bilirubin Negative Negative Urine Urobilinogen Normal Negative mg/dL Urine Leukocyte Esterase Negative Negative /uL Urine RBC 1 0 - 3 /hpf Urine Microscopic WBC < 1 0-3 /HPF Urine Squamous Epithelial Cells Few <5 /hpf Urine Bacteria None seen None Seen /hpf Urine Glucose 3+ H Normal mg/dL Urine Opiates Screen Neg NEGATIVE Urine Fentanyl Screen Neg NEGATIVE Urine Barbiturates Screen Neg NEGATIVE Urine Phencyclidine Screen Neg NEGATIVE Urine Amphetamines Screen Neg NEGATIVE Urine Benzodiazepines Screen Neg NEGATIVE Urine Cocaine Screen Neg NEGATIVE Urine Cannabinoids Screen Neg NEGATIVE Test 10/18/24 18:47 Range/Units Prothrombin Time 11.0 9.3-11.8 sec Prothrombin Time INR 1.04 0.9-1.15 Activated Partial Thromboplast Time 27.7 24.5-34.5 SEC Hemoglobin A1c 6.3 H <5.7 % A1C Lactic Acid Level 1.4 0.4-2.0 mmol/L Magnesium Level 2.1 1.6-2.6 mg/dL B-Type Natriuretic Peptide 145.30 0-100 pg/mL Microbiology Date/Time Source Procedure Growth Status 10/19/24 10:45 Leg Right Gram Stain Pending Resulted 10/19/24 10:45 Leg Right Wound Culture - Preliminary Resulted 10/18/24 18:47 Blood Blood Culture - Preliminary NO GROWTH AFTER 24 HOURS OF INCUBATION. Resulted Problems(with codes): (1) Sepsis (2) DKA (diabetic ketoacidosis) (3) Osteomyelitis of foot, right, acute (4) Cellulitis of foot, right (5) Gangrene of right foot (6) ACS (acute coronary syndrome) (7) Diabetic ulcer of lower extremity (8) Hypoglycemia (9) Cellulitis and abscess of left lower extremity Plan/Recommendation ASSESSMENT: Patient is a 64 year old seen on the floor for a worsening ulcer PLAN: - The patients chart was reviewed, clinical findings were discussed with the patient, the etiologies of the conditions were discussed in detail, and a treatment plan was agreed to at this time, with both oral and written instructions provided. - reviewed advanced imaging - discussed with the patient that the wounds appears to be stable at this point - recommend discharged home on p.o. antibiotics - we will see him in clinic tomorrow - leave dressing in place All questions were answered and concerns addressed to the patient's satisfaction. The patient was given the phone number to the clinic and was told how to make contact with the clinic should any concerns or questions arise. Patient understands that if any questions or concerns arise prior to the next appointment, we should be contacted immediately. FOLLOW-UP: Continue to follow while inpatient Plan discussed with: Patient Date of Service: Oct 20, 2024 Billing Provider: LEE ANN SANCHEZ DPM Common Visit Codes: NOT BILLABLE Consultation Codes: [id number] CONSULT <80MIN LEE ANN SANCHEZ DPM Oct 20, 2024 13:17
[2024-10-20] MEDS ORDERED: DOXY1CAP58 PO (13:20)
--- NOTE | 2024-10-20 15:04 | DVHDSRES ---
Discharge Summary Date of Admission Resident Creating Document: MARTHA JOLLY RESIDENT Oct 18, 2024 at 22:13 Date of Discharge: Oct 20, 2024 Admitting Diagnosis # Left lower extremity cellulitis / abscess / fasciitis Labs/Diagnostic Data: Laboratory Results Test 10/20/24 11:10 10/20/24 06:08 10/19/24 06:20 10/19/24 03:00 POC Glucose 203 mg/dl (70-106) White Blood Count 8.9 10^3/uL (4.4-10.8) Red Blood Count 4.00 10^6/uL (4.5-5.90) Hemoglobin 11.8 g/dL (13.5-17.5) Hematocrit 35.1 % (41.0-53.0) Mean Corpuscular Volume 87.6 fL (80.0-100.0) Mean Corpuscular Hemoglobin 29.5 pg (28.0-32.0) Mean Corpuscular Hemoglobin Concent 33.7 g/dL (32.0-36.0) Red Cell Distribution Width 13.5 % (11.8-14.3) Platelet Count 285 10^3/uL (140-450) Mean Platelet Volume 8.9 fL (6.9-10.8) Neutrophils (%) (Auto) 55.7 % (37.0-80.0) Lymphocytes (%) (Auto) 23.9 % (10.0-50.0) Monocytes (%) (Auto) 7.0 % (0.0-12.0) Eosinophils (%) (Auto) 12.1 % (0.0-7.0) Basophils (%) (Auto) 1.3 % (0.0-2.0) Neutrophils # (Auto) 5.0 10 ^3/uL (1.6-8.6) Lymphocytes # (Auto) 2.1 10 ^3/uL (0.4-5.4) Monocytes # (Auto) 0.6 10 ^3/uL (0-1.3) Eosinophils # (Auto) 1.1 10 ^3/uL (0-0.8) Basophils # (Auto) 0.1 10 ^3/uL (0-0.2) Nucleated Red Blood Cells 0.2 % Sodium Level 140 mmol/L (136-145) Potassium Level 4.1 mmol/L (3.5-5.1) Chloride Level 107 mmol/L (98-107) Carbon Dioxide Level 26 mmol/L (20-31) Anion Gap 7 (5-15) Blood Urea Nitrogen 14 mg/dL (9-23) Creatinine 0.82 mg/dL (0.700-1.30) Glomerular Filtration Rate Calc 97 mL/min (>90) BUN/Creatinine Ratio 17.1 (10.0-20.0) Serum Glucose 110 mg/dL (74-106) Calcium Level 8.7 mg/dL (8.7-10.4) Total Bilirubin 0.4 mg/dL (0.2-1.0) Aspartate Amino Transferase (AST) 22 U/L (13-40) Alanine Aminotransferase (ALT) 15 U/L (7-40) Alkaline Phosphatase 63 U/L (46-116) Total Protein 6.0 g/dL (5.7-8.2) Albumin 3.6 g/dL (3.2-4.8) Urine Color Light-yellow (Yellow) Urine Clarity Clear (Clear) Urine pH 7.0 (5.0-9.0) Urine Specific [place] 1.017 (1.001-1.035) Urine Protein Negative (Negative) Urine Ketones Negative (Negative) Urine Blood Negative /uL (Negative) Urine Nitrite Negative (Negative) Urine Bilirubin Negative (Negative) Urine Urobilinogen Normal mg/dL (Negative) Urine Leukocyte Esterase Negative /uL (Negative) Urine RBC 1 /hpf (0 - 3) Urine Microscopic WBC < 1 /HPF (0-3) Urine Squamous Epithelial Cells Few /hpf (<5) Urine Bacteria None seen /hpf (None Seen) Urine Glucose 3+ mg/dL (Normal) Urine Opiates Screen Neg (NEGATIVE) Urine Fentanyl Screen Neg (NEGATIVE) Urine Barbiturates Screen Neg (NEGATIVE) Urine Phencyclidine Screen Neg (NEGATIVE) Urine Amphetamines Screen Neg (NEGATIVE) Urine Benzodiazepines Screen Neg (NEGATIVE) Urine Cocaine Screen Neg (NEGATIVE) Urine Cannabinoids Screen Neg (NEGATIVE) Test 10/18/24 18:47 Prothrombin Time 11.0 sec (9.3-11.8) Prothrombin Time INR 1.04 (0.9-1.15) Activated Partial Thromboplast Time 27.7 SEC (24.5-34.5) Hemoglobin A1c 6.3 % A1C (<5.7) Lactic Acid Level 1.4 mmol/L (0.4-2.0) Magnesium Level 2.1 mg/dL (1.6-2.6) B-Type Natriuretic Peptide 145.30 pg/mL (0-100) Other Laboratory Tests 10/20/24 06:08 Brief Hx & Hospital Course: DEX LOPEZ is a 64-year-old male with a history of HTN, type 2 DM, HLD, right BKA presented to the ED for the evaluation of left lower leg swelling and pus. Patient reported that he has been having leg swelling since April, underwent multiple procedures for the venous insufficiency, patient reportedly had swelling and bruising of serous fluid from the left lower extremity. For past 1 week patient has been seen that the swelling is worse, formation a wound, went to Podiatry, given Bactrim but no improvement seen which prompted him to visit ED. on my assessment patient denies pain, fever, chills, recent trauma, and other associated symptoms. Patient reported that right leg has been amputated in 2022 due to cellulitis/osteomyelitis from uncontrolled diabetes mellitus. PMH: HTN, type 2 DM, HLD, venous insufficiency, mini-stroke PSH: Right BKA Family history: Noncontributory Social history: Lives at home but denies smoking, alcohol and other drug abuse Allergies: No known allergies Home medicine: apixaban, metformin, Lantus, atorvastatin, losartan, carvedilol Brief history of hospitalization: Patient had left lower extremity abscess/cellulitis / fasciitis. X-rays showed motor subcutaneous edema in distal left lower extremity with no evidence of fracture / dislocation. Ruled out osteomyelitis. Foot CT shows: No acute fracture of the left tibia or fibula. Diffuse subcutaneous edema of the left lower leg, foot, and ankle, greater anterolaterally, without evidence formed tissue abscess or gas in the soft tissues. There is question of a developing abscess along the anterolateral aspect of the distal 3rd left lower leg with skin thickening and more confluence fluid density in the subcutaneous fat (image 352, series 2). There may be an open draining wound. Extensive atherosclerotic calcifications of the left lower leg. Left Achilles tendon thickening suggestive of chronic tendinosis. Patient started on clindamycin and cefepime. Patient had possible osteoarthritis, mild degenerative changes of the left knee and ankle. There is a small left knee effusion. Wound cultures and wound consult with cleaning was done and podiatry consultation was done. Podiatry advised outpatient follow-up tomorrow in his clinic. patient's condition is stable to be discharged and patient discharged on doxycycline 100 mg b.i.d. for 14 days and advised to follow outpatient to podiatry. Pt is lying on bed General Appearance: Alert, Oriented X3, Cooperative, Not in acute distress HEENT: Atraumatic, Mucous membranes moist/pink Respiratory: Clear to auscultation, Normal air movement, No added sounds Cardiovascular: Regular rate, Normal S1, Normal S2, No murmurs Abdominal: Active bowel sounds, Soft, no distention, no tenderness Extremities: Right BKA. Maceration, wound wrapped with sterile bandage, no soakage Skin: as above Neuro: Normal speech, sensorimotor deficits none Psych/Mental Status: Mental status NL, Mood NL Nurse was there as command center officer during examination Operations or Procedures Left lower extremity venous duplex Impression: No left femoropopliteal venous thrombosis. 6 cm left inguinal lymph node. Consider percutaneous biopsy. Xray Tibia/Fibula FINDINGS/IMPRESSION: : There is no evidence of acute fracture or dislocation. Calcified athero sclerosis. Moderate subcutaneous edema in the distal left lower extremity. EXAM: CT LEFT LOWER EXTREMITY W/O CON FINDINGS/IMPRESSION: 1. No acute fracture of the left tibia or fibula. 2. Diffuse subcutaneous edema of the left lower leg, foot, and ankle, greater anterolaterally, without evidence formed tissue abscess or gas in the soft tissues. There is question of a developing abscess along the anterolateral aspect of the distal 3rd left lower leg with skin thickening and more confluence fluid density in the subcutaneous fat (image 352, series 2). There may be an open draining wound. 3. Extensive atherosclerotic calcifications of the left lower leg. Consider follow-up CTA with runoff for better characterization as there may be significant arterial occlusive disease. 4. Left Achilles tendon thickening suggestive of chronic tendinosis. 5. Mild degenerative changes of the left knee and ankle. There is a small left knee effusion. Chest Xray IMPRESSION: 1. Mild prominence of the pulmonary vasculature May suggest a mild degree of pulmonary vascular congestion in the appropriate clinical setting. 2. No focal consolidation. Condition at Discharge: Stable Final Diagnosis/Problems List # Left lower extremity cellulitis / abscess / fasciitis # ruled out osteomylitis # ? osteoarthritis, Mild degenerative changes of the left knee and ankle. # Uncontrolled type 2 DM with HbA1c 6.3 # HTN uncontrolled # HLD # mild hypernatremia, asymptomatic # chronic tendinosis Discharge Disposition: Home Discharge Instruct/Medications Diet: Consistent carbohydrate, Cardiac 2g Na,low cholest Activity: No Restrictions, As Tolerated Follow Up/Referral: follow up with podiatry and PCP Medications: resume home medications Doxycycline 100mg BID 14 days Scheduled Apixaban Base (Eliquis), 5 MG PO BID Ascorbic Acid (Vitamin C Tablet), 500 MG PO DAILY, (Reported) Aspirin (Chewable Aspirin), 1 TAB PO DAILY, (Reported) Doxycycline (Monohydrate) (Doxycycline), 100 MG PO BID Gabapentin (Gabapentin), 300 MG PO TID, (Reported) Insulin Glargine (Lantus Solostar), 20 UNIT SC DAILY, (Reported) Insulin Regular (Human) (Humulin R), UNIT SC TID, (Reported) Losartan Potassium (Losartan Potassium), 1 TAB PO DAILY, (Reported) Metformin Hydrochloride (Metformin Hcl), 500 MG PO BIDWM Multiple Vitamin (Multivitamins), 1 TAB PO DAILY, (Reported) Miscellaneous Medications Atorvastatin Calcium (Atorvastatin Calcium), 1 TAB PO, (Reported) Hydrocodone-Acetaminophen (Hydrocodone Bitartrate/AC 5-325 mg), 1 TAB PO, (Reported) Latanoprost (Latanoprost), EACHEYE, (Reported) Nitroglycerin (Ntrostat Sublingual), (Reported) Durable Medical Equipment Blood Glucose Monitoring Suppl (D-Care Glucometer Kit/Glu W/Device), KIT XX BID, (DME) Insulin Syringe/Needle U-100 (Trueplus Insulin Syringe/), UD, (Reported), (DME) Insulin Syringes (Disposable) (Bd Insulin Syringe Luer-L), ML XX DAILY, (DME) Lancets (Advocate Lancets), UNIT XX BID, (DME) Discharge Statement: "Patient was advised to return to the ER or call 911 if any headaches, dizziness, shortness of breath, chest pain, abdominal pain, bleeding, fevers, or worsening of medical condition. Patient was counseled about treatment plan, medications, possible side effects, patientverbalized understanding. All questions were answered to the best of my ability. This discharge took greater then 30 minutes in planning, reviewing documentation, counseling the patient, and discussing with other team members." ASSESSMENT ASSESSMENT Assessment MARTHA JOLLY RESIDENT Oct 20, 2024 15:04 KRYSTA IGLESIAS RESIDENT Oct 20, 2024 15:11
== END 2024-10-20 15:15 | disposition home or self-care (01) | DRG 383 ==
LOC: ER 18:16 → OVERFLOW 22:13 → EAST 23:37
PROVIDERS: ADMIT Internal Medicine; ATTEND Family Medicine
DX: L03.116 Cellulitis of left lower limb (principal); E11.649 Type 2 diabetes mellitus with hypoglycemia without coma; E87.0 Hyperosmolality and hypernatremia; L02.416 Cutaneous abscess of left lower limb; E78.5 Hyperlipidemia, unspecified; I10 Essential (primary) hypertension; M72.8 Other fibroblastic disorders; M17.12 Unilateral primary osteoarthritis, left knee; M19.072 Primary osteoarthritis, left ankle and foot; E11.40 Type 2 diabetes mellitus with diabetic neuropathy, unspecified; L97.829 Non-pressure chronic ulcer of other part of left lower leg with unspecified severity; Z88.1 Allergy status to other antibiotic agents; Z88.0 Allergy status to penicillin; Z79.01 Long term (current) use of anticoagulants; Z79.84 Long term (current) use of oral hypoglycemic drugs; Z79.4 Long term (current) use of insulin; Z79.82 Long term (current) use of aspirin; Z89.511 Acquired absence of right leg below knee; Z86.73 Personal history of transient ischemic attack (TIA), and cerebral infarction without residual deficits; Z83.3 Family history of diabetes mellitus; Z82.49 Family history of ischemic heart disease and other diseases of the circulatory system; Z86.718 Personal history of other venous thrombosis and embolism
CPT/HCPCS: 36415; 71045; 73590; 73700; 80048; 80053; 80307; 81001; 82962; 83036; 83605; 83735; 83880; 85025; 85610; 85730; 87040; 87077; 87186; 87205; 93971; 96365; 96375; 97163; G0378; J1815; J2405; J3490

== ENCOUNTER 2025-03-10 09:57 | Inpatient (IN) | payer MEDICARE, MEDICAID ==
[~2025-03-10] VITALS: Ht 177.8 cm; Wt 104.1 kg
[~2025-03-10 09:57] MED LIST changes: +DOXY1CAP58 PO
--- NOTE | 2025-03-10 10:29 | ED.PDOC ---
History of Present Illness(SKN HPI Comments 65y M who presents to the ED for chief complaint of wound care. Pt states he started blister to the L posterior heel 1 x week ago. 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 Pt states he was given prescription of antibiotics and also told to come to the ED today for further evaluation. Pt has a noted wound to the L posterior heel that is scotty bandaged from podiatry earlier this AM. Pt in the ED, has noted low grade fever of 99.6 F with otherwise stable vitals. Pt denies any other symptoms. Chief Complaint: Wound Check Time Seen by MD: 10:22 Primary Care Provider: NICK History of Present Illness: Medications, Allergies Allergies: Coded Allergies: Penicillins (Verified Allergy, Unknown, hives, 07/06/23) Vancomycin (Verified Allergy, Unknown, hives, 07/06/23) Home Meds Active Scripts Linezolid (Zyvox) 600 Mg Tab, 600 MG PO BID for 21 Days, #42 TAB Prov:EBENEZER FRANCIS MD 03/16/25 Lancets (Advocate Lancets) Lancets Mis, UNIT XX BID, #120 Prov:RUDDY CD NP 07/19/22 Blood Glucose Monitoring Suppl (D-Care Glucometer Kit/Glu W/Device) 1 Kit Kit, KIT XX BID, #1 Prov:RUDDY DC NP 07/19/22 Insulin Syringes (Disposable) (Bd Insulin Syringe Luer-L) 1 Ml Mis, ML XX DAILY, #60 Prov:RUDDY DC NP 07/19/22 Apixaban Base (ELIQUIS) 5 Mg Tab, 5 MG PO BID for 60 Days, #120 TAB Prov:RUDDY DC NP 07/19/22 Reported Medications Triamcinolone Acetonide (Triamcinolone Acetonide) 0.5 % Cre, 1 APPLIC TOP BID for LYMPHPEDEMA, APPLIC 03/11/25 Calcipotriene (CALCIPOTRIENE) 0.005 % Cre, 0.005 % TOP BID for PSORIASIS, CRE 03/11/25 Triamcinolone Acetonide (Triamcinolone Acetonide) 0.1 % Oin, 1 APPLIC TOP BID, #454 GRAMS 03/11/25 Mupirocin (Pseudomonas Fluores (Mupirocin) 2 % Oin, 2 % TOP BID for PSORIASIS/WOUND, OIN 03/11/25 Carvedilol (Carvedilol) 3.125 Mg Tab, 1 TAB PO BID, #60 TAB 3 Refills 03/11/25 Metformin Hydrochloride (Metformin Hcl) 500 Mg Tab, 500 MG PO DAILY for 30 Days, MG 03/11/25 Losartan Potassium (Losartan Potassium) 100 Mg Tab, 1 TAB PO DAILY 03/10/25 Gabapentin (Gabapentin) 300 Mg Cap, 300 MG PO TID for neuropathy, MG 07/06/23 Multiple Vitamin (Multivitamins) Tab, 1 TAB PO DAILY, #90 TAB 3 Refills 01/27/23 Hydrocodone-Acetaminophen (Hydrocodone Bitartrate/AC 5-325 mg) 1 Tab Tab, 1 TAB PO, TAB 01/27/23 Nitroglycerin (NTROSTAT SUBLINGUAL) 0.4 Mg Sl 01/27/23 Insulin Syringe/Needle U-100 (TRUEPLUS INSULIN SYRINGE/) 0.5 Mg/31 G Mis, UD 01/27/23 Atorvastatin Calcium (ATORVASTATIN CALCIUM) 40 Mg Tab, 1 TAB PO 01/27/23 Insulin Glargine (Lantus Solostar) 100 Unit/Ml Inj, 20 UNIT SC DAILY 01/27/23 Aspirin (Chewable Aspirin) 81 Mg Chw, 1 TAB PO DAILY 01/27/23 Insulin Regular (Human) (Humulin R) 100 Unit/Ml Inj, UNIT SC TID for diabetes mellitus sliding scale 01/27/23 Latanoprost (LATANOPROST) 0.005 % Adry, EACHEYE 01/27/23 Discontinued Reported Medications Triamcinolone Acetonide (Triamcinolone Acetonide) 0.1 % Pst, 1 APPLIC TOP BID for PSORIASIS, APPLIC 03/11/25 Ascorbic Acid (VITAMIN C TABLET) 500 Mg Tb, 500 MG PO DAILY, TAB 01/27/23 Losartan Potassium (Losartan Potassium) 50 Mg Tab, 1 TAB PO DAILY, #30 TAB 5 Refills 03/30/23 Discontinued Scripts Doxycycline (Monohydrate) (Doxycycline) 100 Mg Cap, 100 MG PO BID for 14 Days, #24 CAP Prov:KRYSTA IGLESIAS RESIDENT 10/20/24 Information Source: Patient Mode of Arrival: Ambulatory Brought in by: self Past Medical History PAST MEDICAL HISTORY: CVA, DM, High Lipids, HTN Surgical History: Appendectomy, BKA Family History Family History: Family hx of DM Social History Smoker: Non-Smoker Alcohol: Denies ETOH Use Drugs: Denies Drug Use Lives In: Home Constitutional: denies: chills, diaphoresis, fatigue, fever, malaise, sweats, weakness, others EENTM: denies: blurred vision, double vision, ear bleeding, ear discharge, ear drainage, ear pain, ear ringing, eye pain, eye redness, hearing loss, mouth pain, mouth swelling, nasal discharge, nose bleeding, nose congestion, nose pain, photophobia, tearing, throat pain, throat swelling, voice changes, others Respiratory: denies: cough, hemoptysis, orthopnea, SOB at rest, shortness of breath, SOB with excertion, stridor, wheezing, others Cardiovascular: denies: chest pain, dizzy spells, diaphoresis, Dyspnea on exertion, edema, irregular heart beat, left arm pain, lightheadedness, palpitations, PND, syncope, others Gastrointestinal: denies: abdomen distended, abdominal pain, blood streaked bowels, constipated, diarrhea, dysphagia, difficulty swallowing, hematemesis, melena, nausea, poor appetite, poor fluid intake, rectal bleeding, rectal pain, vomiting, others Genitourinary: denies: burning, dysuria, flank pain, frequency, hematuria, incontinence, penile discharge, penile sore, pain, testicle pain, testicle swelling, urgency, others Neurological: denies: dizziness, fainting, headache, left sided numbness, left sided weakness, numbness, paresthesia, pre-existing deficit, right sided numbness, right sided weakness, seizure, speech problems, tingling, tremors, weakness, others Musculoskeletal: denies: back pain, gout, joint pain, joint swelling, muscle pain, muscle stiffness, neck pain, others Integumetry: reports: wounds (L posterior heel wound); denies: bruises, change in color, change in hair/nails, dryness, laceration, lesions, lumps, rash, oth ers Allergic/Immunocompromised: denies: Difficulty Healing, Frequent Infections, Hives, Itching, others Hematologic/Lymphatic: denies: anemia, blood clots, easy bleeding, easy bruising, swollen glands, others Endocrine: denies: excessive hunger, excessive sweating, excessive thirst, excessive urination, flushing, intolerance to cold, intolerance to heat, unexplained weight gain, unexplained weight loss, others Psychiatric: denies: anxiety, bipolar disorder, depression, hopeless, panic disorder, schizophrenia, sleepless, suicidal, others All Other Systems: Reviewed and Negative Physical Exam General Appearance: No Apparent Distress, Normal HEENT: Normal ENT Inspection, Pharynx Normal, TMs Normal Neck: Full Range of Motion, Non-Tender, Normal, Normal Inspection Respiratory: Chest Non-Tender, Lungs Clear, No Accessory Muscle Use, No Respiratory Distress, Normal Breath Sounds Cardiovascular: No Edema, No JVD, No Murmur, No Gallop, Normal Peripheral Pulses, Regular Rate/Rhythm Breast Exam: Deferred Gastrointestinal: No Organomegaly, Non Tender, No Pulsatile Mass, Normal Bowel Sounds, Soft Genitalia: Deferred Pelvic: Deferred Rectal: Deferred Extremities: No calf tenderness, Normal capillary refill, Normal inspection, Normal range of motion, Non-tender, No pedal edema Musculoskeletal : Apperance: Normal Neurologic: Alert, 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 Was a procedure done?: No Differential Diagnosis (INTG) Differential Diagnosis: Abrasion, Cellulitis, Puncture Wound Abscess: Bacteremia Differential Diagnosis: Osteomyelitis, Retained Foreign Body X-Ray, Labs, Meds, VS Vital Signs Date Time Temp Pulse Resp B/P (MAP) Pulse Ox O2 Delivery O2 Flow Rate FiO2 03/10/25 14:08 83 16 110/70 (83) 97 03/10/25 12:06 92 19 116/72 (87) 96 03/10/25 09:59 99.6 98 18 116/72 95 99.6 Lab Test 03/10/25 11:05 Range/Units White Blood Count 12.6 H 4.4-10.8 10^3/uL Red Blood Count 3.69 L 4.5-5.90 10^6/uL Hemoglobin 10.6 L 13.5-17.5 g/dL Hematocrit 32.0 L 41.0-53.0 % Mean Corpuscular Volume 86.7 80.0-100.0 fL Mean Corpuscular Hemoglobin 28.9 28.0-32.0 pg Mean Corpuscular Hemoglobin Concent 33.3 32.0-36.0 g/dL Red Cell Distribution Width 14.0 11.8-14.3 % Platelet Count 310 140-450 10^3/uL Mean Platelet Volume 8.8 6.9-10.8 fL Neutrophils (%) (Auto) 81.5 H 37.0-80.0 % Lymphocytes (%) (Auto) 7.8 L 10.0-50.0 % Monocytes (%) (Auto) 7.8 0.0-12.0 % Eosinophils (%) (Auto) 2.3 0.0-7.0 % Basophils (%) (Auto) 0.6 0.0-2.0 % Neutrophils # (Auto) 10.3 H 1.6-8.6 10 ^3/uL Lymphocytes # (Auto) 1.0 0.4-5.4 10 ^3/uL Monocytes # (Auto) 1.0 0-1.3 10 ^3/uL Eosinophils # (Auto) 0.3 0-0.8 10 ^3/uL Basophils # (Auto) 0.1 0-0.2 10 ^3/uL Nucleated Red Blood Cells 0.0 % Erythrocyte Sedimentation Rate 71 H 0-20 mm/hr Sodium Level 141 136-145 mmol/L Potassium Level 3.8 3.5-5.1 mmol/L Chloride Level 103 98-107 mmol/L Carbon Dioxide Level 28 20-31 mmol/L Anion Gap 10 5-15 Blood Urea Nitrogen 26 H 9-23 mg/dL Creatinine 0.85 0.700-1.30 mg/dL Glomerular Filtration Rate Calc 96 >90 mL/min BUN/Creatinine Ratio 30.6 H 10.0-20.0 Serum Glucose 122 H 74-106 mg/dL Lactic Acid Level 1.4 0.4-2.0 mmol/L Calcium Level 9.2 8.7-10.4 mg/dL Total Bilirubin 0.5 0.2-1.0 mg/dL Aspartate Amino Transferase (AST) 19 13-40 U/L Alanine Aminotransferase (ALT) 11 7-40 U/L Alkaline Phosphatase 92 46-116 U/L C-Reactive Protein High Sensitivity 9.21 H <1.0 mg/dL Total Protein 7.5 5.7-8.2 g/dL Albumin 4.1 3.2-4.8 g/dL Microbiology Date/Time Source Procedure Growth Status 03/10/25 11:17 Blood Blood Culture - Final NO GROWTH AFTER 5 DAYS OF INCUBATION. Complete 03/10/25 11:05 Blood Blood Culture - Final NO GROWTH AFTER 5 DAYS OF INCUBATION. Complete 03/10/25 06:00 Foot Gram Stain - Final Complete 03/10/25 06:00 Wound Culture - Final Aeromonas hydrophilia/caviae Escherichia coli Enterococcus faecalis Enterococcus avium Complete PATIENT: FAISAL LOPEZCCT: [id number]: [id number] : 1960 LOC: ER ROOM / BED: / AGE / SEX: 65 / M ADM STATUS: REG ER SERVICE 1023 ORDERING PHYSICIAN: ANGELY ALVA NP PROCEDURE(s): LFTCT - CT L FOOT WO CONTRAST REASON: R/o OM to the calcaneus/cellulitis to the foot ORDER NUMBER(s): [id number], ACCESSION NUMBER(s): [id number] CLINICAL INDICATION: R/o OM to the calcaneus/cellulitis to the foot TECHNIQUE: Noncontrast CT of the left foot was performed. Sagittal and coronal reformatted images are provided. COMPARISON: CT LEFT LOWER EXTREMITY W/O CON on DOS: 10/18/24. CT Dose: CTDI volume is 7.8 mGy. Dose-length product is 188.3 mGy*cm FINDINGS: No fracture or dislocation. No evidence of cortical erosion or periosteal reaction. There is diffuse soft tissue swelling throughout the foot especially the dorsal foot. No fluid collection seen. There are atherosclerotic calcifications. There is a blister along the medial hindfoot near the calcane us. Small focus of gas is noted with the skin in the lateral calcaneus. IMPRESSION: 1. No CT evidence of osteomyelitis. 2. Diffuse soft tissue swelling throughout the foot which may reflect cellulitis. Small focus of gas in the skin adjacent to the calcaneus in the lateral hindfoot. MRI of the hindfoot is recommended to exclude osteomyelitis which may not be visible on CT. 3. Blister along the medial hindfoot near the calcaneus. All CT scans at this medical facility are performed using dose modulation techniques as appropriate to a performed exam including the following: Automated exposure control was utilized; adjustment of the MA and/or KV according to patient size; and use of iterative reconstruction technique. ATED BY: NICOLE WONG MD DICTATED DATE/TIME: 03/10/25 112 SIGNED BY: NICOLE WONG MD SIGNED DATE/TIME: 03/10/251120 CC: [place] [id number] Ph: [phone] DIAGNOSTIC IMAGING Diagnostic Imaging Report : [id number] Signed PATIENT: DEX LOPEZ ACCT: [id number] UNIT: [id number] : 1960 LOC: ER ROOM / BED: / AGE / SEX: 65 / M ADM STATUS: REG ER SERVICE 1023 ORDERING PHYSICIAN: ANGELY ALVA NP PROCEDURE(s): LLDVT - LT Lower DVT REASON: r/o dvt ORDER NUMBER(s): [id number], ACCESSION NUMBER(s): [id number] Left lower extremity venous duplex Clinical History: edema Comparison: US LT LOWER DVT on DOS: 01/02/25, US LT LOWER DVT on DOS: 10/18/24, US RT LOWER DVT on DOS: 06/17/22 Findings: Duplex Doppler evaluation of the deep venous system of the left lower extremity from the common femoral vein to the popliteal vein including color Doppler and spectral/pulsed waveform analysis was performed. The common femoral vein demonstrates appropriate compressibility and waveform variability. There is compressibility/patency of the great saphenous vein at the proximal thigh. The femoral vein demonstrates appropriate compressibility and waveform variability. The deep femoral vein demonstrates appropriate compressibility and waveform variability. The popliteal vein demonstrates appropriate compressibility and waveform variability. There is normal compressibility at the tibioperoneal trunk. Impression: No left femoropopliteal venous thrombosis. 8 cm left lower extremity lymph nodes If clinical concern/symptoms persist or worsen, short-interval follow-up study is suggested. ATED BY: JUAN MOON MD DICTATED DATE/TIME: 03/10/254 SIGNED BY: JUAN MOON MD SIGNED DATE/TIME: 03/10/251243 CC: [place] [id number] Ph: [phone] DIAGNOSTIC IMAGING Diagnostic Imaging Report : [id number] Signed PATIENT: DEX LOPEZ ACCT: [id number] UNIT: [id number] : 1960 LOC: ER ROOM / BED: / AGE / SEX: 65 / M ADM STATUS: REG ER SERVICE 1023 ORDERING PHYSICIAN: ANGELY ALVA NP PROCEDURE(s): CXR1 - CHEST XRAY 1 VIEW REASON: R/o PNA ORDER NUMBER(s): [id number], ACCESSION NUMBER(s): [id number] CHEST RADIOGRAPH Indication: R/o PNA Technique: Single frontal view of the chest was obtained. Comparison: XY CHEST XRAY 1 VIEW on DOS: 10/19/24 Findings: No focal consolidation. No significant pleural effusion. No pneumothorax. Stable cardiomediastinal silhouette. IMPRESSION: No acute pulmonary process. ATED BY: JUAN MOON MD DICTATED DATE/TIME: 03/10/25 1102 SIGNED BY: JUAN MOON MD SIGNED DATE/TIME: 03/10/25 110 CC: X-Ray, Labs, Meds, VS Comment Patient arrives alert and oriented, ABC's intact, afebrile, vital signs stable, saturating well in room air Peripheral IV insertion+ labs were ordered. CBC was ordered to exclude anemia, blood loss, or infection. CMP was ordered to exclude electrolyte abnormalities, renal failure, dehydration, hyperglycemia and/or liver enzyme abnormalities. ESR, CRP, LACTIC ACID, BLOOD CULTURE History and findings consistent with cellulitis. The area of infection does not appear to have any loculations/induration based on physical exam. The patient did not require an incision and drainage. Patient well appearing. Differentials considered but not limited to: necrotizing Fasciitis, Abscess, Osteomyelitis, DVT Diagnostic imaging ordered by me and results interpreted by radiology : left lower DVT US, CT L FOOT W/O CONTRAST, CHEST X-RAY 1. No CT evidence of osteomyelitis. 2. Diffuse soft tissue swelling throughout the foot which may reflect cellulitis. Small focus of gas in the skin adjacent to the calcaneus in the lateral hindfoot. MRI of the hindfoot is recommended to exclude osteomyelitis which may not be visible on CT. 3. Blister along the medial hindfoot near the calcaneus. Patient will be started on cefazolin in the ER The patient's workup reveals that the patient needs further evaluation and/or treatment for the above medical conditions. Patient verbalized understanding of the above and is awaiting further evaluation by the admitting service. Time of 1ST Reevaluation: 11:00 Reevaluation 1ST: Unchanged Patient Education/Counseling: Diagnosis, Treatment Family Education/Counseling: No Family Present SEPSIS Sepsis Screen Date sepsis recognized/suspect: Mar 10, 2025 Time Sepsis recognized/suspect: 1001 Recent Procedure: No On Antibiotic Therapy: No Respiratory Rate >20: No Heart Rate >90: Yes Temp<36 C (96.8 F) or >38.3 C: No SBP <90 or MAP <65 mmHG: No New Acute Mental Status Change: No Is the patient on CPAP, BIPAP,: No Physician Orders Electrocardigram (03/10/25 10:23) Chest Xray 1 View (03/10/25 10:23) Ct L Foot Wo Contrast (03/10/25 10:23) Lt Lower Dvt (03/10/25 10:23) Vital Signs Date Time Temp Pulse Resp B/P (MAP) Pulse Ox O2 Delivery O2 Flow Rate FiO2 03/10/25 14:08 83 16 110/70 (83) 97 03/10/25 12:06 92 19 116/72 (87) 96 03/10/25 09:59 99.6 98 18 116/72 95 99.6 Laboratory Tests Test 03/10/25 11:05 Lactic Acid Level 1.4 mmol/L (0.4-2.0) White Blood Count 12.6 10^3/uL (4.4-10.8) H Departure 1 Departure Time of Disposition: 11:43 Impression: Primary Impression: Cellulitis of left foot Additional Impression: Leg edema, left Disposition: 09 ADMITTED INPATIENT Condition: Serious e-Prescriptions Linezolid (Zyvox) 600 Mg Tab 600 MG PO BID for 21 Days, #42 TAB Prov: EBENEZER FRANCIS MD 03/16/25 Critical Care Note Critical Care Time?: No Stability Stability form required: No Heart Score Heart Score: Heart Score Response (Comments) Value History N/A 0 EKG N/A 0 Age N/A 0 Risk Factors N/A 0 Troponin N/A 0 Total 0 I personally scribed for ANGELY ALVA NP (BOOM) on 03/10/25 at 10:29. Electronically submitted by Nu Zavala ([employer]). I personally scribed for ANGELY ALVA NP (SHANNANOMA) on 03/10/25 at 10:37. Electronically submitted by Nu Zavala ([employer]). I personally scribed for ANGELY ALVA NP (SHANNANOMA) on 03/10/25 at 13:18. Electronically submitted by Nu Zavala ([employer]). ANGELY ALVA NP Mar 10, 2025 10:29
--- NOTE | 2025-03-10 11:04 | DVH ---
CHEST RADIOGRAPH Indication: R/o PNA Technique: Single frontal view of the chest was obtained. Comparison: XY CHEST XRAY 1 VIEW on DOS: 10/19/24 Findings: No focal consolidation. No significant pleural effusion. No pneumothorax. Stable cardiomediastinal silhouette. IMPRESSION: No acute pulmonary process.
--- NOTE | 2025-03-10 11:24 | DVH ---
CLINICAL INDICATION: R/o OM to the calcaneus/cellulitis to the foot TECHNIQUE: Noncontrast CT of the left foot was performed. Sagittal and coronal reformatted images are provided. COMPARISON: CT LEFT LOWER EXTREMITY W/O CON on DOS: 10/18/24. CT Dose: CTDI volume is 7.8 mGy. Dose-length product is 188.3 mGy*cm FINDINGS: No fracture or dislocation. No evidence of cortical erosion or periosteal reaction. There is diffuse soft tissue swelling throughout the foot especially the dorsal foot. No fluid collection seen. There are atherosclerotic calcifications. There is a blister along the medial hindfoot near the calcaneus. Small focus of gas is noted with the skin in the lateral calcaneus. IMPRESSION: 1. No CT evidence of osteomyelitis. 2. Diffuse soft tissue swelling throughout the foot which may reflect cellulitis. Small focus of gas in the skin adjacent to the calcaneus in the lateral hindfoot. MRI of the hindfoot is recommended to exclude osteomyelitis which may not be visible on CT. 3. Blister along the medial hindfoot near the calcaneus. All CT scans at this medical facility are performed using dose modulation techniques as appropriate to a performed exam including the following: Automated exposure control was utilized; adjustment of the MA and/or KV according to patient size; and use of iterative reconstruction technique.
[2025-03-10 11:40] LABS: Hematocrit 32.0 % (41.0-53.0); Hemoglobin 10.6 g/dL (13.5-17.5); Mean Corpuscular Hemoglobin 28.9 pg (28.0-32.0); Mean Corpuscular Volume 86.7 fL (80.0-100.0); Nucleated Red Blood Cells % 0.0 %
[2025-03-10 11:50] LABS: Alanine Aminotransferase 11 U/L (7-40); Albumin 4.1 g/dL (3.2-4.8); Alkaline Phosphatase 92 U/L (46-116); Anion Gap 10 (5-15); BUN/Creatinine Ratio 30.6 (10.0-20.0); Bilirubin, Total 0.5 mg/dL (0.2-1.0); Calcium 9.2 mg/dL (8.7-10.4); Carbon Dioxide 28 mmol/L (20-31); Chloride 103 mmol/L (98-107); Potassium 3.8 mmol/L (3.5-5.1); Sodium 141 mmol/L (136-145); Total Protein 7.5 g/dL (5.7-8.2)
[2025-03-10 11:54] LABS: Blood Urea Nitrogen 26 mg/dL (9-23); Glucose 122 mg/dL (74-106)
--- NOTE | 2025-03-10 12:46 | DVH ---
Left lower extremity venous duplex Clinical History: edema Comparison: US LT LOWER DVT on DOS: 01/02/25, US LT LOWER DVT on DOS: 10/18/24, US RT LOWER DVT on DOS: 06/17/22 Findings: Duplex Doppler evaluation of the deep venous system of the left lower extremity from the common femoral vein to the popliteal vein including color Doppler and spectral/pulsed waveform analysis was performed. The common femoral vein demonstrates appropriate compressibility and waveform variability. There is compressibility/patency of the great saphenous vein at the proximal thigh. The femoral vein demonstrates appropriate compressibility and waveform variability. The deep femoral vein demonstrates appropriate compressibility and waveform variability. The popliteal vein demonstrates appropriate compressibility and waveform variability. There is normal compressibility at the tibioperoneal trunk. Impression: No left femoropopliteal venous thrombosis. 8 cm left lower extremity lymph nodes If clinical concern/symptoms persist or worsen, short-interval follow-up study is suggested.
[2025-03-10] MEDS ORDERED: ACETAMINOPHEN 325 MG TAB PO PRN (14:15)
[2025-03-10] MEDS ORDERED: ONDANSETRON HCL 4 MG/2 ML VIAL IV PRN (14:15)
[2025-03-10] MEDS ORDERED: DOCUSATE SOD 100 MG CAP PO PRN (14:15)
[2025-03-10] MEDS ORDERED: MORPHINE SULFATE INJ 2 MG/ml SYRG IV PRN (14:15)
[2025-03-10] MEDS ORDERED: LOSA-535 PO (15:16)
[2025-03-10] MEDS ORDERED: DEXTROSE (50%) 50ML SYRG IV PRN (15:30)
--- NOTE | 2025-03-10 15:56 | DVHHP2 ---
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 Patient states the wound started about 1 week ago as a blister, then just a couple days ago became an open wound. He went to see podiatry and was told he needed to go to the hospital. Patient also has open wounds to his right leg, and states he needed the BKA due to an open wound that turned into osteomyelitis from uncontrolled diabetes. Cardiovascular: HTN, hyperipidemia, Other (blood clot in heart) DITCH DIGGER: CVA (no residual deficits) Endocrine: Diabetes Past Surgical History: Appendectomy, Other (Right BKA, ) Smoke: No ALCOHOL: none Drugs: None Lives: with Family Domestic Violence: Neg Review of Systems Constitutional: No: Fever, Chills, Sweats, Weakness, Malaise, Other Eyes: No: Pain, Vision change, Conjunctivae inflammation, Eyelid inflammation, Other, Redness ENT: No: Ear pain, Ear discharge, Nose pain, Nose discharge, Nose congestion, Mouth pain, Mouth swelling, Throat pain, Throat swelling, Other Respiratory: No: Cough, Dry, Shortness of breath, SOB with excertion, Wheezing, Hemoptysis, Pleuritic Pain, Sputum, Wheezing, Other Cardiovascular: No: Chest Pain, Palpitations, Orthopnea, Paroxysmal Noc. Dyspnea, Edema, Lt Headedness, Other Gastrointestinal: No: Nausea, Vomiting, Abdominal Pain, Diarrhea, Constipation, Melena, Hematochezia, Other Genitourinary: No Dysuria, No Frequency, No Incontinence, No Hematuria, No Rete ntion, No Other Musculoskeletal: foot pain (left); No: other, neck pain, shoulder pain, arm pain, back pain, hand pain, leg pain Skin: Other (open wound to left heel); No: Rash, Lesions, Jaundice, Bruising Neurological: No: Weakness, Numbness, Incoordination, Change in speech, Confusion, Seizures, Other Allergies: Coded Allergies: Penicillins (Verified Allergy, Unknown, hives, 07/06/23) Vancomycin (Verified Allergy, Unknown, hives, 07/06/23) Medications Current Medications Medications Dose Ordered Sig/Javier Route Start Time Stop Time Status Last Admin Dose Admin Acetaminophen/ Hydrocodone Bitart 1 tab Q4HP PRN PO 03/10/25 14:15 UNV Ondansetron HCl 4 mg Q4HP PRN IV 03/10/25 14:15 UNV Docusate Sodium 100 mg BIDPRN PRN PO 03/10/25 14:15 UNV Acetaminophen 650 mg Q6HP PRN PO 03/10/25 14:15 UNV Morphine Sulfate 2 mg Q4HPRN PRN IV 03/10/25 14:15 UNV Apixaban 5 mg BID PO 03/10/25 22:00 UNV Gabapentin 300 mg TID PO 03/10/25 22:00 UNV Patient Own Medication 1 tab DAILY PO 03/11/25 10:00 UNV Patient Own Medication 20 unit DAILY SC 03/11/25 10:00 UNV Atorvastatin Calcium 40 mg HS PO 03/10/25 22:00 UNV Exam Vital Signs Vital Signs Date Time Temp Pulse Resp B/P (MAP) Pulse Ox O2 Delivery O2 Flow Rate FiO2 03/10/25 14:08 83 16 110/70 (83) 97 03/10/25 09:59 99.6 99.6 General Appearance: Alert, Oriented X3, Cooperative, No acute distress HEENT: Atraumatic, PERRLA, Mucous membr. moist/pink Respiratory: Clear to auscultation, Normal air movement Cardiovascular: Regular rate, Normal S1, Normal S2 Abdominal: Normal bowel sounds, Soft, No tenderness, No hepatospenomegaly Extremities: No clubbing, No cyanosis, No edema Skin: No rashes, No breakdown, No significant lesion (left heel wound, walking boot in place) Neuro: Normal speech, Strength at 5/5 X4 ext Psych/Mental Status: Mental status NL, Mood NL Labs/Xrays Labs Test 03/10/25 11:05 Range/Units White Blood Count 12.6 H 4.4-10.8 10^3/uL Red Blood Count 3.69 L 4.5-5.90 10^6/uL Hemoglobin 10.6 L 13.5-17.5 g/dL Hematocrit 32.0 L 41.0-53.0 % Mean Corpuscular Volume 86.7 80.0-100.0 fL Mean Corpuscular Hemoglobin 28.9 28.0-32.0 pg Mean Corpuscular Hemoglobin Concent 33.3 32.0-36.0 g/dL Red Cell Distribution Width 14.0 11.8-14.3 % Platelet Count 310 140-450 10^3/uL Mean Platelet Volume 8.8 6.9-10.8 fL Neutrophils (%) (Auto) 81.5 H 37.0-80.0 % Lymphocytes (%) (Auto) 7.8 L 10.0-50.0 % Monocytes (%) (Auto) 7.8 0.0-12.0 % Eosinophils (%) (Auto) 2.3 0.0-7.0 % Basophils (%) (Auto) 0.6 0.0-2.0 % Neutrophils # (Auto) 10.3 H 1.6-8.6 10 ^3/uL Lymphocytes # (Auto) 1.0 0.4-5.4 10 ^3/uL Monocytes # (Auto) 1.0 0-1.3 10 ^3/uL Eosinophils # (Auto) 0.3 0-0.8 10 ^3/uL Basophils # (Auto) 0.1 0-0.2 10 ^3/uL Nucleated Red Blood Cells 0.0 % Erythrocyte Sedimentation Rate 71 H 0-20 mm/hr Sodium Level 141 136-145 mmol/L Potassium Level 3.8 3.5-5.1 mmol/L Chloride Level 103 98-107 mmol/L Carbon Dioxide Level 28 20-31 mmol/L Anion Gap 10 5-15 Blood Urea Nitrogen 26 H 9-23 mg/dL Creatinine 0.85 0.700-1.30 mg/dL Glomerular Filtration Rate Calc 96 >90 mL/min BUN/Creatinine Ratio 30.6 H 10.0-20.0 Serum Glucose 122 H 74-106 mg/dL Lactic Acid Level 1.4 0.4-2.0 mmol/L Calcium Level 9.2 8.7-10.4 mg/dL Total Bilirubin 0.5 0.2-1.0 mg/dL Aspartate Amino Transferase (AST) 19 13-40 U/L Alanine Aminotransferase (ALT) 11 7-40 U/L Alkaline Phosphatase 92 46-116 U/L C-Reactive Protein High Sensitivity 9.21 H <1.0 mg/dL Total Protein 7.5 5.7-8.2 g/dL Albumin 4.1 3.2-4.8 g/dL CHEST RADIOGRAPH Findings: No focal consolidation. No significant pleural effusion. No pneumothorax. Stable cardiomediastinal silhouette. IMPRESSION: No acute pulmonary process. Left lower extremity venous duplex Findings: Duplex Doppler evaluation of the deep venous system of the left lower extremity from the common femoral vein to the popliteal vein including color Doppler and spectral/pulsed waveform analysis was performed. The common femoral vein demonstrates appropriate compressibility and waveform variability. There is compressibility/patency of the great saphenous vein at the proximal thigh. The femoral vein demonstrates appropriate compressibility and waveform variability. The deep femoral vein demonstrates appropriate compressibility and waveform variability. The popliteal vein demonstrates appropriate compressibility and waveform variability. There is normal compressibility at the tibioperoneal trunk. Impression: No left femoropopliteal venous thrombosis. 8 cm left lower extremity lymph nodes TECHNIQUE: Noncontrast CT of the left foot was performed. FINDINGS: No fracture or dislocation. No evidence of cortical erosion or periosteal reaction. There is diffuse soft tissue swelling throughout the foot especially the dorsal foot. No fluid collection seen. There are atherosclerotic calcifications. There is a blister along the medial hindfoot near the calcaneus. Small focus of gas is noted with the skin in the lateral calcaneus. IMPRESSION: 1. No CT evidence of osteomyelitis. 2. Diffuse soft tissue swelling throughout the foot which may reflect cellulitis. Small focus of gas in the skin adjacent to the calcaneus in the lateral hindfoot. MRI of the hindfoot is recommended to exclude osteomyelitis which may not be visible on CT. 3. Blister along the medial hindfoot near the calcaneus. SEPSIS Sepsis Screen Date sepsis recognized/suspect: Mar 10, 2025 Time Sepsis recognized/suspect: 1001 Recent Procedure: No On Antibiotic Therapy: No Respiratory Rate >20: No Heart Rate >90: Yes Temp<36 C (96.8 F) or >38.3 C: No SBP <90 or MAP <65 mmHG: No New Acute Mental Status Change: No Is the patient on CPAP, BIPAP,: No Physician Orders Blood Culture (03/10/25 10:23) Electrocardigram (03/10/25 10:23) Chest Xray 1 View (03/10/25 10:23) Ct L Foot Wo Contrast (03/10/25 10:23) Lt Lower Dvt (03/10/25 10:23) Admit (03/10/25 14:15) Code Status (03/10/25 14:15) Hydrocodone-Acet 5/325mg Tab ([place] 5/32 (03/10/25 14:15) Ondansetron Hcl (Zofran) (03/10/25 14:15) Docusate Sodium Capsule (Colace Capsule) (03/10/25 14:15) Complete Blood Count (03/11/25 04:00) Comprehensive Metabolic Panel (03/11/25 04:00) Cardiac Diet-2gna,Lofat,Lochol (03/10/25 Dinner) Condition: Serious (03/10/25 14:15) Acetaminophen Tablet (Tylenol Tablet) (03/10/25 14:15) Morphine Sulfate Injection (03/10/25 14:15) Apixaban (Eliquis) (03/10/25 22:00) Gabapentin Capsule (Neurontin Capsule) (03/10/25 22:00) (Nf) Aspirin (Chewable Aspirin) (03/11/25 10:00) (Nf) Insulin Glargine (Lantus Solostar) (03/11/25 10:00) Atorvastatin (Lipitor) (03/10/25 22:00) Glucose Blood (Accu-Chek Comfort Curve T (03/10/25 17:00) Bedtime Insulin Scale (03/10/25 22:00) Moderate Insulin Ss (03/10/25 17:00) Dextrose 50% Syringe (03/10/25 15:30) Vital Signs Date Time Temp Pulse Resp B/P (MAP) Pulse Ox O2 Delivery O2 Flow Rate FiO2 03/10/25 14:08 83 16 110/70 (83) 97 03/10/25 12:06 92 19 116/72 (87) 96 03/10/25 09:59 99.6 98 18 116/72 95 99.6 Laboratory Tests Test 03/10/25 11:05 Lactic Acid Level 1.4 mmol/L (0.4-2.0) White Blood Count 12.6 10^3/uL (4.4-10.8) H Assessment/Plan Assessment/Plan Assessment: Diabetic ulcer of lower extremity, Diabetes, Hypertension, Hyperlipidemia, Plan: Admit to Med-Surg, Podiatry consult, Consider MRI of left heel to R/O osteomyelitis, IV antibiotics, IV hydration, Wound culture, Wound care consult, Home medications reconciled, Plan discussed with: Patient My Orders Orders - DUSTIN THOMAS Procedure Category Date Status Time Admit ADMIT 03/10/25 Transmitted 14:15 Code Status CODE 03/10/25 Transmitted 14:15 Hydrocodone-Acet PHA 03/10/25 Logged 5/325mg Tab ([place] 14:15 Ondansetron Hcl PHA 03/10/25 Logged (Zofran) 14:15 Docusate Sodium PHA 03/10/25 Logged Capsule (Colace 14:15 Complete Blood Count LAB 03/11/25 Verified 04:00 Comprehensive LAB 03/11/25 Verified Metabolic Panel 04:00 Cardiac DIET 03/10/25 Transmitted Diet-2gna,Lofat,Lochol Dinner Condition: Serious DAVID 03/10/25 In Process 14:15 Acetaminophen Tablet PHA 03/10/25 Logged (Tylenol Tablet) 14:15 Morphine Sulfate PHA 03/10/25 Logged Injection 14:15 Apixaban (Eliquis) PHA 03/10/25 Logged 22:00 Gabapentin Capsule PHA 03/10/25 Logged (Neurontin Capsule) 22:00 (Nf) Aspirin PHA 03/11/25 Logged (Chewable Aspirin) 10:00 (Nf) Insulin Glargine PHA 03/11/25 Logged (Lantus Solostar) 10:00 Atorvastatin (Lipitor) PHA 03/10/25 Logged 22:00 Glucose Blood PHA 03/10/25 Verified (Accu-Chek Comfort 17:00 Bedtime Insulin Scale PHA 03/10/25 Verified 22:00 Moderate Insulin Ss PHA 03/10/25 Verified 17:00 Dextrose 50% Syringe PHA 03/10/25 Verified 15:30 Date of Service: Mar 10, 2025 Billing Provider: DUSTIN THOMAS Common Visit Codes: [id number] INP/OBS CARE (MOD) DUSTIN THOMAS Mar 10, 2025 15:56
[2025-03-10] MEDS ORDERED: VANCOMYCIN PER PHARMACY 0 MG IV SCH (18:00)
[2025-03-10] MEDS ORDERED: VANCOMYCIN 1.25GM/250ML 250 ML IV ONE (18:00)
[2025-03-10] MEDS: ACCU-CHEK COMFORT CURVE STRIP VI SCH (18:20)
[2025-03-10] MEDS: InsuLIN REG 1unit/0.01ml Soln (100units/ml) SC SCH ×2 (18:21→21:55)
[2025-03-10] MEDS: HYDROcodone-ACET 5/325MG TAB PO PRN (20:41)
[2025-03-10] MEDS: APIXABAN 5 MG TAB PO SCH (20:42)
[2025-03-10] MEDS: GABAPENTIN 300 MG CAP PO SCH (21:55)
[2025-03-10] MEDS: ATORVASTATIN 20 MG TAB PO SCH (22:00)
[2025-03-10] MEDS: VANCOMYCIN 1GM/250ML IV SCH (22:15)
[2025-03-10 23:00] VITALS: BP 128/87; PULSE 77; RESP 18; TEMP 97.8; O2SAT 96
[2025-03-10 23:15] VITALS: BP 128/87; PULSE 77; PULSE 83; RESP 18; TEMP 97.8; O2SAT 96; O2SAT 99
[2025-03-11] VITALS (8 sets, daily range): BP systolic 108–148; BP diastolic 64–95; PULSE 72–81; RESP 17–19; TEMP 97.3–99; O2SAT 92–96
[2025-03-11] MEDS ORDERED: TRIA0.1O TOP (02:06)
[2025-03-11] MEDS ORDERED: CARV3.1240 PO (02:06)
[2025-03-11] MEDS ORDERED: METF-370 PO (02:06)
[2025-03-11] MEDS ORDERED: MUPI2OIN2 TOP (02:06)
[2025-03-11] MEDS ORDERED: TRIA0.1P2 TOP (02:06)
[2025-03-11] MEDS ORDERED: CALC0.0021 TOP (02:06)
[2025-03-11] MEDS ORDERED: TRIA0.5C TOP (02:06)
[2025-03-11 07:51] LABS: Hematocrit 34.4 % (41.0-53.0); Hemoglobin 10.6 g/dL (13.5-17.5); Mean Corpuscular Hemoglobin 29.2 pg (28.0-32.0); Mean Corpuscular Volume 95.1 fL (80.0-100.0); Nucleated Red Blood Cells % 0.2 %
[2025-03-11 08:37] LABS: Albumin 3.5 g/dL (3.2-4.8); Alkaline Phosphatase 82 U/L (46-116); Anion Gap 9 (5-15); BUN/Creatinine Ratio 26.1 (10.0-20.0); Blood Urea Nitrogen 18 mg/dL (9-23); Carbon Dioxide 26 mmol/L (20-31); Chloride 106 mmol/L (98-107); Potassium 4.4 mmol/L (3.5-5.1); Sodium 141 mmol/L (136-145); Total Protein 6.4 g/dL (5.7-8.2)
[2025-03-11 08:38] LABS: Bilirubin, Total 0.6 mg/dL (0.2-1.0)
[2025-03-11 08:43] LABS: Alanine Aminotransferase 9 U/L (7-40); Calcium 8.7 mg/dL (8.7-10.4); Glucose 111 mg/dL (74-106)
[2025-03-11] MEDS: INSULIN GLARGINE 20 UNIT SC SCH (09:39)
[2025-03-11] MEDS ORDERED: PATIENTS OWN MEDICATION (Aspirin (Chewable Aspirin) 1 TAB) PO SCH (10:00)
--- NOTE | 2025-03-11 14:40 | DVHPN2 ---
Subjective Admitted with left foot heel infected wound Changes from previous H/P or p: Changes Eyes: No Pain, No Vision change, No Conjunctivae inflammation, No Eyelid inflammation, No Other, No Redness ENT: No Ear pain, No Ear discharge, No Nose pain, No Nose discharge, No Nose congestion, No Mouth pain, No Mouth swelling, No Throat pain, No Throat swelling, No Other Cardiovascular: No Chest Pain, No Palpitations, No Orthopnea, No Paroxysmal Noc. Dyspnea, No Edema, No Lt Headedness, No Other Respiratory: No Cough, No Dry, No Shortness of breath, No SOB with excertion, No Wheezing, No Hemoptysis, No Pleuritic Pain, No Sputum, No Other Gastrointestinal: No Nausea, No Vomiting, No Abdominal Pain, No Diarrhea, No Constipation, No Melena, No Hematochezia, No Other Genitourinary: No Dysuria, No Frequency, No Incontinence, No Hematuria, No Retention, No Other Musculoskeletal: No other, No neck pain, No shoulder pain, No arm pain, No back pain, No hand pain, No leg pain; foot pain (left) Skin: No Rash, No Lesions, No Jaundice, No Bruising; Other (open wound to left heel) Objective Vitals Vital Signs Date Time Temp Pulse Resp B/P (MAP) Pulse Ox O2 Delivery O2 Flow Rate FiO2 03/11/25 12:30 98.3 73 18 114/64 (81) 94 98.3 03/10/25 23:15 Room Air* 0 21 Intake/Output Intake and Output 03/11/25 06:59 Intake Total 200 ml Balance 200 ml Intake Oral 200 ml General Appearance: Alert, Oriented X3, Cooperative, No acute distress Lungs: Clear to auscultation, Normal air movement Cardiovascular: Regular rate, Normal S1 Abdomen: Normal bowel sounds, Soft Extremities: No edema Medications Current Medications Medications Dose Ordered Sig/Javier Route Start Time Stop Time Status Last Admin Dose Admin Acetaminophen/ Hydrocodone Bitart 1 tab Q4HP PRN PO 03/10/25 14:15 03/11/25 14:10 1 TAB Ondansetron HCl 4 mg Q4HP PRN IV 03/10/25 14:15 Docusate Sodium 100 mg BIDPRN PRN PO 03/10/25 14:15 Acetaminophen 650 mg Q6HP PRN PO 03/10/25 14:15 Morphine Sulfate 2 mg Q4HPRN PRN IV 03/10/25 14:15 Apixaban 5 mg BID PO 03/10/25 22:00 03/11/25 09:18 5 MG Gabapentin 300 mg TID PO 03/10/25 22:00 03/11/25 14:10 300 MG Patient Own Medication 1 tab DAILY PO 03/11/25 10:00 UNV Patient Own Medication 20 unit DAILY SC 03/11/25 10:00 Atorvastatin Calcium 40 mg HS PO 03/10/25 22:00 03/10/25 22:00 40 MG Diagnostic Test (Pha) 1 strip ACHS 03/10/25 17:00 03/11/25 11:30 1 STRIP Insulin Human Regular HS SC 03/10/25 22:00 Insulin Human Regular AC SC 03/10/25 17:00 03/11/25 12:11 3 UNITS Dextrose 50 ml UD PRN IV 03/10/25 15:30 Aspirin 81 mg DAILY PO 03/11/25 10:00 03/11/25 09:17 81 MG Ceftriaxone Sodium 50 ml @ 100 mls/hr DAILY@09 IV 03/11/25 09:00 03/11/25 09:19 100 MLS/HR Linezolid 300 ml @ 150 mls/hr Q12HR IV 03/11/25 22:00 UNV Losartan Potassium 100 mg DAILY PO 03/12/25 10:00 UNV Carvedilol 3.125 mg Q12HR PO 03/11/25 22:00 UNV Insulin Glargine 20 units QAM SC 03/12/25 07:00 UNV Laboratory Results Laboratory Tests 03/11/25 06:51 Chemistry Test 03/11/25 06:51 Albumin 3.5 g/dL (3.2-4.8) Calcium Level 8.7 mg/dL (8.7-10.4) Total Protein 6.4 g/dL (5.7-8.2) LFT Test 03/11/25 06:51 Alanine Aminotransferase (ALT) 9 U/L (7-40) Alkaline Phosphatase 82 U/L (46-116) Aspartate Amino Transferase (AST) 20 U/L (13-40) Total Bilirubin 0.6 mg/dL (0.2-1.0) Microbiology Microbiology Date/Time Source Procedure Growth Status 03/10/25 11:17 Blood Blood Culture - Preliminary NO GROWTH AFTER 24 HOURS OF INCUBATION. Resulted Assessment/Plan Assessment/Plan Assessment: Diabetic ulcer of lower extremity, Diabetes, Hypertension, Hyperlipidemia, PLAN: IV Meropenem and Zyvox Podiatry consult Resume home meds SS Lantus Monitor closely Full code Advance directives discussed x 15 minutes Plan discussed with: Patient My Orders Orders - EBENEZER FRANCIS MD Procedure Category Date Status Time Linezolid 600mg/300ml PHA 03/11/25 Logged (Zyvox) 22:00 Losartan Tablet PHA 03/12/25 Logged (Cozaar Tablet) 10:00 Losartan Tablet PHA 03/11/25 Logged (Cozaar Tablet) 14:30 Carvedilol Tablet PHA 03/11/25 Logged (Coreg Tablet) 22:00 Carvedilol Tablet PHA 03/11/25 Logged (Coreg Tablet) 14:30 Insulin Lantus PHA 03/11/25 Logged (Glargine) (Lantus) 14:30 Insulin Lantus PHA 03/12/25 Logged (Glargine) (Lantus) 07:00 Meropenem 1gm PHA 03/11/25 Transmitted Q8h(Gfr>50) 22:00 Date of Service: Mar 11, 2025 Billing Provider: EBENEZER FRANCIS MD Common Visit Codes: [id number] INP/OBS CARE(HIGH) Secondary Visit Codes: [id number] CARE PLAN 30 MINUTES EBENEZER FRANCIS MD Mar 11, 2025 14:40
[2025-03-11] MEDS: LOSARTAN POTASSIUM 50 MG TAB PO ONE (15:00)
[2025-03-11] MEDS: INSULIN LANTUS (GLARGINE) 1 /0.01ml (100units/ml) SC ONE (15:00)
[2025-03-11] MEDS: CARVEDILOL 3.125 MG TAB PO ONE (15:00)
[2025-03-11] MEDS: LINEZOLID 600MG/300ML 300 ML IV SCH (21:04)
[2025-03-11] MEDS: MEROPENEM 1GM IVPB 50 ML IV SCH (21:56)
[2025-03-11] MEDS: CARVEDILOL 3.125 MG TAB PO SCH (22:24)
[2025-03-12] VITALS (7 sets, daily range): BP systolic 124–157; BP diastolic 67–91; PULSE 69–78; RESP 16–69; TEMP 98.1–99.3; O2SAT 91–97
[2025-03-12] MEDS: INSULIN LANTUS (GLARGINE) 1 /0.01ml (100units/ml) SC SCH (06:16)
[2025-03-12] MEDS: LOSARTAN POTASSIUM 50 MG TAB PO SCH (10:13)
--- NOTE | 2025-03-12 13:12 | DVHPN2 ---
Subjective No new complaints Changes from previous H/P or p: Changes Eyes: No Pain, No Vision change, No Conjunctivae inflammation, No Eyelid inflammation, No Other, No Redness ENT: No Ear pain, No Ear discharge, No Nose pain, No Nose discharge, No Nose congestion, No Mouth pain, No Mouth swelling, No Throat pain, No Throat swelling, No Other Cardiovascular: No Chest Pain, No Palpitations, No Orthopnea, No Paroxysmal Noc. Dyspnea, No Edema, No Lt Headedness, No Other Respiratory: No Cough, No Dry, No Shortness of breath, No SOB with excertion, No Wheezing, No Hemoptysis, No Pleuritic Pain, No Sputum, No Other Gastrointestinal: No Nausea, No Vomiting, No Abdominal Pain, No Diarrhea, No Constipation, No Melena, No Hematochezia, No Other Genitourinary: No Dysuria, No Frequency, No Incontinence, No Hematuria, No Retention, No Other Musculoskeletal: No other, No neck pain, No shoulder pain, No arm pain, No back pain, No hand pain, No leg pain; foot pain (left) Skin: No Rash, No Lesions, No Jaundice, No Bruising; Other (open wound to left heel) Objective Vitals Vital Signs Date Time Temp Pulse Resp B/P (MAP) Pulse Ox O2 Delivery O2 Flow Rate FiO2 03/12/25 12:35 98.9 72 17 157/91 (113) 97 98.9 03/12/25 08:00 Room Air* 0 21 Intake/Output Intake and Output 03/12/25 07:00 Intake Total 2530 ml Balance 2530 ml Intake Oral 2180 ml IV Total 350 ml # Voids 8 # Bowel Movements 2 General Appearance: Alert, Oriented X3, Cooperative, No acute distress Lungs: Clear to auscultation, Normal air movement Cardiovascular: Regular rate, Normal S1 Abdomen: Normal bowel sounds, Soft Extremities: No edema Medications Current Medications Medications Dose Ordered Sig/Javier Route Start Time Stop Time Status Last Admin Dose Admin Acetaminophen/ Hydrocodone Bitart 1 tab Q4HP PRN PO 03/10/25 14:15 03/12/25 11:00 1 TAB Ondansetron HCl 4 mg Q4HP PRN IV 03/10/25 14:15 Docusate Sodium 100 mg BIDPRN PRN PO 03/10/25 14:15 Acetaminophen 650 mg Q6HP PRN PO 03/10/25 14:15 Morphine Sulfate 2 mg Q4HPRN PRN IV 03/10/25 14:15 Apixaban 5 mg BID PO 03/10/25 22:00 03/12/25 09:58 5 MG Gabapentin 300 mg TID PO 03/10/25 22:00 03/12/25 06:24 300 MG Patient Own Medication 1 tab DAILY PO 03/11/25 10:00 UNV Patient Own Medication 20 unit DAILY SC 03/11/25 10:00 Atorvastatin Calcium 40 mg HS PO 03/10/25 22:00 03/11/25 21:01 40 MG Diagnostic Test (Pha) 1 strip ACHS 03/10/25 17:00 03/12/25 11:35 1 STRIP Insulin Human Regular HS SC 03/10/25 22:00 Insulin Human Regular AC SC 03/10/25 17:00 03/12/25 11:33 2 UNITS Dextrose 50 ml UD PRN IV 03/10/25 15:30 Aspirin 81 mg DAILY PO 03/11/25 10:00 03/12/25 09:58 81 MG Linezolid 300 ml @ 150 mls/hr Q12HR IV 03/11/25 22:00 03/12/25 10:00 150 MLS/HR Losartan Potassium 100 mg DAILY PO 03/12/25 10:00 03/12/25 10:13 100 MG Carvedilol 3.125 mg Q12HR PO 03/11/25 22:00 03/12/25 10:00 3.125 MG Insulin Glargine 20 units QAM SC 03/12/25 07:00 03/12/25 06:16 20 UNITS Meropenem 50 ml @ 17 mls/hr Q8HR IV 03/11/25 22:00 03/12/25 05:27 17 MLS/HR Laboratory Results Laboratory Tests 03/11/25 06:51 Microbiology Microbiology Date/Time Source Procedure Growth Status 03/10/25 11:17 Blood Blood Culture - Preliminary NO GROWTH AFTER 48 HOURS OF INCUBATION. Resulted 03/10/25 06:00 Foot Gram Stain - Final Resulted 03/10/25 06:00 Foot Wound Culture - Preliminary Resulted Assessment/Plan Assessment/Plan Assessment: Diabetic ulcer of lower extremity, Diabetes, Hypertension, Hyperlipidemia, PLAN: IV Meropenem and Zyvox Podiatry consult Resume home meds Lantus Monitor closely Full code Advance directives discussed x 15 minutes 03/12/2025: Continue the current management with IV antibiotics Podiatry consult Monitor closely The rest of the management will depend on the hospital course Plan discussed with: Patient My Orders Orders - EBENEZER FRANCIS MD Procedure Category Date Status Time Linezolid 600mg/300ml PHA 03/11/25 In Process (Zyvox) 22:00 Losartan Tablet PHA 03/12/25 In Process (Cozaar Tablet) 10:00 Carvedilol Tablet PHA 03/11/25 In Process (Coreg Tablet) 22:00 Insulin Lantus PHA 03/12/25 In Process (Glargine) (Lantus) 07:00 Meropenem 1gm Ivpb PHA 03/11/25 In Process (Merrem 1gm/50ml) 22:00 * Dietary Consult CONS 03/11/25 Transmitted 16:53 Apply Z-Guard DAVID 03/11/25 In Process 10:45 Cleanse Wound With DAVID 03/11/25 In Process Wound Clean 16:53 Date of Service: Mar 12, 2025 Billing Provider: EBENEZER FRANCIS MD Common Visit Codes: [id number] INP/OBS CARE(HIGH) EBENEZER FRANCIS MD Mar 12, 2025 13:12
[2025-03-13] VITALS (7 sets, daily range): BP systolic 123–143; BP diastolic 74–87; PULSE 65–74; RESP 16–18; TEMP 98–99; O2SAT 93–95
--- NOTE | 2025-03-13 12:04 | DVHPN2 ---
Subjective No new complaints Changes from previous H/P or p: Changes Eyes: No Pain, No Vision change, No Conjunctivae inflammation, No Eyelid inflammation, No Other, No Redness ENT: No Ear pain, No Ear discharge, No Nose pain, No Nose discharge, No Nose congestion, No Mouth pain, No Mouth swelling, No Throat pain, No Throat swelling, No Other Cardiovascular: No Chest Pain, No Palpitations, No Orthopnea, No Paroxysmal Noc. Dyspnea, No Edema, No Lt Headedness, No Other Respiratory: No Cough, No Dry, No Shortness of breath, No SOB with excertion, No Wheezing, No Hemoptysis, No Pleuritic Pain, No Sputum, No Other Gastrointestinal: No Nausea, No Vomiting, No Abdominal Pain, No Diarrhea, No Constipation, No Melena, No Hematochezia, No Other Genitourinary: No Dysuria, No Frequency, No Incontinence, No Hematuria, No Retention, No Other Musculoskeletal: No other, No neck pain, No shoulder pain, No arm pain, No back pain, No hand pain, No leg pain; foot pain (left) Skin: No Rash, No Lesions, No Jaundice, No Bruising; Other (open wound to left heel) Objective Vitals Vital Signs Date Time Temp Pulse Resp B/P (MAP) Pulse Ox O2 Delivery O2 Flow Rate FiO2 03/13/25 09:31 66 143/80 03/13/25 08:55 99.0 18 93 99.0 03/13/25 08:00 Room Air* 0 21 Intake/Output Intake and Output 03/13/25 07:00 Intake Total 2205 ml Output Total 1650 ml Balance 555 ml Intake Oral 1455 ml IV Total 750 ml Output Urine Total 1650 ml # Voids 6 # Bowel Movements 1 General Appearance: Alert, Oriented X3, Cooperative, No acute distress Lungs: Clear to auscultation, Normal air movement Cardiovascular: Regular rate, Normal S1 Abdomen: Normal bowel sounds, Soft Extremities: No edema Medications Current Medications Medications Dose Ordered Sig/Javier Route Start Time Stop Time Status Last Admin Dose Admin Acetaminophen/ Hydrocodone Bitart 1 tab Q4HP PRN PO 03/10/25 14:15 03/13/25 10:47 1 TAB Ondansetron HCl 4 mg Q4HP PRN IV 03/10/25 14:15 Docusate Sodium 100 mg BIDPRN PRN PO 03/10/25 14:15 Acetaminophen 650 mg Q6HP PRN PO 03/10/25 14:15 Morphine Sulfate 2 mg Q4HPRN PRN IV 03/10/25 14:15 Apixaban 5 mg BID PO 03/10/25 22:00 03/13/25 09:31 5 MG Gabapentin 300 mg TID PO 03/10/25 22:00 03/13/25 05:22 300 MG Patient Own Medication 1 tab DAILY PO 03/11/25 10:00 UNV Atorvastatin Calcium 40 mg HS PO 03/10/25 22:00 03/12/25 21:05 40 MG Diagnostic Test (Pha) 1 strip ACHS 03/10/25 17:00 03/13/25 06:57 1 STRIP Insulin Human Regular HS SC 03/10/25 22:00 Insulin Human Regular AC SC 03/10/25 17:00 03/12/25 17:59 3 UNITS Dextrose 50 ml UD PRN IV 03/10/25 15:30 Aspirin 81 mg DAILY PO 03/11/25 10:00 03/13/25 09:31 81 MG Linezolid 300 ml @ 150 mls/hr Q12HR IV 03/11/25 22:00 03/13/25 09:31 150 MLS/HR Losartan Potassium 100 mg DAILY PO 03/12/25 10:00 03/13/25 09:31 100 MG Carvedilol 3.125 mg Q12HR PO 03/11/25 22:00 03/13/25 09:31 3.125 MG Insulin Glargine 20 units QAM SC 03/12/25 07:00 03/12/25 06:16 20 UNITS Meropenem 50 ml @ 17 mls/hr Q8HR IV 03/11/25 22:00 03/13/25 05:22 17 MLS/HR Laboratory Results Laboratory Tests 03/11/25 06:51 Microbiology Microbiology Date/Time Source Procedure Growth Status 03/10/25 11:17 Blood Blood Culture - Preliminary NO GROWTH AFTER 72 HOURS OF INCUBATION. Resulted 03/10/25 06:00 Foot Gram Stain - Final Resulted 03/10/25 06:00 Foot Wound Culture - Preliminary Resulted Assessment/Plan Assessment/Plan Assessment: Diabetic ulcer of lower extremity, Diabetes, Hypertension, Hyperlipidemia, PLAN: IV Meropenem and Zyvox Podiatry consult Resume home meds SS Lantus Monitor closely Full code Advance directives discussed x 15 minutes 03/12/2025: Continue the current management with IV antibiotics Podiatry consult Monitor closely The rest of the management will depend on the hospital course 03/13/25: Continue IV antibiotics Wound care Podiatry consult Plan discussed with: Patient Date of Service: Mar 13, 2025 Billing Provider: EBENEZER FRANCIS MD Common Visit Codes: [id number] INP/OBS CARE(HIGH) EBENEZER FRANCIS MD Mar 13, 2025 12:04
[2025-03-14] VITALS (7 sets, daily range): BP systolic 125–136; BP diastolic 72–85; PULSE 67–73; RESP 17–18; TEMP 98.5–99.1; O2SAT 93–96
--- NOTE | 2025-03-14 01:24 | DVHCONRES ---
Date Seen: Mar 11, 2025 Reason for Consultation Left heel wound History of Present Illness Tulio Villagran is a 65-year-old male with past medical history of hypertension, hyperlipidemia, CVA, diabetes, and right BKA, who was sent to the hospital by his regional coordinator for left heel open wound. Patient states the wound started about 1 week ago as a blister, then just a couple days ago became an open wound. He went to see podiatry and was told he needed to go to the hospital. Patient also has open wounds to his right leg, and states he needed the BKA due to an open wound that turned into osteomyelitis from uncontrolled diabetes. Past Medical History See H&P Past Surgical History See H&P Family History: Cardiovascular disease G8 FATHER Diabetes mellitus G8 MOTHER Allergies: Coded Allergies: Penicillins (Verified Allergy, Unknown, hives, 07/06/23) Vancomycin (Verified Allergy, Unknown, hives, 07/06/23) Home Meds Active Scripts Lancets (Advocate Lancets) Lancets Mis, UNIT XX BID, #120 Prov:RUDDY DC NP 07/19/22 Blood Glucose Monitoring Suppl (D-Care Glucometer Kit/Glu W/Device) 1 Kit Kit, KIT XX BID, #1 Prov:RUDDY DC NP 07/19/22 Insulin Syringes (Disposable) (Bd Insulin Syringe Luer-L) 1 Ml Mis, ML XX DAILY, #60 Prov:RUDDY DC NP 07/19/22 Apixaban Base (ELIQUIS) 5 Mg Tab, 5 MG PO BID for 60 Days, #120 TAB Prov:RUDDY DC NP 07/19/22 Reported Medications Triamcinolone Acetonide (Triamcinolone Acetonide) 0.5 % Cre, 1 APPLIC TOP BID for LYMPHPEDEMA, APPLIC 03/11/25 Calcipotriene (CALCIPOTRIENE) 0.005 % Cre, 0.005 % TOP BID for PSORIASIS, CRE 03/11/25 Triamcinolone Acetonide (Triamcinolone Acetonide) 0.1 % Oin, 1 APPLIC TOP BID, #454 GRAMS 03/11/25 Mupirocin (Pseudomonas Fluores (Mupirocin) 2 % Oin, 2 % TOP BID for PSORIASIS/WOUND, OIN 03/11/25 Carvedilol (Carvedilol) 3.125 Mg Tab, 1 TAB PO BID, #60 TAB 3 Refills 03/11/25 Metformin Hydrochloride (Metformin Hcl) 500 Mg Tab, 500 MG PO DAILY for 30 Days, MG 03/11/25 Losartan Potassium (Losartan Potassium) 100 Mg Tab, 1 TAB PO DAILY 03/10/25 Gabapentin (Gabapentin) 300 Mg Cap, 300 MG PO TID for neuropathy, MG 07/06/23 Multiple Vitamin (Multivitamins) Tab, 1 TAB PO DAILY, #90 TAB 3 Refills 01/27/23 Hydrocodone-Acetaminophen (Hydrocodone Bitartrate/AC 5-325 mg) 1 Tab Tab, 1 TAB PO, TAB 01/27/23 Nitroglycerin (NTROSTAT SUBLINGUAL) 0.4 Mg Sl 01/27/23 Insulin Syringe/Needle U-100 (TRUEPLUS INSULIN SYRINGE/) 0.5 Mg/31 G Mis, UD 01/27/23 Atorvastatin Calcium (ATORVASTATIN CALCIUM) 40 Mg Tab, 1 TAB PO 01/27/23 Insulin Glargine (Lantus Solostar) 100 Unit/Ml Inj, 20 UNIT SC DAILY 01/27/23 Aspirin (Chewable Aspirin) 81 Mg Chw, 1 TAB PO DAILY 01/27/23 Insulin Regular (Human) (Humulin R) 100 Unit/Ml Inj, UNIT SC TID for diabetes mellitus sliding scale 01/27/23 Latanoprost (LATANOPROST) 0.005 % Adry, EACHEYE 01/27/23 Discontinued Reported Medications Triamcinolone Acetonide (Triamcinolone Acetonide) 0.1 % Pst, 1 APPLIC TOP BID for PSORIASIS, APPLIC 03/11/25 Ascorbic Acid (VITAMIN C TABLET) 500 Mg Tb, 500 MG PO DAILY, TAB 01/27/23 Losartan Potassium (Losartan Potassium) 50 Mg Tab, 1 TAB PO DAILY, #30 TAB 5 Refills 03/30/23 Discontinued Scripts Doxycycline (Monohydrate) (Doxycycline) 100 Mg Cap, 100 MG PO BID for 14 Days, #24 CAP Prov:KELSIEKRYSTA RESIDENT 10/20/24 Vital Signs Vital Signs Date Time Temp Pulse Resp B/P (MAP) Pulse Ox O2 Delivery O2 Flow Rate FiO2 03/13/25 21:40 71 123/75 03/13/25 21:00 98.6 17 94 98.6 03/13/25 20:00 Room Air* 0 21 Physical Exam ermatological: Skin is dry with mild erythema and some maceration around the wound site No gross deformities noted Severe pitting edema left leg Plantar heel wound with surrounding cellulitis Vascular: Dorsalis pedis and posterior tibial pulses are 1+ Capillary refill is under 2 seconds Skin temperature is warm Neurologic: Protective sensation is absent on the plantar forefoot Monofilament testing reveals decreased sensation in multiple plantar sites Musculoskeletal: Range of motion at the ankle and MTP joints is within normal limits. Strength is 5/5 in all tested muscle groups. Gait is antalgic due to offloading of the affected limb. Labs/Diagnostic Data Labs Test 03/13/25 21:57 03/11/25 06:51 03/10/25 11:05 Range/Units POC Glucose 160 H 70-106 mg/dl White Blood Count 8.7 # 4.4-10.8 10^3/uL Red Blood Count 3.62 L 4.5-5.90 10^6/uL Hemoglobin 10.6 L 13.5-17.5 g/dL Hematocrit 34.4 L 41.0-53.0 % Mean Corpuscular Volume 95.1 # 80.0-100.0 fL Mean Corpuscular Hemoglobin 29.2 28.0-32.0 pg Mean Corpuscular Hemoglobin Concent 30.7 L 32.0-36.0 g/dL Red Cell Distribution Width 14.6 H 11.8-14.3 % Platelet Count 282 140-450 10^3/uL Mean Platelet Volume 8.7 6.9-10.8 fL Neutrophils (%) (Auto) 72.1 37.0-80.0 % Lymphocytes (%) (Auto) 11.6 10.0-50.0 % Monocytes (%) (Auto) 8.4 0.0-12.0 % Eosinophils (%) (Auto) 6.9 0.0-7.0 % Basophils (%) (Auto) 1.0 0.0-2.0 % Neutrophils # (Auto) 6.3 1.6-8.6 10 ^3/uL Lymphocytes # (Auto) 1.0 0.4-5.4 10 ^3/uL Monocytes # (Auto) 0.7 0-1.3 10 ^3/uL Eosinophils # (Auto) 0.6 0-0.8 10 ^3/uL Basophils # (Auto) 0.1 0-0.2 10 ^3/uL Nucleated Red Blood Cells 0.2 % Sodium Level 141 136-145 mmol/L Potassium Level 4.4 3.5-5.1 mmol/L Chloride Level 106 98-107 mmol/L Carbon Dioxide Level 26 20-31 mmol/L Anion Gap 9 5-15 Blood Urea Nitrogen 18 9-23 mg/dL Creatinine 0.69 L 0.700-1.30 mg/dL Glomerular Filtration Rate Calc 102 >90 mL/min BUN/Creatinine Ratio 26.1 H 10.0-20.0 Serum Glucose 111 H 74-106 mg/dL Calcium Level 8.7 8.7-10.4 mg/dL Total Bilirubin 0.6 0.2-1.0 mg/dL Aspartate Amino Transferase (AST) 20 13-40 U/L Alanine Aminotransferase (ALT) 9 7-40 U/L Alkaline Phosphatase 82 46-116 U/L Total Protein 6.4 5.7-8.2 g/dL Albumin 3.5 3.2-4.8 g/dL Erythrocyte Sedimentation Rate 71 H 0-20 mm/hr Lactic Acid Level 1.4 0.4-2.0 mmol/L C-Reactive Protein High Sensitivity 9.21 H <1.0 mg/dL Microbiology Date/Time Source Procedure Growth Status 03/10/25 11:17 Blood Blood Culture - Preliminary NO GROWTH AFTER 72 HOURS OF INCUBATION. Resulted 03/10/25 06:00 Foot Gram Stain - Final Resulted 03/10/25 06:00 Foot Wound Culture - Preliminary Resulted Problems(with codes): (1) Hypoglycemia (2) Cellulitis and abscess of left lower extremity (3) Sepsis (4) DKA (diabetic ketoacidosis) (5) ACS (acute coronary syndrome) (6) Osteomyelitis of foot, right, acute (7) Cellulitis of foot, right (8) Gangrene of right foot (9) Cellulitis of left foot (10) Leg edema, left (11) Diabetic ulcer of lower extremity Plan/Recommendation SSESSMENT: Patient is a 65 year old seen on the floor for a worsening ulcer PLAN: - The patients chart was reviewed, clinical findings were discussed with the patient, the etiologies of the conditions were discussed in detail, and a treatment plan was agreed to at this time, with both oral and written instructions provided. - reviewed advanced imaging - patient failed trial of outpatient abx - recommend 3 weeks IV abx - recommend picc line - consider IV diruesis for left lower extremity - medihoney on the heel All questions were answered and concerns addressed to the patient's satisfaction. The patient was given the phone number to the clinic and was told how to make contact with the clinic should any concerns or questions arise. Patient understands that if any questions or concerns arise prior to the next appointment, we should be contacted immediately. FOLLOW-UP: Continue to follow while inpatient Plan discussed with: Patient Visit Coding Podiatry Date of Service if different f: Mar 11, 2025 Billing Provider: LEE ANN SANCHEZ DPM Podiatry Common Visit Codes: CONSULT ONLY Podiatry Consult Codes: [id number] NEW/EST MOD 60 LEE ANN SANCHEZ DPM Mar 14, 2025 01:24
--- NOTE | 2025-03-14 12:17 | DVHPN2 ---
Subjective No new complaints Left leg looks better with less edema and less erythema Changes from previous H/P or p: Changes Eyes: No Pain, No Vision change, No Conjunctivae inflammation, No Eyelid inflammation, No Other, No Redness ENT: No Ear pain, No Ear discharge, No Nose pain, No Nose discharge, No Nose congestion, No Mouth pain, No Mouth swelling, No Throat pain, No Throat swelling, No Other Cardiovascular: No Chest Pain, No Palpitations, No Orthopnea, No Paroxysmal Noc. Dyspnea, No Edema, No Lt Headedness, No Other Respiratory: No Cough, No Dry, No Shortness of breath, No SOB with excertion, No Wheezing, No Hemoptysis, No Pleuritic Pain, No Sputum, No Other Gastrointestinal: No Nausea, No Vomiting, No Abdominal Pain, No Diarrhea, No Constipation, No Melena, No Hematochezia, No Other Genitourinary: No Dysuria, No Frequency, No Incontinence, No Hematuria, No Retention, No Other Musculoskeletal: No other, No neck pain, No shoulder pain, No arm pain, No back pain, No hand pain, No leg pain; foot pain (left) Skin: No Rash, No Lesions, No Jaundice, No Bruising; Other (open wound to left heel) Objective Vitals Vital Signs Date Time Temp Pulse Resp B/P (MAP) Pulse Ox O2 Delivery O2 Flow Rate FiO2 03/14/25 10:25 136/78 03/14/25 10:24 67 03/14/25 09:01 98.9 17 94 98.9 03/13/25 20:00 Room Air* 0 21 Intake/Output Intake and Output 03/14/25 07:00 Intake Total 4299 ml Output Total 1000 ml Balance 3299 ml Intake Oral 3649 ml IV Total 650 ml Output Urine Total 1000 ml # Voids 9 # Bowel Movements 1 General Appearance: Alert, Oriented X3, Cooperative, No acute distress Lungs: Clear to auscultation, Normal air movement Cardiovascular: Regular rate, Normal S1 Abdomen: Normal bowel sounds, Soft Extremities: No edema Medications Current Medications Medications Dose Ordered Sig/Javier Route Start Time Stop Time Status Last Admin Dose Admin Acetaminophen/ Hydrocodone Bitart 1 tab Q4HP PRN PO 03/10/25 14:15 03/14/25 06:00 1 TAB Ondansetron HCl 4 mg Q4HP PRN IV 03/10/25 14:15 Docusate Sodium 100 mg BIDPRN PRN PO 03/10/25 14:15 Acetaminophen 650 mg Q6HP PRN PO 03/10/25 14:15 Morphine Sulfate 2 mg Q4HPRN PRN IV 03/10/25 14:15 Apixaban 5 mg BID PO 03/10/25 22:00 03/14/25 10:24 5 MG Gabapentin 300 mg TID PO 03/10/25 22:00 03/14/25 05:59 300 MG Patient Own Medication 1 tab DAILY PO 03/11/25 10:00 UNV Atorvastatin Calcium 40 mg HS PO 03/10/25 22:00 03/13/25 21:35 40 MG Diagnostic Test (Pha) 1 strip ACHS 03/10/25 17:00 03/14/25 06:04 1 STRIP Insulin Human Regular HS SC 03/10/25 22:00 Insulin Human Regular AC SC 03/10/25 17:00 03/13/25 11:30 6 UNITS Dextrose 50 ml UD PRN IV 03/10/25 15:30 Aspirin 81 mg DAILY PO 03/11/25 10:00 03/14/25 10:24 81 MG Linezolid 300 ml @ 150 mls/hr Q12HR IV 03/11/25 22:00 03/14/25 10:25 150 MLS/HR Losartan Potassium 100 mg DAILY PO 03/12/25 10:00 03/14/25 10:25 100 MG Carvedilol 3.125 mg Q12HR PO 03/11/25 22:00 03/14/25 10:24 3.125 MG Insulin Glargine 20 units QAM SC 03/12/25 07:00 03/14/25 06:04 20 UNITS Meropenem 50 ml @ 17 mls/hr Q8HR IV 03/11/25 22:00 03/14/25 05:59 17 MLS/HR Laboratory Results Laboratory Tests 03/11/25 06:51 Microbiology Microbiology Date/Time Source Procedure Growth Status 03/10/25 11:17 Blood Blood Culture - Preliminary NO GROWTH AFTER 72 HOURS OF INCUBATION. Resulted 03/10/25 06:00 Foot Gram Stain - Final Resulted 03/10/25 06:00 Foot Wound Culture - Preliminary Resulted Assessment/Plan Assessment/Plan Assessment: Diabetic ulcer of lower extremity, Diabetes, Hypertension, Hyperlipidemia, PLAN: IV Meropenem and Zyvox Podiatry consult Resume home meds SS Lantus Monitor closely Full code Advance directives discussed x 15 minutes 03/12/2025: Continue the current management with IV antibiotics Podiatry consult Monitor closely The rest of the management will depend on the hospital course 03/13/25: Continue IV antibiotics Wound care Podiatry consult 03/14/2025: The patient will need 3 weeks of IV antibiotics He will need a PICC line Continue with current regimen with IV antibiotics until home health is arranged for wound care and IV antibiotics Plan discussed with: Patient Date of Service: Mar 14, 2025 Billing Provider: EBENEZER FRANCIS MD Common Visit Codes: [id number] INP/OBS CARE(HIGH) EBENEZER FRANCIS MD Mar 14, 2025 12:17
[2025-03-15] VITALS (8 sets, daily range): BP systolic 126–159; BP diastolic 76–94; PULSE 60–70; RESP 17–19; TEMP 98–98.6; O2SAT 95–97
--- NOTE | 2025-03-15 11:32 | DVHPN2 ---
Subjective No new complaints Left leg looks better with less edema and less erythema Changes from previous H/P or p: Changes Eyes: No Pain, No Vision change, No Conjunctivae inflammation, No Eyelid inflammation, No Other, No Redness ENT: No Ear pain, No Ear discharge, No Nose pain, No Nose discharge, No Nose congestion, No Mouth pain, No Mouth swelling, No Throat pain, No Throat swelling, No Other Cardiovascular: No Chest Pain, No Palpitations, No Orthopnea, No Paroxysmal Noc. Dyspnea, No Edema, No Lt Headedness, No Other Respiratory: No Cough, No Dry, No Shortness of breath, No SOB with excertion, No Wheezing, No Hemoptysis, No Pleuritic Pain, No Sputum, No Other Gastrointestinal: No Nausea, No Vomiting, No Abdominal Pain, No Diarrhea, No Constipation, No Melena, No Hematochezia, No Other Genitourinary: No Dysuria, No Frequency, No Incontinence, No Hematuria, No Retention, No Other Musculoskeletal: No other, No neck pain, No shoulder pain, No arm pain, No back pain, No hand pain, No leg pain; foot pain (left) Skin: No Rash, No Lesions, No Jaundice, No Bruising; Other (open wound to left heel) Objective Vitals Vital Signs Date Time Temp Pulse Resp B/P (MAP) Pulse Ox O2 Delivery O2 Flow Rate FiO2 03/15/25 10:05 64 148/77 03/15/25 09:00 98.1 18 97 98.1 03/14/25 20:00 Room Air* 0 21 Intake/Output Intake and Output 03/15/25 07:00 Intake Total 3092 ml Output Total 2800 ml Balance 292 ml Intake Oral 2725 ml IV Total 367 ml Output Urine Total 2800 ml # Bowel Movements 1 General Appearance: Alert, Oriented X3, Cooperative, No acute distress Lungs: Clear to auscultation, Normal air movement Cardiovascular: Regular rate, Normal S1 Abdomen: Normal bowel sounds, Soft Extremities: No edema Medications Current Medications Medications Dose Ordered Sig/Javier Route Start Time Stop Time Status Last Admin Dose Admin Acetaminophen/ Hydrocodone Bitart 1 tab Q4HP PRN PO 03/10/25 14:15 03/15/25 10:09 1 TAB Ondansetron HCl 4 mg Q4HP PRN IV 03/10/25 14:15 Docusate Sodium 100 mg BIDPRN PRN PO 03/10/25 14:15 Acetaminophen 650 mg Q6HP PRN PO 03/10/25 14:15 Morphine Sulfate 2 mg Q4HPRN PRN IV 03/10/25 14:15 Apixaban 5 mg BID PO 03/10/25 22:00 03/15/25 10:04 5 MG Gabapentin 300 mg TID PO 03/10/25 22:00 03/15/25 05:32 300 MG Patient Own Medication 1 tab DAILY PO 03/11/25 10:00 UNV Atorvastatin Calcium 40 mg HS PO 03/10/25 22:00 03/14/25 21:22 40 MG Diagnostic Test (Pha) 1 strip ACHS 03/10/25 17:00 03/15/25 06:11 1 STRIP Insulin Human Regular HS SC 03/10/25 22:00 03/14/25 21:25 3 UNITS Insulin Human Regular AC SC 03/10/25 17:00 03/14/25 11:30 2 UNITS Dextrose 50 ml UD PRN IV 03/10/25 15:30 Aspirin 81 mg DAILY PO 03/11/25 10:00 03/15/25 10:04 81 MG Linezolid 300 ml @ 150 mls/hr Q12HR IV 03/11/25 22:00 03/15/25 10:05 150 MLS/HR Losartan Potassium 100 mg DAILY PO 03/12/25 10:00 03/15/25 10:04 100 MG Carvedilol 3.125 mg Q12HR PO 03/11/25 22:00 03/15/25 10:05 3.125 MG Insulin Glargine 20 units QAM SC 03/12/25 07:00 03/15/25 06:28 20 UNITS Meropenem 50 ml @ 17 mls/hr Q8HR IV 03/11/25 22:00 03/15/25 05:32 17 MLS/HR Laboratory Results Laboratory Tests 03/11/25 06:51 Microbiology Microbiology Date/Time Source Procedure Growth Status 03/10/25 11:17 Blood Blood Culture - Final NO GROWTH AFTER 5 DAYS OF INCUBATION. Complete 03/10/25 06:00 Foot Gram Stain - Final Resulted 03/10/25 06:00 Wound Culture - Preliminary Enterococcus faecalis Aeromonas hydrophilia/caviae Escherichia coli Resulted Assessment/Plan Assessment/Plan Assessment: Diabetic ulcer of lower extremity, Diabetes, Hypertension, Hyperlipidemia, PLAN: IV Meropenem and Zyvox Podiatry consult Resume home meds SS Lantus Monitor closely Full code Advance directives discussed x 15 minutes 03/12/2025: Continue the current management with IV antibiotics Podiatry consult Monitor closely The rest of the management will depend on the hospital course 03/13/25: Continue IV antibiotics Wound care Podiatry consult 03/14/2025: The patient will need 3 weeks of IV antibiotics He will need a PICC line Continue with current regimen with IV antibiotics until home health is arranged for wound care and IV antibiotics 03/15/2025: Continue the current management Order a PICC line Motor IV antibiotics for 3 weeks Plan discussed with: Patient Date of Service: Mar 15, 2025 Billing Provider: EBENEZER FRANCIS MD Common Visit Codes: [id number] INP/OBS CARE(HIGH) EBENEZER FRANCIS MD Mar 15, 2025 11:32
[2025-03-16] VITALS (8 sets, daily range): BP systolic 126–177; BP diastolic 76–99; PULSE 66–78; RESP 16–20; TEMP 97.8–99.2; O2SAT 95–97
[2025-03-16] MEDS ORDERED: LINE1TAB6 PO (10:33)
--- NOTE | 2025-03-16 10:35 | DVHPN2 ---
Subjective Doing well No new complaints Changes from previous H/P or p: Changes Eyes: No Pain, No Vision change, No Conjunctivae inflammation, No Eyelid inflammation, No Other, No Redness ENT: No Ear pain, No Ear discharge, No Nose pain, No Nose discharge, No Nose congestion, No Mouth pain, No Mouth swelling, No Throat pain, No Throat swelling, No Other Cardiovascular: No Chest Pain, No Palpitations, No Orthopnea, No Paroxysmal Noc. Dyspnea, No Edema, No Lt Headedness, No Other Respiratory: No Cough, No Dry, No Shortness of breath, No SOB with excertion, No Wheezing, No Hemoptysis, No Pleuritic Pain, No Sputum, No Other Gastrointestinal: No Nausea, No Vomiting, No Abdominal Pain, No Diarrhea, No Constipation, No Melena, No Hematochezia, No Other Genitourinary: No Dysuria, No Frequency, No Incontinence, No Hematuria, No Retention, No Other Musculoskeletal: No other, No neck pain, No shoulder pain, No arm pain, No back pain, No hand pain, No leg pain; foot pain (left) Skin: No Rash, No Lesions, No Jaundice, No Bruising; Other (open wound to left heel) Objective Vitals Vital Signs Date Time Temp Pulse Resp B/P (MAP) Pulse Ox O2 Delivery O2 Flow Rate FiO2 03/16/25 09:00 98.4 74 18 154/86 (108) 96 98.4 03/16/25 08:00 Room Air* 0 21 Intake/Output Intake and Output 03/16/25 07:00 Intake Total 3450 ml Output Total 2800 ml Balance 650 ml Intake Oral 2800 ml IV Total 650 ml Output Urine Total 2800 ml # Bowel Movements 3 General Appearance: Alert, Oriented X3, Cooperative, No acute distress Lungs: Clear to auscultation, Normal air movement Cardiovascular: Regular rate, Normal S1 Abdomen: Normal bowel sounds, Soft Extremities: No edema Medications Current Medications Medications Dose Ordered Sig/Javier Route Start Time Stop Time Status Last Admin Dose Admin Acetaminophen/ Hydrocodone Bitart 1 tab Q4HP PRN PO 03/10/25 14:15 03/16/25 07:27 1 TAB Ondansetron HCl 4 mg Q4HP PRN IV 03/10/25 14:15 Docusate Sodium 100 mg BIDPRN PRN PO 03/10/25 14:15 Acetaminophen 650 mg Q6HP PRN PO 03/10/25 14:15 Morphine Sulfate 2 mg Q4HPRN PRN IV 03/10/25 14:15 Apixaban 5 mg BID PO 03/10/25 22:00 03/15/25 21:55 5 MG Gabapentin 300 mg TID PO 03/10/25 22:00 03/16/25 06:33 300 MG Patient Own Medication 1 tab DAILY PO 03/11/25 10:00 UNV Atorvastatin Calcium 40 mg HS PO 03/10/25 22:00 03/15/25 21:55 40 MG Diagnostic Test (Pha) 1 strip ACHS 03/10/25 17:00 03/16/25 06:34 1 STRIP Insulin Human Regular HS SC 03/10/25 22:00 03/15/25 22:04 3 UNITS Insulin Human Regular AC SC 03/10/25 17:00 03/15/25 12:44 3 UNITS Dextrose 50 ml UD PRN IV 03/10/25 15:30 Aspirin 81 mg DAILY PO 03/11/25 10:00 03/15/25 10:04 81 MG Linezolid 300 ml @ 150 mls/hr Q12HR IV 03/11/25 22:00 03/15/25 21:54 150 MLS/HR Losartan Potassium 100 mg DAILY PO 03/12/25 10:00 03/15/25 10:04 100 MG Carvedilol 3.125 mg Q12HR PO 03/11/25 22:00 03/15/25 21:56 3.125 MG Insulin Glargine 20 units QAM SC 03/12/25 07:00 03/16/25 06:40 20 UNITS Meropenem 50 ml @ 17 mls/hr Q8HR IV 03/11/25 22:00 03/16/25 06:33 17 MLS/HR Laboratory Results Laboratory Tests 03/11/25 06:51 Microbiology Microbiology Date/Time Source Procedure Growth Status 03/10/25 11:17 Blood Blood Culture - Final NO GROWTH AFTER 5 DAYS OF INCUBATION. Complete 03/10/25 06:00 Foot Gram Stain - Final Complete 03/10/25 06:00 Wound Culture - Final Aeromonas hydrophilia/caviae Escherichia coli Enterococcus faecalis Enterococcus avium Complete Assessment/Plan Assessment/Plan Assessment: Diabetic ulcer of lower extremity, Diabetes, Hypertension, Hyperlipidemia, PLAN: IV Meropenem and Zyvox Podiatry consult Resume home meds SS Lantus Monitor closely Full code Advance directives discussed x 15 minutes 03/12/2025: Continue the current management with IV antibiotics Podiatry consult Monitor closely The rest of the management will depend on the hospital course 03/13/25: Continue IV antibiotics Wound care Podiatry consult 03/14/2025: The patient will need 3 weeks of IV antibiotics He will need a PICC line Continue with current regimen with IV antibiotics until home health is arranged for wound care and IV antibiotics 03/15/2025: Continue the current management Order a PICC line Motor IV antibiotics for 3 weeks 03/16/2025: Continue the IV antibiotics Arrange IV antibiotics at home for 3 weeks with Rocephin 1 g IV daily and p.o. 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
[2025-03-16 14:47] LABS: Hematocrit 32.3 % (41.0-53.0); Hemoglobin 10.7 g/dL (13.5-17.5); Mean Corpuscular Hemoglobin 29.1 pg (28.0-32.0); Mean Corpuscular Volume 88.3 fL (80.0-100.0); Nucleated Red Blood Cells % 0.1 %
[2025-03-16 15:02] LABS: Alanine Aminotransferase 17 U/L (7-40); Albumin 3.2 g/dL (3.2-4.8); Alkaline Phosphatase 93 U/L (46-116); Anion Gap 9 (5-15); BUN/Creatinine Ratio 17.3 (10.0-20.0); Blood Urea Nitrogen 14 mg/dL (9-23); Calcium 8.4 mg/dL (8.7-10.4); Carbon Dioxide 28 mmol/L (20-31); Chloride 104 mmol/L (98-107); Glucose 153 mg/dL (74-106); Potassium 4.6 mmol/L (3.5-5.1); Sodium 141 mmol/L (136-145); Total Protein 6.0 g/dL (5.7-8.2)
[2025-03-16 15:03] LABS: INR 1.14 (0.9-1.15); Partial Thromboplastin Time 23.9 SEC (24.5-34.5); Prothrombin Time 11.9 sec (9.3-11.8)
[2025-03-16 15:04] LABS: Bilirubin, Total 0.2 mg/dL (0.2-1.0)
[2025-03-17 01:00] VITALS: BP 151/89; PULSE 76; RESP 16; TEMP 99; O2SAT 95
[2025-03-17 05:00] VITALS: BP 136/78; PULSE 68; RESP 16; TEMP 98.6; O2SAT 94
[2025-03-17 08:00] VITALS: PULSE 80; RESP 18; O2SAT 95
[2025-03-17] MEDS: SODIUM CHLOR 0.9% PF (SALINE LOCK) 10ML VIAL/SYR IV SCH (08:48)
[2025-03-17 09:00] VITALS: BP 159/92; PULSE 69; RESP 18; TEMP 98; O2SAT 98
[2025-03-17] MEDS: LIDOCAINE 1% (LOCAL ANESTH.) PF 5ml SDV ID ONE (09:12)
[2025-03-17 13:00] VITALS: BP 138/78; PULSE 67; RESP 19; TEMP 99; O2SAT 95
[2025-03-17] MEDS ORDERED: HYDR-4902 PO (13:56)
--- NOTE | 2025-03-17 14:36 | DVHDS2 ---
Discharge Summary Date of Admission Mar 10, 2025 at 14:15 Date of Discharge: Mar 17, 2025 Labs/Diagnostic Data: Laboratory Results Test 03/17/25 11:49 03/16/25 14:22 03/10/25 11:05 POC Glucose 177 mg/dl (70-106) White Blood Count 7.0 10^3/uL (4.4-10.8) Red Blood Count 3.66 10^6/uL (4.5-5.90) Hemoglobin 10.7 g/dL (13.5-17.5) Hematocrit 32.3 % (41.0-53.0) Mean Corpuscular Volume 88.3 fL (80.0-100.0) Mean Corpuscular Hemoglobin 29.1 pg (28.0-32.0) Mean Corpuscular Hemoglobin Concent 33.0 g/dL (32.0-36.0) Red Cell Distribution Width 13.9 % (11.8-14.3) Platelet Count 388 10^3/uL (140-450) Mean Platelet Volume 7.6 fL (6.9-10.8) Neutrophils (%) (Auto) 59.5 % (37.0-80.0) Lymphocytes (%) (Auto) 20.2 % (10.0-50.0) Monocytes (%) (Auto) 8.9 % (0.0-12.0) Eosinophils (%) (Auto) 10.0 % (0.0-7.0) Basophils (%) (Auto) 1.4 % (0.0-2.0) Neutrophils # (Auto) 4.2 10 ^3/uL (1.6-8.6) Lymphocytes # (Auto) 1.4 10 ^3/uL (0.4-5.4) Monocytes # (Auto) 0.6 10 ^3/uL (0-1.3) Eosinophils # (Auto) 0.7 10 ^3/uL (0-0.8) Basophils # (Auto) 0.1 10 ^3/uL (0-0.2) Nucleated Red Blood Cells 0.1 % Prothrombin Time 11.9 sec (9.3-11.8) Prothrombin Time INR 1.14 (0.9-1.15) Activated Partial Thromboplast Time 23.9 SEC (24.5-34.5) Sodium Level 141 mmol/L (136-145) Potassium Level 4.6 mmol/L (3.5-5.1) Chloride Level 104 mmol/L (98-107) Carbon Dioxide Level 28 mmol/L (20-31) Anion Gap 9 (5-15) Blood Urea Nitrogen 14 mg/dL (9-23) Creatinine 0.81 mg/dL (0.700-1.30) Glomerular Filtration Rate Calc 97 mL/min (>90) BUN/Creatinine Ratio 17.3 (10.0-20.0) Serum Glucose 153 mg/dL (74-106) Calcium Level 8.4 mg/dL (8.7-10.4) Total Bilirubin 0.2 mg/dL (0.2-1.0) Aspartate Amino Transferase (AST) 21 U/L (13-40) Alanine Aminotransferase (ALT) 17 U/L (7-40) Alkaline Phosphatase 93 U/L (46-116) Total Protein 6.0 g/dL (5.7-8.2) Albumin 3.2 g/dL (3.2-4.8) Erythrocyte Sedimentation Rate 71 mm/hr (0-20) Lactic Acid Level 1.4 mmol/L (0.4-2.0) C-Reactive Protein High Sensitivity 9.21 mg/dL (<1.0) Other Laboratory Tests 03/16/25 14:22 Brief Hx & Hospital Course: Final diagnoses: Left foot cellulitis Diabetic ulcer of lower extremity, Diabetes, Hypertension, Hyperlipidemia, 65-year-old male diabetic came with infection of his left foot, he was sent from his dul[facility] machine bluer to get IV antibiotics Evaluation here showed no osteomyelitis but severe cellulitis He did not require any surgical intervention Podiatry recommended 3 weeks of IV antibiotics Based on the culture and sensitivity of the wound the patient will need ceftriaxone for 3 weeks IV and Zyvox p.o. for 3 weeks Home health was ordered for wound care and the IV antibiotics He has a PICC line now He can be discharged once home health and IV antibiotics and wound care is arranged to be followed by Podiatry as an outpatient Condition at Discharge: Stable Final Diagnosis/Problems List Left foot cellulitis Diabetic ulcer of lower extremity, Diabetes, Hypertension, Hyperlipidemia, Discharge Disposition: Home with Health Services SNF Discharge Will this Physician continue t: No Discharge Instruct/Medications Diet: Consistent carbohydrate, Cardiac 2g Na,low cholest Activity: No Restrictions, As Tolerated Follow Up/Referral: Dr. Santo 1 week Medications: Rocephin IV for 3 weeks Zyvox twice a day for 3 weeks [place] p.r.n. Resume the home meds Scheduled Apixaban Base (Eliquis), 5 MG PO BID Aspirin (Chewable Aspirin), 1 TAB PO DAILY, (Reported) Calcipotriene (Calcipotriene), 0.005 % TOP BID, (Reported) Carvedilol (Carvedilol), 1 TAB PO BID, (Reported) Gabapentin (Gabapentin), 300 MG PO TID, (Reported) Insulin Glargine (Lantus Solostar), 20 UNIT SC DAILY, (Reported) Insulin Regular (Human) (Humulin R), UNIT SC TID, (Reported) Linezolid (Zyvox), 600 MG PO BID Losartan Potassium (Losartan Potassium), 1 TAB PO DAILY, (Reported) Metformin Hydrochloride (Metformin Hcl), 500 MG PO DAILY, (Reported) Multiple Vitamin (Multivitamins), 1 TAB PO DAILY, (Reported) Mupirocin (Pseudomonas Fluores (Mupirocin), 2 % TOP BID, (Reported) Triamcinolone Acetonide (Triamcinolone Acetonide), 1 APPLIC TOP BID, (Reported) Triamcinolone Acetonide (Triamcinolone Acetonide), 1 APPLIC TOP BID, (Reported) Scheduled PRN Hydrocodone-Acetaminophen (Hydrocodone Bitartrate/AC 5-325 mg), 1 TAB PO Q6HP PRN Miscellaneous Medications Atorvastatin Calcium (Atorvastatin Calcium), 1 TAB PO, (Reported) Hydrocodone-Acetaminophen (Hydrocodone Bitartrate/AC 5-325 mg), 1 TAB PO, (Reported) Latanoprost (Latanoprost), EACHEYE, (Reported) Nitroglycerin (Ntrostat Sublingual), (Reported) Discontinued Medications Ascorbic Acid (Vitamin C Tablet), 500 MG PO DAILY, (Reported) Doxycycline (Monohydrate) (Doxycycline), 100 MG PO BID Losartan Potassium (Losartan Potassium), 1 TAB PO DAILY, (Reported) Triamcinolone Acetonide (Triamcinolone Acetonide), 1 APPLIC TOP BID, (Reported) Durable Medical Equipment Blood Glucose Monitoring Suppl (D-Care Glucometer Kit/Glu W/Device), KIT XX BID, (DME) Insulin Syringe/Needle U-100 (Trueplus Insulin Syringe/), UD, (Reported), (DME) Insulin Syringes (Disposable) (Bd Insulin Syringe Luer-L), ML XX DAILY, (DME) Lancets (Advocate Lancets), UNIT XX BID, (DME) Discharge Statement: "Patient was advised to return to the ER or call 911 if any headaches, dizziness, shortness of breath, chest pain, abdominal pain, bleeding, fevers, or worsening of medical condition. Patient was counseled about treatment plan, medications, possible side effects, patientverbalized understanding. All questions were answered to the best of my ability. This discharge took greater then 30 minutes in planning, reviewing documentation, counseling the patient, and discussing with other team members." ASSESSMENT ASSESSMENT Assessment Left foot cellulitis Date of Service: Mar 17, 2025 Billing Provider: EBENEZER FRANCIS MD Common Visit Codes: 08599-RLG/OBS DISCH DAY >30min EBENEZER FRANCIS MD Mar 17, 2025 14:36
[2025-03-17 15:30] VITALS: BP 146/89; PULSE 81; RESP 20; TEMP 98.8; O2SAT 96
== END 2025-03-17 18:00 | disposition home health service (06) | DRG 603 ==
LOC: ER 09:57 → OVERFLOW 14:15 → EAST 22:52
PROVIDERS: ADMIT Internal Medicine Geriatric Medicine; ATTEND Internal Medicine Geriatric Medicine
PROC: 02HV33Z Insertion of Infusion Device into Superior Vena Cava, Percutaneous Approach (ICD-10-PCS; principal; 2025-03-17)
PROC: B548ZZA Ultrasonography of Superior Vena Cava, Guidance (ICD-10-PCS; 2025-03-17)
DX: L03.116 Cellulitis of left lower limb (principal); L97.928 Non-pressure chronic ulcer of unspecified part of left lower leg with other specified severity; Z79.01 Long term (current) use of anticoagulants; L02.416 Cutaneous abscess of left lower limb; E11.622 Type 2 diabetes mellitus with other skin ulcer; I10 Essential (primary) hypertension; E78.5 Hyperlipidemia, unspecified; Z88.0 Allergy status to penicillin; Z88.1 Allergy status to other antibiotic agents; Z79.4 Long term (current) use of insulin; Z79.82 Long term (current) use of aspirin; Z79.899 Other long term (current) drug therapy; Z83.3 Family history of diabetes mellitus; Z89.511 Acquired absence of right leg below knee; Z86.73 Personal history of transient ischemic attack (TIA), and cerebral infarction without residual deficits; Z82.49 Family history of ischemic heart disease and other diseases of the circulatory system
CPT/HCPCS: 36415; 36569; 71045; 73700; 76937; 80053; 82962; 83605; 85025; 85610; 85652; 85730; 86141; 87040; 87077; 87081; 87186; 87205; 93971; G0378; J1815; J2185

== ENCOUNTER 2025-04-07 09:46 | Inpatient (IN) | payer MEDICARE, MEDICAID ==
[~2025-04-07] VITALS: Ht 177.8 cm; Wt 95.3 kg
[~2025-04-07 09:46] MED LIST changes: -ASCO500T11 PO; +CALC0.0021 TOP; +CARV3.1240 PO; -DOXY1CAP58 PO; +LINE1TAB6 PO; -LOSA-534 PO; +LOSA-535 PO; +MUPI2OIN2 TOP; +TRIA0.1O TOP; +TRIA0.5C TOP
--- NOTE | 2025-04-07 10:32 | ED.PDOC ---
History of Present Illness(SKN HPI Comments Discharge diagnosis from 03/17/25 Left foot cellulitis Diabetic ulcer of lower extremity, Diabetes, Hypertension, Hyperlipidemia, HPI: 65 year old male presents to the emergency department with a chief complaint of wound check onset today. Patient was seen in this ED on 03/10/25 for LT foot wound, was admitted and discharged on 03/17/25, with a prescription of Rocephin IV for 3 weeks, Zyvox twice a day for 3 weeks, had a PICC line in place, health nurse. Patient went to see Student Services Rep, Dr. Santo, was sent to ED for admission. Patient noticed slight improvement of wound, for the past 2 weeks noticed wound is worsening. Last dose of antibiotics was yesterday. Denies fever, chills, nausea, vomiting, chest pain, shortness of breath, numbness/tingling of extremities. No other symptoms or modifying factors present at this time. Initial Vitals BP: 147/92 HR: 90 RR: 20 O2 Sat: 100% Temp: 97.6 F Past Medical history: CVA, HTN, DM, HLD Past Surgical history: BKA, Appendectomy Medications: Eliquis Social History: Denies smoking, ETOH, and drug use. Allergies: Penicillins, Vancomycin Villagran: L foot wound/ulcer. HPI: Poor Historian. Past Medical History: Past Surgical History: REVIEW OF SYSTEMS: CONSTITUTIONAL: Denies acute: fever, diaphoresis, chills, generalized weakness. HEAD: Denies acute: headache, photophobia Eyes: Denies acute: Double vision, vision loss, eye pain, eye discharge. EARS: Denies acute: tinnitus, hearing loss, ear discharge, ear pain, THROAT: Denies acute: sore throat, swelling, difficulty swallowing , pain with swallowing, change in voice. NECK: Denies acute: neck pain, neck swelling, stiff neck. HEART: Denies acute : chest pain, palpitations, LUNGS: Denies acute: SOB, wheezing, cough, hemoptysis ABDOMEN: Denies acute: abdominal pain, Nausea, Vomiting, diarrhea, melena , hematemesis, hematochezia SKIN: Denies acute: rash, redness, lesions, itchiness. EXTREMITIES: Denies acute: calf pain, numbness, tingling, weakness, denies pain in extremity. Denies acute: Low back pain. Neuro: Denies acute: focal neurological deficit, motor or sensory focal neurological deficit, tremors, seizure like activity, confusion, dizziness, change in mental status, loss of bowel or bladder function, cauda equina like symptoms. : Denies acute: dysuria, hematuria, flank pain, increase in urinary frequency. PSYCH: Denies acute: hallucination, suicidal ideation, homicidal ideation. FEMALE: Denies acute: abnormal vaginal bleeding, foul odor, unusual discharge. PHYSICAL EXAM: General: ----no----acute distress, awake and alert. Head: normocephalic, atraumatic. No raccoon's eyes, no prather sign. Neck: supple, trachea is midline, no swelling. Throat: Normal phonation. Eyes:, no erythema, no purulent discharge, no proptosis, no icterus. Heart: regular rate, regular rhythm, no significant murmur appreciated. Lungs: no apparent respiratory distress, Able to speak in full sentences. No wheezing, no rhonchi, no crackles. No stridors Clear to auscultation bilaterally. Abdomen: non tender to palpation, non distended, soft, no guarding, no rebound, + bowel sounds. Neuro: Awake, Alert, oriented to name, self, situation, follows commands GCS=15. Speech is normal. Skin: no petechia, no purpura, no cyanosis, non-pale, not jaundice. Lower extremities: --3/4 - Pitting edema no deformity, no focal swelling, no calf TTP. Noted left heel ulcer/wound with swelling. Patient is neurovascularly intact in the affected extremity. Makes eye contact. moves all four extremities. Face: no apparent facial droop. ED COURSE: DISCLAIMER: This medical document was created using an electronic medical record system with voice recognition software and computerized dictation system. Although this document has been carefully reviewed, there might still be some phonetic and typographical errors. Occasional wrong-word or "sound-alike" substitutions may have occurred due to the inherent limitations of voice recognition software. These areas are purely typographical due to imperfections of the software programs and do not reflect any compromise in the patient's medical care. Please read the chart carefully and recognize, using context, where these substitutions have occurred. Chief Complaint: Wound Check Time Seen by MD: 10:25 Primary Care Provider: NICK History of Present Illness: Medications, Allergies Allergies: Coded Allergies: Penicillins (Verified Allergy, Unknown, hives, 07/06/23) Vancomycin (Verified Allergy, Unknown, hives, 07/06/23) Home Meds Active Scripts Hydrocodone-Acetaminophen (Hydrocodone Bitartrate/AC 5-325 mg) 1 Tab Tab, 1 TAB PO Q6HP PRN, #15 TAB Prov:EBENEZER FRANCIS MD 03/17/25 Linezolid (Zyvox) 600 Mg Tab, 600 MG PO BID for 21 Days, #42 TAB Prov:EBENEZER FRANCIS MD 03/16/25 Lancets (Advocate Lancets) Lancets Mis, UNIT XX BID, #120 Prov:RUDDY DC NP 07/19/22 Blood Glucose Monitoring Suppl (D-Care Glucometer Kit/Glu W/Device) 1 Kit Kit, KIT XX BID, #1 Prov:RUDDY DC NP 07/19/22 Insulin Syringes (Disposable) (Bd Insulin Syringe Luer-L) 1 Ml Mis, ML XX DAILY, #60 Prov:RUDDY DC NP 07/19/22 Apixaban Base (ELIQUIS) 5 Mg Tab, 5 MG PO BID for 60 Days, #120 TAB Prov:RUDDY DC NP 07/19/22 Reported Medications Triamcinolone Acetonide (Triamcinolone Acetonide) 0.5 % Cre, 1 APPLIC TOP BID for LYMPHPEDEMA, APPLIC 03/11/25 Calcipotriene (CALCIPOTRIENE) 0.005 % Cre, 0.005 % TOP BID for PSORIASIS, CRE 03/11/25 Triamcinolone Acetonide (Triamcinolone Acetonide) 0.1 % Oin, 1 APPLIC TOP BID, #454 GRAMS 03/11/25 Mupirocin (Pseudomonas Fluores (Mupirocin) 2 % Oin, 2 % TOP BID for P SORIASIS/WOUND, OIN 03/11/25 Carvedilol (Carvedilol) 3.125 Mg Tab, 1 TAB PO BID, #60 TAB 3 Refills 03/11/25 Metformin Hydrochloride (Metformin Hcl) 500 Mg Tab, 500 MG PO DAILY for 30 Days, MG 03/11/25 Losartan Potassium (Losartan Potassium) 100 Mg Tab, 1 TAB PO DAILY 03/10/25 Gabapentin (Gabapentin) 300 Mg Cap, 300 MG PO TID for neuropathy, MG 07/06/23 Multiple Vitamin (Multivitamins) Tab, 1 TAB PO DAILY, #90 TAB 3 Refills 01/27/23 Hydrocodone-Acetaminophen (Hydrocodone Bitartrate/AC 5-325 mg) 1 Tab Tab, 1 TAB PO, TAB 01/27/23 Nitroglycerin (NTROSTAT SUBLINGUAL) 0.4 Mg Sl 01/27/23 Insulin Syringe/Needle U-100 (TRUEPLUS INSULIN SYRINGE/) 0.5 Mg/31 G Mis, UD 01/27/23 Atorvastatin Calcium (ATORVASTATIN CALCIUM) 40 Mg Tab, 1 TAB PO 01/27/23 Insulin Glargine (Lantus Solostar) 100 Unit/Ml Inj, 20 UNIT SC DAILY 01/27/23 Aspirin (Chewable Aspirin) 81 Mg Chw, 1 TAB PO DAILY 01/27/23 Insulin Regular (Human) (Humulin R) 100 Unit/Ml Inj, UNIT SC TID for diabetes mellitus sliding scale 01/27/23 Latanoprost (LATANOPROST) 0.005 % Adry, EACHEYE 01/27/23 Mode of Arrival: Ambulatory Timing: Months Duration: Since onset Prehospital treatment: None Past Medical History PAST MEDICAL HISTORY: CVA, DM, High Lipids, HTN Surgical History: Appendectomy, BKA Family History Family History: Family hx of DM Social History Smoker: Non-Smoker Alcohol: Denies ETOH Use Drugs: Denies Drug Use Lives In: Home Was a procedure done? Was a procedure done?: No X-Ray, Labs, Meds, VS Vital Signs Date Time Temp Pulse Resp B/P (MAP) Pulse Ox O2 Delivery O2 Flow Rate FiO2 04/07/25 09:47 97.6 90 20 147/92 100 97.6 Lab Test 04/07/25 10:47 Range/Units White Blood Count 9.8 4.4-10.8 10^3/uL Red Blood Count 3.26 L 4.5-5.90 10^6/uL Hemoglobin 9.4 L 13.5-17.5 g/dL Hematocrit 28.3 L 41.0-53.0 % Mean Corpuscular Volume 86.8 80.0-100.0 fL Mean Corpuscular Hemoglobin 28.9 28.0-32.0 pg Mean Corpuscular Hemoglobin Concent 33.3 32.0-36.0 g/dL Red Cell Distribution Width 14.2 11.8-14.3 % Platelet Count 233 140-450 10^3/uL Mean Platelet Volume 7.5 6.9-10.8 fL Neutrophils (%) (Auto) 74.0 37.0-80.0 % Lymphocytes (%) (Auto) 12.7 10.0-50.0 % Monocytes (%) (Auto) 7.3 0.0-12.0 % Eosinophils (%) (Auto) 5.4 0.0-7.0 % Basophils (%) (Auto) 0.6 0.0-2.0 % Neutrophils # (Auto) 7.3 1.6-8.6 10 ^3/uL Lymphocytes # (Auto) 1.2 0.4-5.4 10 ^3/uL Monocytes # (Auto) 0.7 0-1.3 10 ^3/uL Eosinophils # (Auto) 0.5 0-0.8 10 ^3/uL Basophils # (Auto) 0.1 0-0.2 10 ^3/uL Nucleated Red Blood Cells 0.1 % Erythrocyte Sedimentation Rate Pending Sodium Level 143 136-145 mmol/L Potassium Level 3.9 3.5-5.1 mmol/L Chloride Level 106 98-107 mmol/L Carbon Dioxide Level 27 20-31 mmol/L Anion Gap 10 5-15 Blood Urea Nitrogen 11 9-23 mg/dL Creatinine 0.77 0.700-1.30 mg/dL Glomerular Filtration Rate Calc 99 >90 mL/min BUN/Creatinine Ratio 14.3 10.0-20.0 Serum Glucose 75 74-106 mg/dL Lactic Acid Level 2.9 *H 0.4-2.0 mmol/L Calcium Level 8.8 8.7-10.4 mg/dL Total Bilirubin 0.5 0.2-1.0 mg/dL Aspartate Amino Transferase (AST) 25 13-40 U/L Alanine Aminotransferase (ALT) 22 7-40 U/L Alkaline Phosphatase 69 46-116 U/L C-Reactive Protein High Sensitivity 8.36 H <1.0 mg/dL B-Type Natriuretic Peptide 115.37 0-100 pg/mL Total Protein 6.7 5.7-8.2 g/dL Albumin 3.8 3.2-4.8 g/dL [address] [address] Ph: [phone] DIAGNOSTIC IMAGING Diagnostic Imaging Report : [id number] Signed PATIENT: DEX VILLAGRAN ACCT: [id number] UNIT: [id number] : 1960 LOC: ER ROOM / BED: / AGE / SEX: 65 / M ADM STATUS: REG ER SERVICE 1026 ORDERING PHYSICIAN: MIKE PEREA DO PROCEDURE(s): LFTCT - CT L FOOT WO CONTRAST REASON: FOOT ULCER/WOUND ORDER NUMBER(s): [id number], ACCESSION NUMBER(s): [id number] CLINICAL INDICATION: FOOT ULCER/WOUND TECHNIQUE: Noncontrast CT of the left foot was performed. Sagittal and coronal reformatted images are provided. COMPARISON: CT CT L FOOT WO CONTRAST on DOS: 03/10/25. CT Dose: CTDI volume is mGy. Dose-length product is mGy*cm FINDINGS: There is soft tissue swelling and a focus of gas in the plantar hindfoot deep to the calcaneus suspicious for cellulitis and infection with gas-forming bacteria. This is in close proximity to the calcaneus. More focally prominent soft tissue swelling and ulceration is noted along the medial hindfoot. There is mild periosteal reaction along the calcaneus. No cortical destruction or erosion. Diffuse osseous demineralization is present throughout the entire foot. No fracture or dislocation. Joint spaces are similar to prior study. No CT evidence of significant joint effusion. There is marked soft tissue swelling throughout the visualized foot. Vascular calcifications are noted. Prosthesis noted in the contralateral lower extremity seen on the mixing machine tender cork gasket image. IMPRESSION: 1. Soft tissue swelling and emphysema in the plantar hindfoot deep to the calcaneus compatible with infection possibly with gas-forming bacteria. Cellulitis in the medial hindfoot. 2. Periosteal reaction of the plantar surface of the calcaneus may reflect osteomyelitis in the appropriate clinical setting. 3. Elsewhere in the lower extremity (above the ankle) there is marked diffuse soft tissue swelling which may reflect cellulitis or sequelae of venous stasis. Other systemic processes are not excluded. All CT scans at this medical facility are performed using dose modulation techniques as appropriate to a performed exam including the following: Automated exposure control was utilized; adjustment of the MA and/or KV according to patient size; and use of iterative reconstruction technique. ATED BY: NICOLE WONG MD DICTATED DATE/TIME: 04/07/25 112 SIGNED BY: NICOLE WONG MD SIGNED DATE/TIME: 04/07/251122 CC: Time of 1ST Reevaluation: 10:55 Reevaluation 1ST: Unchanged Patient Education/Counseling: Diagnosis, Treatment Family Education/Counseling: No Family Present Departure 1 Departure Time of Disposition: 11:13 Impression: Primary Impression: Diabetic ulcer of lower extremity Disposition: ADMITTED INPATIENT Admit to: [facility] Condition: Guarded Discharged With: Self Critical Care Note Critical Care Time?: No I personally scribed for MIKE PEREA DO ([email or web address]) on 04/07/25 at 10:32. Electronically submitted by Aurea Gonzalez ([email or web address]). I personally scribed for MIKE PEREA DO ([email or web address]) on 04/07/25 at 10:42. Electronically submitted by Aurea Gonzalez ([email or web address]). I personally scribed for MIKE PEREA DO ([email or web address]) on 04/07/25 at 11:29. Electronically submitted by Aurea Gonzalez ([email or web address]). I personally scribed for MIKE PEREA DO ([email or web address]) on 04/07/25 at 11:30. Electronically submitted by Aurea Gonzalez ([email or web address]). MIKE PEREA DO Apr 07, 2025 10:32
[2025-04-07 11:03] LABS: Hematocrit 28.3 % (41.0-53.0); Hemoglobin 9.4 g/dL (13.5-17.5); Mean Corpuscular Hemoglobin 28.9 pg (28.0-32.0); Mean Corpuscular Volume 86.8 fL (80.0-100.0); Nucleated Red Blood Cells % 0.1 %
[2025-04-07 11:17] LABS: Alanine Aminotransferase 22 U/L (7-40); Albumin 3.8 g/dL (3.2-4.8); Alkaline Phosphatase 69 U/L (46-116); Anion Gap 10 (5-15); BUN/Creatinine Ratio 14.3 (10.0-20.0); Blood Urea Nitrogen 11 mg/dL (9-23); Glucose 75 mg/dL (74-106); Total Protein 6.7 g/dL (5.7-8.2)
[2025-04-07 11:18] LABS: Calcium 8.8 mg/dL (8.7-10.4); Carbon Dioxide 27 mmol/L (20-31); Chloride 106 mmol/L (98-107); Potassium 3.9 mmol/L (3.5-5.1); Sodium 143 mmol/L (136-145)
[2025-04-07 11:24] LABS: Lactic Acid w/Reflex 2.9 mmol/L (0.4-2.0)
[2025-04-07 11:25] LABS: Bilirubin, Total 0.5 mg/dL (0.2-1.0)
--- NOTE | 2025-04-07 11:26 | DVH ---
CLINICAL INDICATION: FOOT ULCER/WOUND TECHNIQUE: Noncontrast CT of the left foot was performed. Sagittal and coronal reformatted images are provided. COMPARISON: CT CT L FOOT WO CONTRAST on DOS: 03/10/25. CT Dose: CTDI volume is mGy. Dose-length product is mGy*cm FINDINGS: There is soft tissue swelling and a focus of gas in the plantar hindfoot deep to the calcaneus suspicious for cellulitis and infection with gas-forming bacteria. This is in close proximity to the calcaneus. More focally prominent soft tissue swelling and ulceration is noted along the medial hindfoot. There is mild periosteal reaction along the calcaneus. No cortical destruction or erosion. Diffuse osseous demineralization is present throughout the entire foot. No fracture or dislocation. Joint spaces are similar to prior study. No CT evidence of significant joint effusion. There is marked soft tissue swelling throughout the visualized foot. Vascular calcifications are noted. Prosthesis noted in the contralateral lower extremity seen on the pulpwood buyer image. IMPRESSION: 1. Soft tissue swelling and emphysema in the plantar hindfoot deep to the calcaneus compatible with infection possibly with gas-forming bacteria. Cellulitis in the medial hindfoot. 2. Periosteal reaction of the plantar surface of the calcaneus may reflect osteomyelitis in the appropriate clinical setting. 3. Elsewhere in the lower extremity (above the ankle) there is marked diffuse soft tissue swelling which may reflect cellulitis or sequelae of venous stasis. Other systemic processes are not excluded. All CT scans at this medical facility are performed using dose modulation techniques as appropriate to a performed exam including the following: Automated exposure control was utilized; adjustment of the MA and/or KV according to patient size; and use of iterative reconstruction technique.
[2025-04-07 11:44] VITALS: PULSE 92; RESP 18; O2SAT 97
[2025-04-07] MEDS ORDERED: ONDANSETRON HCL 4 MG/2 ML VIAL IV PRN (12:30)
[2025-04-07] MEDS ORDERED: PIPERACILLIN-TAZOB 3.375GM 100 ML IV SCH (12:30)
[2025-04-07] MEDS ORDERED: DEXTROSE (50%) 50ML SYRG IV PRN (13:00)
--- NOTE | 2025-04-07 13:03 | DVHHPRES ---
History of Present Illness Resident Creating Document: KRYSTA IGLESIAS RESIDENT History of Present Illness Tulio is a patient with diabetes, congestive heart failure, and history of right foot amputation presenting with an infected wound on his left heel that has worsened despite antibiotic treatment. The patient's current infection began at the end of January to beginning of February with a blister on the bottom of his left heel. The blister was initially treated but subsequently became infected. On March 10, he was sent to the emergency room due to the infection and was discharged on March 17 with antibiotics - one intravenous and one oral formulation. Today would have been his last day of antibiotic treatment. However, when he saw his physician, prompting referral back to the hospital. The patient reports that he has not experienced typical signs of infection such as fever or flu-like symptoms, only purulent discharge from the wound. He describes the pain as currently a 5 out of 10 after taking [place] this morning, but states it becomes 10-plus when the medication wears off. The wound is located on the heel of his left foot, which also has lymphedema and swelling. His right foot was previously amputated on June 22, 2022, due to infection. He currently has no infections at the amputation site. His blood glucose this morning was 77. He lives with his sister and denies smoking, drinking, or drug use. Medical History - Diabetes mellitus - Congestive heart failure with ejection fraction of 80% - History of blood clot in heart, resolved - Hypertension - Hyperlipidemia - Lymphedema - Previous hospitalization from March 10 to March 17, 2024 for foot infection Surgical History - Right foot amputation on June 22, 2022, due to infection, I& D to Left foot Medications and Supplements - Metformin - Insulin 20 - Atorvastatin - Losartan - Carvedilol - Davenport - Antibiotics- Zyvox and IV Rocephin Social History - Substance Use: Denies smoking, drinking, or drug use - Living Situation: Lives with sister Review of Systems General: Negative for fever or flu-like symptoms. Musculoskeletal: Positive for pain in right foot, rated 5/10 currently, increases to 10+/10 when pain medication wears off. Review of Systems Allergies: Coded Allergies: Penicillins (Verified Allergy, Unknown, hives, 07/06/23) Vancomycin (Verified Allergy, Unknown, hives, 07/06/23) Medications Current Medications Medications Dose Ordered Sig/Javier Route Start Time Stop Time Status Last Admin Dose Admin Sodium Chloride 10 ml Q8HR IV 04/07/25 14:00 Acetaminophen/ Hydrocodone Bitart 1 tab Q4HP PRN PO 04/07/25 12:30 Ondansetron HCl 4 mg Q4HP PRN IV 04/07/25 12:30 Enoxaparin Sodium 40 mg DAILY SC 04/08/25 10:00 Acetaminophen 650 mg Q6HP PRN PO 04/07/25 12:30 Piperacillin Sod/ Tazobactam Sod 100 ml @ 25 mls/hr Q8HR IV 04/07/25 12:30 Linezolid 300 ml @ 150 mls/hr Q12HR IV 04/07/25 22:00 UNV Exam Vital Signs Vital Signs Date Time Temp Pulse Resp B/P (MAP) Pulse Ox O2 Delivery O2 Flow Rate FiO2 04/07/25 11:44 92 18 97 Room Air* 0 21 04/07/25 11:44 98.3 142/87 (105) 98.3 Exam Pt is lying on bed General Appearance: Alert, Oriented X3, Cooperative, Not in acute distress HEENT: Atraumatic, Mucous membranes moist/pink Respiratory: Clear to auscultation, Normal air movement, No added sounds Cardiovascular: Regular rate, Normal S1, Normal S2, No murmurs Abdominal: Active bowel sounds, Soft, no distention, no tenderness Musculoskeletal: Right foot amputation noted. Left foot with swelling and lymphedema present. Wound observed on the heel of the left foot. Skin: As above Neuro: Normal speech, sensorimotor deficits none Psych/Mental Status: Mental status NL, Mood NL Nurse was there as parts cleaner during examination Labs/Xrays Labs Test 04/07/25 10:47 Range/Units White Blood Count 9.8 4.4-10.8 10^3/uL Red Blood Count 3.26 L 4.5-5.90 10^6/uL Hemoglobin 9.4 L 13.5-17.5 g/dL Hematocrit 28.3 L 41.0-53.0 % Mean Corpuscular Volume 86.8 80.0-100.0 fL Mean Corpuscular Hemoglobin 28.9 28.0-32.0 pg Mean Corpuscular Hemoglobin Concent 33.3 32.0-36.0 g/dL Red Cell Distribution Width 14.2 11.8-14.3 % Platelet Count 233 140-450 10^3/uL Mean Platelet Volume 7.5 6.9-10.8 fL Neutrophils (%) (Auto) 74.0 37.0-80.0 % Lymphocytes (%) (Auto) 12.7 10.0-50.0 % Monocytes (%) (Auto) 7.3 0.0-12.0 % Eosinophils (%) (Auto) 5.4 0.0-7.0 % Basophils (%) (Auto) 0.6 0.0-2.0 % Neutrophils # (Auto) 7.3 1.6-8.6 10 ^3/uL Lymphocytes # (Auto) 1.2 0.4-5.4 10 ^3/uL Monocytes # (Auto) 0.7 0-1.3 10 ^3/uL Eosinophils # (Auto) 0.5 0-0.8 10 ^3/uL Basophils # (Auto) 0.1 0-0.2 10 ^3/uL Nucleated Red Blood Cells 0.1 % Erythrocyte Sedimentation Rate 71 H 0-20 mm/hr Sodium Level 143 136-145 mmol/L Potassium Level 3.9 3.5-5.1 mmol/L Chloride Level 106 98-107 mmol/L Carbon Dioxide Level 27 20-31 mmol/L Anion Gap 10 5-15 Blood Urea Nitrogen 11 9-23 mg/dL Creatinine 0.77 0.700-1.30 mg/dL Glomerular Filtration Rate Calc 99 >90 mL/min BUN/Creatinine Ratio 14.3 10.0-20.0 Serum Glucose 75 74-106 mg/dL Lactic Acid Level 2.9 *H 0.4-2.0 mmol/L Calcium Level 8.8 8.7-10.4 mg/dL Total Bilirubin 0.5 0.2-1.0 mg/dL Aspartate Amino Transferase (AST) 25 13-40 U/L Alanine Aminotransferase (ALT) 22 7-40 U/L Alkaline Phosphatase 69 46-116 U/L C-Reactive Protein High Sensitivity 8.36 H <1.0 mg/dL B-Type Natriuretic Peptide 115.37 0-100 pg/mL Total Protein 6.7 5.7-8.2 g/dL Albumin 3.8 3.2-4.8 g/dL SEPSIS Sepsis Screen Date sepsis recognized/suspect: Apr 07, 2025 Time Sepsis recognized/suspect: 115 Recent Procedure: Yes On Antibiotic Therapy: Yes Respiratory Rate >20: No Heart Rate >90: Yes Temp<36 C (96.8 F) or >38.3 C: No SBP <90 or MAP <65 mmHG: No New Acute Mental Status Change: No Is the patient on CPAP, BIPAP,: No Physician Orders Professional Services Specialist (04/07/25 ) Ct L Foot Wo Contrast (04/07/25 10:26) Admit (04/07/25 12:22) Allergies (04/07/25 12:22) Code Status (04/07/25 12:22) 2 Gm Sodium Diet (04/07/25 Lunch) Sodium Chloride Lock (Saline Lock Ns) (04/07/25 14:00) Hydrocodone-Acet 5/325mg Tab ([place] 5/32 (04/07/25 12:30) Ondansetron Hcl (Zofran) (04/07/25 12:30) Enoxaparin Sodium (Lovenox) (04/08/25 10:00) Complete Blood Count (04/08/25 04:00) Comprehensive Metabolic Panel (04/08/25 04:00) Condition: Fair (04/07/25 12:22) Acetaminophen Tablet (Tylenol Tablet) (04/07/25 12:30) Linezolid 600mg/300ml (Zyvox) (04/07/25 22:00) * Wound Consult (04/07/25 ) Wound Culture W/ Gs (04/07/25 12:22) *Podiatry Consult Musson([facility]) (04/07/25 12:22) Chest Xray 1 View (04/07/25 12:22) PTPTT (04/07/25 12:22) Urinalysis (04/07/25 12:22) Drug Screen (04/07/25 12:22) Blood Culture (04/07/25 12:46) Ceftriaxone 1gm/50ml (Rocephin) (04/08/25 09:00) Echo 2d Mode Cardiac Dop (04/07/25 12:48) Npo After Midnight (04/07/25 12:50) Hemoglobin A1c (04/07/25 12:50) Glucose Blood (Accu-Chek Comfort Curve T (04/07/25 17:00) Insulin R (Human) (Insulin R) (04/07/25 17:00) Dextrose 50% Syringe (04/07/25 13:00) Carvedilol Tablet (Coreg Tablet) (04/07/25 22:00) Gabapentin Capsule (Neurontin Capsule) (04/07/25 14:00) (Nf) Aspirin (Chewable Aspirin) (04/08/25 10:00) (Nf) Losartan Potassium (04/08/25 10:00) Atorvastatin (Lipitor) (04/07/25 22:00) Enoxaparin Sodium (Lovenox) (04/07/25 13:00) Vital Signs Date Time Temp Pulse Resp B/P (MAP) Pulse Ox O2 Delivery O2 Flow Rate FiO2 04/07/25 11:44 92 18 97 Room Air* 0 21 04/07/25 11:44 98.3 92 18 142/87 (105) 97 98.3 04/07/25 09:47 97.6 90 20 147/92 100 97.6 Laboratory Tests Test 04/07/25 10:47 Lactic Acid Level 2.9 mmol/L (0.4-2.0) *H White Blood Count 9.8 10^3/uL (4.4-10.8) Assessment/Plan Assessment/Plan Tulio is a diabetic patient with congestive heart failure and history of right foot amputation presenting with infected heel wound that has worsened despite recent antibiotic treatment. R/o Sepsis Left foot acute on chronic nonhealing diabetic ulcer Possible left foot osteomyelitis / abscess /cellulitis Rule out necrotizing fasciitis Uncontrolled type 2 diabetes Plan: - Start linezolid for MRSA and Rocephin based on the previous cultures( patient is allergic to vancomycin and penicillins ) - Wound consult and wound cultures - Obtain new cultures - Start IV fluids - Consulted Podiatry - NPO after midnight for planned surgery probable tomorrow - Chest X-ray for pre-operative clearance - ISS and Accu-Cheks Chronic HFmrEF HTN HLD Plan: - Continue current cardiac medications - ordered new echo - ordered therapeutic Lovenox as patient is taking Eliquis for unspecified clot GI PPX: Not indicated VTE ppx: Lovenox Diet: diabetic diet and NPO after midnight Goals of care addressed with the patient for more than 27 minutes: Full code status Case discussed with , patient and nurse Plan discussed with: Patient My Orders Orders - KRYSTA IGLESIAS RESIDENT Procedure Category Date Status Time Admit ADMIT 04/07/25 Transmitted 12:22 Allergies DAVID 04/07/25 In Process 12:22 Code Status CODE 04/07/25 Transmitted 12:22 2 Gm Sodium Diet DIET 04/07/25 Transmitted Lunch Sodium Chloride Lock PHA 04/07/25 In Process (Saline Lock Ns) 14:00 Hydrocodone-Acet PHA 04/07/25 In Process 5/325mg Tab ([place] 12:30 Ondansetron Hcl PHA 04/07/25 In Process (Zofran) 12:30 Enoxaparin Sodium PHA 04/08/25 In Process (Lovenox) 10:00 Complete Blood Count LAB 04/08/25 Verified 04:00 Comprehensive LAB 04/08/25 Verified Metabolic Panel 04:00 Condition: Fair DAVID 04/07/25 In Process 12:22 Acetaminophen Tablet PHA 04/07/25 In Process (Tylenol Tablet) 12:30 Linezolid 600mg/300ml PHA 04/07/25 Logged (Zyvox) 22:00 * Wound Consult CONS 04/07/25 Transmitted Wound Culture W/ Gs EDYTA 04/07/25 Logged 12:22 *Podiatry Consult CONS 04/07/25 Transmitted Musson(Dvmg) 12:22 Chest Xray 1 View XY 04/07/25 Taken 12:22 PTPTT LAB 04/07/25 Logged 12:22 Urinalysis LAB 04/07/25 Logged 12:22 Drug Screen LAB 04/07/25 Logged 12:22 Blood Culture EDYTA 04/07/25 Logged 12:46 Ceftriaxone 1gm/50ml PHA 04/08/25 Logged (Rocephin) 09:00 Echo 2d Mode Cardiac US 04/07/25 Logged DOP 12:48 Npo After Midnight DAVID 04/07/25 In Process 12:50 Hemoglobin A1c LAB 04/07/25 Logged 12:50 Glucose Blood PHA 04/07/25 Logged (Accu-Chek Comfort 17:00 Insulin R (Human) PHA 04/07/25 Logged (Insulin R) 17:00 Dextrose 50% Syringe PHA 04/07/25 Logged 13:00 Carvedilol Tablet PHA 04/07/25 Verified (Coreg Tablet) 22:00 Gabapentin Capsule PHA 04/07/25 Verified (Neurontin Capsule) 14:00 (Nf) Aspirin PHA 04/08/25 Verified (Chewable Aspirin) 10:00 (Nf) Losartan PHA 04/08/25 Verified Potassium 10:00 Atorvastatin (Lipitor) PHA 04/07/25 Verified 22:00 Enoxaparin Sodium PHA 04/07/25 Verified (Lovenox) 13:00 Visit Coding STANDARD RES Billing Provider: DINAH ACRRERO MD Date of Service if different f: Apr 07, 2025 Common Visit Codes: 34067-PIQZPOX INP/OBS CARE (HIGH) Secondary Visit Codes: 77569-[id number] CARE PLAN 30 MINUTES KRYSTA IGLESIAS RESIDENT Apr 07, 2025 13:03
--- NOTE | 2025-04-07 13:16 | DVH ---
CHEST RADIOGRAPH INDICATION: PICC line and preop TECHNIQUE: Single frontal view of the chest was obtained COMPARISON: XY CHEST XRAY 1 VIEW on DOS: 03/10/25, XY CHEST XRAY 1 VIEW on DOS: 10/19/24, XY CHEST PORTABLE on DOS: 04/01/23, XY CHEST PORTABLE on DOS: 01/26/23, XY CHEST PORTABLE on DOS: 07/01/22 FINDINGS: Lines and Tubes: Right PICC in satisfactory position overlying the superior vena cava. Lungs: Clear Pleura: No effusion. No pneumothorax. Cardiomediastinal contours: Unremarkable Bones: Unremarkable IMPRESSION: Right PICC in satisfactory position.
[2025-04-07] MEDS: ENOXAPARIN SOD 100 MG/1 ML SYRINGE SC SCH (13:33)
[2025-04-07 14:00] LABS: INR 1.25 (0.9-1.15); Partial Thromboplastin Time 35.0 SEC (24.5-34.5); Prothrombin Time 13.0 sec (9.3-11.8)
[2025-04-07] MEDS: GABAPENTIN 300 MG CAP PO SCH (15:10)
[2025-04-07] MEDS: SODIUM CHLOR 0.9% PF (SALINE LOCK) 10ML VIAL/SYR IV SCH (15:11)
[2025-04-07] MEDS: InsuLIN REG 1unit/0.01ml Soln (100units/ml) SC SCH (17:44)
[2025-04-07] MEDS: ACCU-CHEK COMFORT CURVE STRIP VI SCH (17:44)
[2025-04-07] MEDS: HYDROcodone-ACET 5/325MG TAB PO PRN (20:15)
[2025-04-07] MEDS: ATORVASTATIN 20 MG TAB PO SCH (22:00)
[2025-04-07] MEDS: CARVEDILOL 3.125 MG TAB PO SCH (22:45)
[2025-04-07] MEDS: LINEZOLID 600MG/300ML 300 ML IV SCH (22:45)
[2025-04-08] VITALS (7 sets, daily range): BP systolic 126–128; BP diastolic 71–73; PULSE 72–91; RESP 16–18; TEMP 97.1–97.3; O2SAT 94–100
[2025-04-08 05:08] LABS: Urine Protein, UAD TRACE (Negative)
[2025-04-08 05:17] LABS: Amphetamine Screen, Urine Neg (NEGATIVE); Barbiturate Scree,Urine Neg (NEGATIVE); Benzodiazephine Screen, Urine Neg (NEGATIVE); Cannabinoid Screen, Urine Neg (NEGATIVE); Cocaine Screen, Urine Neg (NEGATIVE); Opiate Scree,Urine Pos (NEGATIVE); Phencyclidine Screen, Urine Neg (NEGATIVE)
[2025-04-08 06:51] LABS: Hematocrit 25.2 % (41.0-53.0); Hemoglobin 8.3 g/dL (13.5-17.5); Mean Corpuscular Hemoglobin 28.4 pg (28.0-32.0); Mean Corpuscular Volume 85.9 fL (80.0-100.0); Nucleated Red Blood Cells % 0.1 %
[2025-04-08 07:17] LABS: Alanine Aminotransferase 22 U/L (7-40); Albumin 3.2 g/dL (3.2-4.8); Alkaline Phosphatase 64 U/L (46-116); Anion Gap 9 (5-15); BUN/Creatinine Ratio 23.3 (10.0-20.0); Blood Urea Nitrogen 17 mg/dL (9-23); Carbon Dioxide 29 mmol/L (20-31); Glucose 105 mg/dL (74-106); Potassium 3.7 mmol/L (3.5-5.1); Sodium 145 mmol/L (136-145)
[2025-04-08 07:19] LABS: Bilirubin, Total 0.3 mg/dL (0.2-1.0); Calcium 8.5 mg/dL (8.7-10.4); Chloride 107 mmol/L (98-107); Total Protein 5.6 g/dL (5.7-8.2)
[2025-04-08] MEDS ORDERED: fentaNYL CITRATE 100 MCG/2 ML VL ONE (09:18)
[2025-04-08] MEDS ORDERED: MIDAZOLAM HCL 2MG/2ML 2ml VIAL (1mg/ml) ONE (09:18)
[2025-04-08] MEDS ORDERED: PATIENTS OWN MEDICATION (Losartan Potassium 1 TAB) PO SCH (10:00)
[2025-04-08] MEDS ORDERED: PATIENTS OWN MEDICATION (Aspirin (Chewable Aspirin) 1 TAB) PO SCH (10:00)
[2025-04-08] MEDS ORDERED: ENOXAPARIN SOD 40 MG/0.4 ML SYRINGE SC SCH (10:00)
--- NOTE | 2025-04-08 10:06 | DVHCONRES ---
Date Seen: Apr 08, 2025 Reason for Consultation Left heel wound History of Present Illness Tulio is a patient with diabetes, congestive heart failure, and history of right foot amputation presenting with an infected wound on his left heel that has worsened despite antibiotic treatment. The patient's current infection began at the end of January to beginning of February with a blister on the bottom of his left heel. The blister was initially treated but subsequently became infected. On March 10, he was sent to the emergency room due to the infection and was discharged on March 17 with antibiotics - one intravenous and one oral formulation. Today would have been his last day of antibiotic treatment. However, when he saw his physician, prompting referral back to the hospital. The patient reports that he has not experienced typical signs of infection such as fever or flu-like symptoms, only purulent discharge from the wound. He describes the pain as currently a 5 out of 10 after taking [place] this morning, but states it becomes 10-plus when the medication wears off. The wound is located on the heel of his left foot, which also has lymphedema and swelling. Past Medical History See H&P Past Surgical History See H&P Family History: Cardiovascular disease G8 FATHER Diabetes mellitus G8 MOTHER Allergies: Coded Allergies: Penicillins (Verified Allergy, Unknown, hives, 07/06/23) Vancomycin (Verified Allergy, Unknown, hives, 07/06/23) Home Meds Active Scripts Hydrocodone-Acetaminophen (Hydrocodone Bitartrate/AC 5-325 mg) 1 Tab Tab, 1 TAB PO Q6HP PRN, #15 TAB Prov:EBENEZER FRANCIS MD 03/17/25 Linezolid (Zyvox) 600 Mg Tab, 600 MG PO BID for 21 Days, #42 TAB Prov:EBENEZER FRANCIS MD 03/16/25 Lancets (Advocate Lancets) Lancets Mis, UNIT XX BID, #120 Prov:RUDDY DC NP 07/19/22 Blood Glucose Monitoring Suppl (D-Care Glucometer Kit/Glu W/Device) 1 Kit Kit, KIT XX BID, #1 Prov:RUDDY DC NP 07/19/22 Insulin Syringes (Disposable) (Bd Insulin Syringe Luer-L) 1 Ml Mis, ML XX DAILY, #60 Prov:RUDDY DC NP 07/19/22 Apixaban Base (ELIQUIS) 5 Mg Tab, 5 MG PO BID for 60 Days, #120 TAB Prov:RUDDY DC EXERCISE INSTRUCT 07/19/22 Reported Medications Triamcinolone Acetonide (Triamcinolone Acetonide) 0.5 % Cre, 1 APPLIC TOP BID for LYMPHPEDEMA, APPLIC 03/11/25 Calcipotriene (CALCIPOTRIENE) 0.005 % Cre, 0.005 % TOP BID for PSORIASIS, CRE 03/11/25 Triamcinolone Acetonide (Triamcinolone Acetonide) 0.1 % Oin, 1 APPLIC TOP BID, #454 GRAMS 03/11/25 Mupirocin (Pseudomonas Fluores (Mupirocin) 2 % Oin, 2 % TOP BID for PSORIASIS/WOUND, OIN 03/11/25 Carvedilol (Carvedilol) 3.125 Mg Tab, 1 TAB PO BID, #60 TAB 3 Refills 03/11/25 Metformin Hydrochloride (Metformin Hcl) 500 Mg Tab, 500 MG PO DAILY for 30 Days, MG 03/11/25 Losartan Potassium (Losartan Potassium) 100 Mg Tab, 1 TAB PO DAILY 03/10/25 Gabapentin (Gabapentin) 300 Mg Cap, 300 MG PO TID for neuropathy, MG 07/06/23 Multiple Vitamin (Multivitamins) Tab, 1 TAB PO DAILY, #90 TAB 3 Refills 01/27/23 Hydrocodone-Acetaminophen (Hydrocodone Bitartrate/AC 5-325 mg) 1 Tab Tab, 1 TAB PO, TAB 01/27/23 Nitroglycerin (NTROSTAT SUBLINGUAL) 0.4 Mg Sl 01/27/23 Insulin Syringe/Needle U-100 (TRUEPLUS INSULIN SYRINGE/) 0.5 Mg/31 G Mis, UD 01/27/23 Atorvastatin Calcium (ATORVASTATIN CALCIUM) 40 Mg Tab, 1 TAB PO 01/27/23 Insulin Glargine (Lantus Solostar) 100 Unit/Ml Inj, 20 UNIT SC DAILY 01/27/23 Aspirin (Chewable Aspirin) 81 Mg Chw, 1 TAB PO DAILY 01/27/23 Insulin Regular (Human) (Humulin R) 100 Unit/Ml Inj, UNIT SC TID for diabetes mellitus sliding scale 01/27/23 Latanoprost (LATANOPROST) 0.005 % Adry, EACHEYE 01/27/23 Current Medications Current Medications Medications (Trade) Dose Ordered Sig/Javier Route PRN Reason Start Time Stop Time Status Last Admin Sodium Chloride (Saline Lock Ns) 10 ml Q8HR IV 04/07/25 14:00 04/08/25 06:29 Acetaminophen/ Hydrocodone Bitart (Carman 5/325MG Tab) 1 tab Q4HP PRN PO MODERATE PAIN (4-6 PAIN SCALE) 04/07/25 12:30 04/08/25 03:13 Ondansetron HCl (Zofran) 4 mg Q4HP PRN IV NAUSEA / VOMITING 04/07/25 12:30 Enoxaparin Sodium (Lovenox) 40 mg DAILY SC 04/08/25 10:00 04/07/25 13:02 DC Acetaminophen (Tylenol Tablet) 650 mg Q6HP PRN PO PAIN SCALE 1-3 OR TEMP>100.4 04/07/25 12:30 Piperacillin Sod/ Tazobactam Sod 100 ml @ 25 mls/hr Q8HR IV 04/07/25 12:30 04/07/25 12:47 DC Linezolid 300 ml @ 150 mls/hr Q12HR IV 04/07/25 22:00 04/07/25 22:45 Ceftriaxone Sodium 50 ml @ 100 mls/hr DAILY@09 IV 04/08/25 09:00 04/08/25 08:42 DC Diagnostic Test (Pha) (Accu-Chek Comfort Curve T) 1 strip ACHS 04/07/25 17:00 04/08/25 06:38 Insulin Human Regular (InsuLIN R) ACHS SC 04/07/25 17:00 Dextrose 50 ml UD PRN IV Blood Sugar LESS THAN 60 04/07/25 13:00 Carvedilol (Coreg Tablet) 3.125 mg BID PO 04/07/25 22:00 04/07/25 22:45 Gabapentin (Neurontin Capsule) 300 mg TID PO 04/07/25 14:00 04/08/25 06:35 Patient Own Medication 1 tab DAILY PO 04/08/25 10:00 UNV Patient Own Medication 1 tab DAILY PO 04/08/25 10:00 UNV Atorvastatin Calcium (Lipitor) 40 mg HS PO 04/07/25 22:00 04/07/25 22:00 Enoxaparin Sodium (Lovenox) 100 mg Q12HR SC 04/07/25 13:00 04/07/25 22:00 Losartan Potassium (Cozaar Tablet) 100 mg DAILY PO 04/08/25 10:00 Aspirin 81 mg DAILY PO 04/08/25 10:00 Meropenem 50 ml @ 17 mls/hr Q8H IV 04/08/25 12:00 Vital Signs Vital Signs Date Time Temp Pulse Resp B/P (MAP) Pulse Ox O2 Delivery O2 Flow Rate FiO2 04/08/25 08:00 97.9 77 14 123/62 (82) 94 97.9 04/08/25 07:30 Room Air* 0 21 Physical Exam Dermatological: Skin is dry with mild erythema and some maceration around the wound site No gross deformities noted Mild non-pitting edema present bilaterally Left foot plantar heel wound with surrounding erythema purulent drainage and necrosis Vascular: Dorsalis pedis and posterior tibial pulses are 1+ bilaterally Capillary refill is under 2 seconds Skin temperature is warm bilaterally Neurologic: Protective sensation is absent on the plantar forefoot bilaterally Monofilament testing reveals decreased sensation in multiple plantar sites Musculoskeletal: Range of motion at the ankle and MTP joints is within normal limits. Strength is 5/5 in all tested muscle groups. Gait is antalgic due to offloading of the affected limb. Labs/Diagnostic Data Labs Test 04/08/25 06:19 04/08/25 04:40 04/07/25 22:45 04/07/25 13:27 Range/Units White Blood Count 9.1 4.4-10.8 10^3/uL Red Blood Count 2.93 L 4.5-5.90 10^6/uL Hemoglobin 8.3 L 13.5-17.5 g/dL Hematocrit 25.2 #L 41.0-53.0 % Mean Corpuscular Volume 85.9 80.0-100.0 fL Mean Corpuscular Hemoglobin 28.4 28.0-32.0 pg Mean Corpuscular Hemoglobin Concent 33.0 32.0-36.0 g/dL Red Cell Distribution Width 14.3 11.8-14.3 % Platelet Count 203 140-450 10^3/uL Mean Platelet Volume 7.8 6.9-10.8 fL Neutrophils (%) (Auto) 57.8 37.0-80.0 % Lymphocytes (%) (Auto) 23.1 10.0-50.0 % Monocytes (%) (Auto) 7.8 0.0-12.0 % Eosinophils (%) (Auto) 10.6 H 0.0-7.0 % Basophils (%) (Auto) 0.7 0.0-2.0 % Neutrophils # (Auto) 5.2 1.6-8.6 10 ^3/uL Lymphocytes # (Auto) 2.1 0.4-5.4 10 ^3/uL Monocytes # (Auto) 0.7 0-1.3 10 ^3/uL Eosinophils # (Auto) 1.0 H 0-0.8 10 ^3/uL Basophils # (Auto) 0.1 0-0.2 10 ^3/uL Nucleated Red Blood Cells 0.1 % Sodium Level 145 136-145 mmol/L Potassium Level 3.7 3.5-5.1 mmol/L Chloride Level 107 98-107 mmol/L Carbon Dioxide Level 29 20-31 mmol/L Anion Gap 9 5-15 Blood Urea Nitrogen 17 9-23 mg/dL Creatinine 0.73 0.700-1.30 mg/dL Glomerular Filtration Rate Calc 100 >90 mL/min BUN/Creatinine Ratio 23.3 H 10.0-20.0 Serum Glucose 105 74-106 mg/dL Calcium Level 8.5 L 8.7-10.4 mg/dL Total Bilirubin 0.3 0.2-1.0 mg/dL Aspartate Amino Transferase (AST) 21 13-40 U/L Alanine Aminotransferase (ALT) 22 7-40 U/L Alkaline Phosphatase 64 46-116 U/L Total Protein 5.6 L 5.7-8.2 g/dL Albumin 3.2 3.2-4.8 g/dL Urine Color Light-yellow Yellow Urine Clarity Clear Clear Urine pH 5.0 5.0-9.0 Urine Specific [place] 1.020 1.001-1.035 Urine Protein Trace H Negative Urine Ketones Negative Negative Urine Blood Trace H Negative /uL Urine Nitrite Negative Negative Urine Bilirubin Negative Negative Urine Urobilinogen Normal Negative mg/dL Urine Leukocyte Esterase 2+ Negative /uL Urine RBC 8 0 - 3 /hpf Urine Microscopic WBC 10 H 0-3 /HPF Urine Squamous Epithelial Cells Few <5 /hpf Urine Bacteria None seen None Seen /hpf Urine Mucus Few None Seen Urine Glucose Normal Normal mg/dL Urine Opiates Screen Pos NEGATIVE Urine Fentanyl Screen Neg NEGATIVE Urine Barbiturates Screen Neg NEGATIVE Urine Phencyclidine Screen Neg NEGATIVE Urine Amphetamines Screen Neg NEGATIVE Urine Benzodiazepines Screen Neg NEGATIVE Urine Cocaine Screen Neg NEGATIVE Urine Cannabinoids Screen Neg NEGATIVE POC Glucose 128 H 70-106 mg/dl Prothrombin Time 13.0 H 9.3-11.8 sec Prothrombin Time INR 1.25 H 0.9-1.15 Activated Partial Thromboplast Time 35.0 H 24.5-34.5 SEC Test 04/07/25 12:35 04/07/25 10:47 Range/Units Lactic Acid Level 2.5 *H 0.4-2.0 mmol/L Erythrocyte Sedimentation Rate 71 H 0-20 mm/hr Hemoglobin A1c 6.1 H <5.7 % A1C C-Reactive Protein High Sensitivity 8.36 H <1.0 mg/dL B-Type Natriuretic Peptide 115.37 0-100 pg/mL Problems(with codes): (1) Cellulitis of left foot (2) Leg edema, left (3) Hypoglycemia (4) Sepsis (5) DKA (diabetic ketoacidosis) (6) ACS (acute coronary syndrome) (7) Osteomyelitis of foot, right, acute (8) Cellulitis of foot, right (9) Gangrene of right foot (10) Cellulitis and abscess of left lower extremity (11) Diabetic ulcer of lower extremity Plan/Recommendation ASSESSMENT: Patient is a 65 year old seen on the floor for a worsening ulcer PLAN: - The patients chart was reviewed, clinical findings were discussed with the patient, the etiologies of the conditions were discussed in detail, and a treatment plan was agreed to at this time, with both oral and written instructions provided. - reviewed advanced imaging - discussed plan is to perform an incision and drainage - patient will be NPO at midnight - take him to the OR today - we will get cultures in the OR - can weightbear as tolerated in postoperative shoe - will likely need wound VAC after surgery - 6 weeks IV antibiotics pending cultures All questions were answered and concerns addressed to the patient's satisfacti on. The patient was given the phone number to the clinic and was told how to make contact with the clinic should any concerns or questions arise. Patient understands that if any questions or concerns arise prior to the next appointment, we should be contacted immediately. FOLLOW-UP: Continue to follow while inpatient Plan discussed with: Patient Visit Coding Podiatry Date of Service if different f: Apr 08, 2025 Billing Provider: LEE ANN SANCHEZ DPM Podiatry Common Visit Codes: CONSULT ONLY Podiatry Consult Codes: [id number]/OBS CONSLTJ NEW/EST HI 80 LEE ANN SANCHEZ DPM Apr 08, 2025 10:06
[2025-04-08] MEDS: LIDOCAINE 1% HCL (LOCAL ANESTH.) INJ 20ML MDV ONE (10:16)
--- NOTE | 2025-04-08 10:23 | DVHOP2 ---
Operative Report - 2 Report Details Date: 04/08/25 Preop Diagnosis: 1. Left foot abscess 2. Left foot necrotizing fasciitis 3. Left foot cellulitis 4. Left foot diabetic ulcer Postop Diagnosis: Same as preop Surgeon: Lee Ann Sanchez MD Anesthesiologist: See anesthesia Anesthesia: Mac Consent: The patient was informed of the risks and benefits of the procedure. These include but are not limited to complications of anesthesia, postoperative infection, incomplete relief of symptoms, recurrence of symptoms, damage to blood vessels, nerves and tendons, deep venous thrombosis, pulmonary embolism and possible need for repeat surgery in the future. Complications: None Estimated Blood Loss: Minimal Fluids: See anesthesia Findings: Consistent with diagnosis Indications for Surgery: Worsening foot wound Name of Procedure Performed 1. Left foot I&D (05936) Procedure Details Procedure Details: PRE-PROCEDURE INFORMATION: In the pre-op holding area, the extremity to be operated on was clearly marked and the patient verified correct laterality of the marking. The patient was transferred to the OR table and placed in a supine position. A timeout was performed in which identification of the correct patient, procedure, location, and materials was done. The left foot and leg were prepped and draped in normal sterile fashion. DESCRIPTION OF PROCEDURE: Attention was directed to the left heel where area of fluctuance was noted. An incision was made over this area and was deepened through blunt dissection. The incision was deepened to the level of abscess and bone. Care was taken to the dissection to avoid any neurovascular and tendinous structures. The incision was deepened to the bone, and the abscess appeared to be purulent fluid consistent with pus. The cortices of the bone was then removed with rongeur an all necrotic tissue. After the abscess was drained, the area was irrigated with 3 L normal saline using cysto tubing. Deep cultures were then obtained from the wound. The area was then inspected and any areas of tracking, especially along the tendons were also drained. The wound was packed with Betadine-soaked gauze and we will need to be closed at a later date. POSTOPERATIVE INFORMATION: The patient tolerated the above noted procedure and anesthesia well and was transferred to the PACU with vital signs stable, and vascular status intact with capillary refill intact to all digits. Deep cultures were taken. Patient will need 6 weeks of IV antibiotics. Previously on ceftriaxone, was at improving infection previously, consider recent cultures to determine what he will need. Patient will need wound VAC placed and changed every other day. Disposition Still a Patient Visit Coding Podiatry Date of Service if different f: Apr 08, 2025 Billing Provider: LEE ANN SANCHEZ DPM Podiatry Common Visit Codes: PROCEDURE ONLY LEE ANN SANCHEZ DPM Apr 08, 2025 10:23
[2025-04-08] MEDS ORDERED: PROPOFOL 10 MG/ML 20 ML IV ONE (10:32)
[2025-04-08] MEDS: LOSARTAN POTASSIUM 50 MG TAB PO SCH (11:08)
[2025-04-08] MEDS ORDERED: DEXTROSE (50%) 50ML SYRG IV PRN (11:45)
[2025-04-08] MEDS: SODIUM CHLORIDE 0.9% 1,000 ML IV SCH (12:46)
[2025-04-08] MEDS: ceFAZolin 2 GM/D5W50ml 50 ML IV ONE (12:46)
[2025-04-08] MEDS: HYDROmorphone HCL 2 MG/ML VL/or syr IV PRN ×2 (14:31→22:31)
[2025-04-08] MEDS: MEROPENEM 1GM IVPB 50 ML IV SCH (14:38)
--- NOTE | 2025-04-08 16:53 | DVHPNRES ---
Progress Note Date Seen: Apr 08, 2025 Resident Creating Document: MARIANELA DUNAWAY RESIDENT Medical Necessity Reason Pt with a Central, PICC or Fol: Yes The following are medically ne: PICC Line Subjective Review of Systems Patient is 65 years old male with diabetes, Chronic HFmrEF, and history of right foot amputation presenting with an infected wound on his left heel that has worsened despite antibiotic treatment.The patient's current infection began at the end of January to beginning of February with a blister on the bottom of his left heel. The blister was initially treated but subsequently became infected. On March 10, he was sent to the emergency room due to the infection and was discharged on March 17 with antibiotics - one intravenous and one oral formulation. Today would have been his last day of antibiotic treatment. However, when he saw his physician, prompting referral back to the hospital. The patient reports that he has not experienced typical signs of infection such as fever or flu-like symptoms, only purulent discharge from the wound. He describes the pain as currently a 5 out of 10 after taking Henry this morning, but states it becomes 10-plus when the medication wears off. The wound is located on the heel of his left foot, which also has lymphedema and swelling. Previous hospitalization from March 10 to March 17, 2024 for foot infection. His right foot was previously amputated on June 22, 2022, due to infection. He currently has no infections at the amputation site. His blood glucose this morning was 77. He lives with his sister and denies smoking, drinking, or drug use. Initial lab workup revealed anemia with a hemoglobin 9.2, ESR 71, A1c 6.1, lactic acidosis with lactic acid 2.9> 2.5, CT scan of the left foot revealed- Soft tissue swelling and emphysema in the plantar hindfoot deep to the calcaneus compatible with infection possibly with gas-forming bacteria. Cellulitis in the medial hindfoot. Periosteal reaction of the plantar surface of the calcaneus may reflect osteomyelitis in the appropriate clinical setting.Elsewhere in the lower extremity (above the ankle) there is marked diffuse soft tissue swelling which may reflect cellulitis or sequelae of venous stasis. Other systemic processes are not excluded. Medical History- Diabetes mellitus 2, HFmrEF, History of blood clot in heart, resolved, Hypertension, Lymphedema Surgical History- Right foot amputation on June 22, 2022, due to infection, I& D to Left foot Medications and Supplements- Metformin, Insulin 20, Atorvastatin, Losartan, Carvedilol, Henry, Antibiotics- Zyvox and IV Rocephin Social History-Substance Use: Denies smoking, drinking, or drug use, Living Situation: Lives with sister Patient was seen today at bedside Labs and chart reviewed Patient was seen by Podiatry Dr. Rubio, status post incision and drainage of the left foot Patient on IV antibiotic meropenem/clindamycin and Zyvox Pending blood culture, wound culture Doppler study of the left lower extremity to rule out DVT Objective vital signs Vital Sign Date Time Temp Pulse Resp B/P (MAP) Pulse Ox O2 Delivery O2 Flow Rate FiO2 04/08/25 15:35 Room Air 0 100 04/08/25 15:01 82 16 130/65 04/08/25 15:00 100 04/08/25 10:45 98.3 98.3 Total Intake and Output 04/07/25 04/07/25 04/08/25 14:59 22:59 06:59 Intake Total 50 ml 300 ml Balance 50 ml 300 ml medications Current Medications Medications Dose Ordered Sig/Javier Route Start Time Stop Time Status Last Admin Dose Admin Sodium Chloride 10 ml Q8HR IV 04/07/25 14:00 04/08/25 06:29 10 ML Acetaminophen/ Hydrocodone Bitart 1 tab Q4HP PRN PO 04/07/25 12:30 04/08/25 11:01 1 TAB Ondansetron HCl 4 mg Q4HP PRN IV 04/07/25 12:30 Acetaminophen 650 mg Q6HP PRN PO 04/07/25 12:30 Linezolid 300 ml @ 150 mls/hr Q12HR IV 04/07/25 22:00 04/08/25 12:40 150 MLS/HR Carvedilol 3.125 mg BID PO 04/07/25 22:00 04/08/25 11:09 3.125 MG Gabapentin 300 mg TID PO 04/07/25 14:00 04/08/25 12:57 300 MG Patient Own Medication 1 tab DAILY PO 04/08/25 10:00 UNV Patient Own Medication 1 tab DAILY PO 04/08/25 10:00 UNV Atorvastatin Calcium 40 mg HS PO 04/07/25 22:00 04/07/25 22:00 40 MG Enoxaparin Sodium 100 mg Q12HR SC 04/07/25 13:00 04/07/25 22:00 100 MG Losartan Potassium 100 mg DAILY PO 04/08/25 10:00 04/08/25 11:08 100 MG Aspirin 81 mg DAILY PO 04/08/25 10:00 Meropenem 50 ml @ 17 mls/hr Q8H IV 04/08/25 12:00 04/08/25 14:38 17 MLS/HR Diagnostic Test (Pha) 1 strip ACHS 04/08/25 17:00 Insulin Human Regular ACHS SC 04/08/25 17:00 Dextrose 50 ml UD PRN IV 04/08/25 11:45 Sodium Chloride 1,000 ml @ 100 mls/hr Q10H IV 04/08/25 11:45 04/08/25 12:46 100 MLS/HR Insulin Glargine 15 units DAILY@1000 SC 04/09/25 10:00 Clindamycin Phosphate 50 ml @ 50 mls/hr Q8H IV 04/08/25 16:00 Hydromorphone HCl 0.25 mg Q6HP PRN IV 04/08/25 22:30 Pantoprazole Sodium 40 mg DAILY IV 04/09/25 10:00 Examination General Appearance: Alert, Oriented X3, Cooperative, Not in acute distress HEENT: Atraumatic, Mucous membranes moist/pink Respiratory: Clear to auscultation, Normal air movement, No added sounds Cardiovascular: Regular rate, Normal S1, Normal S2, No murmurs Abdominal: Active bowel sounds, Soft, no distention, no tenderness Musculoskeletal: Right foot amputation noted. Left foot with swelling and lymphedema present. Wound observed on the heel of the left foot. Skin: As above Neuro: Normal speech, sensorimotor deficits none Psych/Mental Status: Mental status NL, Mood NL Nurse was there as roadability machine operator during examination laboratory and microbiology Laboratory Tests 04/08/25 06:19 Test 04/08/25 06:19 Range/Units Serum Glucose 105 74-106 mg/dL Microbiology Date/Time Source Procedure Growth Status 04/07/25 13:30 Blood Blood Culture - Preliminary NO GROWTH AFTER 24 HOURS OF INCUBATION. Resulted 04/07/25 08:33 Foot Gram Stain - Final Resulted 04/07/25 08:33 Foot Wound Culture Pending Resulted Problem List/Assessment/Plan Problem List/Assessment/Plan Assessment and plan #Sepsis likely due to left foot cellulitis/osteomyelitis/abscess #Left foot acute on chronic nonhealing diabetic ulcer # left foot osteomyelitis / abscess /cellulitis #Rule out necrotizing fasciitis # left foot cellulitis # left foot osteomyelitis -patient was seen by Podiatry, -status post incision and drainage by Podiatry -patient on IV antibiotic meropenem, Zyvox, clindamycin -continue IV fluid as prescribed -pending blood culture -pending wound culture -pending Doppler of the left lower extremity to rule out DVT #Uncontrolled type 2 diabetes -continue insulin as prescribed -monitor blood sugar #Acute UTI- UA- LE2+, WBC- 10 Continue current ABX -pending Urine CS #Chronic HFmrEF #HTN #HLD # history of thrombus in the heart -continue losartan -continue carvedilol Continue atorvastatin -continue aspirin -continue Lovenox as prescribed Goals of care, Code status full code; discussed with >15 minutes PUD prophylaxis: Pantoprazole DVT prophylaxis: Lovenox Plan discussed with Dr. Hunt , nursing staff, Total time spent on patient evaluation, chart review, assessment and plan, discussion discussion >35 minutes Plan discussed with: Patient, Other (RN) My Orders My Orders Orders - MARIANELA DUNAWAY RESIDENT Procedure Category Date Status Time Lt Lower Dvt US 04/08/25 Taken 08:35 Meropenem 1gm Ivpb PHA 04/08/25 In Process (Merrem 1gm/50ml) 12:00 Urine Bacterial EDYTA 04/08/25 In Process Culture 08:44 Mrsa Screen EDYTA 04/08/25 Logged 08:44 Glucose Blood PHA 04/08/25 In Process (Accu-Chek Comfort 17:00 Insulin R (Human) PHA 04/08/25 In Process (Insulin R) 17:00 Dextrose 50% Syringe PHA 04/08/25 In Process 11:45 Sodium Chloride 0.9% PHA 04/08/25 In Process 11:45 Insulin Lantus PHA 04/09/25 In Process (Glargine) (Lantus) 10:00 Clindamycin 600mg Iv PHA 04/08/25 In Process (Cleocin Iv) 16:00 Hydromorphone PHA 04/08/25 In Process Injection (Dilaudid 22:30 Visit Coding STANDARD RES Billing Provider: KATJA JOHNSON MD Date of Service if different f: Apr 08, 2025 Common Visit Codes: [id number] INP/OBS CARE(HIGH) MARIANELA DUNAWAY RESIDENT Apr 08, 2025 16:53
[2025-04-08] MEDS: ACCU-CHEK COMFORT CURVE STRIP VI SCH (17:00)
[2025-04-08] MEDS: InsuLIN REG 1unit/0.01ml Soln (100units/ml) SC SCH (17:00)
[2025-04-08] MEDS: CLINDAMYCIN 600MG IV 50 ML IV SCH (19:10)
[2025-04-08] MEDS: PANTOPRAZOLE 40 MG/10 ML VIAL INJ IV ONE (19:10)
[2025-04-09] VITALS (8 sets, daily range): BP systolic 114–138; BP diastolic 61–75; PULSE 76–102; RESP 16–18; TEMP 97.6–98.9; O2SAT 91–94
--- NOTE | 2025-04-09 01:31 | DVHSR ---
APPROVED REPORT EXAM: Two-dimensional and M-mode echocardiogram with Doppler, color Doppler and Bubble Study. Blood Pressure: 103/59 mmHg INDICATION to assess severity of chf RISK FACTORS Height: 5'10, Weight: 213 DIMENSIONS LVDd 5.0 (3.8-5.7cm) LA (2D) 4.7 (1.9-4.0cm) Aortic Root 3.7 (2.0-3.7cm) LVDs 3.4 (2.5-4.0cm) LA (MM) (1.9-4.0cm) Aortic Cusp Exc 1.9 (1.5-2.0cm) EF (%) 60.0 (55-70%) Rt. Atrium 4.2 (1.9-4.0cm) Asc. Aorta cm IVSd 0.9 (0.7-1.1cm) RV (D) 3.7 (1.8-2.4cm) PWd 1.1 (0.7-1.1cm) Mitral Valve Mitral Mitral Stenosis E wave 0.84m/s MV Mean GR. mmHg A wave 0.95m/s MV Peak GR. mmHg E/A ratio 0.9 2D MVA cm2 DECEL Time 229ms PRESS 1/2 Time ms Aortic Valve Aortic Valve Aortic Stenosis V1 1.07m/s AO Mean GR. 7mmHg V2 1.86m/s AO Peak GR. 14mmHg LVOT Diameter 2.3 (1.8-2.4cm) Doppler MARK 2.39cm2 Pulmonic Valve V2 1.15m/s Tricuspid Valve TR Velocity 2.85m/s RVSP 51mmHg Conclusion MILD LVH MILD LV DIASTOLIC DYSFUNCTION LV EF IS 65% AORTIC SCLEROSIS BUT NO STENOSIS NORMALMV,TV AND PV MODERATELY DILATED RV AND RA NO EFFUSION MODERATE PULMONARY HYPERTENSION RVSP IS 51 MM OF HG AND IS VERY HIGH
--- NOTE | 2025-04-09 06:15 | DVH ---
Left lower extremity venous duplex CLINICAL HISTORY: DVT COMPARISON: US LT LOWER DVT on DOS: 03/10/25, US LT LOWER DVT on DOS: 01/02/25, US LT LOWER DVT on DOS: 10/18/24, US RT LOWER DVT on DOS: 06/17/22 TECHNIQUE: Duplex Doppler evaluation of the deep venous system of the left lower extremity from the common femoral vein to the popliteal vein including color Doppler and spectral/pulsed waveform analysis was performed. FINDINGS: The common femoral vein demonstrates appropriate compressibility and waveform variability. There is compressibility/patency of the great saphenous vein at the proximal thigh. The femoral vein demonstrates appropriate compressibility and waveform variability. The deep femoral vein demonstrates appropriate compressibility and waveform variability. The popliteal vein demonstrates appropriate compressibility and waveform variability. There is normal compressibility at the tibioperoneal trunk. Prominent inguinal lymph nodes measure up to 3.1 cm. IMPRESSION: 1. No left femoropopliteal venous thrombosis. 2. Prominent left inguinal lymph nodes measuring up to 3.1 cm.
[2025-04-09 06:40] LABS: Hematocrit 26.5 % (41.0-53.0); Hemoglobin 8.8 g/dL (13.5-17.5); Mean Corpuscular Hemoglobin 28.7 pg (28.0-32.0); Mean Corpuscular Volume 86.2 fL (80.0-100.0); Nucleated Red Blood Cells % 0.2 %
[2025-04-09 06:54] LABS: Iron 67.0 ug/dL (65-175)
[2025-04-09 07:00] LABS: Total Iron Binding Capacity 146.0 ug/dL (250-425)
[2025-04-09 07:03] LABS: Alanine Aminotransferase 21 U/L (7-40); Albumin 3.2 g/dL (3.2-4.8); Alkaline Phosphatase 67 U/L (46-116); Anion Gap 9 (5-15); BUN/Creatinine Ratio 11.7 (10.0-20.0); Bilirubin, Total 0.3 mg/dL (0.2-1.0); Blood Urea Nitrogen 9 mg/dL (9-23); Carbon Dioxide 30 mmol/L (20-31); Chloride 106 mmol/L (98-107); Magnesium 1.9 mg/dL (1.6-2.6); Potassium 3.6 mmol/L (3.5-5.1); Sodium 145 mmol/L (136-145); Total Protein 6.0 g/dL (5.7-8.2)
[2025-04-09 07:10] LABS: Calcium 8.3 mg/dL (8.7-10.4); Glucose 125 mg/dL (74-106)
[2025-04-09] MEDS: PANTOPRAZOLE 40 MG/10 ML VIAL INJ IV SCH (08:02)
[2025-04-09] MEDS: POTASSIUM EFFERVESENT TAB 25 MEQ PO ONE (09:44)
[2025-04-09] MEDS: MAGNESIUM SULFATE 1GM/100ML 100 ML IV ONE (09:44)
[2025-04-09] MEDS ORDERED: INSULIN LANTUS (GLARGINE) 1 /0.01ml (100units/ml) SC SCH (10:00)
[2025-04-09] MEDS: INSULIN LANTUS (GLARGINE) 1 /0.01ml (100units/ml) SC SCH (10:07)
--- NOTE | 2025-04-09 10:27 | DVHPNRES ---
Progress Note Date Seen: Apr 09, 2025 Resident Creating Document: MARIANELA DUNAWAY RESIDENT Medical Necessity Reason Pt with a Central, PICC or Fol: Yes The following are medically ne: PICC Line Subjective Review of Systems Patient is 65 years old male with diabetes, Chronic HFmrEF, and history of right foot amputation presenting with an infected wound on his left heel that has worsened despite antibiotic treatment.The patient's current infection began at the end of January to beginning of February with a blister on the bottom of his left heel. The blister was initially treated but subsequently became infected. On March 10, he was sent to the emergency room due to the infection and was discharged on March 17 with antibiotics - one intravenous and one oral formulation. Today would have been his last day of antibiotic treatment. However, when he saw his physician, prompting referral back to the hospital. The patient reports that he has not experienced typical signs of infection such as fever or flu-like symptoms, only purulent discharge from the wound. He describes the pain as currently a 5 out of 10 after taking Prospect this morning, but states it becomes 10-plus when the medication wears off. The wound is located on the heel of his left foot, which also has lymphedema and swelling. Previous hospitalization from March 10 to March 17, 2024 for foot infection. His right foot was previously amputated on June 22, 2022, due to infection. He currently has no infections at the amputation site. His blood glucose this morning was 77. He lives with his sister and denies smoking, drinking, or drug use. Initial lab workup revealed anemia with a hemoglobin 9.2, ESR 71, A1c 6.1, lactic acidosis with lactic acid 2.9> 2.5, CT scan of the left foot revealed- Soft tissue swelling and emphysema in the plantar hindfoot deep to the calcaneus compatible with infection possibly with gas-forming bacteria. Cellulitis in the medial hindfoot. Periosteal reaction of the plantar surface of the calcaneus may reflect osteomyelitis in the appropriate clinical setting.Elsewhere in the lower extremity (above the ankle) there is marked diffuse soft tissue swelling which may reflect cellulitis or sequelae of venous stasis. Other systemic processes are not excluded. Medical History- Diabetes mellitus 2, HFmrEF, History of blood clot in heart, resolved, Hypertension, Lymphedema Surgical History- Right foot amputation on June 22, 2022, due to infection, I& D to Left foot Medications and Supplements- Metformin, Insulin 20, Atorvastatin, Losartan, Carvedilol, Prospect, Antibiotics- Zyvox and IV Rocephin Social History-Substance Use: Denies smoking, drinking, or drug use, Living Situation: Lives with sister Patient was seen today at bedside Labs and chart reviewed Patient was seen by Podiatry Dr. Rubio, status post incision and drainage of the left foot Doppler study of the left lower extremity negative for DVT Blood culture no growth so far Wound culture moderate Gram-negative rods so far, pending culture sensitivity Stool for occult blood test was Objective vital signs Vital Sign Date Time Temp Pulse Resp B/P (MAP) Pulse Ox O2 Delivery O2 Flow Rate FiO2 04/09/25 08:30 97.6 80 17 125/73 (90) 94 97.6 04/08/25 20:00 Room Air* 0 21 Total Intake and Output 04/08/25 04/08/25 04/09/25 15:00 23:00 07:00 Intake Total 100 ml 350 ml 450 ml Output Total 350 ml 500 ml Balance 100 ml 0 ml -50 ml medications Current Medications Medications Dose Ordered Sig/Javier Route Start Time Stop Time Status Last Admin Dose Admin Sodium Chloride 10 ml Q8HR IV 04/07/25 14:00 04/09/25 05:43 10 ML Acetaminophen/ Hydrocodone Bitart 1 tab Q4HP PRN PO 04/07/25 12:30 04/09/25 09:44 1 TAB Ondansetron HCl 4 mg Q4HP PRN IV 04/07/25 12:30 Acetaminophen 650 mg Q6HP PRN PO 04/07/25 12:30 Linezolid 300 ml @ 150 mls/hr Q12HR IV 04/07/25 22:00 04/09/25 09:45 150 MLS/HR Carvedilol 3.125 mg BID PO 04/07/25 22:00 04/09/25 08:03 3.125 MG Gabapentin 300 mg TID PO 04/07/25 14:00 04/09/25 05:31 300 MG Patient Own Medication 1 tab DAILY PO 04/08/25 10:00 UNV Patient Own Medication 1 tab DAILY PO 04/08/25 10:00 UNV Atorvastatin Calcium 40 mg HS PO 04/07/25 22:00 04/08/25 21:01 40 MG Enoxaparin Sodium 100 mg Q12HR SC 04/07/25 13:00 04/09/25 08:02 100 MG Losartan Potassium 100 mg DAILY PO 04/08/25 10:00 04/09/25 08:02 100 MG Aspirin 81 mg DAILY PO 04/08/25 10:00 04/09/25 08:02 81 MG Meropenem 50 ml @ 17 mls/hr Q8H IV 04/08/25 12:00 04/09/25 03:44 17 MLS/HR Diagnostic Test (Pha) 1 strip ACHS 04/08/25 17:00 04/09/25 10:08 1 STRIP Insulin Human Regular ACHS SC 04/08/25 17:00 Dextrose 50 ml UD PRN IV 04/08/25 11:45 Sodium Chloride 1,000 ml @ 100 mls/hr Q10H IV 04/08/25 11:45 04/09/25 08:03 100 MLS/HR Insulin Glargine 15 units DAILY@1000 SC 04/09/25 10:00 04/09/25 10:07 15 UNITS Clindamycin Phosphate 50 ml @ 50 mls/hr Q8H IV 04/08/25 16:00 04/09/25 08:01 50 MLS/HR Pantoprazole Sodium 40 mg DAILY IV 04/09/25 10:00 04/09/25 08:02 40 MG Hydromorphone HCl 0.25 mg Q4H PRN IV 04/09/25 10:15 UNV Examination General Appearance: Alert, Oriented X3, Cooperative, Not in acute distress HEENT: Atraumatic, Mucous membranes moist/pink Respiratory: Clear to auscultation, Normal air movement, No added sounds Cardiovascular: Regular rate, Normal S1, Normal S2, No murmurs Abdominal: Active bowel sounds, Soft, no distention, no tenderness Musculoskeletal: Right foot amputation noted. Left foot with swelling and lymphedema present. Wound observed on the heel of the left foot. Skin: As above Neuro: Normal speech, sensorimotor deficits none Psych/Mental Status: Mental status NL, Mood NL Nurse was there as trimming assembler during examination laboratory and microbiology Laboratory Tests 04/09/25 04:46 Test 04/09/25 04:46 Range/Units Serum Glucose 125 H 74-106 mg/dL Microbiology Date/Time Source Procedure Growth Status 04/08/25 10:17 Foot Left Gram Stain Pending Resulted 04/08/25 10:17 Foot Left Anaerobic Culture Pending Resulted 04/08/25 10:17 Foot Left Aerobic Culture - Preliminary Resulted 04/08/25 04:40 Voided Urine Urine Culture - Preliminary Resulted 04/07/25 13:30 Blood Blood Culture - Preliminary NO GROWTH AFTER 24 HOURS OF INCUBATION. Resulted Problem List/Assessment/Plan Problem List/Assessment/Plan Assessment and plan #Sepsis likely due to left foot cellulitis/osteomyelitis/abscess #Left foot acute on chronic nonhealing diabetic ulcer # left foot osteomyelitis / abscess /cellulitis #Rule out necrotizing fasciitis # left foot cellulitis # left foot osteomyelitis -patient was seen by Podiatry, -status post incision and drainage by Podiatry -patient on IV antibiotic meropenem, Zyvox, clindamycin -continue IV fluid as prescribed Doppler study of the left lower extremity negative for DVT Blood culture no growth so far, Wound culture Gram-negative rods so far, pending sensitivity -Doppler of the left lower extremity negative for DVT #Uncontrolled type 2 diabetes -continue insulin as prescribed -monitor blood sugar #Acute UTI- UA- LE2+, WBC- 10 Continue current ABX -pending Urine CS # moderate anemia likely due to anemia of chronic disease -history for occult blood is positive Hemoglobin is stable We will follow up with CBC -plan is to follow up outpatient with GI for further evaluation and care #Chronic HFmrEF #HTN #HLD # history of thrombus in the heart -continue losartan -continue carvedilol Continue atorvastatin -continue aspirin -continue Lovenox as prescribed Goals of care, Code status full code; discussed with >15 minutes PUD prophylaxis: Pantoprazole DVT prophylaxis: Lovenox Plan discussed with Dr. Hunt , nursing staff, Total time spent on patient evaluation, chart review, assessment and plan, discussion discussion >35 minutes Plan discussed with: Patient, Other (RN) My Orders My Orders Orders - MARIANELA DUNAWAY RESIDENT Procedure Category Date Status Time Glucose Blood PHA 04/08/25 In Process (Accu-Chek Comfort 17:00 Insulin R (Human) PHA 04/08/25 In Process (Insulin R) 17:00 Dextrose 50% Syringe PHA 04/08/25 In Process 11:45 Sodium Chloride 0.9% PHA 04/08/25 In Process 11:45 Insulin Lantus PHA 04/09/25 In Process (Glargine) (Lantus) 10:00 Clindamycin 600mg Iv PHA 04/08/25 In Process (Cleocin Iv) 16:00 Stool Occult Blood LAB 04/09/25 Logged 08:10 2 Gm Sodium Diet DIET 04/09/25 Transmitted Lunch Hydromorphone PHA 04/09/25 Logged Injection (Dilaudid 10:15 Visit Coding STANDARD RES Billing Provider: KATJA JOHNSON MD Date of Service if different f: Apr 09, 2025 Common Visit Codes: [id number] INP/OBS CARE(HIGH) MARIANELA DUNAWAY RESIDENT Apr 09, 2025 10:27
[2025-04-09] MEDS: HYDROmorphone HCL 2 MG/ML VL/or syr IV PRN (13:08)
[2025-04-09 19:59] LABS: Hematocrit 25.9 % (41.0-53.0); Hemoglobin 8.5 g/dL (13.5-17.5)
[2025-04-10] VITALS (8 sets, daily range): BP systolic 118–142; BP diastolic 69–77; PULSE 83–98; RESP 12–19; TEMP 97.7–99.4; O2SAT 90–94
[2025-04-10 06:43] LABS: Chloride 103 mmol/L (98-107); Potassium 4.0 mmol/L (3.5-5.1); Sodium 141 mmol/L (136-145)
[2025-04-10 06:44] LABS: Anion Gap 6 (5-15)
[2025-04-10 06:46] LABS: Calcium 7.8 mg/dL (8.7-10.4); Carbon Dioxide 32 mmol/L (20-31); Hemoglobin 8.4 g/dL (13.5-17.5); Nucleated Red Blood Cells % 0.2 %
[2025-04-10 06:48] LABS: Hematocrit 24.6 % (41.0-53.0); Mean Corpuscular Hemoglobin 29.0 pg (28.0-32.0); Mean Corpuscular Volume 85.5 fL (80.0-100.0)
[2025-04-10 06:49] LABS: BUN/Creatinine Ratio 11.9 (10.0-20.0)
[2025-04-10 06:50] LABS: Magnesium 2.1 mg/dL (1.6-2.6)
[2025-04-10 06:53] LABS: Blood Urea Nitrogen 8 mg/dL (9-23); Glucose 108 mg/dL (74-106)
--- NOTE | 2025-04-10 12:31 | DVHPNRES ---
Progress Note Date Seen: Apr 10, 2025 Resident Creating Document: MARIANELA DUNAWAY RESIDENT Medical Necessity Reason Pt with a Central, PICC or Fol: Yes The following are medically ne: PICC Line Subjective Review of Systems Patient is 65 years old male with diabetes, Chronic HFmrEF, and history of right foot amputation presenting with an infected wound on his left heel that has worsened despite antibiotic treatment.The patient's current infection began at the end of January to beginning of February with a blister on the bottom of his left heel. The blister was initially treated but subsequently became infected. On March 10, he was sent to the emergency room due to the infection and was discharged on March 17 with antibiotics - one intravenous and one oral formulation. Today would have been his last day of antibiotic treatment. However, when he saw his physician, prompting referral back to the hospital. The patient reports that he has not experienced typical signs of infection such as fever or flu-like symptoms, only purulent discharge from the wound. He describes the pain as currently a 5 out of 10 after taking [place] this morning, but states it becomes 10-plus when the medication wears off. The wound is located on the heel of his left foot, which also has lymphedema and swelling. Previous hospitalization from March 10 to March 17, 2024 for foot infection. His right foot was previously amputated on June 22, 2022, due to infection. He currently has no infections at the amputation site. His blood glucose this morning was 77. He lives with his sister and denies smoking, drinking, or drug use. Initial lab workup revealed anemia with a hemoglobin 9.2, ESR 71, A1c 6.1, lactic acidosis with lactic acid 2.9> 2.5, CT scan of the left foot revealed- Soft tissue swelling and emphysema in the plantar hindfoot deep to the calcaneus compatible with infection possibly with gas-forming bacteria. Cellulitis in the medial hindfoot. Periosteal reaction of the plantar surface of the calcaneus may reflect osteomyelitis in the appropriate clinical setting.Elsewhere in the lower extremity (above the ankle) there is marked diffuse soft tissue swelling which may reflect cellulitis or sequelae of venous stasis. Other systemic processes are not excluded. Medical History- Diabetes mellitus 2, HFmrEF, History of blood clot in heart, resolved, Hypertension, Lymphedema Surgical History- Right foot amputation on June 22, 2022, due to infection, I& D to Left foot Medications and Supplements- Metformin, Insulin 20, Atorvastatin, Losartan, Carvedilol, [place], Antibiotics- Zyvox and IV Rocephin Social History-Substance Use: Denies smoking, drinking, or drug use, Living Situation: Lives with sister Patient was seen today at bedside Labs and chart reviewed Blood culture no growth Patient was positive for fecal occult blood test but hemoglobin is stable. Plan is to do outpatient follow up with GI for colonoscopy as there is no evidence of active bleeding going on Superficial wound culture revealed Pseudomonas aeruginosa and Enterobacter Colace, plan is to wait for deep wound culture to narrow down antibiotic choice. Plan is to [facility] patient home with the home health for IV antibiotic if we have full culture sensitivity report of deep wound culture As per Podiatry patient needs 6 weeks of IV antibiotic for osteomyelitis The patient is on meropenem, clindamycin and Zyvox Objective vital signs Vital Sign Date Time Temp Pulse Resp B/P (MAP) Pulse Ox O2 Delivery O2 Flow Rate FiO2 04/10/25 09:41 130/77 04/10/25 09:40 89 04/10/25 09:00 16 04/10/25 08:44 97.7 90 97.7 04/10/25 08:00 Room Air* 0 21 Total Intake and Output 04/09/25 04/09/25 04/10/25 15:00 23:00 07:00 Intake Total 500 ml 1300 ml 200 ml Output Total 1025 ml 650 ml Balance 500 ml 275 ml -450 ml medications Current Medications Medications Dose Ordered Sig/Javier Route Start Time Stop Time Status Last Admin Dose Admin Sodium Chloride 10 ml Q8HR IV 04/07/25 14:00 04/10/25 05:53 10 ML Acetaminophen/ Hydrocodone Bitart 1 tab Q4HP PRN PO 04/07/25 12:30 04/10/25 04:50 1 TAB Ondansetron HCl 4 mg Q4HP PRN IV 04/07/25 12:30 Acetaminophen 650 mg Q6HP PRN PO 04/07/25 12:30 Linezolid 300 ml @ 150 mls/hr Q12HR IV 04/07/25 22:00 04/10/25 08:11 150 MLS/HR Carvedilol 3.125 mg BID PO 04/07/25 22:00 04/10/25 09:40 3.125 MG Gabapentin 300 mg TID PO 04/07/25 14:00 04/10/25 05:53 300 MG Patient Own Medication 1 tab DAILY PO 04/08/25 10:00 UNV Patient Own Medication 1 tab DAILY PO 04/08/25 10:00 UNV Atorvastatin Calcium 40 mg HS PO 04/07/25 22:00 04/09/25 21:09 40 MG Enoxaparin Sodium 100 mg Q12HR SC 04/07/25 13:00 04/10/25 09:39 100 MG Losartan Potassium 100 mg DAILY PO 04/08/25 10:00 04/10/25 09:41 100 MG Aspirin 81 mg DAILY PO 04/08/25 10:00 04/10/25 09:39 81 MG Meropenem 50 ml @ 17 mls/hr Q8H IV 04/08/25 12:00 04/10/25 04:02 17 MLS/HR Diagnostic Test (Pha) 1 strip ACHS 04/08/25 17:00 04/10/25 09:42 1 STRIP Insulin Human Regular ACHS SC 04/08/25 17:00 Dextrose 50 ml UD PRN IV 04/08/25 11:45 Insulin Glargine 15 units DAILY@1000 SC 04/09/25 10:00 04/10/25 09:42 15 UNITS Clindamycin Phosphate 50 ml @ 50 mls/hr Q8H IV 04/08/25 16:00 04/10/25 08:11 50 MLS/HR Pantoprazole Sodium 40 mg DAILY IV 04/09/25 10:00 04/10/25 09:39 40 MG Hydromorphone HCl 0.25 mg Q4H PRN IV 04/09/25 10:15 04/10/25 08:12 0.25 MG Examination General Appearance: Alert, Oriented X3, Cooperative, Not in acute distress HEENT: Atraumatic, Mucous membranes moist/pink Respiratory: Clear to auscultation, Normal air movement, No added sounds Cardiovascular: Regular rate, Normal S1, Normal S2, No murmurs Abdominal: Active bowel sounds, Soft, no distention, no tenderness Musculoskeletal: Right foot amputation noted. Left foot with swelling and lymphedema present. Wound observed on the heel of the left foot. Skin: As above Neuro: Normal speech, sensorimotor deficits none Psych/Mental Status: Mental status NL, Mood NL Nurse was there as management planner during examination laboratory and microbiology Laboratory Tests 04/10/25 04:56 Test 04/10/25 04:56 Range/Units Serum Glucose 108 H 74-106 mg/dL Microbiology Date/Time Source Procedure Growth Status 04/08/25 14:30 Nose MRSA Screen - Final Complete 04/08/25 04:40 Voided Urine Urine Culture - Preliminary Resulted 04/07/25 13:30 Blood Blood Culture - Preliminary NO GROWTH AFTER 48 HOURS OF INCUBATION. Resulted Problem List/Assessment/Plan Problem List/Assessment/Plan Assessment and plan-patient with left foot osteomyelitis and cellulitis, had emphysematous changes on CT scan likely due to gas-forming organism. Superficial wound positive for Pseudomonas aeruginosa and Enterobacter Colace. Status post incision and drainage by Podiatry. Possible discharge tomorrow. Waiting for deep wound culture sensitivity report to narrow down choice of antibiotic for home health/SNF for IV antibiotic for 6 weeks as per Podiatry recommendation. Plan is to do outpatient follow up with GI for possible colonoscopy as patient has FOBT positive and has anemia. Social service consult for wound VAC in place. Patient wants to go to SNF. So may need to put a consult for SNF for IV antibiotic for 6 weeks once we have the full culture sensitivity report from deep culture wound. #Sepsis likely due to left foot cellulitis/osteomyelitis/abscess #Left foot acute on chronic nonhealing diabetic ulcer # left foot osteomyelitis / abscess /cellulitis #Rule out necrotizing fasciitis # left foot cellulitis # left foot osteomyelitis -patient was seen by Podiatry, -status post incision and drainage by Podiatry -patient on IV antibiotic meropenem, Zyvox, clindamycin -continue IV fluid as prescribed Doppler study of the left lower extremity negative for DVT Blood culture no growth so far, -deep Wound culture Gram-negative rods so far, pending sensitivity #Uncontrolled type 2 diabetes -continue insulin as prescribed -monitor blood sugar #Acute UTI- UA- LE2+, WBC- 10 Continue current ABX -Urine CS no growth so far # moderate anemia likely due to anemia of chronic disease -history for occult blood is positive Hemoglobin is stable We will follow up with CBC -plan is to follow up outpatient with GI for further evaluation and care #Chronic HFmrEF #HTN #HLD # history of thrombus in the heart -continue losartan -continue carvedilol Continue atorvastatin -continue aspirin -continue Lovenox as prescribed Goals of care, Code status full code; discussed with >15 minutes PUD prophylaxis: Pantoprazole DVT prophylaxis: Lovenox Plan discussed with Dr. Hunt , nursing staff, Total time spent on patient evaluation, chart review, assessment and plan, discussion discussion >35 minutes Plan discussed with: Patient, Other (RN) My Orders My Orders Orders - MARIANELA DUNAWAY Procedure Category Date Status Time Wound Vac DAVID 04/10/25 In Process 10:59 Visit Coding STANDARD RES Billing Provider: KATJA JOHNSON MD Date of Service if different f: Apr 10, 2025 Common Visit Codes: [id number] INP/OBS CARE(HIGH) MARIANELA DUNAWAY Apr 10, 2025 12:31
[2025-04-11] VITALS (8 sets, daily range): BP systolic 112–146; BP diastolic 66–81; PULSE 84–96; RESP 14–20; TEMP 97.8–98.8; O2SAT 93–95
[2025-04-11 06:18] LABS: Mean Corpuscular Volume 85.5 fL (80.0-100.0)
[2025-04-11 06:21] LABS: Hematocrit 24.8 % (41.0-53.0); Hemoglobin 8.5 g/dL (13.5-17.5); Mean Corpuscular Hemoglobin 29.2 pg (28.0-32.0); Nucleated Red Blood Cells % 0.2 %
[2025-04-11 06:29] LABS: Chloride 101 mmol/L (98-107); Potassium 4.1 mmol/L (3.5-5.1); Sodium 139 mmol/L (136-145)
[2025-04-11 06:30] LABS: Anion Gap 8 (5-15); Carbon Dioxide 30 mmol/L (20-31)
[2025-04-11 06:34] LABS: Calcium 7.9 mg/dL (8.7-10.4)
[2025-04-11 06:35] LABS: BUN/Creatinine Ratio 13.6 (10.0-20.0); Blood Urea Nitrogen 9 mg/dL (9-23); Glucose 111 mg/dL (74-106); Magnesium 2.1 mg/dL (1.6-2.6)
[2025-04-11] MEDS: CIPROFLOXACIN 0.3%OPTH(EYE) SOL 5ML EACHEYE SCH (14:40)
--- NOTE | 2025-04-11 17:13 | DVHPNRES ---
Progress Note Date Seen: Apr 11, 2025 Resident Creating Document: NNEKA LASSITER RESIDENT Has the PT tested + for MRSA If YES, has PT been informed?: No Medical Necessity Reason Pt with a Central, PICC or Fol: Yes The following are medically ne: PICC Line Subjective Review of Systems PHI: Patient is 65 years old male with diabetes, Chronic HFmrEF, and history of right foot amputation presenting with an infected wound on his left heel that has worsened despite antibiotic treatment.The patient's current infection began at the end of January to beginning of February with a blister on the bottom of his left heel. The blister was initially treated but subsequently became infected. On March 10, he was sent to the emergency room due to the infection and was discharged on March 17 with antibiotics - one intravenous and one oral formulation. Today would have been his last day of antibiotic treatment. However, when he saw his physician, prompting referral back to the hospital. The patient reports that he has not experienced typical signs of infection such as fever or flu-like symptoms, only purulent discharge from the wound. He describes the pain as currently a 5 out of 10 after taking [place] this morning, but states it becomes 10-plus when the medication wears off. The wound is located on the heel of his left foot, which also has lymphedema and swelling. Previous hospitalization from March 10 to March 17, 2024 for foot infection. His right foot was previously amputated on June 22, 2022, due to infection. He currently has no infections at the amputation site. His blood glucose this morning was 77. He lives with his sister and denies smoking, drinking, or drug use. Initial lab workup revealed anemia with a hemoglobin 9.2, ESR 71, A1c 6.1, lactic acidosis with lactic acid 2.9> 2.5, CT scan of the left foot revealed- Soft tissue swelling and emphysema in the plantar hindfoot deep to the calcaneus compatible with infection possibly with gas-forming bacteria. Cellulitis in the medial hindfoot. Periosteal reaction of the plantar surface of the calcaneus may reflect osteomyelitis in the appropriate clinical setting.Elsewhere in the lower extremity (above the ankle) there is marked diffuse soft tissue swelling which may reflect cellulitis or sequelae of venous stasis. Other systemic processes are not excluded. PMH: Medical History- Diabetes mellitus 2, HFmrEF, History of blood clot in heart, resolved, Hypertension, Lymphedema Surgical History- Right foot amputation on June 22, 2022, due to infection, I& D to Left foot Medications and Supplements- Metformin, Insulin 20, Atorvastatin, Losartan, Carvedilol, [place], Antibiotics- Zyvox and IV Rocephin Social History-Substance Use: Denies smoking, drinking, or drug use, Living Situation: Lives with sister Hospital course: On 04/11/25, The patient was seen today at bedside, The patient's VS, labs and chart were reviewed. The patient reports improving of pain in his left foot with analgesia. Superficial wound culture (pre-I&D) reported pseudomonas, per culture sensitivity test the patient will continue with IV Meropenem. Linezolid and clindamicyn were discontinued today. The blood culture reported no growth at this time. Wound care was done today, wound vac placement was attempted, wound care nurse reported bleeding. I contacted Dr. Santo to report the bleeding with the wound vac. He request the wound back to be placed by Home-health at home upon discharge. Due to bleeding post wound vac attempt, pressure was applied and the bleeding stopped. we will follow up H&H q8hrs. The patient is on Lovenox therapeutic due to hx of intracardiac blood clots. The patient have a positive for fecal occult blood test due to stable hemoglobin the plan per GI team is to do outpatient follow up with GI for colonoscopy as there is no evidence of active bleeding going on right now. Superficial wound culture revealed Pseudomonas aeruginosa and Enterobacter Colace, plan is to wait for deep wound culture to narrow down antibiotic choice. Plan is to [facility] patient home with the home health for IV antibiotic if we have full culture sensitivity report of deep wound culture As per Podiatry patient needs 6 weeks of IV antibiotic for osteomyelitis. We will continue following the progress of this patient closely. ROS: Constitutional: Dizziness. No: Fever, Chills, Sweats, Malaise, Other Eyes: bilateral burry vision and double vision. Vision change, Conjunctivae inflammation, Eyelid inflammation, Other, Redness ENT: No: Ear pain, Ear discharge, Nose pain, Nose discharge, Nose congestion, Mouth pain, Mouth swelling, Throat pain, Throat swelling, Other Respiratory: No: Dry, SOB with excertion, Hemoptysis, Pleuritic Pain, Sputum, Wheezing Cardiovascular: No: Chest Pain, Palpitations, Orthopnea, Paroxysmal Noc. Dyspnea, Edema, Lt Headedness, Other Gastrointestinal: No: Nausea, Vomiting, Abdominal Pain, Diarrhea, Constipation, Melena, Hematochezia, Other Genitourinary: No Dysuria, No Frequency, No Incontinence, No Hematuria, No Retention, No Other Musculoskeletal: No: other, neck pain, shoulder pain, arm pain, back pain, hand pain, leg pain, foot pain Skin: No: Rash, Lesions, Jaundice, Bruising, Other Neurological: No: Weakness, Numbness, Incoordination, Change in speech, Confusion, Seizures, Other Objective vital signs Vital Sign Date Time Temp Pulse Resp B/P (MAP) Pulse Ox O2 Delivery O2 Flow Rate FiO2 04/11/25 13:10 98.5 86 20 112/67 (82) 93 98.5 04/11/25 07:45 Room Air* 0 21 Total Intake and Output 04/10/25 04/10/25 04/11/25 15:00 23:00 07:00 Intake Total 890 ml 600 ml 700 ml Output Total 800 ml Balance 890 ml -200 ml 700 ml medications Current Medications Medications Dose Ordered Sig/Javier Route Start Time Stop Time Status Last Admin Dose Admin Sodium Chloride 10 ml Q8HR IV 04/07/25 14:00 04/11/25 14:41 10 ML Acetaminophen/ Hydrocodone Bitart 1 tab Q4HP PRN PO 04/07/25 12:30 04/10/25 04:50 1 TAB Ondansetron HCl 4 mg Q4HP PRN IV 04/07/25 12:30 Acetaminophen 650 mg Q6HP PRN PO 04/07/25 12:30 Carvedilol 3.125 mg BID PO 04/07/25 22:00 04/11/25 08:57 3.125 MG Gabapentin 300 mg TID PO 04/07/25 14:00 04/11/25 14:41 300 MG Patient Own Medication 1 tab DAILY PO 04/08/25 10:00 UNV Patient Own Medication 1 tab DAILY PO 04/08/25 10:00 UNV Atorvastatin Calcium 40 mg HS PO 04/07/25 22:00 04/10/25 21:19 40 MG Enoxaparin Sodium 100 mg Q12HR SC 04/07/25 13:00 04/11/25 08:57 100 MG Losartan Potassium 100 mg DAILY PO 04/08/25 10:00 04/11/25 08:57 100 MG Aspirin 81 mg DAILY PO 04/08/25 10:00 04/11/25 08:57 81 MG Meropenem 50 ml @ 17 mls/hr Q8H IV 04/08/25 12:00 04/11/25 12:14 17 MLS/HR Diagnostic Test (Pha) 1 strip ACHS 04/08/25 17:00 04/11/25 11:30 1 STRIP Insulin Human Regular ACHS SC 04/08/25 17:00 Dextrose 50 ml UD PRN IV 04/08/25 11:45 Insulin Glargine 15 units DAILY@1000 SC 04/09/25 10:00 04/11/25 08:56 15 UNITS Pantoprazole Sodium 40 mg DAILY IV 04/09/25 10:00 04/11/25 08:54 40 MG Hydromorphone HCl 0.25 mg Q4H PRN IV 04/09/25 10:15 04/11/25 09:12 0.25 MG Ciprofloxacin HCl 1 drop Q4HR EACHEYE 04/11/25 14:00 04/11/25 14:40 1 DROP Examination General Appearance: Alert, Oriented X3, Cooperative, No acute distress HEENT: Atraumatic, PERRLA, EOMI, Mucous membr. moist/pink Respiratory: Normal air movement Cardiovascular: Regular rate, Normal S1, Normal S2, No murmurs, no chest pain on palpation of the chest. Abdominal: Normal bowel sounds, Soft, No tenderness, No hepatospenomegaly, No masses Extremities: right lower limb amputation at the level of the right foot. Left foot: edema. The heel is covered by clean dressing. Skin: No breakdown, No significant lesion Neuro: Normal gait, Normal speech, Strength at 5/5 X4 ext, Normal tone, Sensation intact, Cranial nerves 3-12 NL, Reflexes 2+ Psych/Mental Status: Mental status NL, Mood NL laboratory and microbiology Laboratory Tests 04/11/25 05:14 Test 04/11/25 05:14 Range/Units Serum Glucose 111 H 74-106 mg/dL Microbiology Date/Time Source Procedure Growth Status 04/08/25 14:30 Nose MRSA Screen - Final Complete 04/08/25 04:40 Voided Urine Urine Culture - Final Complete 04/07/25 13:30 Blood Blood Culture - Preliminary NO GROWTH AFTER 72 HOURS OF INCUBATION. Resulted Problem List/Assessment/Plan Problem List/Assessment/Plan #Sepsis likely due to left foot cellulitis/osteomyelitis/abscess #Left foot acute on chronic nonhealing diabetic ulcer #Left foot osteomyelitis / abscess /cellulitis #Rule out necrotizing fasciitis #Left foot cellulitis #Left foot osteomyelitis -patient was seen by Podiatry, -status post incision and drainage by Podiatry -patient on IV antibiotic meropenem. -Discontinue: Zyvox, clindamycin 04/11/25 -continue IV fluid as prescribed Doppler study of the left lower extremity negative for DVT -deep Wound culture Gram-negative rods so far, pending sensitivity #Uncontrolled type 2 diabetes, with hyperglycemia -continue insulin sliding scale and lantus 15U am -monitor blood sugar #Acute UTI-possible cystitis UA- LE2+ Continue IV antibiotics: Meropenem Urine culture: no growth so far #Moderate anemia likely due to anemia of chronic disease #Possible GI bleeding -history for occult blood is positive Hemoglobin is stable We will follow up with CBC -plan is to follow up outpatient with GI for further evaluation and care FOBT positive with stable hemoglobin. GI consult: endoscopy as out patient. #Chronic HFmrEF #Hypertensive hearth disease, with systolic heart failure #Chronic Hyperlipidemia #History of thrombus in the heart -continue losartan -continue carvedilol Continue atorvastatin -continue aspirin -continue Lovenox as prescribed Diet: Diabetic Code status: full code Disposition: Home no needs. PCP: Chiara Patient's status and plan discussed with the patient and friend >30min. Patient agrees with the plan Case discussed with Dr. Hensley Plan discussed with: Patient My Orders My Orders Orders - NNEKA LASSITER Procedure Category Date Status Time Ciprofloxacin 0.3% PHA 04/11/25 In Process Opthalmic (Cipro Opth 14:00 Complete Blood Count LAB 04/12/25 Verified 04:00 Basic Metabolic Panel LAB 04/12/25 Verified 04:00 Visit Coding STANDARD RES Billing Provider: JUANJOSE HENSLEY MD Date of Service if different f: Apr 11, 2025 Common Visit Codes: [id number] INP/OBS CARE(HIGH) NNEKA LASSITER RESIDENT Apr 11, 2025 17:13
[2025-04-11 18:37] LABS: Hematocrit 26.1 % (41.0-53.0); Hemoglobin 8.7 g/dL (13.5-17.5)
[2025-04-12] VITALS (8 sets, daily range): BP systolic 100–139; BP diastolic 56–84; PULSE 69–88; RESP 14–18; TEMP 98–99.1; O2SAT 93–98
[2025-04-12 00:06] LABS: Hemoglobin 7.9 g/dL (13.5-17.5)
[2025-04-12 00:08] LABS: Hematocrit 23.2 % (41.0-53.0)
[2025-04-12 07:19] LABS: Hemoglobin 8.4 g/dL (13.5-17.5)
[2025-04-12 07:23] LABS: Hematocrit 25.1 % (41.0-53.0); Mean Corpuscular Hemoglobin 29.2 pg (28.0-32.0); Mean Corpuscular Volume 87.7 fL (80.0-100.0); Nucleated Red Blood Cells % 0.2 %
[2025-04-12 07:29] LABS: Chloride 103 mmol/L (98-107); Potassium 4.4 mmol/L (3.5-5.1); Sodium 140 mmol/L (136-145)
[2025-04-12 07:30] LABS: Anion Gap 8 (5-15); Carbon Dioxide 29 mmol/L (20-31)
[2025-04-12 07:36] LABS: BUN/Creatinine Ratio 11.1 (10.0-20.0)
[2025-04-12 07:39] LABS: Blood Urea Nitrogen 8 mg/dL (9-23); Calcium 8.0 mg/dL (8.7-10.4); Glucose 117 mg/dL (74-106)
--- NOTE | 2025-04-12 14:29 | DVHPNRES ---
Progress Note Date Seen: Apr 12, 2025 Resident Creating Document: MARIANELA DUNAWAY RESIDENT Has the PT tested + for MRSA If YES, has PT been informed?: No Medical Necessity Reason Pt with a Central, PICC or Fol: Yes The following are medically ne: PICC Line Subjective Review of Systems Patient is 65 years old male with diabetes, Chronic HFmrEF, and history of right foot amputation presenting with an infected wound on his left heel that has worsened despite antibiotic treatment.The patient's current infection began at the end of January to beginning of February with a blister on the bottom of his left heel. The blister was initially treated but subsequently became infected. On March 10, he was sent to the emergency room due to the infection and was discharged on March 17 with antibiotics - one intravenous and one oral formulation. Today would have been his last day of antibiotic treatment. However, when he saw his physician, prompting referral back to the hospital. The patient reports that he has not experienced typical signs of infection such as fever or flu-like symptoms, only purulent discharge from the wound. He describes the pain as currently a 5 out of 10 after taking [place] this morning, but states it becomes 10-plus when the medication wears off. The wound is located on the heel of his left foot, which also has lymphedema and swelling. Previous hospitalization from March 10 to March 17, 2024 for foot infection. His right foot was previously amputated on June 22, 2022, due to infection. He currently has no infections at the amputation site. His blood glucose this morning was 77. He lives with his sister and denies smoking, drinking, or drug use. Initial lab workup revealed anemia with a hemoglobin 9.2, ESR 71, A1c 6.1, lactic acidosis with lactic acid 2.9> 2.5, CT scan of the left foot revealed- Soft tissue swelling and emphysema in the plantar hindfoot deep to the calcaneus compatible with infection possibly with gas-forming bacteria. Cellulitis in the medial hindfoot. Periosteal reaction of the plantar surface of the calcaneus may reflect osteomyelitis in the appropriate clinical setting.Elsewhere in the lower extremity (above the ankle) there is marked diffuse soft tissue swelling which may reflect cellulitis or sequelae of venous stasis. Other systemic processes are not excluded. Medical History- Diabetes mellitus 2, HFmrEF, History of blood clot in heart, resolved, Hypertension, Lymphedema Surgical History- Right foot amputation on June 22, 2022, due to infection, I& D to Left foot Medications and Supplements- Metformin, Insulin 20, Atorvastatin, Losartan, Carvedilol, [place], Antibiotics- Zyvox and IV Rocephin Social History-Substance Use: Denies smoking, drinking, or drug use, Living Situation: Lives with sister Patient was seen today at bedside Labs and chart reviewed Pending wound culture sensitivity report Patient has Rubia intertrigo, ordered nystatin Patient was given to have wound VAC after getting discharged SNF or home with the home health No active bleeding noted today from the wound Objective vital signs Vital Sign Date Time Temp Pulse Resp B/P (MAP) Pulse Ox O2 Delivery O2 Flow Rate FiO2 04/12/25 13:00 99.1 71 18 115/70 (85) 94 99.1 04/11/25 20:00 Room Air* 0 21 Total Intake and Output 04/11/25 04/11/25 04/12/25 15:00 23:00 07:00 Intake Total 550 ml 900 ml Output Total 1200 ml 1400 ml Balance -650 ml -500 ml medications Current Medications Medications Dose Ordered Sig/Javier Route Start Time Stop Time Status Last Admin Dose Admin Sodium Chloride 10 ml Q8HR IV 04/07/25 14:00 04/12/25 05:25 10 ML Acetaminophen/ Hydrocodone Bitart 1 tab Q4HP PRN PO 04/07/25 12:30 04/12/25 12:51 1 TAB Ondansetron HCl 4 mg Q4HP PRN IV 04/07/25 12:30 Acetaminophen 650 mg Q6HP PRN PO 04/07/25 12:30 Carvedilol 3.125 mg BID PO 04/07/25 22:00 04/12/25 09:52 3.125 MG Gabapentin 300 mg TID PO 04/07/25 14:00 04/12/25 05:25 300 MG Patient Own Medication 1 tab DAILY PO 04/08/25 10:00 UNV Patient Own Medication 1 tab DAILY PO 04/08/25 10:00 UNV Atorvastatin Calcium 40 mg HS PO 04/07/25 22:00 04/11/25 21:20 40 MG Enoxaparin Sodium 100 mg Q12HR SC 04/07/25 13:00 04/12/25 09:51 100 MG Losartan Potassium 100 mg DAILY PO 04/08/25 10:00 04/12/25 09:53 100 MG Aspirin 81 mg DAILY PO 04/08/25 10:00 04/12/25 09:52 81 MG Meropenem 50 ml @ 17 mls/hr Q8H IV 04/08/25 12:00 04/12/25 12:50 17 MLS/HR Diagnostic Test (Pha) 1 strip ACHS 04/08/25 17:00 04/12/25 06:32 1 STRIP Insulin Human Regular ACHS SC 04/08/25 17:00 Dextrose 50 ml UD PRN IV 04/08/25 11:45 Insulin Glargine 15 units DAILY@1000 SC 04/09/25 10:00 04/12/25 09:55 15 UNITS Pantoprazole Sodium 40 mg DAILY IV 04/09/25 10:00 04/12/25 09:51 40 MG Hydromorphone HCl 0.25 mg Q4H PRN IV 04/09/25 10:15 04/12/25 09:04 0.25 MG Ciprofloxacin HCl 1 drop Q4HR EACHEYE 04/11/25 14:00 04/12/25 09:55 1 DROP Nystatin 1 applic BID TOP 04/12/25 22:00 UNV Examination General Appearance: Alert, Oriented X3, Cooperative, Not in acute distress HEENT: Atraumatic, Mucous membranes moist/pink Respiratory: Clear to auscultation, Normal air movement, No added sounds Cardiovascular: Regular rate, Normal S1, Normal S2, No murmurs Abdominal: Active bowel sounds, Soft, no distention, no tenderness Musculoskeletal: Right foot amputation noted. Left foot with swelling and lymphedema present. Wound observed on the heel of the left foot. Skin: As above Neuro: Normal speech, sensorimotor deficits none Psych/Mental Status: Mental status NL, Mood NL Nurse was there as ballast inspector during examination laboratory and microbiology Laboratory Tests 04/12/25 06:05 Test 04/12/25 06:05 Range/Units Serum Glucose 117 H 74-106 mg/dL Microbiology Date/Time Source Procedure Growth Status 04/08/25 14:30 Nose MRSA Screen - Final Complete 04/08/25 04:40 Voided Urine Urine Culture - Final Complete 04/07/25 13:30 Blood Blood Culture - Final NO GROWTH AFTER 5 DAYS OF INCUBATION. Complete Problem List/Assessment/Plan Problem List/Assessment/Plan Assessment and plan- #Sepsis likely due to left foot cellulitis/osteomyelitis/abscess #Left foot acute on chronic nonhealing diabetic ulcer # left foot osteomyelitis / abscess /cellulitis #Rule out necrotizing fasciitis # left foot cellulitis # left foot osteomyelitis -patient was seen by Podiatry, -status post incision and drainage by Podiatry -patient on IV antibiotic meropenem, -continue IV fluid as prescribed Doppler study of the left lower extremity negative for DVT Blood culture no growth so far, -deep Wound culture Gram-negative rods so far, pending sensitivity -as per Podiatry wound VAC to be placed by the SNF nurse/home health nurse after discharge but not before discharge #Uncontrolled type 2 diabetes -continue insulin as prescribed -monitor blood sugar #Acute UTI- UA- LE2+, WBC- 10 Continue current ABX -Urine CS no growth so far # Rubia intertrigo -ordered nystatin # moderate anemia likely due to anemia of chronic disease -history for occult blood is positive Hemoglobin is stable We will follow up with CBC -plan is to follow up outpatient with GI for further evaluation and care #Chronic HFpEF-echo 2D on 04/09/2025 revealed LVEF 65% #HTN #HLD # history of thrombus in the heart -continue losartan -continue carvedilol Continue atorvastatin -continue aspirin -continue Lovenox as prescribed Goals of care, Code status full code; discussed with >15 minutes PUD prophylaxis: Pantoprazole DVT prophylaxis: Lovenox Plan discussed with Dr. Hunt , nursing staff, Total time spent on patient evaluation, chart review, assessment and plan, discussion discussion >35 minutes Plan discussed with: Patient, Other (RN) My Orders My Orders Orders - MARIANELA DUNAWAY Procedure Category Date Status Time Nystatin Cream PHA 04/12/25 Logged (Mycostatin Cream) 22:00 Visit Coding STANDARD RES Billing Provider: KATJA JOHNSON MD Date of Service if different f: Apr 12, 2025 Common Visit Codes: [id number] INP/OBS CARE(HIGH) MARIANELA DUNAWAY Apr 12, 2025 14:29
[2025-04-12] MEDS: NYSTATIN TOPICAL CREAM 15GM TOP SCH (22:00)
[2025-04-13] VITALS (8 sets, daily range): BP systolic 118–149; BP diastolic 65–82; PULSE 80–104; RESP 16–18; TEMP 98.1–99.9; O2SAT 91–98
[2025-04-13 09:35] LABS: Hematocrit 25.8 % (41.0-53.0); Hemoglobin 8.7 g/dL (13.5-17.5); Mean Corpuscular Hemoglobin 29.3 pg (28.0-32.0); Mean Corpuscular Volume 86.6 fL (80.0-100.0); Nucleated Red Blood Cells % 0.2 %
[2025-04-13 10:03] LABS: Chloride 102 mmol/L (98-107); Potassium 4.5 mmol/L (3.5-5.1); Sodium 140 mmol/L (136-145)
[2025-04-13 10:04] LABS: Anion Gap 7 (5-15); Carbon Dioxide 31 mmol/L (20-31)
[2025-04-13 10:09] LABS: BUN/Creatinine Ratio 9.7 (10.0-20.0)
[2025-04-13 10:10] LABS: Magnesium 2.1 mg/dL (1.6-2.6)
[2025-04-13 10:12] LABS: Blood Urea Nitrogen 7 mg/dL (9-23); Calcium 8.4 mg/dL (8.7-10.4); Glucose 135 mg/dL (74-106)
--- NOTE | 2025-04-13 12:38 | DVHPN2 ---
Dean Antunez is a patient with diabetes, congestive heart failure, and history of right foot amputation presenting with an infected wound on his left heel that has worsened despite antibiotic treatment. The patient's current infection began at the end of January to beginning of February with a blister on the bottom of his left heel. The blister was initially treated but subsequently became infected. On March 10, he was sent to the emergency room due to the infection and was discharged on March 17 with antibiotics - one intravenous and one oral formulation. Today would have been his last day of antibiotic treatment. However, when he saw his physician, prompting referral back to the hospital. The patient reports that he has not experienced typical signs of infection such as fever or flu-like symptoms, only purulent discharge from the wound. He describes the pain as currently a 5 out of 10 after taking [place] this morning, but states it becomes 10-plus when the medication wears off. The wound is located on the heel of his left foot, which also has lymphedema and swelling. Changes from previous H/P or p: No Changes Objective Vitals Vital Signs Date Time Temp Pulse Resp B/P (MAP) Pulse Ox O2 Delivery O2 Flow Rate FiO2 04/13/25 09:11 90 17 149/80 04/13/25 08:36 98.6 94 98.6 04/13/25 08:00 Room Air* 0 21 Intake/Output Intake and Output 04/13/25 07:00 Intake Total 2100 ml Output Total 1600 ml Balance 500 ml Intake Oral 2000 ml IV Total 100 ml Output Urine Total 1600 ml # Voids 7 # Bowel Movements 1 Exam Dermatological: Skin is dry with mild erythema and some maceration around the wound site No gross deformities noted Mild non-pitting edema present bilaterally Left plantar wound with granular base mild bleeding Vascular: Dorsalis pedis and posterior tibial pulses are 1+ bilaterally Capillary refill is under 2 seconds Skin temperature is warm bilaterally Neurologic: Protective sensation is absent on the plantar forefoot bilaterally Monofilament testing reveals decreased sensation in multiple plantar sites Musculoskeletal: Range of motion at the ankle and MTP joints is within normal limits. Strength is 5/5 in all tested muscle groups. Gait is antalgic due to offloading of the affected limb. Medications Current Medications Medications Dose Ordered Sig/Javier Route Start Time Stop Time Status Last Admin Dose Admin Sodium Chloride 10 ml Q8HR IV 04/07/25 14:00 04/13/25 05:26 10 ML Acetaminophen/ Hydrocodone Bitart 1 tab Q4HP PRN PO 04/07/25 12:30 04/12/25 18:49 1 TAB Ondansetron HCl 4 mg Q4HP PRN IV 04/07/25 12:30 Acetaminophen 650 mg Q6HP PRN PO 04/07/25 12:30 Carvedilol 3.125 mg BID PO 04/07/25 22:00 04/13/25 09:10 3.125 MG Gabapentin 300 mg TID PO 04/07/25 14:00 04/13/25 05:26 300 MG Patient Own Medication 1 tab DAILY PO 04/08/25 10:00 UNV Patient Own Medication 1 tab DAILY PO 04/08/25 10:00 UNV Atorvastatin Calcium 40 mg HS PO 04/07/25 22:00 04/12/25 20:51 40 MG Enoxaparin Sodium 100 mg Q12HR SC 04/07/25 13:00 04/13/25 09:09 100 MG Losartan Potassium 100 mg DAILY PO 04/08/25 10:00 04/13/25 09:09 100 MG Aspirin 81 mg DAILY PO 04/08/25 10:00 04/13/25 09:10 81 MG Meropenem 50 ml @ 17 mls/hr Q8H IV 04/08/25 12:00 04/13/25 10:59 17 MLS/HR Diagnostic Test (Pha) 1 strip ACHS 04/08/25 17:00 04/13/25 10:50 1 STRIP Insulin Human Regular ACHS SC 04/08/25 17:00 Dextrose 50 ml UD PRN IV 04/08/25 11:45 Insulin Glargine 15 units DAILY@1000 TN 04/09/25 10:00 04/13/25 09:13 15 UNITS Pantoprazole Sodium 40 mg DAILY IV 04/09/25 10:00 04/13/25 09:09 40 MG Hydromorphone HCl 0.25 mg Q4H PRN IV 04/09/25 10:15 04/13/25 09:11 0.25 MG Ciprofloxacin HCl 1 drop Q4HR EACHEYE 04/11/25 14:00 04/13/25 09:11 1 DROP Nystatin 1 applic BID TOP 04/12/25 22:00 04/13/25 09:10 1 APPLIC Laboratory Results Laboratory Tests 04/13/25 09:17 Chemistry Test 04/13/25 09:17 Calcium Level 8.4 mg/dL (8.7-10.4) L Magnesium Level 2.1 mg/dL (1.6-2.6) Urinalysis Test 04/08/25 04:40 Urine Color Light-yellow (Yellow) Urine Clarity Clear (Clear) Urine pH 5.0 (5.0-9.0) Urine Specific [place] 1.020 (1.001-1.035) Urine Protein Trace (Negative) H Urine Ketones Negative (Negative) Urine Blood Trace /uL (Negative) H Urine Nitrite Negative (Negative) Urine Bilirubin Negative (Negative) Urine Urobilinogen Normal mg/dL (Negative) Urine Leukocyte Esterase 2+ /uL (Negative) Urine RBC 8 /hpf (0 - 3) Urine Microscopic WBC 10 /HPF (0-3) H Urine Squamous Epithelial Cells Few /hpf (<5) Urine Bacteria None seen /hpf (None Seen) Urine Mucus Few (None Seen) Urine Glucose Normal mg/dL (Normal) Microbiology Microbiology Date/Time Source Procedure Growth Status 04/08/25 14:30 Nose MRSA Screen - Final Complete 04/08/25 04:40 Voided Urine Urine Culture - Final Complete 04/07/25 13:30 Blood Blood Culture - Final NO GROWTH AFTER 5 DAYS OF INCUBATION. Complete Assessment/Plan Assessment/Plan ASSESSMENT: Patient is a 65 year old seen on the floor for a worsening ulcer PLAN: - The patients chart was reviewed, clinical findings were discussed with the patient, the etiologies of the conditions were discussed in detail, and a treatment plan was agreed to at this time, with both oral and written instructions provided. - reviewed advanced imaging - wound appears to be healing appropriately - hold off on the wound VAC until he sees me as an outpatient - 6 weeks IV antibiotics - follow up with me 1 week after discharge - Betadine gauze Kerlix [place]agar bandage on his left foot All questions were answered and concerns addressed to the patient's satisfaction. The patient was given the phone number to the clinic and was told how to make contact with the clinic should any concerns or questions arise. Patient understands that if any questions or concerns arise prior to the next appointment, we should be contacted immediately. FOLLOW-UP: Continue to follow while inpatient Plan discussed with: Patient Problem List: (1) Diabetic ulcer of lower extremity (2) Hypoglycemia (3) Sepsis (4) DKA (diabetic ketoacidosis) (5) ACS (acute coronary syndrome) (6) Osteomyelitis of foot, right, acute (7) Cellulitis of left foot (8) Cellulitis of foot, right (9) Leg edema, left (10) Gangrene of right foot (11) Cellulitis and abscess of left lower extremity Visit Coding Podiatry Date of Service if different f: Apr 13, 2025 Billing Provider: LEE ANN SANCHEZ DPM Podiatry Common Visit Codes: [id number] INP/OBS CARE(MOD) LEE ANN SANCHEZ DPM Apr 13, 2025 12:38
--- NOTE | 2025-04-13 15:03 | DVHPNRES ---
Progress Note Date Seen: Apr 13, 2025 Resident Creating Document: MARIANELA DUNAWAY RESIDENT Has the PT tested + for MRSA If YES, has PT been informed?: No Medical Necessity Reason Pt with a Central, PICC or Fol: Yes The following are medically ne: PICC Line Subjective Review of Systems Patient is 65 years old male with diabetes, Chronic HFmrEF, and history of right foot amputation presenting with an infected wound on his left heel that has worsened despite antibiotic treatment.The patient's current infection began at the end of January to beginning of February with a blister on the bottom of his left heel. The blister was initially treated but subsequently became infected. On March 10, he was sent to the emergency room due to the infection and was discharged on March 17 with antibiotics - one intravenous and one oral formulation. Today would have been his last day of antibiotic treatment. However, when he saw his physician, prompting referral back to the hospital. The patient reports that he has not experienced typical signs of infection such as fever or flu-like symptoms, only purulent discharge from the wound. He describes the pain as currently a 5 out of 10 after taking [place] this morning, but states it becomes 10-plus when the medication wears off. The wound is located on the heel of his left foot, which also has lymphedema and swelling. Previous hospitalization from March 10 to March 17, 2024 for foot infection. His right foot was previously amputated on June 22, 2022, due to infection. He currently has no infections at the amputation site. His blood glucose this morning was 77. He lives with his sister and denies smoking, drinking, or drug use. Initial lab workup revealed anemia with a hemoglobin 9.2, ESR 71, A1c 6.1, lactic acidosis with lactic acid 2.9> 2.5, CT scan of the left foot revealed- Soft tissue swelling and emphysema in the plantar hindfoot deep to the calcaneus compatible with infection possibly with gas-forming bacteria. Cellulitis in the medial hindfoot. Periosteal reaction of the plantar surface of the calcaneus may reflect osteomyelitis in the appropriate clinical setting.Elsewhere in the lower extremity (above the ankle) there is marked diffuse soft tissue swelling which may reflect cellulitis or sequelae of venous stasis. Other systemic processes are not excluded. Medical History- Diabetes mellitus 2, HFmrEF, History of blood clot in heart, resolved, Hypertension, Lymphedema Surgical History- Right foot amputation on June 22, 2022, due to infection, I& D to Left foot Medications and Supplements- Metformin, Insulin 20, Atorvastatin, Losartan, Carvedilol, [place], Antibiotics- Zyvox and IV Rocephin Social History-Substance Use: Denies smoking, drinking, or drug use, Living Situation: Lives with sister Patient was seen today at bedside Labs and chart reviewed Pending wound culture sensitivity report Patient was seen by Podiatry today Wound VAC at bedside Social service consult for IV antibiotic ertapenem and Zyvox for [address] Objective vital signs Vital Sign Date Time Temp Pulse Resp B/P (MAP) Pulse Ox O2 Delivery O2 Flow Rate FiO2 04/13/25 14:27 91 16 113/60 04/13/25 13:00 99.0 97 99.0 04/13/25 08:00 Room Air* 0 21 Total Intake and Output 04/12/25 04/12/25 04/13/25 15:00 23:00 07:00 Intake Total 1250 ml 850 ml Output Total 1600 ml Balance 1250 ml -750 ml medications Current Medications Medications Dose Ordered Sig/Javier Route Start Time Stop Time Status Last Admin Dose Admin Sodium Chloride 10 ml Q8HR IV 04/07/25 14:00 04/13/25 13:43 10 ML Acetaminophen/ Hydrocodone Bitart 1 tab Q4HP PRN PO 04/07/25 12:30 04/12/25 18:49 1 TAB Ondansetron HCl 4 mg Q4HP PRN IV 04/07/25 12:30 Acetaminophen 650 mg Q6HP PRN PO 04/07/25 12:30 Carvedilol 3.125 mg BID PO 04/07/25 22:00 04/13/25 09:10 3.125 MG Gabapentin 300 mg TID PO 04/07/25 14:00 04/13/25 13:43 300 MG Patient Own Medication 1 tab DAILY PO 04/08/25 10:00 UNV Patient Own Medication 1 tab DAILY PO 04/08/25 10:00 UNV Atorvastatin Calcium 40 mg HS PO 04/07/25 22:00 04/12/25 20:51 40 MG Enoxaparin Sodium 100 mg Q12HR SC 04/07/25 13:00 04/13/25 09:09 100 MG Losartan Potassium 100 mg DAILY PO 04/08/25 10:00 04/13/25 09:09 100 MG Aspirin 81 mg DAILY PO 04/08/25 10:00 04/13/25 09:10 81 MG Meropenem 50 ml @ 17 mls/hr Q8H IV 04/08/25 12:00 04/13/25 10:59 17 MLS/HR Diagnostic Test (Pha) 1 strip ACHS 04/08/25 17:00 04/13/25 10:50 1 STRIP Insulin Human Regular ACHS SC 04/08/25 17:00 Dextrose 50 ml UD PRN IV 04/08/25 11:45 Insulin Glargine 15 units DAILY@1000 SC 04/09/25 10:00 04/13/25 09:13 15 UNITS Pantoprazole Sodium 40 mg DAILY IV 04/09/25 10:00 04/13/25 09:09 40 MG Hydromorphone HCl 0.25 mg Q4H PRN IV 04/09/25 10:15 04/13/25 13:45 0.25 MG Ciprofloxacin HCl 1 drop Q4HR EACHEYE 04/11/25 14:00 04/13/25 13:43 1 DROP Nystatin 1 applic BID TOP 04/12/25 22:00 04/13/25 09:10 1 APPLIC Examination General Appearance: Alert, Oriented X3, Cooperative, Not in acute distress HEENT: Atraumatic, Mucous membranes moist/pink Respiratory: Clear to auscultation, Normal air movement, No added sounds Cardiovascular: Regular rate, Normal S1, Normal S2, No murmurs Abdominal: Active bowel sounds, Soft, no distention, no tenderness Musculoskeletal: Right foot amputation noted. Left foot with swelling and lymphedema present. Wound observed on the heel of the left foot. Skin: As above Neuro: Normal speech, sensorimotor deficits none Psych/Mental Status: Mental status NL, Mood NL Nurse was there as bin operator during examination laboratory and microbiology Laboratory Tests 04/13/25 09:17 Test 04/13/25 09:17 Range/Units Serum Glucose 135 H 74-106 mg/dL Microbiology Date/Time Source Procedure Growth Status 04/08/25 14:30 Nose MRSA Screen - Final Complete 04/08/25 04:40 Voided Urine Urine Culture - Final Complete 04/07/25 13:30 Blood Blood Culture - Final NO GROWTH AFTER 5 DAYS OF INCUBATION. Complete Problem List/Assessment/Plan Problem List/Assessment/Plan Assessment and plan- #Sepsis likely due to left foot cellulitis/osteomyelitis/abscess #Left foot acute on chronic nonhealing diabetic ulcer # left foot osteomyelitis / abscess /cellulitis #Rule out necrotizing fasciitis # left foot cellulitis # left foot osteomyelitis -patient was seen by Podiatry, -status post incision and drainage by Podiatry -patient on IV antibiotic meropenem, -continue IV fluid as prescribed Doppler study of the left lower extremity negative for DVT Blood culture no growth so far, -deep Wound culture Gram-negative rods so far, pending sensitivity -as per Podiatry wound VAC to be placed by the SNF nurse/home health nurse after discharge but not before discharge -Social service consult for IV antibiotic ertapenem and Zyvox for [address] #Uncontrolled type 2 diabetes -continue insulin as prescribed -monitor blood sugar #Acute UTI- UA- LE2+, WBC- 10 Continue current ABX -Urine CS no growth so far # Rubia intertrigo -ordered nystatin # moderate anemia likely due to anemia of chronic disease -history for occult blood is positive Hemoglobin is stable We will follow up with CBC -plan is to follow up outpatient with GI for further evaluation and care #Chronic HFpEF-echo 2D on 04/09/2025 revealed LVEF 65% #HTN #HLD # history of thrombus in the heart -continue losartan -continue carvedilol Continue atorvastatin -continue aspirin -continue Lovenox as prescribed Goals of care, Code status full code; discussed with >15 minutes PUD prophylaxis: Pantoprazole DVT prophylaxis: Lovenox Plan discussed with Dr. Hunt , nursing staff, Total time spent on patient evaluation, chart review, assessment and plan, discussion discussion >35 minutes Plan discussed with: Patient, Other (RN) Dietary Evaluation Review Comments: Nutrition Recommendation: 1) Pro-stat 1 pk BID, Glucerna 240ml BID 2) CCHO 75gm + cardiac 3) Monitor PO intake, lab values, weight trend, and I/O Expected Outcomes/Goals: Wound to improve FU 3-5 days Visit Coding STANDARD RES Billing Provider: KATJA JOHNSON MD Date of Service if different f: Apr 13, 2025 Common Visit Codes: [id number] INP/OBS CARE(HIGH) MARIANELA DUNAWAY RESIDENT Apr 13, 2025 15:03
[2025-04-13] MEDS ORDERED: ERTAPENEM SOD INJ 1 GM in SODIUM CHL 0.9% 50 ML IV SCH (15:45)
[2025-04-13] MEDS: LINEZOLID 600MG TABLET PO SCH (21:45)
[2025-04-14] VITALS (8 sets, daily range): BP systolic 112–140; BP diastolic 68–81; PULSE 79–92; RESP 16–18; TEMP 97.6–100.5; O2SAT 91–94
[2025-04-14] MEDS: ACETAMINOPHEN 325 MG TAB PO PRN (01:04)
[2025-04-14 06:46] LABS: Anion Gap 7 (5-15); Carbon Dioxide 30 mmol/L (20-31); Chloride 103 mmol/L (98-107); Potassium 4.6 mmol/L (3.5-5.1); Sodium 140 mmol/L (136-145)
[2025-04-14 06:49] LABS: Calcium 8.3 mg/dL (8.7-10.4)
[2025-04-14 06:52] LABS: BUN/Creatinine Ratio 10.3 (10.0-20.0); Magnesium 2.1 mg/dL (1.6-2.6)
[2025-04-14 06:54] LABS: Blood Urea Nitrogen 7 mg/dL (9-23); Glucose 119 mg/dL (74-106)
[2025-04-14] MEDS: ERTAPENEM SOD INJ 1 GM in SODIUM CHL 0.9% 50 ML IV SCH (09:37)
--- NOTE | 2025-04-14 13:31 | DVHDSRES ---
Discharge Summary Date of Admission Resident Creating Document: MARIANELA DUNAWAY RESIDENT Apr 07, 2025 at 12:22 Date of Discharge: Apr 14, 2025 Admitting Diagnosis #Sepsis likely due to left foot cellulitis/osteomyelitis/abscess Labs/Diagnostic Data: Laboratory Results Test 04/14/25 09:04 04/14/25 06:08 04/13/25 09:17 04/09/25 10:00 POC Glucose 159 mg/dl (70-106) Sodium Level 140 mmol/L (136-145) Potassium Level 4.6 mmol/L (3.5-5.1) Chloride Level 103 mmol/L (98-107) Carbon Dioxide Level 30 mmol/L (20-31) Anion Gap 7 (5-15) Blood Urea Nitrogen 7 mg/dL (9-23) Creatinine 0.68 mg/dL (0.700-1.30) Glomerular Filtration Rate Calc 103 mL/min (>90) BUN/Creatinine Ratio 10.3 (10.0-20.0) Serum Glucose 119 mg/dL (74-106) Calcium Level 8.3 mg/dL (8.7-10.4) Magnesium Level 2.1 mg/dL (1.6-2.6) White Blood Count 8.2 10^3/uL (4.4-10.8) Red Blood Count 2.97 10^6/uL (4.5-5.90) Hemoglobin 8.7 g/dL (13.5-17.5) Hematocrit 25.8 % (41.0-53.0) Mean Corpuscular Volume 86.6 fL (80.0-100.0) Mean Corpuscular Hemoglobin 29.3 pg (28.0-32.0) Mean Corpuscular Hemoglobin Concent 33.9 g/dL (32.0-36.0) Red Cell Distribution Width 14.3 % (11.8-14.3) Platelet Count 296 10^3/uL (140-450) Mean Platelet Volume 7.3 fL (6.9-10.8) Neutrophils (%) (Auto) 60.7 % (37.0-80.0) Lymphocytes (%) (Auto) 15.6 % (10.0-50.0) Monocytes (%) (Auto) 10.7 % (0.0-12.0) Eosinophils (%) (Auto) 12.2 % (0.0-7.0) Basophils (%) (Auto) 0.8 % (0.0-2.0) Neutrophils # (Auto) 5.0 10 ^3/uL (1.6-8.6) Lymphocytes # (Auto) 1.3 10 ^3/uL (0.4-5.4) Monocytes # (Auto) 0.9 10 ^3/uL (0-1.3) Eosinophils # (Auto) 1.0 10 ^3/uL (0-0.8) Basophils # (Auto) 0.1 10 ^3/uL (0-0.2) Nucleated Red Blood Cells 0.2 % Stool Occult Blood Sample #3 Positive (Negative) Test 04/09/25 04:46 04/08/25 13:24 04/08/25 04:40 04/07/25 13:27 Reticulocyte Count (auto) 1.22 % (0.5-1.5) Iron Level 67 ug/dL (65-175) Total Iron Binding Capacity 146 ug/dL (250-425) Percent Iron Saturation 45.9 % (20-55) Ferritin 170.6 ng/mL (22-322) Total Bilirubin 0.3 mg/dL (0.2-1.0) Aspartate Amino Transferase (AST) 22 U/L (13-40) Alanine Aminotransferase (ALT) 21 U/L (7-40) Alkaline Phosphatase 67 U/L (46-116) Total Protein 6.0 g/dL (5.7-8.2) Albumin 3.2 g/dL (3.2-4.8) Lactic Acid Level 1.3 mmol/L (0.4-2.0) Urine Color Light-yellow (Yellow) Urine Clarity Clear (Clear) Urine pH 5.0 (5.0-9.0) Urine Specific [place] 1.020 (1.001-1.035) Urine Protein Trace (Negative) Urine Ketones Negative (Negative) Urine Blood Trace /uL (Negative) Urine Nitrite Negative (Negative) Urine Bilirubin Negative (Negative) Urine Urobilinogen Normal mg/dL (Negative) Urine Leukocyte Esterase 2+ /uL (Negative) Urine RBC 8 /hpf (0 - 3) Urine Microscopic WBC 10 /HPF (0-3) Urine Squamous Epithelial Cells Few /hpf (<5) Urine Bacteria None seen /hpf (None Seen) Urine Mucus Few (None Seen) Urine Glucose Normal mg/dL (Normal) Urine Opiates Screen Pos (NEGATIVE) Urine Fentanyl Screen Neg (NEGATIVE) Urine Barbiturates Screen Neg (NEGATIVE) Urine Phencyclidine Screen Neg (NEGATIVE) Urine Amphetamines Screen Neg (NEGATIVE) Urine Benzodiazepines Screen Neg (NEGATIVE) Urine Cocaine Screen Neg (NEGATIVE) Urine Cannabinoids Screen Neg (NEGATIVE) Prothrombin Time 13.0 sec (9.3-11.8) Prothrombin Time INR 1.25 (0.9-1.15) Activated Partial Thromboplast Time 35.0 SEC (24.5-34.5) Test 04/07/25 10:47 Erythrocyte Sedimentation Rate 71 mm/hr (0-20) Hemoglobin A1c 6.1 % A1C (<5.7) C-Reactive Protein High Sensitivity 8.36 mg/dL (<1.0) B-Type Natriuretic Peptide 115.37 pg/mL (0-100) Other Laboratory Tests 04/14/25 06:08 04/13/25 09:17 Brief Hx & Hospital Course: Patient is 65 years old male with diabetes, Chronic HFmrEF, and history of right foot amputation presenting with an infected wound on his left heel that has worsened despite antibiotic treatment.The patient's current infection began at the end of January to beginning of February with a blister on the bottom of his left heel. The blister was initially treated but subsequently became infected. On March 10, he was sent to the emergency room due to the infection and was discharged on March 17 with antibiotics - one intravenous and one oral formulation. Today would have been his last day of antibiotic treatment. However, when he saw his physician, prompting referral back to the hospital. The patient reports that he has not experienced typical signs of infection such as fever or flu-like symptoms, only purulent discharge from the wound. He describes the pain as currently a 5 out of 10 after taking [place] this morning, but states it becomes 10-plus when the medication wears off. The wound is located on the heel of his left foot, which also has lymphedema and swelling. Previous hospitalization from March 10 to March 17, 2024 for foot infection. His right foot was previously amputated on June 22, 2022, due to infection. He currently has no infections at the amputation site. His blood glucose this morning was 77. He lives with his sister and denies smoking, drinking, or drug use. Initial lab workup revealed anemia with a hemoglobin 9.2, ESR 71, A1c 6.1, lactic acidosis with lactic acid 2.9> 2.5, CT scan of the left foot revealed- Soft tissue swelling and emphysema in the plantar hindfoot deep to the calcaneus compatible with infection possibly with gas-forming bacteria. Cellulitis in the medial hindfoot. Periosteal reaction of the plantar surface of the calcaneus may reflect osteomyelitis in the appropriate clinical setting.Elsewhere in the lower extremity (above the ankle) there is marked diffuse soft tissue swelling which may reflect cellulitis or sequelae of venous stasis. Other systemic processes are not excluded. Hospital course-during hospital course patient was seen by Podiatry, had incision and drainage. Depart culture revealed Enterococcus Colace and Pseudomonas aeruginosa, both sensitive to meropenem. Patient is being discharged to SNF for IV meropenem 1 g q.8h antibiotic for 6 weeks due to osteomyelitis and also for wound care. Wound VAC is to be placed by wound care nurse at [facility]. Patient was advised to follow up with the MD at SNF/PCP. Patient was also advised to follow up with Podiatry in 1 week. Follow up with the CBC/CMP/ESR/CRP every week and has been reviewed by PCP/MD at [facility]. All consciousness answered. Patient was hemodynamically stable on discharge. Assessment #Sepsis likely due to left foot cellulitis/osteomyelitis/abscess #Left foot acute on chronic nonhealing diabetic ulcer # left foot osteomyelitis / abscess /cellulitis #Rule out necrotizing fasciitis # left foot cellulitis # left foot osteomyelitis #Uncontrolled type 2 diabetes #Acute UTI- # Rubia intertrigo # moderate anemia likely due to anemia of chronic disease #Chronic HFpEF-echo 2D on 04/09/2025 revealed LVEF 65% #HTN #HLD Plan Discharged to SNF with IV antibiotic meropenem 1 g IV q.8h for 6 weeks and also wound care Please follow up with the MD at [facility]/PCP Please follow up with the Podiatry in 1 week Follow up with the CBC/CMP/ESR/CRP every week and has been reviewed by PCP/MD at [facility]. Plan of care discussed with Dr. Hunt Operations or Procedures [address] [address] Ph: [phone] DIAGNOSTIC IMAGING Diagnostic Imaging Report : [id number] Signed PATIENT: DEX LOPEZ ACCT: [id number] UNIT: [id number] : 1960 LOC: ER ROOM / BED: / AGE / SEX: 65 / M ADM STATUS: REG ER SERVICE 1026 ORDERING PHYSICIAN: MIKE PEREA DO PROCEDURE(s): LFTCT - CT L FOOT WO CONTRAST REASON: FOOT ULCER/WOUND ORDER NUMBER(s): [id number], ACCESSION NUMBER(s): [id number] CLINICAL INDICATION: FOOT ULCER/WOUND TECHNIQUE: Noncontrast CT of the left foot was performed. Sagittal and coronal reformatted images are provided. COMPARISON: CT CT L FOOT WO CONTRAST on DOS: 03/10/25. CT Dose: CTDI volume is mGy. Dose-length product is mGy*cm FINDINGS: There is soft tissue swelling and a focus of gas in the plantar hindfoot deep to the calcaneus suspicious for cellulitis and infection with gas-forming bacteria. This is in close proximity to the calcaneus. More focally prominent soft tissue swelling and ulceration is noted along the medial hindfoot. There is mild periosteal reaction along the calcaneus. No cortical destruction or erosion. Diffuse osseous demineralization is present throughout the entire foot. No fracture or dislocation. Joint spaces are similar to prior study. No CT evidence of significant joint effusion. There is marked soft tissue swelling throughout the visualized foot. Vascular calcifications are noted. Prosthesis noted in the contralateral lower extremity seen on the mental retardation nurse image. IMPRESSION: 1. Soft tissue swelling and emphysema in the plantar hindfoot deep to the calcaneus compatible with infection possibly with gas-forming bacteria. Cellulitis in the medial hindfoot. 2. Periosteal reaction of the plantar surface of the calcaneus may reflect osteomyelitis in the appropriate clinical setting. 3. Elsewhere in the lower extremity (above the ankle) there is marked diffuse soft tissue swelling which may reflect cellulitis or sequelae of venous stasis. Other systemic processes are not excluded. All CT scans at this medical facility are performed using dose modulation techniques as appropriate to a performed exam including the following: Automated exposure control was utilized; adjustment of the MA and/or KV according to patient size; and use of iterative reconstruction technique. ATED BY: NICOLE WONG MD DICTATED DATE/TIME: 04/07/251122 SIGNED BY: NICOLE WONG MD SIGNED DATE/TIME: 04/07/251122 CC: [address] [id number] Ph: [phone] DIAGNOSTIC IMAGING Diagnostic Imaging Report : [id number] Signed PATIENT: DEX LOPEZ ACCT: [id number] UNIT: [id number] : 1960 LOC: OVERFLOW ROOM / BED: 1028-ER / A AGE / SEX: 65 / M ADM STATUS: ADM IN SERVICE 1222 ORDERING PHYSICIAN: KRYSTA IGLESIAS PROCEDURE(s): CXR1 - CHEST XRAY 1 VIEW REASON: PICC line and preop ORDER NUMBER(s): [id number], ACCESSION NUMBER(s): [id number] CHEST RADIOGRAPH INDICATION: PICC line and preop TECHNIQUE: Single frontal view of the chest was obtained COMPARISON: XY CHEST XRAY 1 VIEW on DOS: 03/10/25, XY CHEST XRAY 1 VIEW on DOS: 10/19/24, XY CHEST PORTABLE on DOS: 04/01/23, XY CHEST PORTABLE on DOS: 01/26/23, XY CHEST PORTABLE on DOS: 07/01/22 FINDINGS: Lines and Tubes: Right PICC in satisfactory position overlying the superior vena cava. Lungs: Clear Pleura: No effusion. No pneumothorax. Cardiomediastinal contours: Unremarkable Bones: Unremarkable IMPRESSION: Right PICC in satisfactory position. ATED BY: EUGENE QUIÑONEZ MD DICTATED DATE/TIME: 04/07/251313 SIGNED BY: EUGENE QUIÑONEZ MD SIGNED DATE/TIME: 04/07/251313 CC: [address] [address] Ph: [phone] DIAGNOSTIC IMAGING Diagnostic Imaging Report : [id number] Signed PATIENT: DEX LOPEZ ACCT: [id number] UNIT: [id number] : 1960 LOC: CENTRAL ROOM / BED: 0208 / A AGE / SEX: 65 / M ADM STATUS: ADM IN SERVICE 0835 ORDERING PHYSICIAN: MARIANELA DUNAWAY RESIDENT PROCEDURE(s): LLDVT - LT Lower DVT REASON: ?DVT ORDER NUMBER(s): [id number], ACCESSION NUMBER(s): [id number] Left lower extremity venous duplex CLINICAL HISTORY: DVT COMPARISON: US LT LOWER DVT on DOS: 03/10/25, US LT LOWER DVT on DOS: 01/02/25, US LT LOWER DVT on DOS: 10/18/24, US RT LOWER DVT on DOS: 06/17/22 TECHNIQUE: Duplex Doppler evaluation of the deep venous system of the left lower extremity from the common femoral vein to the popliteal vein including color Doppler and spectral/pulsed waveform analysis was performed. FINDINGS: The common femoral vein demonstrates appropriate compressibility and waveform variability. There is compressibility/patency of the great saphenous vein at the proximal thigh. The femoral vein demonstrates appropriate compressibility and waveform variability. The deep femoral vein demonstrates appropriate compressibility and waveform variability. The popliteal vein demonstrates appropriate compressibility and waveform variability. There is normal compressibility at the tibioperoneal trunk. Prominent inguinal lymph nodes measure up to 3.1 cm. IMPRESSION: 1. No left femoropopliteal venous thrombosis. 2. Prominent left inguinal lymph nodes measuring up to 3.1 cm. ATED BY: COLBY LIMON MD DICTATED DATE/TIME: 04/09/25611 SIGNED BY: COLBY LIMON MD SIGNED DATE/TIME: 04/09/25611 CC: Condition at Discharge: Stable Final Diagnosis/Problems List #Sepsis likely due to left foot cellulitis/osteomyelitis/abscess #Left foot acute on chronic nonhealing diabetic ulcer # left foot osteomyelitis / abscess /cellulitis #Rule out necrotizing fasciitis # left foot cellulitis # left foot osteomyelitis Discharge Disposition: [facility] Facility Discharge Instruct/Medications Diet: Consistent carbohydrate, Cardiac 2g Na,low cholest Activity: Light activity Follow Up/Referral: AT [facility] PCP Medications: ABOVE Scheduled Apixaban Base (Eliquis), 5 MG PO BID Aspirin (Chewable Aspirin), 1 TAB PO DAILY, (Reported) Calcipotriene (Calcipotriene), 0.005 % TOP BID, (Reported) Carvedilol (Carvedilol), 1 TAB PO BID, (Reported) Gabapentin (Gabapentin), 300 MG PO TID, (Reported) Insulin Glargine (Lantus Solostar), 20 UNIT SC DAILY, (Reported) Insulin Regular (Human) (Humulin R), UNIT SC TID, (Reported) Linezolid (Zyvox), 600 MG PO BID Losartan Potassium (Losartan Potassium), 1 TAB PO DAILY, (Reported) Metformin Hydrochloride (Metformin Hcl), 500 MG PO DAILY, (Reported) Multiple Vitamin (Multivitamins), 1 TAB PO DAILY, (Reported) Mupirocin (Pseudomonas Fluores (Mupirocin), 2 % TOP BID, (Reported) Triamcinolone Acetonide (Triamcinolone Acetonide), 1 APPLIC TOP BID, (Reported) Triamcinolone Acetonide (Triamcinolone Acetonide), 1 APPLIC TOP BID, (Reported) Scheduled PRN Hydrocodone-Acetaminophen (Hydrocodone Bitartrate/AC 5-325 mg), 1 TAB PO Q6HP PRN Miscellaneous Medications Atorvastatin Calcium (Atorvastatin Calcium), 1 TAB PO, (Reported) Hydrocodone-Acetaminophen (Hydrocodone Bitartrate/AC 5-325 mg), 1 TAB PO, (Reported) Latanoprost (Latanoprost), EACHEYE, (Reported) Nitroglycerin (Ntrostat Sublingual), (Reported) Durable Medical Equipment Blood Glucose Monitoring Suppl (D-Care Glucometer Kit/Glu W/Device), KIT XX BID, (DME) Insulin Syringe/Needle U-100 (Trueplus Insulin Syringe/), UD, (Reported), (DME) Insulin Syringes (Disposable) (Bd Insulin Syringe Luer-L), ML XX DAILY, (DME) Lancets (Advocate Lancets), UNIT XX BID, (DME) Discharge Statement: "Patient was advised to return to the ER or call 911 if any headaches, dizziness, shortness of breath, chest pain, abdominal pain, bleeding, fevers, or worsening of medical condition. Patient was counseled about treatment plan, medications, possible side effects, patientverbalized understanding. All questions were answered to the best of my ability. This discharge took greater then 30 minutes in planning, reviewing documentation, counseling the patient, and discussing with other team members." ASSESSMENT ASSESSMENT Assessment #Sepsis likely due to left foot cellulitis/osteomyelitis/abscess #Left foot acute on chronic nonhealing diabetic ulcer # left foot osteomyelitis / abscess /cellulitis #Rule out necrotizing fasciitis # left foot cellulitis # left foot osteomyelitis Visit Coding STANDARD RES Billing Provider: KATJA JOHNSON MD Date of Service if different f: Apr 14, 2025 Common Visit Codes: 23171-HYX/OBS DISCH DAY >30min MARIANELA DUNAWAY RESIDENT Apr 14, 2025 13:31 KATJA JOHNSON MD Apr 19, 2025 20:27
[2025-04-14] MEDS: MEROPENEM 1GM IVPB 50 ML IV SCH (21:17)
[2025-04-15] VITALS (8 sets, daily range): BP systolic 138–151; BP diastolic 78–88; PULSE 83–89; RESP 17–18; TEMP 97.4–98.4; O2SAT 91–93
--- NOTE | 2025-04-15 19:10 | DVHPNRES ---
Progress Note Date Seen: Apr 15, 2025 Resident Creating Document: MARIANELA DUNAWAY RESIDENT Has the PT tested + for MRSA If YES, has PT been informed?: No Medical Necessity Reason Pt with a Central, PICC or Fol: Yes The following are medically ne: PICC Line Subjective Review of Systems Patient is seen today at bedside Labs and chart reviewed Patient had no complaint Patient is due to be transferred to [facility] tonight Objective vital signs Vital Sign Date Time Temp Pulse Resp B/P (MAP) Pulse Ox O2 Delivery O2 Flow Rate FiO2 04/15/25 17:00 98.2 85 17 151/88 (109) 93 98.2 04/15/25 07:45 Room Air* 0 21 Total Intake and Output 04/14/25 04/14/25 04/15/25 15:00 23:00 07:00 Intake Total 770 ml 920 ml 1486 ml Output Total 1750 ml 980 ml Balance 770 ml -830 ml 506 ml medications Current Medications Medications Dose Ordered Sig/Javier Route Start Time Stop Time Status Last Admin Dose Admin Sodium Chloride 10 ml Q8HR IV 04/07/25 14:00 04/15/25 14:58 10 ML Acetaminophen/ Hydrocodone Bitart 1 tab Q4HP PRN PO 04/07/25 12:30 04/14/25 16:13 1 TAB Ondansetron HCl 4 mg Q4HP PRN IV 04/07/25 12:30 Acetaminophen 650 mg Q6HP PRN PO 04/07/25 12:30 04/14/25 01:04 650 MG Carvedilol 3.125 mg BID PO 04/07/25 22:00 04/15/25 10:10 3.125 MG Gabapentin 300 mg TID PO 04/07/25 14:00 04/15/25 14:51 300 MG Patient Own Medication 1 tab DAILY PO 04/08/25 10:00 UNV Patient Own Medication 1 tab DAILY PO 04/08/25 10:00 UNV Atorvastatin Calcium 40 mg HS PO 04/07/25 22:00 04/14/25 21:18 40 MG Enoxaparin Sodium 100 mg Q12HR SC 04/07/25 13:00 04/15/25 10:08 100 MG Losartan Potassium 100 mg DAILY PO 04/08/25 10:00 04/15/25 10:11 100 MG Aspirin 81 mg DAILY PO 04/08/25 10:00 04/15/25 10:09 81 MG Diagnostic Test (Pha) 1 strip ACHS 04/08/25 17:00 04/15/25 17:00 1 STRIP Insulin Human Regular ACHS SC 04/08/25 17:00 04/15/25 17:00 2 UNITS Dextrose 50 ml UD PRN IV 04/08/25 11:45 Insulin Glargine 15 units DAILY@1000 SC 04/09/25 10:00 04/15/25 10:07 15 UNITS Pantoprazole Sodium 40 mg DAILY IV 04/09/25 10:00 04/15/25 10:10 40 MG Hydromorphone HCl 0.25 mg Q4H PRN IV 04/09/25 10:15 04/15/25 14:53 0.25 MG Ciprofloxacin HCl 1 drop Q4HR EACHEYE 04/11/25 14:00 04/15/25 18:51 1 DROP Nystatin 1 applic BID TOP 04/12/25 22:00 04/15/25 10:13 1 APPLIC Meropenem 50 ml @ 17 mls/hr Q8HR IV 04/14/25 22:00 04/15/25 14:51 17 MLS/HR laboratory and microbiology Laboratory Tests 04/14/25 06:08 04/13/25 09:17 Test 04/14/25 06:08 Range/Units Serum Glucose 119 H 74-106 mg/dL Microbiology Date/Time Source Procedure Growth Status 04/08/25 14:30 Nose MRSA Screen - Final Complete 04/08/25 04:40 Voided Urine Urine Culture - Final Complete 04/07/25 13:30 Blood Blood Culture - Final NO GROWTH AFTER 5 DAYS OF INCUBATION. Complete Problem List/Assessment/Plan Problem List/Assessment/Plan Assessment and plan- #Sepsis likely due to left foot cellulitis/osteomyelitis/abscess #Left foot acute on chronic nonhealing diabetic ulcer # left foot osteomyelitis / abscess /cellulitis #Rule out necrotizing fasciitis # left foot cellulitis # left foot osteomyelitis -patient was seen by Podiatry, -status post incision and drainage by Podiatry -patient on IV antibiotic meropenem, -continue IV fluid as prescribed Doppler study of the left lower extremity negative for DVT Blood culture no growth so far, -deep Wound culture Gram-negative rods so far, pending sensitivity -as per Podiatry wound VAC to be placed by the SNF nurse/home health nurse after discharge but not before discharge -Social service consult for IV antibiotic ertapenem and Zyvox for [address] #Uncontrolled type 2 diabetes -continue insulin as prescribed -monitor blood sugar #Acute UTI- UA- LE2+, WBC- 10 Continue current ABX -Urine CS no growth so far # Rubia intertrigo -ordered nystatin # moderate anemia likely due to anemia of chronic disease -history for occult blood is positive Hemoglobin is stable We will follow up with CBC -plan is to follow up outpatient with GI for further evaluation and care #Chronic HFpEF-echo 2D on 04/09/2025 revealed LVEF 65% #HTN #HLD # history of thrombus in the heart -continue losartan -continue carvedilol Continue atorvastatin -continue aspirin -continue Lovenox as prescribed Goals of care, Code status full code; discussed with >15 minutes PUD prophylaxis: Pantoprazole DVT prophylaxis: Lovenox Plan discussed with Dr. Hunt , nursing staff, Total time spent on patient evaluation, chart review, assessment and plan, discussion discussion >35 minutes Plan discussed with: Patient, Other Dietary Evaluation Review Comments: Nutrition Recommendation: 1) Pro-stat 1 pk BID, Glucerna 240ml BID 2) CCHO 75gm + cardiac 3) Monitor PO intake, lab values, weight trend, and I/O Expected Outcomes/Goals: Wound to improve FU 3-5 days Visit Coding STANDARD RES Billing Provider: KATJA JOHNSON MD Date of Service if different f: Apr 15, 2025 Common Visit Codes: 67224-[id number] INP/OBS CARE(HIGH) MARIANELA DUNAWAY RESIDENT Apr 15, 2025 19:10
== END 2025-04-15 21:04 | DRG 872 ==
LOC: ER 09:46 → OVERFLOW 12:22 → CENTRAL 04-08 16:27
PROVIDERS: ADMIT Student in an Organized Health Care Education/Training Program; ATTEND Student in an Organized Health Care Education/Training Program
PROC: 0Y9N0ZZ Drainage of Left Foot, Open Approach (ICD-10-PCS; principal; 2025-04-08 10:06)
DX: A41.9 Sepsis, unspecified organism (principal); E11.52 Type 2 diabetes mellitus with diabetic peripheral angiopathy with gangrene; I50.22 Chronic systolic (congestive) heart failure; M86.171 Other acute osteomyelitis, right ankle and foot; D63.8 Anemia in other chronic diseases classified elsewhere; B37.2 Candidiasis of skin and nail; L03.116 Cellulitis of left lower limb; L02.416 Cutaneous abscess of left lower limb; L03.115 Cellulitis of right lower limb; I11.0 Hypertensive heart disease with heart failure; J43.9 Emphysema, unspecified; N39.0 Urinary tract infection, site not specified; E11.621 Type 2 diabetes mellitus with foot ulcer; E11.622 Type 2 diabetes mellitus with other skin ulcer; E78.5 Hyperlipidemia, unspecified; E11.69 Type 2 diabetes mellitus with other specified complication; E11.649 Type 2 diabetes mellitus with hypoglycemia without coma; I89.0 Lymphedema, not elsewhere classified; Z83.3 Family history of diabetes mellitus; Z86.73 Personal history of transient ischemic attack (TIA), and cerebral infarction without residual deficits; Z89.519 Acquired absence of unspecified leg below knee; Z89.431 Acquired absence of right foot; Z90.49 Acquired absence of other specified parts of digestive tract; Z88.1 Allergy status to other antibiotic agents; Z88.0 Allergy status to penicillin; Z79.82 Long term (current) use of aspirin; Z79.84 Long term (current) use of oral hypoglycemic drugs; Z79.4 Long term (current) use of insulin; Z79.899 Other long term (current) drug therapy
CPT/HCPCS: 36415; 71045; 73700; 80048; 80053; 80307; 81001; 82270; 82728; 82962; 83036; 83540; 83550; 83605; 83735; 83880; 85014; 85018; 85025; 85045; 85610; 85652; 85730; 86141; 86850; 86900; 86901; 87040; 87070; 87075; 87077; 87081; 87086; 87186; 87205; 93306; 93971; 97163; G0378; J1100; J1335; J1815; J2003; J2185; J2250; J2470; J2704; J3490